=== PATIENT | male | born 1940 | race Two or more races ===

== ENCOUNTER 2019-09-25 02:37 | Inpatient (IN) | payer MEDICARE ==
[~2019-09-25] VITALS: Ht 182.9 cm; Wt 72.3 kg
[2019-09-25] VITALS (43 sets, daily range): BP systolic 70–185; BP diastolic 44–124
--- NOTE | 2019-09-25 02:45 | NUR ---
ED Nurse Note: pt JADE NEDA RA 28 from [facility] for SOB and dyspnea for unk amount of time. EMS report that they arrived on scene to pt being on a NRB mask satting at around 86%, SNF staff state they left the pt room for a "short amount of time" and when they returned, pt was in respiratory distress. EMS placed pt on C-pap machine, bringing his saturation up to 90%. pt presents AOxO, unarousable to name, mildly arousable to pain, pulling at cords and tubing. he has a g-tube secured via abdominal binder. pt sounds congested, EMS report SNF staff attempted to suction but were not able to suction anything. pt has skin tear to L forearm, redness diffusely over bilat arms, redness to rectum, skin is warm to touch.
--- NOTE | 2019-09-25 02:50 | NUR ---
ED Nurse Note: wong cath placed per ERMD orders, draining viscous brown fluid then red fluid filling up entire wong bag volume in approximately 20 minutes. specimen was obtained, remaining urine in wong bag was emptied. RN's established 2 IV sites- one 20 g on R forearm and one 20 g on L forearm, both are intact and patent, flushing well. all bloodwork obtained and sent to lab
--- NOTE | 2019-09-25 02:51 | Emergency Room Report ---
History of Present Illness General Chief Complaint: Dyspnea/Respdistress Source: Family Member, Medical Record, EMS Present Illness HPI This is a 79-year-old male custodial patient who presents with chief complaint of respiratory distress. Onset tonight. Oxygenation was in the 88% on room air. Computational Linguist put him on CPAP and sent him here. According to them, custodial noted that this occurred tonight. He has cough and congestion. Appear to be choking. He was admitted to an outside hospital a month ago for pneumonia and up with a feeding tube. Patient has a history of sepsis, pneumonia, depression. He is a full code. History is limited in this patient because of his medical condition. History is through custodial note, EMS and his . Allergies: Coded Allergies: No Known Allergies (Unverified , 09/25/19) COVID-19 Screening Contact w/high risk pt: Yes Experienced COVID-19 symptoms?: Yes COVID-19 Testing performed STRAIGHT TOOTH GEAR GENERATOR OPERATOR: No Patient History Past Medical History: see triage record, old chart reviewed Past Surgical History: other Pertinent Family History: none Social History: Denies: smoking Immunizations: other Reviewed Nursing Documentation: PMH: Agreed; PSxH: Agreed Review of Systems Respiratory: Reports: cough, shortness of breath All Other Systems: limited - Secondary to condition Physical Exam Vital Signs Date Time Temp Pulse Resp B/P (MAP) Pulse Ox O2 Delivery O2 Flow Rate FiO2 09/25/19 02:38 98.8 90 28 145/88 (107) 85 Non-Rebreather Vitals with hypoxia Sp02 EP Interpretation: reviewed, abnormal General Appearance: severe distress, Chronically Ill, Stupor Head: normocephalic, atraumatic Eyes: bilateral eye PERRL, bilateral eye EOMI ENT: hearing grossly normal, dry mucus membranes Neck: full range of motion, supple, no meningismus Respiratory: chest non-tender, respiratory distress, decreased breath sounds, accessory muscle use, rales, rhonchi Cardiovascular #1: regular rate, rhythm, no murmur Gastrointestinal: normal bowel sounds, non tender, no mass, no organomegaly, no bruit, non-distended Musculoskeletal: other - 1+ pitting edema Neurologic: other - Grimace to painful stimuli Psychiatric: other Skin: other Lymphatic: no adenopathy Procedures Critical Care Time Critical Care Time Critical care is mandated in this patient who presented with sepsis and acute renal failure with hyperkalemia. Patient require my urgent intervention to attenuate the risks of metabolic collapse which may lead to cardiovascular collapse and . Critical care time is 75 minutes excluding any reportable procedure. Critical care time included evaluation, multiple reevaluation, looking at old charts, interpreting laboratory and diagnostic data, discussing case with patient and family and consultants, and charting. Central Line Central Line : Consent: Emergent Central Line Lumen: double Maximal Sterile Barrier Tech: yes cap, yes mask, yes sterile gown, yes sterile gloves, yes large sterile sheet, yes hand hygiene, yes chlorhexidine prep Central Line Postion: femoral (R) Anesthesia: Lidocaine cc's of anesthesia: 10 Complications: none Central Line Post Position: sutured Attempts: One Patient Tolerated: Well Complications: None Progress Because of his hyperkalemia, I place a Makur double-lumen dialysis catheter in the right femoral vein. This was done under sterile condition using Seldinger technique. There is good blood flow return. Patient tolerated surgery without any problem. No complication. Medical Decision Making Diagnostic Impression: Primary Impression: Sepsis Qualified Codes: A41.9 - Sepsis, unspecified organism; R65.20 - Severe sepsis without septic shock; N17.9 - Acute kidney failure, unspecified Additional Impressions: HCAP (healthcare-associated pneumonia) UTI (urinary tract infection) Qualified Codes: N30.00 - Acute cystitis without hematuria Respiratory failure with hypoxia Qualified Codes: J96.01 - Acute respiratory failure with hypoxia ARF (acute renal failure) Qualified Codes: N17.9 - Acute kidney failure, unspecified Acute hyperkalemia Hyponatremia ACS (acute coronary syndrome) Acute metabolic encephalopathy ER Course This patient presents with hypoxia and respiratory distress. He has multi lobar infiltrates on the chest x-ray. COVID is negative. Also with sepsis from UTI. Wide spectrum antibiotics given. He is severely dehydrated with acute renal failure and hyperkalemia. Hyperkalemia treated with medication. If not improved, he may need emergent dialysis. Indeterminate troponin level is probably secondary to troponin leak from sepsis and acute renal failure. I discussed case with Dr. Segura for admission and Dr. Rachel for nephrology consult for dialysis. I discussed the case with his Ruma Padilla. Home phone number is . Her cell phone number is [phone]. She confirmed that he is a full code. Lab Results Impression Labs showed acute renal failure with hyperkalemia EKG Diagnostic Results Rate: normal Rhythm: NSR, other ST Segments: other - wide complex qrs Rhythm Strip Diag. Results EP Interpretation: yes Rate: 97 Rhythm: NSR, no PVC's, no ectopy Chest X-Ray Diagnostic Results Chest X-Ray Diagnostic Results : Chest X-Ray Ordered: Yes # of Views/Limited/Complete: 1 View Indication: Shortness of Breath EP Interpretation: Yes Interpretation: no effusion, no pneumothorax, other - Multi lobar interstitial infiltrates Impression: Other - interstitial infiltrates Electronically Signed by: Leonardo Almeida MD Last Vital Signs Date Time Temp Pulse Resp B/P (MAP) Pulse Ox O2 Delivery O2 Flow Rate FiO2 09/25/19 02:38 98.8 90 28 145/88 (107) 85 Non-Rebreather Status: improved Disposition: ADMITTED INPATIENT Condition: Critical Leonardo Almeida MD Sep 25, 2019 02:51
--- NOTE | 2019-09-25 02:59 | NUR ---
ED Nurse Note: Xray at bedside
[2019-09-25] MEDS ORDERED: ACETAMINOPHEN325 M1 GT ×2 (03:00→03:01)
[2019-09-25] MEDS ORDERED: CHOLECAL DF 951 EACH GT (03:00)
[2019-09-25] MEDS ORDERED: SINEMET 25-1001 EAC1 GT (03:01)
[2019-09-25] MEDS ORDERED: ALBUTEROL2.5 MG/3 M INH (03:01)
[2019-09-25] MEDS ORDERED: FAMOTIDINE20 MG GT (03:03)
[2019-09-25] MEDS ORDERED: DOCUSATE SODIU100 MG GT (03:03)
[2019-09-25 03:04] LABS: APPEARANCE,URINE CLOUDY; BILIRUBIN, URINE NEGATIVE (NEGATIVE); GLUCOSE, URINE (UA) NEGATIVE (NEGATIVE); KETONES,URINE NEGATIVE (NEGATIVE); LEUKOCYTE ESTERASE ,URINE 3+ (NEGATIVE); NITRITE,URINE NEGATIVE (NEGATIVE); PH,URINE 7 (4.5-8.0); PROTEIN,URINE 3+ (NEGATIVE); UROBILINOGEN,URINE NORMAL MG/DL (0.0-1.0)
[2019-09-25] MEDS ORDERED: LACTULOSE20 GM/301 GT (03:04)
[2019-09-25 03:05] LABS: HEMATOCRIT 38.3 % (42.0-52.0); HEMOGLOBIN 12.4 G/DL (14.2-18.0); MEAN CORPUSCULAR VOLUME 89 FL (80-99); PLATELET COUNT 342 K/UL (150-450); RED CELL DISTRIBUTION WIDTH 12.2 % (11.6-14.8); WHITE BLOOD COUNT 14.6 K/UL (4.8-10.8)
[2019-09-25] MEDS ORDERED: MULTIPLE VITAM1 EAC6 GT (03:06)
[2019-09-25] MEDS ORDERED: MELATONIN3 MG ORAL (03:06)
[2019-09-25] MEDS ORDERED: MAGNESIUM CITR296 M1 GT (03:06)
[2019-09-25] MEDS ORDERED: LEVOTHYROXINE100 MC1 GT (03:07)
[2019-09-25] MEDS ORDERED: SENNA8.6 M2 GT (03:09)
[2019-09-25] MEDS ORDERED: REMERON15 MG GT ×2 (03:09→03:11)
[2019-09-25] MEDS ORDERED: PRO-STAT LIQUID30 ML GT (03:11)
[2019-09-25] MEDS ORDERED: ZINC OXIDE56.7 GM TOPIC (03:13)
[2019-09-25] MEDS ORDERED: TRAZODONE HCL50 MG GT (03:14)
[2019-09-25] MEDS ORDERED: SIMVASTATIN40 MG GT (03:15)
[2019-09-25 03:16] LABS: COLOR,URINE BROWN
[2019-09-25] MEDS ORDERED: Cefepime HCl 1 GM in D5W 55 ML IVPB ONE (03:30)
--- NOTE | 2019-09-25 03:33 | Diagnostic Imaging Report ---
EXAM: XR Chest, 1 View CLINICAL HISTORY: SOB TECHNIQUE: Frontal view of the chest. COMPARISON: No relevant prior studies available. FINDINGS: Lungs: There are scattered interstitial and airspace opacities in both lungs, left more than right, concerning for underlying multifocal infectious process. No evidence of pulmonary edema. Pleural space: Unremarkable. No pneumothorax. Heart: Unremarkable. No cardiomegaly. Mediastinum: Unremarkable. No mediastinal widening or shift. Bones/joints: Unremarkable. IMPRESSION: Scattered interstitial and airspace opacities in both lungs suggestive of multifocal infectious process. Alternatively this may be due to residual postinflammatory changes from prior infection. Please correlate for any infectious symptoms and with patient's Covid 19 status. Consider further evaluation with CT chest, or short-term follow-up chest radiograph.
--- NOTE | 2019-09-25 03:36 | NUR ---
ED Nurse Note: pt appears to be increasingly agressive and more awake now. he is able to answer what his name is, attempts to pull bi-pap machine facemask off many times. RN tried to calm pt down and use talk therapy/ orientation to calm pt down, this is only temporarily effective as he continues to be restless and attempts to remove facemask. BASSEM notified
[2019-09-25 03:40] LABS: ALANINE AMINOTRANSFERASE 10 U/L (12-78); ALBUMIN 2.6 G/DL (3.4-5.0); ALBUMIN/GLOBULIN RATIO 0.5 (1.0-2.7); ALKALINE PHOSPHATASE 70 U/L (46-116); ANION GAP 10 mmol/L (5-15); ASPARTATE AMINO TRANSFERASE 32 U/L (15-37); BILIRUBIN,TOTAL 0.4 MG/DL (0.2-1.0); BLOOD UREA NITROGEN 182 mg/dL (7-18); CALCIUM 10.2 MG/DL (8.5-10.1); CARBON DIOXIDE 22 MMOL/L (21-32); CHLORIDE 95 MMOL/L (98-107); CKMB 4.2 NG/ML (0.0-3.6); CREATINE KINASE 67 U/L (26-308); CREATININE 11.7 MG/DL (0.55-1.30); SODIUM 127 MMOL/L (136-145)
[2019-09-25 03:51] LABS: POTASSIUM 8.8 MMOL/L (3.5-5.1)
[2019-09-25] MEDS ORDERED: Calcium Gluconate 1gm/10ml vial IVP ONE (04:15)
[2019-09-25] MEDS ORDERED: Albuterol ud Inhalation HHN ONE (04:15)
[2019-09-25] MEDS ORDERED: Insulin Human Regular 100units/ml 3ml IV ONE (04:15)
[2019-09-25] MEDS ORDERED: Sodium Bicarbonate 50ml Carp IV ONE (04:15)
[2019-09-25] MEDS ORDERED: Sodium Bicarbonate 50ml Carp ONE (04:17)
[2019-09-25 04:25] LABS: ANION GAP 10 mmol/L (5-15); BLOOD UREA NITROGEN 180 mg/dL (7-18); CALCIUM 9.6 MG/DL (8.5-10.1); CARBON DIOXIDE 21 MMOL/L (21-32); CHLORIDE 98 MMOL/L (98-107); SODIUM 128 MMOL/L (136-145)
[2019-09-25] MEDS ORDERED: Lidocaine 1% Plain 30 ml INJ ONE (04:29)
--- NOTE | 2019-09-25 04:35 | NUR ---
ED Nurse Note: BASSEM notified of pt's potassium of 8.5, repeat BMP sent to verify hyperkalemia. Dr. Almeida at pt bedside to place R femoral central line. RT at pt bedside administering breathing treatment, primary RN at pt bedside pushing meds as ordered. pt remains tachy on the monitor jumping between 100-150's and 160's, pt is restless, has tremors, h/o Parkinson's. vitals are otherwise at baseline for pt. will continue to monitor pt and redraw blood at 0600 as ordered by BASSEM
--- NOTE | 2019-09-25 04:43 | NUR ---
Patients :Ruma [phone] [phone]
--- NOTE | 2019-09-25 04:49 | Emergency Room Report ---
Sepsis Event Note Evaluation Current Stage of Sepsis: Sepsis Possible Source: Pulmonary, Genitourinary Focused Exam Allergies: Coded Allergies: No Known Allergies (Unverified , 09/25/19) Date Exam Occurred: Sep 25, 2019 Time Exam Occurred: 04:49 Laboratory Studies Laboratory Tests Test 09/25/19 02:45 09/25/19 03:50 09/25/19 04:04 White Blood Count 14.6 K/UL (4.8-10.8) H Red Blood Count 4.30 M/UL (4.70-6.10) L Hemoglobin 12.4 G/DL (14.2-18.0) L Hematocrit 38.3 % (42.0-52.0) L Mean Corpuscular Volume 89 FL (80-99) Mean Corpuscular Hemoglobin 28.8 PG (27.0-31.0) Mean Corpuscular Hemoglobin Concent 32.3 G/DL (32.0-36.0) Red Cell Distribution Width 12.2 % (11.6-14.8) Platelet Count 342 K/UL (150-450) Mean Platelet Volume 7.7 FL (6.5-10.1) Neutrophils (%) (Auto) % (45.0-75.0) Lymphocytes (%) (Auto) % (20.0-45.0) Monocytes (%) (Auto) % (1.0-10.0) Eosinophils (%) (Auto) % (0.0-3.0) Basophils (%) (Auto) % (0.0-2.0) Prothrombin Time 11.2 SEC (9.30-11.50) Prothromb Time International Ratio 1.0 (0.9-1.1) Activated Partial Thromboplast Time 27 SEC (23-33) Urine Color Brown Urine Appearance Cloudy Urine pH 7 (4.5-8.0) Urine Specific Amasa 1.010 (1.005-1.035) Urine Protein 3+ (NEGATIVE) H Urine Glucose (UA) Negative (NEGATIVE) Urine Ketones Negative (NEGATIVE) Urine Blood 5+ (NEGATIVE) H Urine Nitrite Negative (NEGATIVE) Urine Bilirubin Negative (NEGATIVE) Urine Urobilinogen Normal MG/DL (0.0-1.0) Urine Leukocyte Esterase 3+ (NEGATIVE) H Urine RBC Tntc /HPF (0 - 0) H Urine WBC Tntc /HPF (0 - 0) H Urine Squamous Epithelial Cells None /LPF (NONE/OCC) Urine Bacteria Moderate /HPF (NONE) H Sodium Level 127 MMOL/L (136-145) L 128 MMOL/L (136-145) L Potassium Level 8.8 MMOL/L (3.5-5.1) *H 9.0 MMOL/L (3.5-5.1) *H Chloride Level 95 MMOL/L (98-107) L 98 MMOL/L (98-107) Carbon Dioxide Level 22 MMOL/L (21-32) 21 MMOL/L (21-32) Anion Gap 10 mmol/L (5-15) 10 mmol/L (5-15) Blood Urea Nitrogen 182 mg/dL (7-18) H 180 mg/dL (7-18) H Creatinine 11.7 MG/DL (0.55-1.30) H 11.0 MG/DL (0.55-1.30) H Estimat Glomerular Filtration Rate 4.2 mL/min (>60) 4.6 mL/min (>60) Glucose Level 202 MG/DL (74-106) H 184 MG/DL (74-106) H Lactic Acid Level 2.20 mmol/L (0.4-2.0) H 2.00 mmol/L (0.66-2.22) Calcium Level 10.2 MG/DL (8.5-10.1) H 9.6 MG/DL (8.5-10.1) Total Bilirubin 0.4 MG/DL (0.2-1.0) Aspartate Amino Transf (AST/SGOT) 32 U/L (15-37) Alanine Aminotransferase (ALT/SGPT) 10 U/L (12-78) L Alkaline Phosphatase 70 U/L (46-116) Total Creatine Kinase 67 U/L (26-308) Creatine Kinase MB 4.2 NG/ML (0.0-3.6) H Creatine Kinase MB Relative Index 6.2 Troponin I 0.156 ng/mL (0.000-0.056) Pro-B-Type Natriuretic Peptide 2461 pg/mL (0-125) H Total Protein 8.2 G/DL (6.4-8.2) Albumin 2.6 G/DL (3.4-5.0) L Globulin 5.6 g/dL Albumin/Globulin Ratio 0.5 (1.0-2.7) L Vital Signs Last 24 Hour Vital Signs Date Time Temp Pulse Resp B/P (MAP) Pulse Ox O2 Delivery O2 Flow Rate FiO2 09/25/19 04:43 120 24 100 Bi-Pap 100 09/25/19 03:11 99 26 Bi-pap 15.0 100 09/25/19 03:00 97.7 99 26 137/80 97 Bi-pap 15.0 09/25/19 02:48 164 26 94 100 09/25/19 02:38 98.8 90 28 145/88 (107) 85 Non-Rebreather Respiratory Exam: Rhonchi Cardiovascular Exam: RRR, Tachycardia Capillary Refill: Less Than 2 Seconds Peripheral Pulse: Strong Pulse Location: Radial Skin Exam: Normal Turgor Leonardo Almeida MD Sep 25, 2019 04:49
--- NOTE | 2019-09-25 05:24 | NUR ---
NURSE NOTES: Telephone report received from Carmella CAMPBELL at this time. She will send Labs and then bring patient up.
--- NOTE | 2019-09-25 05:24 | NUR ---
ED Nurse Note: report given to SHANNAN Bellamy
--- NOTE | 2019-09-25 05:49 | NUR ---
NURSE NOTES: Report given to Ronna CAMPBELL at this time.
[2019-09-25 06:06] LABS: ANION GAP 8 mmol/L (5-15); BLOOD UREA NITROGEN 166 mg/dL (7-18); CALCIUM 9.1 MG/DL (8.5-10.1); CARBON DIOXIDE 23 MMOL/L (21-32); CHLORIDE 104 MMOL/L (98-107); CREATININE 9.4 MG/DL (0.55-1.30); SODIUM 135 MMOL/L (136-145)
[2019-09-25 06:11] LABS: POTASSIUM 7.2 MMOL/L (3.5-5.1)
--- NOTE | 2019-09-25 06:15 | NUR ---
NURSE NOTES: admit pt from resp distress on b-pap 29/06 80%
--- NOTE | 2019-09-25 06:27 | NUR ---
NURSE NOTES: Spoke with Jensen at [facility] about flu and PNA vaccine. Per Nurse Patients refused.
--- NOTE | 2019-09-25 06:55 | NUR ---
NURSE NOTES: MD Rachel called at this time to follow up on dialysis.; he is unable to place order from home but he will be here in an hour. please follow up and make sure that [facility] has been paged.
--- NOTE | 2019-09-25 06:58 | NUR ---
NURSE NOTES: Spoke with BJ from [facility] at this time. attempted to call [facility] dialysis nurse but her phone is off at this time. [facility] dialysis aware that Order is stat.
--- NOTE | 2019-09-25 07:00 | NUR ---
NURSE NOTES: dr lujan was called for admit order did not call back
--- NOTE | 2019-09-25 07:14 | NUR ---
NURSE NOTES: Ki Called back at this time. She will be here shortly.
--- NOTE | 2019-09-25 07:40 | NUR ---
NURSE NOTES: LATE ENTRY: RECEIVED REPORT FROM LOWELL Ann PT IN BED. OPENS EYES . AWAKE TO NAME, FATIGUED. PUPILS 3MM, SLUGGISH. VSS ON MONITOR. PT ON BIPAP 5, 80% FI02. SECRETIONS THICK. SUCTION VIA NASOPHARYNGEAL ROUTE. NPO, GT CLAMPED. NO BM. ABDOMEN SOFT, TENDER. ARECHIGA NOTED, SECURED. PATENT DRAINING BELOW BLADDER. HEMATURIA. BLADDER NON DISTENDED. SKIN -SEE ASSESSMENT, LT FA SKIN TEAR, NOTED. BILATERAL RADIAL PULSES WEAK AND PEDAL PULSES STRONG. CAP REFILL <3SEC. IV ACCESS LFA 22G AND RT HAND 20G OCCLUDED. WILL PLACE NEW IV. AFEBRILE. PT MOVES UPPER AND LOWER EXTREMITIES EQUALLY.MILD JERKY MOVEMENT OF BODY AND LEGS NOTED. SOFT WRIST RESTRAINTS NOTED. CIRCULATION CHECK. CALL LIGHT IN REACH, BED LOCKED AND IN LOW POSITION. BED ALARM ON. WILL CONTINUE TO MONITOR PT.
--- NOTE | 2019-09-25 07:42 | NUR ---
NURSE NOTES: LATE ENTRY: CALLED [facility] FOR CONSENT FOR H.D. CONSENT OBTAINED.
--- NOTE | 2019-09-25 07:51 | NUR ---
HAND-OFF: Report given to .abdoul spann using sbar
--- NOTE | 2019-09-25 07:59 | NUR ---
NURSE NOTES: LATE ENTRY: CALLED MD GONZALEZ REGARDING ADMISSION ORDER AND SEDATION FOR AGITATION, PROTONIX AND ABG RESULTS. AWAITING CALL BACK.
--- NOTE | 2019-09-25 08:00 | NUR ---
NURSE NOTES: LATE ENTRY: R.T REMOVED PT OFF BIPAP, PLACED ON VENTURI MASK 14L, 55%. PT VERY AGITATED AND COMBATIVE. DIFFICULT TO COMFORT. PT STATES NOT IN PAIN. WILL ASK MD FOR SEDATION. RESTRAINTS SECURED.
--- NOTE | 2019-09-25 08:11 | NUR ---
NURSE NOTES: CALLED BACK OK FOR ATIVAN 1MG IV Q6HR. WILL BE IN TO SEE PT.
--- NOTE | 2019-09-25 08:35 | NUR ---
RD ASSESSMENT & RECOMMENDATIONS SEE CARE ACTIVITY FOR COMPLETE ASSESSMENT DAILY ESTIMATED NEEDS: Needs based on Pulmonary, renal 68.18kg 25-30 kcals/kg 7902-1850 total kcals 1.25-2 w/ HD g protein/kg 85-136 g total protein Fluid per MD NUTRITION DIAGNOSIS: 1. Swallowing difficulty r/t dysphagia as evidenced by pt is GT dep. 2. Altered nutrition related lab values r/t clinical status, sepsis, dehydration, renal failure as evidenced by elev K(9.0->7.2*), elev BUN(166), elev Creat (9.4). CURRENT DIET: NPO ENTERAL NUTRITION RECOMMENDATIONS: NEPRO @40ml/hr x24 hrs to provide 960ml, 1728 kcal, 78g pro, 698ml free H2O - As medically able, start NEPRO @20ml/hr for 6 hrs. Advance as tolerated 10ml/hr q4-6 hrs to goal. - When tolerating TF at goal add Prosource 1 pack daily (11g pro) to better meet est pro needs. - Flush per MD, HOB Over 30 degrees. ----- ADDITIONAL RECOMMENDATIONS: 1) F/up w/ H&P 2) TF recs as above when stable for feeds 3) Rec WC eval-> w/ active TF order, add DEENA in 4oz H2O BID 4) NISS prn for glycemic control 5) Monitor resp status and ability to feed-> now on Bipap. 6) GREEN CHAINER eval when appropriate for oral diet/ oral grat
[2019-09-25 09:01] LABS: ALANINE AMINOTRANSFERASE 12 U/L (12-78); ALKALINE PHOSPHATASE 50 U/L (46-116); ASPARTATE AMINO TRANSFERASE 37 U/L (15-37); BILIRUBIN,DIRECT 0.1 MG/DL (0.0-0.3); BILIRUBIN,TOTAL 0.3 MG/DL (0.2-1.0); GAMMA GLUTAMYL TRANSPEPTIDASE 29 U/L (5-85); PHOSPHORUS 4.8 MG/DL (2.5-4.9)
[2019-09-25] MEDS ORDERED: LORazepam Inj 2mg/ml 1ml IV PRN (09:30)
--- NOTE | 2019-09-25 09:30 | NUR ---
NURSE NOTES:WOUND CARE NOTES:Pt presented on admission with MASD Perianal, R and L clefts of buttocks extending to scrotum and groin areas . Skin is erythematous with scattered satellite lesions. Both heels are boggy with non-blanchable erythema. Hammer toe L 2nd metatarsal. Dry callus with surrounding erythema noted to dorsal L 2nd metatarsal . NO exudate or changes in skin temp at site noted. Tx.Plan:Apply Triad Paste to Groin, scrotum and buttocks with each Incontinence care. Cover Sacrum and Bilat trochanter with Optifoam drsgs. Change every 3 days and prn. Apply Cavilon Skin Barrier to both heels and Malleoli. Cover each site with Optifoam drsgs. Change every 7 Days and PRN. Apply Betadine to L 2nd metatarsal every 3 days and prn. Reposition at least every 2hours or as tolerated. Place pillow between knees. Off-load heels with pillow. APM/ARNOLD Mattress overlay.
--- NOTE | 2019-09-25 10:20 | NUR ---
NURSE NOTES: LATE ENTRY: H.D R.N HERE TO START H.D. PT IN NO ACUTE DISTRESS. WILL CONTINUE TO MONITOR.
--- NOTE | 2019-09-25 10:25 | Consultation ---
Consult Note Consult Note I am asked to evaluate the patient at the request of Dr. Dugan for management of renal failure and hyperkalemia Patient seen in room 80 at the ICU Examined, discussed with charge nurse Chief Complaint: Dyspnea/Respdistress This is a 79-year-old male senior care patient who presents with chief complaint of respiratory distress. Onset tonight. Oxygenation was in the 88% on room air. Magnetic Prospecting Supervisor put him on CPAP and sent him here. According to them, senior care noted that this occurred tonight. He has cough and congestion. Appear to be choking. He was admitted to an outside hospital a month ago for pneumonia and up with a feeding tube. Patient has a history of sepsis, pneumonia, depression. He is a full code. History is limited in this patient because of his medical condition. History is through senior care note, EMS and his . Allergies: No Known Allergies (Unverified , 09/25/19) COVID-19 Screening Contact w/high risk pt: Yes Experienced COVID-19 symptoms?: Yes COVID-19 Testing performed NET PROGRAMMER: No Vital Signs in ER : Date Time Temp Pulse Resp B/P (MAP) Pulse Ox O2 Delivery O2 Flow Rate FiO2 09/25/19 02:38 98.8 90 28 145/88 (107) 85 Non-Rebreather Vitals with hypoxia PHYSICAL EXAMINATION: VITAL SIGNS: Show a blood pressure of 100/69, pulse is 86, respirations 18, and temperature 98.1. HEAD AND NECK: Showed no JVD. LUNGS: Decreased breath sounds. CARDIOVASCULAR: Shows regular S1 and S2 with no gallop or rub. ABDOMEN: Soft, status post G-tube. EXTREMITIES: No pitting edema. Laboratory Tests Test 09/25/19 02:45 09/25/19 03:50 09/25/19 04:04 White Blood Count 14.6 K/UL (4.8-10.8) H Red Blood Count 4.30 M/UL (4.70-6.10) L Hemoglobin 12.4 G/DL (14.2-18.0) L Hematocrit 38.3 % (42.0-52.0) L Mean Corpuscular Volume 89 FL (80-99) Mean Corpuscular Hemoglobin 28.8 PG (27.0-31.0) Mean Corpuscular Hemoglobin Concent 32.3 G/DL (32.0-36.0) Red Cell Distribution Width 12.2 % (11.6-14.8) Platelet Count 342 K/UL (150-450) Mean Platelet Volume 7.7 FL (6.5-10.1) Neutrophils (%) (Auto) % (45.0-75.0) Lymphocytes (%) (Auto) % (20.0-45.0) Monocytes (%) (Auto) % (1.0-10.0) Eosinophils (%) (Auto) % (0.0-3.0) Basophils (%) (Auto) % (0.0-2.0) Prothrombin Time 11.2 SEC (9.30-11.50) Prothromb Time International Ratio 1.0 (0.9-1.1) Activated Partial Thromboplast Time 27 SEC (23-33) Urine Color Brown Urine Appearance Cloudy Urine pH 7 (4.5-8.0) Urine Specific [place]ushing 1.010 (1.005-1.035) Urine Protein 3+ (NEGATIVE) H Urine Glucose (UA) Negative (NEGATIVE) Urine Ketones Negative (NEGATIVE) Urine Blood 5+ (NEGATIVE) H Urine Nitrite Negative (NEGATIVE) Urine Bilirubin Negative (NEGATIVE) Urine Urobilinogen Normal MG/DL (0.0-1.0) Urine Leukocyte Esterase 3+ (NEGATIVE) H Urine RBC Tntc /HPF (0 - 0) H Urine WBC Tntc /HPF (0 - 0) H Urine Squamous Epithelial Cells None /LPF (NONE/OCC) Urine Bacteria Moderate /HPF (NONE) H Sodium Level 127 MMOL/L (136-145) L 128 MMOL/L (136-145) L Potassium Level 8.8 MMOL/L (3.5-5.1) *H 9.0 MMOL/L (3.5-5.1) *H Chloride Level 95 MMOL/L (98-107) L 98 MMOL/L (98-107) Carbon Dioxide Level 22 MMOL/L (21-32) 21 MMOL/L (21-32) Anion Gap 10 mmol/L (5-15) 10 mmol/L (5-15) Blood Urea Nitrogen 182 mg/dL (7-18) H 180 mg/dL (7-18) H Creatinine 11.7 MG/DL (0.55-1.30) H 11.0 MG/DL (0.55-1.30) H Estimat Glomerular Filtration Rate 4.2 mL/min (>60) 4.6 mL/min (>60) Glucose Level 202 MG/DL (74-106) H 184 MG/DL (74-106) H Lactic Acid Level 2.20 mmol/L (0.4-2.0) H 2.00 mmol/L (0.66-2.22) Calcium Level 10.2 MG/DL (8.5-10.1) H 9.6 MG/DL (8.5-10.1) Total Bilirubin 0.4 MG/DL (0.2-1.0) Aspartate Amino Transf (AST/SGOT) 32 U/L (15-37) Alanine Aminotransferase (ALT/SGPT) 10 U/L (12-78) L Alkaline Phosphatase 70 U/L (46-116) Total Creatine Kinase 67 U/L (26-308) Creatine Kinase MB 4.2 NG/ML (0.0-3.6) H Creatine Kinase MB Relative Index 6.2 Troponin I 0.156 ng/mL (0.000-0.056) Pro-B-Type Natriuretic Peptide 2461 pg/mL (0-125) H Total Protein 8.2 G/DL (6.4-8.2) Albumin 2.6 G/DL (3.4-5.0) L Globulin 5.6 g/dL Albumin/Globulin Ratio 0.5 (1.0-2.7) L Patient is full code COndition Critical . Assessment/Plan Renal failure, acute, possible underlying chronic kidney disease Acute HyperKalemia 8.8 Sepsis, pneumonia, UTI Acute respiratory failure with hypoxia Hyponatremia ACS Acute metabolic encephalopathy Has G-tube Hypothyroidism Parkinson's Plan: Urgent dialysis to correct hyperkalemia and part of uremic symptoms Kidney ultrasound 2D echo The blood pressure and blood sugar in check Per orders I spent an additional 36 minutes on review of medical records including prior hospital records,consult notes, progress notes, procedures ,imaging labs, hemodynamics, and other clinical documentation. Over 35 min Ezekiel Rachel MD Sep 25, 2019 10:25
[2019-09-25] MEDS: Pantoprazole Inj IV SCH ×2 (11:00→21:03)
[2019-09-25] MEDS ORDERED: Heparin1,000 units/500ml Premix(Conc:2 units/ml) IV PRN (11:00)
[2019-09-25] MEDS ORDERED: Lidocaine 1% Plain 30 ml INJ PRN (11:00)
--- NOTE | 2019-09-25 12:50 | NUR ---
NURSE NOTES: LATE ENTRY: H.D COMPLETE. 500ML REMOVED. PT BP TRENDING DOWN, WILL CONTINUE TO MONITOR PT.
[2019-09-25] MEDS: Docusate 100mg/10ml Liq GT SCH ×2 (13:00→17:25)
[2019-09-25] MEDS ORDERED: Docusate 100mg cap ORAL SCH (13:00)
--- NOTE | 2019-09-25 13:50 | NUR ---
NURSE NOTES: LATE ENTRY: TECH HERE TO DO RENAL U.S. PT IN NO ACUTE DISTRESS.
[2019-09-25] MEDS ORDERED: Cefepime HCl 2 GM in D5W 110 ML IV SCH (14:00)
--- NOTE | 2019-09-25 14:27 | NUR ---
Social Work This SW followed up with patient who is currently in the ICU. Patients spouse, Ruma Padilla is the primary decision maker for patient. This SW contacted Ruma at [phone] (Cell), who explains to also contact her at her home number: [phone]. Spouse states they had done an Advanced Directive, while requesting full code, full treatment. Spouse explains patient was living at [facility] retirement; patient recently was admitted to this facility and cannot return home (due to requires more care than spouse can handle). Spouse expressing no other needs or concerns at this time (has been in contact with nursing, as needed).
--- NOTE | 2019-09-25 14:30 | NUR ---
NURSE NOTES: LATE ENTRY: RENAL U.S COMPLETE. PT IN NO ACUTE DISTRESS. PT REPOSITIONED. RESTRAINTS CHECKED AND SECURED.
--- NOTE | 2019-09-25 14:40 | NUR ---
NURSE NOTES: LATE ENTRY: TECH HERE TO DO 2D ECHO. PT IN NO ACUTE DISTRESS.
--- NOTE | 2019-09-25 14:50 | NUR ---
CASE MANAGEMENT:INITIAL REVIEW 79 YR OLD MALE BIBA FORM [facility] CC;DYSPNEA. RESPIRATORY DISTRESS. SI;SEPSIS. PNEUMONIA. UTI. 98.8 164 28 145/88 85% 15L NRB WBC 14.6 H/H 12.4/38.3 NA 127 K+ 8.8 BUN 182 CR 11.7 NH 202 LAC ACID 2.2 CA 10.2 CK-2 4.2 TROP 0.156 BNP 2461 ALB 2.6 ABG pCO2 29.1 pO2 194.9 HCO3 16.9 BASE EXCESS -7 COVID-19 PCR RAPID ~ NEGATIVE CXR ~ Scattered interstitial and airspace opacities in both lungs suggestive of multifocal infectious process. Alternatively this may be due to residual postinflammatory changes from prior infection. Please correlate for any infectious symptoms and with patient's Covid 19 status. Consider further evaluation with CT chest, or short-term follow-up chest radiograph. IS;CEFEPIME IV LEVAQUIN IV NAHCO3 IV IVF NS BOLUS ALBUTEROL HHN D50W ONCE INSULIN HUMAN ONCE CA GLUCONATE IV ADMITTED TO ICU 09/25/19 @ 1032 ICU STATUS DCP;FROM [facility]
--- NOTE | 2019-09-25 15:02 | NUR ---
NURSE NOTES: CALLED MD FUNES, CLEARED TO RECEIVE PICC.
--- NOTE | 2019-09-25 15:11 | NUR ---
INSURANCE ALL AVAILABLE CLINICALS AND REVIEWS HAVE BEEN FAXED TO [facility] P: [phone] F: [phone] REF# [id number] Addendum: 09/25/19 at 1523 by ABEL DOBSON CM INSURANCE HCP/[employer] REF# [id number] PH: [phone] [employer] 1 FX: [phone]
--- NOTE | 2019-09-25 15:30 | History and Physical Report ---
DATE OF ADMISSION: 09/25/2019 HISTORY OF PRESENT ILLNESS: This is a 79-year-old residential resident who was transferred to the facility with concern about infection. Patient had respiratory distress. He was hypoxic. Patient was placed on a CPAP machine and transferred to [facility]. He appeared to be coughing, choking, and congested. It is noted that he was admitted to outside hospital about a month ago and had a gastrostomy tube placed. Patient is a Full Code. However, at this point, he is unable to provide any further history. I have reviewed his medical records and I note that the patient has a history of mild depression, dementia, history of Parkinson disease, previous IA, gastrostomy tube placement, hypothyroidism, hyperlipidemia, hypertension, previous pneumonia, GERD, history of GI bleed. MEDICATIONS: Include Isosource 65 mL per hour, Tylenol, Abilify, Colace, Synthroid, Lexapro, Namenda, simvastatin, and vitamin D3. In the past, he has completed Zosyn and vancomycin for pneumonia. SOCIAL HISTORY: He has a . He is currently residential resident after being admitted to the hospital recently. There is no history of current or previous tobacco usage. REVIEW OF SYSTEMS: Not obtainable. PHYSICAL EXAMINATION: GENERAL: Reveals an elderly male. HEENT: Unremarkable. CHEST: Clear breath sounds bilaterally. ABDOMEN: Soft. There is no appreciable edema. There is a gastrostomy tube in place. Patient is agitated and required Ativan. VITAL SIGNS: Blood pressure is 140/80, heart rate is 90, respirations are 20, he is afebrile. Currently, he is on a Ventimask. Overnight, he was on BiPAP. LABORATORY DATA: Lab testing shows white count 14,000, hemoglobin of 12, platelet count is 342,000. Potassium was 9 initially, now 7.2. He is currently on dialysis. Creatinine is 9.4. ABG showed pH 7.38, pCO2 29, pO2 194. Coags are normal. Urinalysis shows too numerous wbc's. X-ray chest was obtained, which shows bilateral pneumonia. IMPRESSION: 1. Healthcare-associated pneumonia. 2. Acute renal failure. 3. History of previous SBO. 4. CAD. 5. Parkinson's. 6. Dementia. DISCUSSION: Admit to the hospital. There is a note that patient should not have a Montalvo in place. We will have bladder scan. We will follow as intensive care nurse. Urgent hemodialysis. May need pressors. Broad-spectrum antibiotics. Follow carefully. Isaac Dugan M.D. DR: UZAIR JOB#: [id number] CC:
--- NOTE | 2019-09-25 16:16 | NUR ---
NURSE NOTES: LATE ENTRY: PT IN BED. OPENS EYES . AWAKE TO NAME, FATIGUED. PUPILS 3MM, SLUGGISH. VSS ON MONITOR. PT ON VENTURI MASK 10L45% FI02. SECRETIONS THICK. SUCTION VIA NASOPHARYNGEAL ROUTE. GT RUNNING NEPRO 20ML/HR. GOAL 50ML/HR.. NO BM. ABDOMEN SOFT, TENDER. ARECHIGA NOTED, SECURED. PATENT DRAINING BELOW BLADDER. HEMATURIA. BLADDER NON DISTENDED. PICC LINE, TRACY. BILATERAL RADIAL PULSES WEAK AND PEDAL PULSES STRONG. SOFT WRIST RESTRAINTS NOTED. CIRCULATION CHECK. BED LOCKED AND IN LOW POSITION. BED ALARM ON. WILL CONTINUE TO MONITOR PT.
[2019-09-25] MEDS ORDERED: Norepinephrine 4mg/NS Premix 250 ML IV PRN (16:37)
--- NOTE | 2019-09-25 16:56 | NUR ---
RADIOLOGY NOTE: LEFT UPPER EXTREMITY PICC LINE PLACEMENT AT [address] GREGORIO JENKINS. FA
--- NOTE | 2019-09-25 17:07 | Brief Operative Note ---
Immediate Post Operative Note Operative Note Pre-op Diagnosis: needs terminal press operator IV access Procedure: PICC Post-op Diagnosis: same as pre-op Surgeon: Rosalino CARBAJAL Anesthesia: local Specimen: none Complications: none Fluids: none Estimated Blood Loss: none Implant(s) used?: No José Luis Carbajal MD Sep 25, 2019 17:07
--- NOTE | 2019-09-25 17:13 | Diagnostic Imaging Report ---
Indications: Needs long-term IV access Technique: Procedure performed at bedside. Procedural timeout performed. Ultrasound confirms patent compressible left basilic vein. Total sterile technique, including sterile probe cover and sterile gel, sterile gloves, hand hygiene, hat, mask,, sterile gown, large sterile drape, and preparation with 2% chlorhexidine utilized. Local anesthesia with 1% lidocaine. Under real-time ultrasound guidance, puncture basilic vein using 21-gauge needle, passage 0.018 guidewire, exchange for 4 Maori peel-away sheath. 4 Maori Bard dual-lumen power PICC cut to 40 cm. It was inserted through the peel-away sheath. Peel-away sheath and guidewire removed. Catheter fixed to the skin. Both catheter ports aspirated and flushed. Patient tolerated procedure well, without immediate complication. Followup chest x-ray obtained, documents catheter tip position at the high right atrium Impression: Successful bedside placement of left arm PICC under sonographic guidance, as described above.
[2019-09-25] MEDS ORDERED: MULTIVITAMINS1 EAC8 GT (17:59)
[2019-09-25] MEDS ORDERED: VITAMIN D325 MCG GT (17:59)
[2019-09-25] MEDS ORDERED: LEVOTHYROXINE75 MCG GT (17:59)
[2019-09-25] MEDS ORDERED: CARBIDOPA-LEVO1 EA14 GT (17:59)
[2019-09-25] MEDS: LORazepam Inj 2mg/ml 1ml IV PRN (18:26)
--- NOTE | 2019-09-25 18:31 | NUR ---
NURSE NOTES: LATE ENTRY: PT KICKING LEGS, PULLING AT RESTRAINTS. SHAKING WHOLE BODY. PT VERY AGITATED. BP STABLE ATIVAN 0.25MG IVP GIVEN PER MD ORDER.
--- NOTE | 2019-09-25 19:30 | NUR ---
HAND-OFF: Report given to LOWELL Ann ENDORSED F/U HEP SUBCUT
--- NOTE | 2019-09-25 19:42 | NUR ---
NURSE NOTES: received report from abdoul rn pt awake and alert but confuse and restless on stone soft wrest nan complaints reposition and suction
[2019-09-25] MEDS: Dyna-Hex 2% Top Sol 2oz TOPIC SCH (20:28)
[2019-09-25] MEDS: Heparin 5000 units/ml inj SUBQ SCH (21:04)
--- NOTE | 2019-09-25 22:00 | NUR ---
NURSE NOTES: reposition and suction asleep hr sr
[2019-09-26] VITALS (24 sets, daily range): BP systolic 107–163; BP diastolic 47–87
--- NOTE | 2019-09-26 | NUR ---
NURSE NOTES: condition un change
[2019-09-26] MEDS: Cefepime 1gm/D5W 55ml IVPB SCH ×2 (03:21)
--- NOTE | 2019-09-26 04:00 | NUR ---
NURSE NOTES: complete bed bath oral care and back care reposition and suctio
[2019-09-26 05:21] LABS: ALANINE AMINOTRANSFERASE 34 U/L (12-78); ALBUMIN 2.1 G/DL (3.4-5.0); ALBUMIN/GLOBULIN RATIO 0.5 (1.0-2.7); ALKALINE PHOSPHATASE 50 U/L (46-116); ANION GAP 9 mmol/L (5-15); ASPARTATE AMINO TRANSFERASE 33 U/L (15-37); BILIRUBIN,TOTAL 0.3 MG/DL (0.2-1.0); BLOOD UREA NITROGEN 59 mg/dL (7-18); CALCIUM 8.8 MG/DL (8.5-10.1); CARBON DIOXIDE 27 MMOL/L (21-32); CHLORIDE 109 MMOL/L (98-107); CHOLESTEROL 81 MG/DL (< 200); CREATININE 2.5 MG/DL (0.55-1.30); GAMMA GLUTAMYL TRANSPEPTIDASE 15 U/L (5-85); HDL CHOLESTEROL 24 MG/DL (40-60); LACTATE DEHYDROGENASE 253 U/L (81-234); PHOSPHORUS 4.4 MG/DL (2.5-4.9); POTASSIUM 3.7 MMOL/L (3.5-5.1); SODIUM 145 MMOL/L (136-145); TRIGLYCERIDES 65 MG/DL (30-150)
--- NOTE | 2019-09-26 07:39 | NUR ---
HAND-OFF: Report given to ileana spann using sbar.
--- NOTE | 2019-09-26 08:00 | NUR ---
NURSE NOTES: Received change of shift report from Ronna CAMPBELL. Pt is awake, confused, restless, impulsive, on Venturi Mask at 15L of oxygen FIO2 55%, remains at 100% O2Sat with no respiratory distress; slightly diminished lung sounds. NSR on cardiac catheterization technologist, with bounding peripheral pulses. Temp 98.9F axillary. GT with abdominal binder and feeding Nepro 1.8 currently infusing at 40ml/hour with zero residual. Abdomen is round, soft, nontender to touch with hypoactive bowel sounds. Montalvo catheter is present, draining clear/yellow urine. Left UA double lumen PICC noted, TKO, patent/intact. Left Femoral Justyn cath present for dialysis, dressing dry/intact. Pt also has left wrist #22G peripheral IV access, saline locked, patent/intact. Noted skin alterations including perianal redness. Pt is on pressure release mattress. HOB at semi-lainez's, bed locked, in lowest position, three side rails up. Will continue with plan of care.
[2019-09-26] MEDS: Levodopa/Carbidopa 25/250 tab GT SCH ×3 (08:46→21:15)
[2019-09-26] MEDS: Docusate 100mg/10ml Liq GT SCH ×3 (08:46→18:51)
[2019-09-26] MEDS: Pantoprazole Inj IV SCH ×2 (08:46→20:25)
[2019-09-26] MEDS: Heparin 5000 units/ml inj SUBQ SCH ×2 (08:47→20:27)
[2019-09-26] MEDS: LORazepam Inj 2mg/ml 1ml IV PRN (08:53)
--- NOTE | 2019-09-26 08:53 | NUR ---
NURSE NOTES: AM meds were administered. Ativan was also administered per PRN order for anxiety, pt is noted to be restless, kicking with legs, and pulling gown off his body, while maintained on bilateral soft wrist restraints. Pt was repositioned for comfort. VS remain stable.
--- NOTE | 2019-09-26 08:58 | Nephrology Progress Note ---
Assessment/Plan Problem List: (1) ARF (acute renal failure) (2) Acute hyperkalemia (3) Respiratory failure with hypoxia (4) HCAP (healthcare-associated pneumonia) (5) Acute metabolic encephalopathy (6) Parkinsons disease (7) Elevated troponin I level Assessment Renal failure, acute, possible underlying chronic kidney disease Sepsis, pneumonia, UTI Acute respiratory failure with hypoxia Hyponatremia ACS Acute metabolic encephalopathy Has G-tube Hypothyroidism Parkinson's Plan Aspirin, Lopressor, Nitropaste, started Patient was dialyzed yesterday today hyperkalemia is resolved 2D echocardiogram results noted. No number for ejection fraction is documented. Kidney ultrasound results pending. Discussed with SHANNAN Faulkner. Continue to monitor renal parameters and dialysis as needed. Per orders Subjective ROS Limited/Unobtainable: No Constitutional: Reports: malaise Objective Objective Last 24 Hour Vital Signs Date Time Temp Pulse Resp B/P (MAP) Pulse Ox O2 Delivery O2 Flow Rate FiO2 09/26/19 07:24 102 100 09/26/19 06:00 101 20 111/69 (83) 100 09/26/19 05:00 100 21 121/77 (92) 100 09/26/19 04:40 98 100 09/26/19 04:00 Venturi Mask 14.0 Venturi Mask 14.0 09/26/19 04:00 99 09/26/19 04:00 14.0 55 09/26/19 04:00 98.1 99 19 107/56 (73) 99 09/26/19 03:00 109 22 157/87 (110) 100 09/26/19 02:53 106 99 09/26/19 02:00 99 17 124/74 (91) 92 09/26/19 01:00 96 18 163/77 (105) 100 09/26/19 00:55 93 100 09/26/19 00:00 Venturi Mask 14.0 Venturi Mask 14.0 09/26/19 00:00 98.4 93 16 112/48 (69) 99 09/26/19 00:00 91 09/25/19 23:00 91 17 124/56 (78) 99 09/25/19 22:47 92 100 09/25/19 22:00 96 21 128/51 (76) 99 09/25/19 21:00 98.8 92 20 119/46 (70) 99 09/25/19 20:36 90 99 09/25/19 20:00 14.0 55 09/25/19 20:00 94 21 104/52 (69) 99 09/25/19 20:00 Venturi Mask 14.0 Venturi Mask 14.0 09/25/19 20:00 104 09/25/19 19:19 91 98 09/25/19 19:00 91 19 86/44 (58) 98 09/25/19 18:00 100 22 100/44 (62) 99 09/25/19 17:30 99 22 112/46 (68) 93 09/25/19 17:00 95 29 91/45 (60) 100 09/25/19 16:11 105 09/25/19 16:00 Venturi Mask 14.0 Venturi Mask 14.0 09/25/19 16:00 98.8 104 22 128/59 (82) 99 09/25/19 15:30 104 24 111/45 (67) 98 09/25/19 15:00 99 23 101/60 (74) 100 09/25/19 14:30 100 26 100/55 (70) 100 09/25/19 14:00 94 22 113/51 (71) 100 09/25/19 13:30 105 31 126/54 (78) 95 09/25/19 13:00 104 26 98/47 (64) 96 09/25/19 12:30 96 30 77/52 (60) 09/25/19 12:00 102 09/25/19 12:00 98.0 101 31 131/88 (102) 100 09/25/19 12:00 Venturi Mask 14.0 Venturi Mask 14.0 09/25/19 10:51 26 91/72 (78) 100 09/25/19 10:48 25 185/124 (144) 100 09/25/19 10:35 25 89/63 (72) 100 09/25/19 10:23 23 74/51 (59) 100 09/25/19 10:15 21 70/44 (53) 100 09/25/19 10:06 25 124/53 (76) 100 09/25/19 10:00 23 79/45 (56) 100 09/25/19 09:55 28 102/59 (73) 100 09/25/19 09:45 25 89/59 (69) 100 09/25/19 09:30 25 152/87 (108) 97 09/25/19 09:15 24 119/75 (90) 99 09/25/19 09:00 28 124/66 (85) 99 Intake and Output 09/25/19 09/26/19 19:00 07:00 Intake Total 55 ml 580 ml Output Total 1250 ml 1730 ml Balance -1195 ml -1150 ml Free Water 150 ml IV Total 110 ml Tube Feeding 55 ml 320 ml Output Urine Total 750 ml 1730 ml Hemodialysis UF 500 ml Current Medications Medications (Trade) Dose Ordered Sig/Mick Route PRN Reason Start Time Stop Time Status Last Admin Dose Admin Carbidopa/Levodopa (Sinemet 25/250) 1 tab Q8HR GT 09/26/19 09:00 10/26/19 08:59 09/26/19 08:46 Cefepime HCl 1 gm/ Dextrose 55 ml @ 110 mls/hr Q24H IVPB 09/26/19 03:00 10/03/19 02:59 09/26/19 03:21 Chlorhexidine Gluconate (Park-Hex 2%) 1 applic DAILY@2000 TOPIC 09/25/19 20:00 12/24/19 19:59 09/25/19 20:28 Dextrose (Dextrose 50%) 25 ml Q30M PRN IV Hypoglycemia 09/25/19 10:30 12/24/19 10:29 Dextrose (Dextrose 50%) 50 ml Q30M PRN IV Hypoglycemia 09/25/19 10:30 12/24/19 10:29 Docusate Sodium (Colace) 100 mg TID GT 09/25/19 13:00 10/25/19 12:59 09/26/19 08:46 Heparin Sodium (Porcine) (Heparin 5000 units/ml) 5,000 units EVERY 12 HOURS SUBQ 09/25/19 21:00 11/09/19 20:59 09/26/19 08:47 Heparin Sodium/ Sodium Chloride (Heparin 1000 units/500ml Premix) 1,000 unit ONCE PRN IV PICC LINE 09/25/19 11:00 09/26/19 23:59 Lidocaine HCl (Xylocaine 1% 30ml) 30 ml ONCE PRN INJ PICC LINE 09/25/19 11:00 09/26/19 23:59 Lorazepam (Ativan 2mg/ml 1ml) 0.5 mg Q4H PRN IV For Anxiety 09/25/19 10:30 10/02/19 10:29 09/26/19 08:53 Norepinephrine Bitartrate 250 ml @ 0 mls/hr Q24H PRN IV For hypotension 09/25/19 16:37 12/24/19 16:36 Pantoprazole (Protonix) 40 mg Q12HR IV 09/25/19 11:00 10/26/19 08:59 09/26/19 08:46 Laboratory Tests 09/26/19 04:00: Sodium Level 145#, Potassium Level 3.7, Chloride Level 109H, Carbon Dioxide Level 27, Anion Gap 9, Blood Urea Nitrogen 59#H, Creatinine 2.5#H, Estimat Glomerular Filtration Rate 25.2, Glucose Level 106, Hemoglobin A1c 5.6, Lactic Acid Level 0.60, Uric Acid 5.9, Calcium Level 8.8, Phosphorus Level 4.4, Magnesium Level 1.9, Total Bilirubin 0.3, Gamma Glutamyl Transpeptidase 15, Aspartate Amino Transf (AST/SGOT) 33, Alanine Aminotransferase (ALT/SGPT) 34, Alkaline Phosphatase 50, Lactate Dehydrogenase 253H, Troponin I 0.146H, C- Reactive Protein, Quantitative 28.1H, Pro-B-Type Natriuretic Peptide 1097H, Total Protein 6.7, Albumin 2.1L, Globulin 4.6, Albumin/Globulin Ratio 0.5L, Triglycerides Level 65, Cholesterol Level 81, LDL Cholesterol 42, HDL Cholesterol 24L, Cholesterol/HDL Ratio 3.4, Thyroid Stimulating Hormone (TSH) 4.347H Height (Feet): 6 Height (Inches): 6.00 Weight (Pounds): 176 General Appearance: no apparent distress EENT: other - On Venturi mask Cardiovascular: tachycardia Respiratory/Chest: decreased breath sounds Abdomen: distended Ezekiel Rachel MD Sep 26, 2019 08:58
[2019-09-26] MEDS ORDERED: Pantoprazole Inj IV SCH (09:00)
--- NOTE | 2019-09-26 10:00 | NUR ---
NURSE NOTES: Pt is responding well to Ativan with minimal restlessness, and now drowsy, falling asleep. However pt is still impulsive, needing bilateral soft wrist restraints. VS remain stable. O2Sat is at 100% while FIO2 is titrated down to 40% while on Venturi mask at 8L of oxygen.
--- NOTE | 2019-09-26 10:15 | Diagnostic Imaging Report ---
Indication: Acute renal failure, abnormal renal function tests Technique: Grayscale and duplex images of the kidneys, retroperitoneum, and bladder were obtained. Comparison: none Findings: Right kidney measures 12.4 cm in length. Left kidney measures 11.3 cm in length. Both kidneys demonstrate normal echogenicity. No hydronephrosis. There are bilateral small renal cysts. Normal inferior vena cava. Bladder is normal, calculated volume 37 mL. Impression: Negative for hydronephrosis Incidental finding small bilateral renal cysts.
--- NOTE | 2019-09-26 10:35 | Pulmonology Progress Note ---
Subjective ROS Limited/Unobtainable: No Interval Events: S/p HD yesterday; K normalized Constitutional: Reports: no symptoms HEENT: Repors: no symptoms Respiratory: Reports: no symptoms Cardiovascular: Reports: no symptoms Gastrointestinal/Abdominal: Reports: no symptoms Allergies: Coded Allergies: No Known Allergies (Unverified , 09/25/19) Objective Last 24 Hour Vital Signs Date Time Temp Pulse Resp B/P (MAP) Pulse Ox O2 Delivery O2 Flow Rate FiO2 09/26/19 09:24 103 100 09/26/19 07:24 102 100 09/26/19 06:00 101 20 111/69 (83) 100 09/26/19 05:00 100 21 121/77 (92) 100 09/26/19 04:40 98 100 09/26/19 04:00 Venturi Mask 14.0 Venturi Mask 14.0 09/26/19 04:00 99 09/26/19 04:00 14.0 55 09/26/19 04:00 98.1 99 19 107/56 (73) 99 09/26/19 03:00 109 22 157/87 (110) 100 09/26/19 02:53 106 99 09/26/19 02:00 99 17 124/74 (91) 92 09/26/19 01:00 96 18 163/77 (105) 100 09/26/19 00:55 93 100 09/26/19 00:00 Venturi Mask 14.0 Venturi Mask 14.0 09/26/19 00:00 98.4 93 16 112/48 (69) 99 09/26/19 00:00 91 09/25/19 23:00 91 17 124/56 (78) 99 09/25/19 22:47 92 100 09/25/19 22:00 96 21 128/51 (76) 99 09/25/19 21:00 98.8 92 20 119/46 (70) 99 09/25/19 20:36 90 99 09/25/19 20:00 14.0 55 09/25/19 20:00 94 21 104/52 (69) 99 09/25/19 20:00 Venturi Mask 14.0 Venturi Mask 14.0 09/25/19 20:00 104 09/25/19 19:19 91 98 09/25/19 19:00 91 19 86/44 (58) 98 09/25/19 18:00 100 22 100/44 (62) 99 09/25/19 17:30 99 22 112/46 (68) 93 09/25/19 17:00 95 29 91/45 (60) 100 09/25/19 16:11 105 09/25/19 16:00 Venturi Mask 14.0 Venturi Mask 14.0 09/25/19 16:00 98.8 104 22 128/59 (82) 99 09/25/19 15:30 104 24 111/45 (67) 98 09/25/19 15:00 99 23 101/60 (74) 100 09/25/19 14:30 100 26 100/55 (70) 100 09/25/19 14:00 94 22 113/51 (71) 100 09/25/19 13:30 105 31 126/54 (78) 95 09/25/19 13:00 104 26 98/47 (64) 96 09/25/19 12:30 96 30 77/52 (60) 09/25/19 12:00 102 09/25/19 12:00 98.0 101 31 131/88 (102) 100 09/25/19 12:00 Venturi Mask 14.0 Venturi Mask 14.0 09/25/19 10:51 26 91/72 (78) 100 09/25/19 10:48 25 185/124 (144) 100 09/25/19 10:35 25 89/63 (72) 100 Intake and Output 09/25/19 09/26/19 19:00 07:00 Intake Total 55 ml 580 ml Output Total 1250 ml 1730 ml Balance -1195 ml -1150 ml Free Water 150 ml IV Total 110 ml Tube Feeding 55 ml 320 ml Output Urine Total 750 ml 1730 ml Hemodialysis UF 500 ml General Appearance: no acute distress HEENT: normocephalic Respiratory: chest wall non-tender, lungs clear Cardiovascular: normal peripheral pulses, normal rate Abdomen: normal bowel sounds Microbiology Date/Time Source Procedure Growth Status 09/25/19 02:55 Blood Blood Culture - Preliminary NO GROWTH AFTER 24 HOURS Resulted 09/25/19 02:45 Blood Blood Culture - Preliminary NO GROWTH AFTER 24 HOURS Resulted 09/25/19 02:45 Nasopharynx SARS-CoV-2 RdRp Gene Assay - Final Complete 09/25/19 18:30 Indwelling Cath Urine Culture - Preliminary NO GROWTH Resulted 09/25/19 02:45 Urine,Clean Catch Urine Culture - Preliminary NO GROWTH Resulted 09/25/19 05:50 Rectum Received Laboratory Tests 09/26/19 04:00: Sodium Level 145#, Potassium Level 3.7, Chloride Level 109H, Carbon Dioxide Level 27, Anion Gap 9, Blood Urea Nitrogen 59#H, Creatinine 2.5#H, Estimat Glomerular Filtration Rate 25.2, Glucose Level 106, Hemoglobin A1c 5.6, Lactic Acid Level 0.60, Uric Acid 5.9, Calcium Level 8.8, Phosphorus Level 4.4, Magnesium Level 1.9, Total Bilirubin 0.3, Gamma Glutamyl Transpeptidase 15, Aspartate Amino Transf (AST/SGOT) 33, Alanine Aminotransferase (ALT/SGPT) 34, Alkaline Phosphatase 50, Lactate Dehydrogenase 253H, Troponin I 0.146H, C- Reactive Protein, Quantitative 28.1H, Pro-B-Type Natriuretic Peptide 1097H, Total Protein 6.7, Albumin 2.1L, Globulin 4.6, Albumin/Globulin Ratio 0.5L, Triglycerides Level 65, Cholesterol Level 81, LDL Cholesterol 42, HDL Cholesterol 24L, Cholesterol/HDL Ratio 3.4, Thyroid Stimulating Hormone (TSH) 4.347H Current Medications Medications (Trade) Dose Ordered Sig/Mick Route PRN Reason Start Time Stop Time Status Last Admin Dose Admin Aspirin (ASA) 162 mg DAILY GT 09/26/19 09:00 11/10/19 08:59 Carbidopa/Levodopa (Sinemet 25/250) 1 tab Q8HR GT 09/26/19 09:00 10/26/19 08:59 09/26/19 08:46 Cefepime HCl 1 gm/ Dextrose 55 ml @ 110 mls/hr Q24H IVPB 09/26/19 03:00 10/03/19 02:59 09/26/19 03:21 Chlorhexidine Gluconate (Park-Hex 2%) 1 applic DAILY@1999 TOPIC 09/25/19 20:00 12/24/19 19:59 09/25/19 20:28 Dextrose (Dextrose 50%) 25 ml Q30M PRN IV Hypoglycemia 09/25/19 10:30 12/24/19 10:29 Dextrose (Dextrose 50%) 50 ml Q30M PRN IV Hypoglycemia 09/25/19 10:30 12/24/19 10:29 Docusate Sodium (Colace) 100 mg TID GT 09/25/19 13:00 10/25/19 12:59 09/26/19 08:46 Heparin Sodium (Porcine) (Heparin 5000 units/ml) 5,000 units EVERY 12 HOURS SUBQ 09/25/19 21:00 11/09/19 20:59 09/26/19 08:47 Heparin Sodium/ Sodium Chloride (Heparin 1000 units/500ml Premix) 1,000 unit ONCE PRN IV PICC LINE 09/25/19 11:00 09/26/19 23:59 Lidocaine HCl (Xylocaine 1% 30ml) 30 ml ONCE PRN INJ PICC LINE 09/25/19 11:00 09/26/19 23:59 Lorazepam (Ativan 2mg/ml 1ml) 0.5 mg Q4H PRN IV For Anxiety 09/25/19 10:30 10/02/19 10:29 09/26/19 08:53 Metoprolol Tartrate (Lopressor) 12.5 mg Q12HR GT 09/26/19 09:07 12/25/19 09:06 Nitroglycerin (Ntg) 1 patch Q24H TDERMAL 09/26/19 09:30 10/26/19 09:29 Norepinephrine Bitartrate 250 ml @ 0 mls/hr Q24H PRN IV For hypotension 09/25/19 16:37 12/24/19 16:36 Pantoprazole (Protonix) 40 mg Q12HR IV 09/25/19 11:00 10/26/19 08:59 09/26/19 08:46 Assessment/Plan Assessment/Plan IMPRESSION: 1. Healthcare-associated pneumonia. 2. Acute renal failure. 3. History of previous SBO. 4. CAD. 5. Parkinson's. 6. Dementia. 7. Hyperkalemia, corrected 8. Shock; pressors prn DISCUSSION: Underwent urgent hemodialysis. Pressorsd as needed Broad-spectrum antibiotics. I will follow carefully. Discussed with Ren Uriostegui Omar Syed MD Sep 26, 2019 10:35
[2019-09-26] MEDS: Aspirin Baby 81mg GT SCH (11:01)
[2019-09-26] MEDS: Nitroglycerin Patch 0.4mg TDERMAL SCH (11:02)
[2019-09-26] MEDS: Metoprolol Tartrate 12.5mg TAB GT SCH ×2 (11:02→20:25)
--- NOTE | 2019-09-26 12:00 | NUR ---
NURSE NOTES: FIO2 is titrated down to 35% while pt is maintained on Venturi mask at 6L of oxygen. VS remain stable. Pt is afebrile. Pt was repositioned for comfort. Pt's contacted nurse's station for update.
--- NOTE | 2019-09-26 14:00 | Consultation ---
DATE OF CONSULTATION: 09/26/2019 INFECTIOUS DISEASE CONSULTATION CONSULTING PHYSICIAN: Paramjit Silva MD. REFERRING PHYSICIAN: Isaac Dugan MD. REASON FOR CONSULTATION: Urinary tract infection. HISTORY OF PRESENTING ILLNESS: This is a 79-year-old gentleman with history of depression, dementia, Parkinson disease, hypothyroidism, hypertension, and GERD, who came in with respiratory distress. He was transferred to [facility]. There is a COVID-19 test negative x1, and he has had urinary tract infection. An Infectious Disease consultation has been obtained for antibiotics. PAST MEDICAL HISTORY: 1. History of depression. 2. Dementia. 3. Parkinson's disease. 4. Myocardial infarction. 5. G-tube placement. 6. Hypothyroidism. 7. Hyperlipidemia. 8. Hypertension. 9. Pneumonia. 10. GERD. 11. GI bleeding. SOCIAL HISTORY: No history of smoking, alcohol, or drug use. FAMILY HISTORY: Unknown. REVIEW OF SYSTEMS: Unable to obtain currently. MEDICATIONS: As an inpatient, he is on nitroglycerin, metoprolol, Sinemet, aspirin cefepime, subcutaneous heparin, chlorhexidine gluconate, norepinephrine, docusate, Protonix, lidocaine, lorazepam. ALLERGIES: No known drug allergies. PHYSICAL EXAMINATION: VITAL SIGNS: Temperature 98.9, T-max of 98.9, pulse 95, respiratory rate 14, and blood pressure 111/69. O2 saturation 100%. Examination deferred due to COVID-19 LABORATORY AND DIAGNOSTIC DATA: White count 14.6, hemoglobin 12.4, hematocrit 38.3, MCV 89, platelet count 342,000. Sodium 145, potassium 3.7, chloride 109 bicarb 27, BUN 59, creatinine 2.5. Glucose 106. Calcium of 8.8. Total bilirubin 0.3, AST 33, ALT 34, alkaline phosphatase 50. LDH 253. Troponin 0.146. C-reactive protein 28. Beta-natriuretic peptide 1097. Total protein 6.7, albumin 2.1. Cholesterol of 81. UA showing too numerous to count white cells. Urine cultures are negative. Blood cultures are negative. COVID-19 rapid test is negative. Renal ultrasound showing negative for hydronephrosis. Small bilateral renal cysts noted. Chest x-ray is showing scattered interstitial and airspace opacities in both lungs suggestive of multi-focal infectious process. ASSESSMENT: This is a 79-year-old gentleman with history of Parkinson disease, dementia, hypothyroidism, who comes in with cough. There is a concern for, 1. Aspiration pneumonia. 2. His COVID-19 rapid test was negative x1. 3. Parkinson's disease. 4. Myocardial infarction. 5. Dementia. PLAN: 1. Continue cefepime. 2. We will order sputum for Gram stain and culture. 3. We will repeat COVID-19 testing. 4. We will follow up cultures and adjust antibiotics accordingly. I would like to thank Dr. Dugan for this consultation. Paramjit Silva M.D. DR: YESENIA JOB#: [id number] CC:
--- NOTE | 2019-09-26 14:00 | NUR ---
NURSE NOTES: fish and wildlife technician is at bedside for renal ultrasound as ordered. Pt as seen by Dr. Silva. Order was noted/received for sputum culture and to repeat COVID swab. VS remain stable.
--- NOTE | 2019-09-26 16:00 | NUR ---
NURSE NOTES: Sputum culture and COVID rapid swab was done per Dr. Silva's order and specimens were sent to the lab. Pt remains with stable VS. Pt is now on 3L of oxygen via nasal cannula at 100% O2Sat. Pt was repositioned for comfort.
--- NOTE | 2019-09-26 17:39 | NUR ---
CASE MANAGEMENT: REVIEW IS: PNA . ACUTE RENAL FAILURE . SHOCK T 98.8 HR 115 RR 18 BP 115/53 SAT 100% VENTURI MASK FLOW RATE 14.0 BUN 59 CR 2.5 TROP 0.146 REPEAT COVID-19 IS: CEFEPIME IV Q24HR HEPARIN SUBQ Q12HR PROTONIX IV Q12HR ALBUMIN HUMAN IV X1 ICU STATUS DCP: PATIENT IS FROM
--- NOTE | 2019-09-26 17:57 | NUR ---
INSURANCE CLINICAL/REVIEW FAXED TO [facility] PH: [phone] [facility] FX: [phone] REF# [id number]
--- NOTE | 2019-09-26 18:00 | NUR ---
NURSE NOTES: Pt was cleaned and repositioned. VS remain stable while pt is maintained on nasal cannula at 3L of oxygen. Pt remains on bilateral soft wrist restraint, since pt is observed being restless and impulsive, continuously attempting to pull IV tubing and gown off his body. Skin and vascular integrity at restrain site remains within normal limits.
--- NOTE | 2019-09-26 19:10 | NUR ---
NURSE NOTES: pt report received from BEATRIZ APPLE RN, pt remains stable. pt is confused tram clark, however no acute neuro abnormalities noted. pt is on hall monitor showing NSR, no acute cardiac abnormalities noted. pt is on 3 L NC sating at 98% O2, no acute resp distress noted. pt bed is low, locked, armed, call light within easy reach, bed rails up times 3. will follow plan plan of care. Addendum: 09/26/19 at 2105 by FLORENCE DOMINGUEZ RN NURSE NOTES: pt report received from SHANNAN NARVAEZ, pt remains stable. pt is confused tram clark, however no acute neuro abnormalities noted. pt is on hall monitor showing NSR, no acute cardiac abnormalities noted. pt is on 3 L NC sating at 98% O2, no acute resp distress noted. pt bed is low, locked, armed, call light within easy reach, bed rails up times 3. will follow plan plan of care.
--- NOTE | 2019-09-26 19:30 | NUR ---
HAND-OFF: Report given to Hal CAMPBELL. Endorsed plan of care. VS remain stable.
[2019-09-26] MEDS: Dyna-Hex 2% Top Sol 2oz TOPIC SCH (20:24)
[2019-09-26] MEDS ORDERED: TRAZODONE HCL100 MG ORAL (20:49)
--- NOTE | 2019-09-26 22:00 | NUR ---
NURSE NOTES: Pt turned and repositioned. IV lines and tubings assessed. feeding tube assessed.
[2019-09-27] VITALS (25 sets, daily range): BP systolic 104–173; BP diastolic 44–142
[2019-09-27] MEDS: Cefepime 1gm/D5W 55ml IVPB SCH ×2 (02:31)
[2019-09-27 04:35] LABS: BASOPHILS % (AUTO) 0.2 % (0.0-2.0); EOSINOPHILS % (AUTO) 1.2 % (0.0-3.0); HEMATOCRIT 27.8 % (42.0-52.0); HEMOGLOBIN 8.9 G/DL (14.2-18.0); MEAN CORPUSCULAR VOLUME 91 FL (80-99); MONOCYTES % (AUTO) 6.2 % (1.0-10.0); NEUTROPHILS % (AUTO) 84.4 % (45.0-75.0); PLATELET COUNT 207 K/UL (150-450); RED BLOOD COUNT 3.06 M/UL (4.70-6.10); RED CELL DISTRIBUTION WIDTH 12.8 % (11.6-14.8); WHITE BLOOD COUNT 10.1 K/UL (4.8-10.8)
[2019-09-27 05:04] LABS: ALANINE AMINOTRANSFERASE 37 U/L (12-78); ALBUMIN 2.2 G/DL (3.4-5.0); ALBUMIN/GLOBULIN RATIO 0.5 (1.0-2.7); ALKALINE PHOSPHATASE < 10 U/L (46-116); ANION GAP 7 mmol/L (5-15); ASPARTATE AMINO TRANSFERASE 34 U/L (15-37); BILIRUBIN,TOTAL 0.3 MG/DL (0.2-1.0); BLOOD UREA NITROGEN 34 mg/dL (7-18); CALCIUM 8.3 MG/DL (8.5-10.1); CARBON DIOXIDE 27 MMOL/L (21-32); CHLORIDE 114 MMOL/L (98-107); CREATININE 1.4 MG/DL (0.55-1.30); PHOSPHORUS 2.3 MG/DL (2.5-4.9); POTASSIUM 3.3 MMOL/L (3.5-5.1); SODIUM 148 MMOL/L (136-145)
[2019-09-27] MEDS: Levodopa/Carbidopa 25/250 tab GT SCH ×3 (05:05→21:54)
--- NOTE | 2019-09-27 07:15 | NUR ---
NURSE NOTES:RECEIVED REPORT FROM KEVIN RN . RECEIVED PT WITH HOB ELEVATED 45 DEGREE CONFUSED UNABLE TO FALLOWS SIMPLE COMMANDS. PT USING O2 @ 2L/MINTS VIA N/C ,O2 SAT 96%.PT REPOSITIONED IN BED TO PROVIDE COMFORT AND TO PREVENT SKIN DIGNA DOWN. PT WITH GTF IN PLACE AND PATENT RECEIVING NEPRO 1.8 @ 50CC/HRS ,NO RESIDUAL NOTED AT THIS TIME. F/C DRAINING WELL DARK ABDIRAHMAN URINE COLOR. ARMIDA CATH ON LT FEMORAL AREA WITH DRY DSG INTACT. PICC-LINE ON LT UA WITH DOBBLE LUMEN PATENT AND INTACT.PT WITH LOW MAGNESIUM 1.[address] REEDER IS AWARE AND ORDER TO GIVE MAGNESSIUM 4 GRAMS AND K-PHOSPHATE 20MMLS IVPB.PT ON BILAT SOFT WRIST RESTRAINTS IN PLACE TO PREVENT PT FROM PULLING MEDICAL DEVICES AND TO PREVENT FALLS AND INJURIES. RELEASED BILAT SOFT WRIST RESTRAINTS TO PROVIDE PROM TO ALL EXTREMITIES THEM REAPPLIED THE SOFT RESTRAINTS PER M.D ORDERS. FULL BODY ASSESSMENT DONE. PT REMAINS FREE OF INJURIES AT THIS TIME. WILL CONT TO MONITOR.
--- NOTE | 2019-09-27 07:20 | NUR ---
NURSE HAND-OFF REPORT: Latest Vital Signs: Temperature 97.5 , Pulse 96 , B/P 145 /74 , Respiratory Rate 20 , O2 SAT 97 , Nasal Cannula, O2 Flow Rate 2.0 . Vital Sign Comment: [STABLE] EKG Rhythm: Sinus Rhythm Rhythm change?: N MD Notified?: - MD Response: Latest Shane Fall Score: 75 Fall Risk: High Risk Safety Measures: Call light Within Reach, Bed Alarm Zone 2, Side Rails Side Rails x3, Bed position Low and Locked. Fall Precautions: Y Yellow Socks Y Door Sign Y Report given to [DIONY RN].
[2019-09-27] MEDS ORDERED: Potassium Phosphate 20 MM in NS 275 ML IV ONE (08:00)
--- NOTE | 2019-09-27 08:57 | Nephrology Progress Note ---
Assessment/Plan Problem List: (1) ARF (acute renal failure) (2) Acute hyperkalemia (3) Respiratory failure with hypoxia (4) HCAP (healthcare-associated pneumonia) (5) Acute metabolic encephalopathy (6) Parkinsons disease (7) Elevated troponin I level (8) Anemia Assessment Renal failure, acute, possible underlying chronic kidney disease Sepsis, pneumonia, UTI Acute respiratory failure with hypoxia Hyponatremia ACS Acute metabolic encephalopathy Has G-tube Hypothyroidism Parkinson's Plan September 26: Hemoglobin lower. Renal parameters stable. Potassium phosphate IV given. Anemia work-up initiated. Continue per consultants. No further need for dialysis at this time. Kidney ultrasound reviewed. Acute renal failure and hyperkalemia is now resolved. Previously: Aspirin, Lopressor, Nitropaste, started Patient was dialyzed yesterday today hyperkalemia is resolved 2D echocardiogram results noted. No number for ejection fraction is documented. Kidney ultrasound results pending. Discussed with SHANNAN Faulkner. Continue to monitor renal parameters and dialysis as needed. Per orders Subjective ROS Limited/Unobtainable: Yes Objective Objective Last 24 Hour Vital Signs Date Time Temp Pulse Resp B/P (MAP) Pulse Ox O2 Delivery O2 Flow Rate FiO2 09/27/19 07:08 97 Nasal Cannula 2.0 28 09/27/19 07:00 96 20 145/74 (97) 98 09/27/19 06:11 3.0 09/27/19 06:00 87 20 127/97 (107) 99 09/27/19 05:01 86 97 09/27/19 05:00 89 18 171/79 (109) 99 09/27/19 04:00 3.0 09/27/19 04:00 97.5 86 21 128/73 (91) 99 09/27/19 04:00 91 09/27/19 04:00 Nasal Cannula 3.0 Nasal Cannula 3.0 09/27/19 03:12 89 99 09/27/19 03:00 86 20 133/60 (84) 98 09/27/19 02:00 84 20 150/59 (89) 100 09/27/19 01:00 95 20 133/59 (83) 99 09/27/19 00:51 97 99 09/27/19 00:00 97.9 96 22 123/83 (96) 99 09/27/19 00:00 Nasal Cannula 3.0 Nasal Cannula 3.0 09/27/19 00:00 3.0 09/27/19 00:00 89 09/26/19 23:00 85 19 109/58 (75) 99 09/26/19 22:53 89 96 09/26/19 22:00 85 19 129/60 (83) 98 09/26/19 21:00 82 17 117/61 (79) 98 09/26/19 21:00 82 98 09/26/19 20:25 90 116/58 09/26/19 20:00 Nasal Cannula 3.0 Nasal Cannula 3.0 09/26/19 20:00 98.3 92 19 116/58 (77) 97 09/26/19 20:00 3.0 09/26/19 20:00 90 09/26/19 19:00 86 17 131/58 (82) 89 09/26/19 18:52 94 97 09/26/19 18:00 98 19 137/58 (84) 97 09/26/19 17:02 86 100 09/26/19 17:00 89 18 123/56 (78) 100 09/26/19 16:00 Venturi Mask 14.0 Venturi Mask 14.0 09/26/19 16:00 92 09/26/19 16:00 98.9 94 19 118/55 (76) 95 09/26/19 15:11 115 100 09/26/19 15:00 94 19 122/57 (78) 100 09/26/19 14:03 94 14 134/47 (76) 100 09/26/19 13:20 76 100 09/26/19 13:00 89 14 128/64 (85) 98 09/26/19 12:00 98.8 91 18 115/53 (73) 100 09/26/19 12:00 Venturi Mask 14.0 Venturi Mask 14.0 09/26/19 12:00 97 09/26/19 11:07 95 100 09/26/19 11:02 103 111/69 09/26/19 11:02 111/69 09/26/19 11:00 89 14 151/52 (85) 99 09/26/19 10:00 96 20 116/57 (76) 100 09/26/19 09:24 103 100 09/26/19 09:00 98 17 140/65 (90) 99 Intake and Output 09/26/19 09/27/19 19:00 07:00 Intake Total 700 ml 655 ml Output Total 1210 ml 1060 ml Balance -510 ml -405 ml Free Water 120 ml IV Total 100 ml 55 ml Tube Feeding 480 ml 600 ml Output Urine Total 1210 ml 1060 ml Laboratory Tests 09/27/19 04:00: White Blood Count 10.1, Red Blood Count 3.06L, Hemoglobin 8.9L, Hematocrit 27.8L , Mean Corpuscular Volume 91, Mean Corpuscular Hemoglobin 29.0, Mean Corpuscular Hemoglobin Concent 31.9L, Red Cell Distribution Width 12.8, Platelet Count 207, Mean Platelet Volume 6.8, Neutrophils (%) (Auto) 84.4H, Lymphocytes (%) (Auto) 8.0L, Monocytes (%) (Auto) 6.2, Eosinophils (%) (Auto) 1.2, Basophils (%) (Auto) 0.2, Sodium Level 148H, Potassium Level 3.3L, Chloride Level 114H, Carbon Dioxide Level 27, Anion Gap 7, Blood Urea Nitrogen 34H, Creatinine 1.4H, Estimat Glomerular Filtration Rate 49.1, Glucose Level 158H, Uric Acid 4.0, Calcium Level 8.3L, Phosphorus Level 2.3L, Magnesium Level 1.6L, Total Bilirubin 0.3, Aspartate Amino Transf (AST/SGOT) 34, Alanine Aminotransferase (ALT/SGPT) 37, Alkaline Phosphatase < 10L, Troponin I 0.097H, C -Reactive Protein, Quantitative 28.6H, Pro-B-Type Natriuretic Peptide 1483H, Total Protein 6.8, Albumin 2.2L, Globulin 4.6, Albumin/Globulin Ratio 0.5L Height (Feet): 6 Height (Inches): 6.00 Weight (Pounds): 176 General Appearance: no apparent distress, other - Has tremors Cardiovascular: tachycardia Respiratory/Chest: decreased breath sounds Abdomen: soft Ezekiel Rachel MD Sep 27, 2019 08:57
[2019-09-27] MEDS: Pantoprazole Inj IV SCH ×2 (09:43→20:26)
[2019-09-27] MEDS: Metoprolol Tartrate 12.5mg TAB GT SCH ×2 (09:44→20:26)
[2019-09-27] MEDS: Nitroglycerin Patch 0.4mg TDERMAL SCH (09:44)
[2019-09-27] MEDS: Docusate 100mg/10ml Liq GT SCH ×3 (09:44→17:47)
[2019-09-27] MEDS: Heparin 5000 units/ml inj SUBQ SCH ×2 (09:46→20:26)
[2019-09-27] MEDS: Aspirin Baby 81mg GT SCH (09:49)
--- NOTE | 2019-09-27 10:00 | NUR ---
NURSE NOTES: PT REMAINS FREE OF INJURIES AT THIS TIME. WILL CONT TO MONITOR.
[2019-09-27] MEDS ORDERED: NS 275ml ONE ×2 (10:20→13:59)
--- NOTE | 2019-09-27 10:28 | Pulmonology Progress Note ---
Subjective ROS Limited/Unobtainable: Yes Interval Events: K normalized Constitutional: Reports: no symptoms HEENT: Repors: no symptoms Respiratory: Reports: no symptoms Cardiovascular: Reports: no symptoms Gastrointestinal/Abdominal: Reports: no symptoms Allergies: Coded Allergies: No Known Allergies (Unverified , 09/25/19) Objective Last 24 Hour Vital Signs Date Time Temp Pulse Resp B/P (MAP) Pulse Ox O2 Delivery O2 Flow Rate FiO2 09/27/19 09:44 96 145/74 09/27/19 09:44 145/74 09/27/19 07:08 97 Nasal Cannula 2.0 28 09/27/19 07:00 96 20 145/74 (97) 98 09/27/19 06:11 3.0 09/27/19 06:00 87 20 127/97 (107) 99 09/27/19 05:01 86 97 09/27/19 05:00 89 18 171/79 (109) 99 09/27/19 04:00 3.0 09/27/19 04:00 97.5 86 21 128/73 (91) 99 09/27/19 04:00 91 09/27/19 04:00 Nasal Cannula 3.0 Nasal Cannula 3.0 09/27/19 03:12 89 99 09/27/19 03:00 86 20 133/60 (84) 98 09/27/19 02:00 84 20 150/59 (89) 100 09/27/19 01:00 95 20 133/59 (83) 99 09/27/19 00:51 97 99 09/27/19 00:00 97.9 96 22 123/83 (96) 99 09/27/19 00:00 Nasal Cannula 3.0 Nasal Cannula 3.0 09/27/19 00:00 3.0 09/27/19 00:00 89 09/26/19 23:00 85 19 109/58 (75) 99 09/26/19 22:53 89 96 09/26/19 22:00 85 19 129/60 (83) 98 09/26/19 21:00 82 17 117/61 (79) 98 09/26/19 21:00 82 98 09/26/19 20:25 90 116/58 09/26/19 20:00 Nasal Cannula 3.0 Nasal Cannula 3.0 09/26/19 20:00 98.3 92 19 116/58 (77) 97 09/26/19 20:00 3.0 09/26/19 20:00 90 09/26/19 19:00 86 17 131/58 (82) 89 09/26/19 18:52 94 97 09/26/19 18:00 98 19 137/58 (84) 97 09/26/19 17:02 86 100 09/26/19 17:00 89 18 123/56 (78) 100 09/26/19 16:00 Venturi Mask 14.0 Venturi Mask 14.0 09/26/19 16:00 92 09/26/19 16:00 98.9 94 19 118/55 (76) 95 09/26/19 15:11 115 100 09/26/19 15:00 94 19 122/57 (78) 100 09/26/19 14:03 94 14 134/47 (76) 100 09/26/19 13:20 76 100 09/26/19 13:00 89 14 128/64 (85) 98 09/26/19 12:00 98.8 91 18 115/53 (73) 100 09/26/19 12:00 Venturi Mask 14.0 Venturi Mask 14.0 09/26/19 12:00 97 09/26/19 11:07 95 100 09/26/19 11:02 103 111/69 09/26/19 11:02 111/69 09/26/19 11:00 89 14 151/52 (85) 99 Intake and Output 09/26/19 09/27/19 19:00 07:00 Intake Total 700 ml 655 ml Output Total 1210 ml 1060 ml Balance -510 ml -405 ml Free Water 120 ml IV Total 100 ml 55 ml Tube Feeding 480 ml 600 ml Output Urine Total 1210 ml 1060 ml General Appearance: no acute distress HEENT: normocephalic Respiratory: chest wall non-tender, lungs clear Cardiovascular: normal peripheral pulses, normal rate Abdomen: normal bowel sounds Microbiology Date/Time Source Procedure Growth Status 09/25/19 02:55 Blood Blood Culture - Preliminary NO GROWTH AFTER 48 HOURS Resulted 09/25/19 02:45 Blood Blood Culture - Preliminary NO GROWTH AFTER 48 HOURS Resulted 09/26/19 15:45 Nasopharynx SARS-CoV-2 RdRp Gene Assay - Final Complete 09/26/19 15:45 Sputum Gram Stain Pending Resulted 09/26/19 15:45 Sputum Sputum Culture - Preliminary NORMAL UPPER RESPIRATORY KHOA AT 24 ... Resulted 09/25/19 05:50 Nasal Nares MRSA Culture - Final NO METHICILLIN RESISTANT STAPH AUREUS... Complete 09/25/19 02:45 Nasopharynx SARS-CoV-2 RdRp Gene Assay - Final Complete 09/25/19 18:30 Indwelling Cath Urine Culture - Preliminary NO GROWTH AFTER 24 HOURS Resulted 09/25/19 02:45 Urine,Clean Catch Urine Culture - Preliminary NO GROWTH AFTER 24 HOURS Resulted 09/25/19 05:50 Rectum - Final NO CARBAPENEM-RESISTANT ENTEROBACTERI... Complete 09/25/19 05:50 Rectum VRE Culture - Final Enterococcus Faecium - Vre Complete Laboratory Tests 09/27/19 04:00: White Blood Count 10.1, Red Blood Count 3.06L, Hemoglobin 8.9L, Hematocrit 27.8L , Mean Corpuscular Volume 91, Mean Corpuscular Hemoglobin 29.0, Mean Corpuscular Hemoglobin Concent 31.9L, Red Cell Distribution Width 12.8, Platelet Count 207, Mean Platelet Volume 6.8, Neutrophils (%) (Auto) 84.4H, Lymphocytes (%) (Auto) 8.0L, Monocytes (%) (Auto) 6.2, Eosinophils (%) (Auto) 1.2, Basophils (%) (Auto) 0.2, Sodium Level 148H, Potassium Level 3.3L, Chloride Level 114H, Carbon Dioxide Level 27, Anion Gap 7, Blood Urea Nitrogen 34H, Creatinine 1.4H, Estimat Glomerular Filtration Rate 49.1, Glucose Level 158H, Uric Acid 4.0, Calcium Level 8.3L, Phosphorus Level 2.3L, Magnesium Level 1.6L, Total Bilirubin 0.3, Aspartate Amino Transf (AST/SGOT) 34, Alanine Aminotransferase (ALT/SGPT) 37, Alkaline Phosphatase < 10L, Troponin I 0.097H, C -Reactive Protein, Quantitative 28.6H, Pro-B-Type Natriuretic Peptide 1483H, Total Protein 6.8, Albumin 2.2L, Globulin 4.6, Albumin/Globulin Ratio 0.5L Current Medications Medications (Trade) Dose Ordered Sig/Mick Route PRN Reason Start Time Stop Time Status Last Admin Dose Admin Aspirin (ASA) 162 mg DAILY GT 09/26/19 09:00 11/10/19 08:59 09/27/19 09:49 Carbidopa/Levodopa (Sinemet 25/250) 1 tab Q8HR GT 09/26/19 09:00 10/26/19 08:59 09/27/19 05:05 Cefepime HCl 1 gm/ Dextrose 55 ml @ 110 mls/hr Q24H IVPB 09/26/19 03:00 10/03/19 02:59 09/27/19 02:31 Chlorhexidine Gluconate (Park-Hex 2%) 1 applic DAILY@2000 TOPIC 09/25/19 20:00 12/24/19 19:59 09/26/19 20:24 Dextrose (Dextrose 50%) 25 ml Q30M PRN IV Hypoglycemia 09/25/19 10:30 12/24/19 10:29 Dextrose (Dextrose 50%) 50 ml Q30M PRN IV Hypoglycemia 09/25/19 10:30 12/24/19 10:29 Docusate Sodium (Colace) 100 mg TID GT 09/25/19 13:00 10/25/19 12:59 09/27/19 09:44 Heparin Sodium (Porcine) (Heparin 5000 units/ml) 5,000 units EVERY 12 HOURS SUBQ 09/25/19 21:00 11/09/19 20:59 09/27/19 09:46 Lorazepam (Ativan 2mg/ml 1ml) 0.5 mg Q4H PRN IV For Anxiety 09/25/19 10:30 10/02/19 10:29 09/26/19 08:53 Magnesium Sulfate 100 ml @ 100 mls/hr Q1H IVPB 09/27/19 07:00 09/27/19 10:59 09/27/19 09:42 Metoprolol Tartrate (Lopressor) 12.5 mg Q12HR GT 09/26/19 09:07 12/25/19 09:06 09/27/19 09:44 Nitroglycerin (Ntg) 1 patch Q24H TDERMAL 09/26/19 09:30 10/26/19 09:29 09/27/19 09:44 Norepinephrine Bitartrate 250 ml @ 0 mls/hr Q24H PRN IV For hypotension 09/25/19 16:37 11/8/20 16:36 Pantoprazole (Protonix) 40 mg Q12HR IV 09/25/19 11:00 10/26/19 08:59 09/27/19 09:43 Potassium Phosphate 20 mm/ Sodium Chloride 281.6667 ml @ 46.944 m... ONCE ONCE IV 09/27/19 08:00 09/27/19 13:59 09/27/19 09:43 Assessment/Plan Assessment/Plan IMPRESSION: 1. Healthcare-associated pneumonia. 2. Acute renal failure. 3. History of previous SBO. 4. CAD. 5. Parkinson's. 6. Dementia. 7. Hyperkalemia, corrected 8. Shock; pressors prn DISCUSSION: Underwent urgent hemodialysis. Pressors as needed Broad-spectrum antibiotics. I will follow carefully. Discussed with Ren Uriostegui Omar Syed MD Sep 27, 2019 10:28
--- NOTE | 2019-09-27 11:34 | Infectious Diseases Prog Note ---
Assessment/Plan Assessment/Plan antibiotics : cefepime A 1. pneumonia COVID 19 test negative x 2 2. hypertension 3. Parkinsons disease 4. dementia P 1. continue cefepime 4 more days 2. will follow up cultures Subjective ROS Limited/Unobtainable: Yes Allergies: Coded Allergies: No Known Allergies (Unverified , 09/25/19) Objective Last 24 Hour Vital Signs Date Time Temp Pulse Resp B/P (MAP) Pulse Ox O2 Delivery O2 Flow Rate FiO2 09/27/19 09:44 96 145/74 09/27/19 09:44 145/74 09/27/19 07:08 97 Nasal Cannula 2.0 28 09/27/19 07:00 96 20 145/74 (97) 98 09/27/19 06:11 3.0 09/27/19 06:00 87 20 127/97 (107) 99 09/27/19 05:01 86 97 09/27/19 05:00 89 18 171/79 (109) 99 09/27/19 04:00 3.0 09/27/19 04:00 97.5 86 21 128/73 (91) 99 09/27/19 04:00 91 09/27/19 04:00 Nasal Cannula 3.0 Nasal Cannula 3.0 09/27/19 03:12 89 99 09/27/19 03:00 86 20 133/60 (84) 98 09/27/19 02:00 84 20 150/59 (89) 100 09/27/19 01:00 95 20 133/59 (83) 99 09/27/19 00:51 97 99 09/27/19 00:00 97.9 96 22 123/83 (96) 99 09/27/19 00:00 Nasal Cannula 3.0 Nasal Cannula 3.0 09/27/19 00:00 3.0 09/27/19 00:00 89 09/26/19 23:00 85 19 109/58 (75) 99 09/26/19 22:53 89 96 09/26/19 22:00 85 19 129/60 (83) 98 09/26/19 21:00 82 17 117/61 (79) 98 09/26/19 21:00 82 98 09/26/19 20:25 90 116/58 09/26/19 20:00 Nasal Cannula 3.0 Nasal Cannula 3.0 09/26/19 20:00 98.3 92 19 116/58 (77) 97 09/26/19 20:00 3.0 09/26/19 20:00 90 09/26/19 19:00 86 17 131/58 (82) 89 09/26/19 18:52 94 97 09/26/19 18:00 98 19 137/58 (84) 97 09/26/19 17:02 86 100 09/26/19 17:00 89 18 123/56 (78) 100 09/26/19 16:00 Venturi Mask 14.0 Venturi Mask 14.0 09/26/19 16:00 92 09/26/19 16:00 98.9 94 19 118/55 (76) 95 09/26/19 15:11 115 100 09/26/19 15:00 94 19 122/57 (78) 100 09/26/19 14:03 94 14 134/47 (76) 100 09/26/19 13:20 76 100 09/26/19 13:00 89 14 128/64 (85) 98 09/26/19 12:00 98.8 91 18 115/53 (73) 100 09/26/19 12:00 Venturi Mask 14.0 Venturi Mask 14.0 09/26/19 12:00 97 Height (Feet): 6 Height (Inches): 6.00 Weight (Pounds): 176 Respiratory/Chest: lungs clear Cardiovascular: normal rate, regular rhythm, no gallop/murmur Abdomen: soft, non tender, other - GT Extremities: no edema, other - left arm PICC Microbiology Date/Time Source Procedure Growth Status 09/25/19 02:55 Blood Blood Culture - Preliminary NO GROWTH AFTER 48 HOURS Resulted 09/25/19 02:45 Blood Blood Culture - Preliminary NO GROWTH AFTER 48 HOURS Resulted 09/26/19 15:45 Nasopharynx SARS-CoV-2 RdRp Gene Assay - Final Complete 09/26/19 15:45 Sputum Gram Stain Pending Resulted 09/26/19 15:45 Sputum Sputum Culture - Preliminary NORMAL UPPER RESPIRATORY KHOA AT 24 ... Resulted 09/25/19 05:50 Nasal Nares MRSA Culture - Final NO METHICILLIN RESISTANT STAPH AUREUS... Complete 09/25/19 02:45 Nasopharynx SARS-CoV-2 RdRp Gene Assay - Final Complete 09/25/19 18:30 Indwelling Cath Urine Culture - Preliminary NO GROWTH AFTER 24 HOURS Resulted 09/25/19 02:45 Urine,Clean Catch Urine Culture - Preliminary NO GROWTH AFTER 24 HOURS Resulted 09/25/19 05:50 Rectum - Final NO CARBAPENEM-RESISTANT ENTEROBACTERI... Complete 09/25/19 05:50 Rectum VRE Culture - Final Enterococcus Faecium - Vre Complete Laboratory Tests Test 09/27/19 04:00 White Blood Count 10.1 K/UL (4.8-10.8) Red Blood Count 3.06 M/UL (4.70-6.10) L Hemoglobin 8.9 G/DL (14.2-18.0) L Hematocrit 27.8 % (42.0-52.0) L Mean Corpuscular Volume 91 FL (80-99) Mean Corpuscular Hemoglobin 29.0 PG (27.0-31.0) Mean Corpuscular Hemoglobin Concent 31.9 G/DL (32.0-36.0) L Red Cell Distribution Width 12.8 % (11.6-14.8) Platelet Count 207 K/UL (150-450) Mean Platelet Volume 6.8 FL (6.5-10.1) Neutrophils (%) (Auto) 84.4 % (45.0-75.0) H Lymphocytes (%) (Auto) 8.0 % (20.0-45.0) L Monocytes (%) (Auto) 6.2 % (1.0-10.0) Eosinophils (%) (Auto) 1.2 % (0.0-3.0) Basophils (%) (Auto) 0.2 % (0.0-2.0) Sodium Level 148 MMOL/L (136-145) H Potassium Level 3.3 MMOL/L (3.5-5.1) L Chloride Level 114 MMOL/L (98-107) H Carbon Dioxide Level 27 MMOL/L (21-32) Anion Gap 7 mmol/L (5-15) Blood Urea Nitrogen 34 mg/dL (7-18) H Creatinine 1.4 MG/DL (0.55-1.30) H Estimat Glomerular Filtration Rate 49.1 mL/min (>60) Glucose Level 158 MG/DL (74-106) H Uric Acid 4.0 MG/DL (2.6-7.2) Calcium Level 8.3 MG/DL (8.5-10.1) L Phosphorus Level 2.3 MG/DL (2.5-4.9) L Magnesium Level 1.6 MG/DL (1.8-2.4) L Total Bilirubin 0.3 MG/DL (0.2-1.0) Aspartate Amino Transf (AST/SGOT) 34 U/L (15-37) Alanine Aminotransferase (ALT/SGPT) 37 U/L (12-78) Alkaline Phosphatase < 10 U/L (46-116) L Troponin I 0.097 ng/mL (0.000-0.056) C-Reactive Protein, Quantitative 28.6 mg/dL (0.00-0.90) H Pro-B-Type Natriuretic Peptide 1483 pg/mL (0-125) H Total Protein 6.8 G/DL (6.4-8.2) Albumin 2.2 G/DL (3.4-5.0) L Globulin 4.6 g/dL Albumin/Globulin Ratio 0.5 (1.0-2.7) L Current Medications Medications (Trade) Dose Ordered Sig/Mick Route PRN Reason Start Time Stop Time Status Last Admin Dose Admin Aspirin (ASA) 162 mg DAILY GT 09/26/19 09:00 11/10/19 08:59 09/27/19 09:49 Carbidopa/Levodopa (Sinemet 25/250) 1 tab Q8HR GT 09/26/19 09:00 10/26/19 08:59 09/27/19 05:05 Cefepime HCl 1 gm/ Dextrose 55 ml @ 110 mls/hr Q24H IVPB 09/26/19 03:00 10/03/19 02:59 09/27/19 02:31 Chlorhexidine Gluconate (Park-Hex 2%) 1 applic DAILY@2000 TOPIC 09/25/19 20:00 12/24/19 19:59 09/26/19 20:24 Dextrose (Dextrose 50%) 25 ml Q30M PRN IV Hypoglycemia 09/25/19 10:30 12/24/19 10:29 Dextrose (Dextrose 50%) 50 ml Q30M PRN IV Hypoglycemia 09/25/19 10:30 12/24/19 10:29 Docusate Sodium (Colace) 100 mg TID GT 09/25/19 13:00 10/25/19 12:59 09/27/19 09:44 Heparin Sodium (Porcine) (Heparin 5000 units/ml) 5,000 units EVERY 12 HOURS SUBQ 09/25/19 21:00 11/09/19 20:59 09/27/19 09:46 Lorazepam (Ativan 2mg/ml 1ml) 0.5 mg Q4H PRN IV For Anxiety 09/25/19 10:30 10/02/19 10:29 09/26/19 08:53 Metoprolol Tartrate (Lopressor) 12.5 mg Q12HR GT 09/26/19 09:07 12/25/19 09:06 09/27/19 09:44 Nitroglycerin (Ntg) 1 patch Q24H TDERMAL 09/26/19 09:30 10/26/19 09:29 09/27/19 09:44 Norepinephrine Bitartrate 250 ml @ 0 mls/hr Q24H PRN IV For hypotension 09/25/19 16:37 12/24/19 16:36 Pantoprazole (Protonix) 40 mg Q12HR IV 09/25/19 11:00 10/26/19 08:59 09/27/19 09:43 Potassium Phosphate 20 mm/ Sodium Chloride 281.6667 ml @ 46.944 m... ONCE ONCE IV 09/27/19 08:00 09/27/19 13:59 09/27/19 09:43 Paramjit Silva MD Sep 27, 2019 11:34
--- NOTE | 2019-09-27 12:20 | NUR ---
PRESS PULLER NOTE:INSURANCE CALL MADE TO [facility] [phone] [facility] #1. S/W TESSY GHOTRA. PER TESSY, PATIENT IS NOT CAPITATED TO ANY HOSPITAL AND NO NEED TO TRANSFER AT THIS TIME. CARE TO BE CONTINUED HERE AT [facility]. REQUESTS FOR DAILY CLINICALS TO BE FAXED TO [phone].
[2019-09-27] MEDS: LORazepam Inj 2mg/ml 1ml IV PRN ×2 (12:22→21:54)
--- NOTE | 2019-09-27 12:30 | NUR ---
NURSE NOTES: PT VERY AGITATED ,MEDICATED WITH ATIVAN 0.5MG IVP PER M.D ORDERS FOR SEVERE AGITATION. PT REMAINS FREE OF INJURIES AT THIS TIME. WILL CONT TO MONITOR.
[2019-09-27] MEDS ORDERED: Sterile Water Irrig 1000ml IRRIG ONE (13:59)
[2019-09-27] MEDS ORDERED: Tubing IV Secondary IV ONE (13:59)
--- NOTE | 2019-09-27 14:00 | NUR ---
NURSE NOTES: PT RESTING COMFORTABLY ,NO S/S OF AGITATION . WILL CONT TO MONITOR.
--- NOTE | 2019-09-27 14:28 | NUR ---
CASE MANAGEMENT:REVIEW SI;PNEUMONIA. ARF. RESPIRATORY FAILURE. ACUTE METABOLIC ENCEPHALOPATHY. 99.8 105 27 165/63 92% 3L NC H/H 8.9/27.8 NA 148 K+ 3.3 BUN 34 CR 1.4 MAG 1.6 TROP 0.097 CRP 28.6 BNP 1483 IS;K-PHOS/NS IV ONCE MAG SULFATE IV ONCE LOPRESSOR GT Q12 ASA GT QD CEFEPIME IV Q24 HEPARIN SUBQ Q12 LEVOPHED IV Q24 PROTONIX IV Q12 ICU STATUS DCP;FROM [facility]
--- NOTE | 2019-09-27 14:40 | NUR ---
INSURANCE CLINICAL/REVIEW FAXED TO [facility] PH: [phone] [facility] FX: [phone] REF# [id number]
[2019-09-27 17:21] LABS: FERRITIN 622 NG/ML (8-388)
[2019-09-27 17:30] LABS: % IRON SATURATION 13 % (15-50); IRON 16 ug/dL (50-175); TOTAL IRON BINDING CAPACITY 125 ug/dL (250-450)
--- NOTE | 2019-09-27 19:20 | NUR ---
NURSE NOTES: Received patient and report from SHANNAN Carrasco. Patient is observed resting in bed and remains confused. Able to arouse patient by calling name and shaking, however, pt speech noted to be garbled and pt noted to be repeating words. No facial drooping noted, strength remains equal bilaterally. No pain noted upon assessment. Pt is on 3L NC and noted to have an O2 saturation of 91% at this time. Bilateral lower lobe breath sounds noted to be diminished upon auscultation. Pt noted to be SR on tele monitor with a HR of 89 and no s/sx of acute distress noted. L FA 22g, R Hand 22g and L Wrist 22g IV catheters noted to be occluded and leaking, therefore subsequently removed. L upper arm PICC line noted which remains asymptomatic, intact and patent. Central line dressing remains clean, dry and intact. R femoral Justyn catheter noted which remains intact, central line dressing changed per policy due to tearing and soiling. Bowel sounds noted in all four quadrants, abdomen remains soft and flat. Abdominal binder remains in place. GT noted which remains intact and patent, no residual noted. Diagnostics reviewed at bedside. Skin alterations noted. Pt repositioned for comfort and safety. Bilateral soft wrist restraints in place for pt safety. CMS remains intact. Bilateral upper extremities elevated and ROM exercises provided per pt tolerance. Assessed pt for restraint criteria, pt noted to be impulsive, confused and unable to follow commands. Pt attempts to pull at medical devices without restraints. Fall, Aspiration and Skin precautions observed. Pt remains resting in bed; Bed remains in the lowest position with the safety wheels engaged, call light within reach, side rails up x3 and bed alarm activated. Will continue plan of care. Will continue to monitor.
--- NOTE | 2019-09-27 19:25 | NUR ---
HAND-OFF: Report given to .SUKH CAMPBELL.
[2019-09-27] MEDS: Dyna-Hex 2% Top Sol 2oz TOPIC SCH (20:02)
--- NOTE | 2019-09-27 21:00 | NUR ---
NURSE NOTES: Pt provided with a CHG bed bath, oral care and linen change. Pt suctioned for excess secretions. Pt tolerated care well. Bedside assessment performed, assessed pt for pain with a FLACC score of 0 noted. Pt remains confused and attempting to pull at medical devices despite use of restraints and patient education provided. Pt repositioned for comfort and safety. VS obtained and noted to be stable. O2 saturation remains between 90-94% on 3L NC but SOB with exertion noted. Fall, Aspiration and Skin precautions observed. Pt remains resting in bed; Bed remains in the lowest position with the safety wheels engaged, call light within reach, side rails up x3 and bed alarm activated. Will continue plan of care. Will continue to monitor.
--- NOTE | 2019-09-27 23:00 | NUR ---
NURSE NOTES: Bedside assessment performed. Pt noted to be sleeping at this time. Assessed pt for pain with a FLACC score of 0 noted. Pt assisted with repositioning for comfort and safety. VS obtained and noted to be stable at this time. PRN Ativan previously provided for agitation and restlessness as ordered. VS obtain prior to and after administration and remain stable. No adverse effects noted. Pt assessed for clinical indication for use of restraints. Pt noted to be calmer and no longer pulling at medical devices. Restraints removed and CMS remains intact. Will continue to assess pt for criteria in order to ensure pt safety. Fall, Aspiration and Skin precautions observed. Pt remains resting in bed; Bed remains in the lowest position with the safety wheels engaged, call light within reach, side rails up x3 and bed alarm activated. Will continue plan of care. Will continue to monitor.
[2019-09-28] VITALS (17 sets, daily range): BP systolic 105–154; BP diastolic 54–117
--- NOTE | 2019-09-28 01:00 | NUR ---
NURSE NOTES: Bedside assessment performed. Pt noted to be sleeping at this time. Assessed pt for pain with a FLACC score of 0 noted. Pt assisted with repositioning for comfort and safety. VS obtained and noted to be stable at this time. Pt noted to be attempting to remove medical devices, education provided. Alternative measures being employed in an attempt to divert pt attention. Pt remains clean and dry. Fall, Aspiration and Skin precautions observed. Pt remains resting in bed; Bed remains in the lowest position with the safety wheels engaged, call light within reach, side rails up x3 and bed alarm activated. Will continue plan of care. Will continue to monitor.
--- NOTE | 2019-09-28 02:02 | NUR ---
NURSE NOTES: Pt noted to be attempting to remove medical devices, education provided. Alternative measures noted to be noneffective in diverting pts attention. Pt attempting to pull PICC line, Justyn catheter and Montalvo catheter. Bilateral soft wrist restraint order implemented. CMS remains intact, skin remains intact and no edema present. ROM exercises provided per pt tolerance and bilateral upper/lower extremities elevated. Will continue to monitor pt for restraint criteria and obtain order to d/c restraints as indicated. Pt remains clean and dry. Fall, Aspiration and Skin precautions observed. Pt remains resting in bed; Bed remains in the lowest position with the safety wheels engaged, call light within reach, side rails up x3 and bed alarm activated. Will continue plan of care. Will continue to monitor.
[2019-09-28] MEDS: Cefepime 1gm/D5W 55ml IVPB SCH ×2 (02:04)
--- NOTE | 2019-09-28 03:00 | NUR ---
NURSE NOTES: Bedside assessment performed. Pt assessed for pain in which he currently denies. Pt assisted with repositioning for comfort and safety. VS obtained and noted to be stable at this time. Morning lab draw performed without incident and samples sent to laboratory for analysis. Cardizem continues to infuse at 10mg/hr, no changes at this time. No adverse effects noted from medication administration. Minimal cough noted and pt wishes to continue sleeping. Fall, Aspiration and Skin precautions observed. Pt remains resting in bed; Bed remains in the lowest position with the safety wheels engaged, call light within reach, side rails up x3 and bed alarm activated. Will continue plan of care. Will continue to monitor. Addendum: 09/28/19 at 0315 by CHANNING REYES RN Cardizem not infusing; entered in error
[2019-09-28] MEDS: LORazepam Inj 2mg/ml 1ml IV PRN ×2 (04:49→21:22)
--- NOTE | 2019-09-28 05:00 | NUR ---
NURSE NOTES: Bedside assessment performed. Pt noted to be confused. Assessed pt for pain with a FLACC score of 0 noted. Pt assisted with repositioning for comfort and safety. VS obtained and noted to be stable at this time. Pt continues to attempt to remove medical devices, education provided. Bilateral soft wrist restraints remain intact. CMS remains intact. PRN Ativan administered as ordered. VS obtained before and after administration and remains WNL. No adverse effects noted at this time. Pt remains clean and dry. Fall, Aspiration and Skin precautions observed. Pt remains resting in bed; Bed remains in the lowest position with the safety wheels engaged, call light within reach, side rails up x3 and bed alarm activated. Will continue plan of care. Will continue to monitor.
[2019-09-28 05:31] LABS: HEMATOCRIT 29.1 % (42.0-52.0); HEMOGLOBIN 9.4 G/DL (14.2-18.0); MEAN CORPUSCULAR VOLUME 91 FL (80-99); PLATELET COUNT 233 K/UL (150-450); RED BLOOD COUNT 3.19 M/UL (4.70-6.10); RED CELL DISTRIBUTION WIDTH 13.6 % (11.6-14.8); WHITE BLOOD COUNT 12.4 K/UL (4.8-10.8)
[2019-09-28] MEDS: Levodopa/Carbidopa 25/250 tab GT SCH ×3 (05:36→21:32)
[2019-09-28 05:52] LABS: ALANINE AMINOTRANSFERASE 17 U/L (12-78); ALBUMIN 2.3 G/DL (3.4-5.0); ALBUMIN/GLOBULIN RATIO 0.5 (1.0-2.7); ALKALINE PHOSPHATASE 56 U/L (46-116); ANION GAP 11 mmol/L (5-15); ASPARTATE AMINO TRANSFERASE 28 U/L (15-37); BILIRUBIN,TOTAL 0.3 MG/DL (0.2-1.0); BLOOD UREA NITROGEN 32 mg/dL (7-18); CALCIUM 8.8 MG/DL (8.5-10.1); CARBON DIOXIDE 26 MMOL/L (21-32); CHLORIDE 113 MMOL/L (98-107); CREATININE 1.2 MG/DL (0.55-1.30); PHOSPHORUS 2.5 MG/DL (2.5-4.9); POTASSIUM 3.4 MMOL/L (3.5-5.1); SODIUM 150 MMOL/L (136-145)
--- NOTE | 2019-09-28 06:39 | NUR ---
RD ASSESSMENT & RECOMMENDATIONS SEE CARE ACTIVITY FOR COMPLETE ASSESSMENT DAILY ESTIMATED NEEDS: Needs based on Pulmonary, wound 68.18kg 25-30 kcals/kg 9758-4337 total kcals 1.25-1.5 g protein/kg 83-102 g total protein 20-25 mL/kg 6297-7125 total fluid mLs NUTRITION DIAGNOSIS: 1. Swallowing difficulty r/t dysphagia as evidenced by pt is GT dep. 2. Altered nutrition related lab values r/t clinical status, sepsis, dehydration, renal failure as evidenced by elev K(9.0->7.2*-> 3.4 now low), elev BUN(166-> 32 trend down), elev Creat (9.4 -> wnl). CURRENT TF:Nepro @ 50ml/hr x 24 hrs ENTERAL NUTRITION RECOMMENDATIONS: Glucerna 1.5 @ 50ml/hr x 24 hrs to provide 1200ml, 1800kcal, 99g prot, 911ml free water - Rec TF change to Glucerna 1.5 -> Nepro no longer necessary w/ improved renal fxn (K now low, creat wnl) - Initiate Glucerna 1.5 @ 30ml/hr x6hrs, advance 10ml q 4-6 hrs as tolerated to goal - Flush per MD, HOB Over 30 degrees. ADDITIONAL RECOMMENDATIONS: 1) Rec WC eval-> add DEENA in 4oz H2O BID via GT -> Add Vit C 250mg QD 2) Monitor renal fxn and lytes: Creat now wnl, K low 3) Monitor BGs, need for NISS 4) Monitor resp status and ability to feed-> now off Bipap, on NC 5) [employer]GER eval when appropriate for oral diet/ oral grat - on oral diet OFFICE SPEC
--- NOTE | 2019-09-28 07:12 | NUR ---
NURSE HAND-OFF REPORT: Latest Vital Signs: Temperature 98.9 , Pulse 97 , B/P 140 /66 , Respiratory Rate 23 , O2 SAT 93 , Nasal Cannula, O2 Flow Rate 3.0 . Vital Sign Comment: - EKG Rhythm: Sinus Rhythm Rhythm change?: N MD Notified?: - MD Response: N/A Latest Shane Fall Score: 75 Fall Risk: High Risk Safety Measures: Call light Within Reach, Bed Alarm Zone 2, Side Rails Side Rails x3, Bed position Low and Locked. Fall Precautions: Yellow Socks Door Sign Report given to SHANNAN Trinh. Endorsed plan of care and pending response regarding abnormal labs
[2019-09-28] MEDS: Heparin 5000 units/ml inj SUBQ SCH ×2 (08:23→21:32)
[2019-09-28] MEDS: Pantoprazole Inj IV SCH ×2 (08:23→21:23)
[2019-09-28] MEDS: Docusate 100mg/10ml Liq GT SCH ×3 (08:23→17:09)
[2019-09-28] MEDS: Aspirin Baby 81mg GT SCH (08:23)
[2019-09-28] MEDS: Metoprolol Tartrate 12.5mg TAB GT SCH ×2 (08:24→21:33)
[2019-09-28] MEDS: Nitroglycerin Patch 0.4mg TDERMAL SCH (08:25)
[2019-09-28] MEDS ORDERED: Tubing IV Secondary IV ONE (09:26)
[2019-09-28] MEDS ORDERED: NS 275ml ONE (09:26)
--- NOTE | 2019-09-28 09:33 | Infectious Diseases Prog Note ---
Assessment/Plan Assessment/Plan A 1. pneumonia COVID 19 test negative x 2 2. hypertension 3. Parkinson disease 4. Dementia 5. Acute renal failure 6. 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 continue cefepime 3 more days 2. will follow up cultures Subjective ROS Limited/Unobtainable: Yes Constitutional: Denies: fever Neurologic: Reports: confusion, other - on restraint Allergies: Coded Allergies: No Known Allergies (Unverified , 09/25/19) Objective Last 24 Hour Vital Signs Date Time Temp Pulse Resp B/P (MAP) Pulse Ox O2 Delivery O2 Flow Rate FiO2 09/28/19 09:00 79 21 105/63 (77) 95 09/28/19 08:30 100 26 143/69 (93) 94 09/28/19 08:25 126/79 09/28/19 08:24 98 126/79 09/28/19 08:00 99.8 102 27 141/75 (97) 91 09/28/19 07:30 100 28 145/78 (100) 95 09/28/19 07:00 98 27 119/72 (88) 94 09/28/19 06:00 97 23 140/66 (90) 93 09/28/19 05:00 96 30 140/63 (88) 94 09/28/19 04:00 Nasal Cannula 3.0 Nasal Cannula 3.0 Nasal Cannula 3.0 09/28/19 04:00 98.9 100 20 149/94 (112) 93 09/28/19 03:07 102 09/28/19 03:00 91 22 114/54 (74) 91 09/28/19 02:00 99 26 154/80 (104) 94 09/28/19 01:00 91 23 118/64 (82) 92 09/28/19 00:00 Nasal Cannula 3.0 Nasal Cannula 3.0 Nasal Cannula 3.0 09/28/19 00:00 98.8 91 26 146/117 (127) 94 09/27/19 23:17 89 09/27/19 23:00 89 20 145/78 (100) 95 09/27/19 22:00 90 22 121/56 (77) 92 09/27/19 21:00 83 21 120/74 (89) 94 09/27/19 20:26 91 119/87 09/27/19 20:21 82 17 119/55 (76) 94 09/27/19 20:00 96 Nasal Cannula 2.0 28 09/27/19 20:00 Nasal Cannula 3.0 Nasal Cannula 3.0 Nasal Cannula 3.0 09/27/19 20:00 98.6 83 23 104/80 (88) 94 09/27/19 19:39 76 09/27/19 19:00 80 21 106/53 (70) 91 09/27/19 18:00 79 19 143/68 (93) 93 09/27/19 17:00 80 21 120/54 (76) 94 09/27/19 16:00 82 09/27/19 16:00 Nasal Cannula 3.0 Nasal Cannula 3.0 09/27/19 16:00 98.6 85 23 126/82 (97) 95 09/27/19 15:00 86 24 161/142 (148) 93 09/27/19 14:00 81 21 110/81 (91) 93 09/27/19 13:00 81 25 120/44 (69) 92 09/27/19 12:00 99.8 93 24 134/49 (77) 96 09/27/19 12:00 Nasal Cannula 3.0 Nasal Cannula 3.0 09/27/19 12:00 95 09/27/19 11:00 86 25 165/63 (97) 99 09/27/19 10:00 85 25 137/96 (110) 97 09/27/19 09:44 96 145/74 09/27/19 09:44 145/74 Height (Feet): 6 Height (Inches): 6.00 Weight (Pounds): 175 HEENT: mucous membranes moist Respiratory/Chest: lungs clear Cardiovascular: tachycardia, other - Left arm PICC line, R femoral HD ascess Abdomen: soft, non tender, other - GT feeding Extremities: no edema Neurologic/Psychiatric: disoriented Microbiology Date/Time Source Procedure Growth Status 09/26/19 15:45 Nasopharynx SARS-CoV-2 RdRp Gene Assay - Final Complete 09/26/19 15:45 Sputum Gram Stain - Final Complete 09/26/19 15:45 Sputum Sputum Culture - Final NORMAL UPPER RESPIRATORY KHOA PRESENT Complete 09/25/19 18:30 Indwelling Cath Urine Culture - Final NO GROWTH AFTER 48 HOURS Complete Laboratory Tests Test 09/27/19 16:00 09/28/19 03:30 Iron Level 16 ug/dL (50-175) L Total Iron Binding Capacity 125 ug/dL (250-450) L Percent Iron Saturation 13 % (15-50) L Unsaturated Iron Binding 109 ug/dL (112-346) L Ferritin 622 NG/ML (8-388) H Vitamin B12 Level 1219 PG/ML (193-986) H Folate 18.6 NG/ML (8.6-58.9) White Blood Count 12.4 K/UL (4.8-10.8) H Red Blood Count 3.19 M/UL (4.70-6.10) L Hemoglobin 9.4 G/DL (14.2-18.0) L Hematocrit 29.1 % (42.0-52.0) L Mean Corpuscular Volume 91 FL (80-99) Mean Corpuscular Hemoglobin 29.3 PG (27.0-31.0) Mean Corpuscular Hemoglobin Concent 32.1 G/DL (32.0-36.0) Red Cell Distribution Width 13.6 % (11.6-14.8) Platelet Count 233 K/UL (150-450) Mean Platelet Volume 7.4 FL (6.5-10.1) Neutrophils (%) (Auto) % (45.0-75.0) Lymphocytes (%) (Auto) % (20.0-45.0) Monocytes (%) (Auto) % (1.0-10.0) Eosinophils (%) (Auto) % (0.0-3.0) Basophils (%) (Auto) % (0.0-2.0) Sodium Level 150 MMOL/L (136-145) H Potassium Level 3.4 MMOL/L (3.5-5.1) L Chloride Level 113 MMOL/L (98-107) H Carbon Dioxide Level 26 MMOL/L (21-32) Anion Gap 11 mmol/L (5-15) Blood Urea Nitrogen 32 mg/dL (7-18) H Creatinine 1.2 MG/DL (0.55-1.30) Estimat Glomerular Filtration Rate 58.7 mL/min (>60) Glucose Level 135 MG/DL (74-106) H Calcium Level 8.8 MG/DL (8.5-10.1) Phosphorus Level 2.5 MG/DL (2.5-4.9) Magnesium Level 2.0 MG/DL (1.8-2.4) Total Bilirubin 0.3 MG/DL (0.2-1.0) Aspartate Amino Transf (AST/SGOT) 28 U/L (15-37) Alanine Aminotransferase (ALT/SGPT) 17 U/L (12-78) Alkaline Phosphatase 56 U/L (46-116) Troponin I 0.135 ng/mL (0.000-0.056) C-Reactive Protein, Quantitative 29.4 mg/dL (0.00-0.90) H Pro-B-Type Natriuretic Peptide 2881 pg/mL (0-125) H Total Protein 7.4 G/DL (6.4-8.2) Albumin 2.3 G/DL (3.4-5.0) L Globulin 5.1 g/dL Albumin/Globulin Ratio 0.5 (1.0-2.7) L Current Medications Medications (Trade) Dose Ordered Sig/Mick Route PRN Reason Start Time Stop Time Status Last Admin Dose Admin Aspirin (ASA) 162 mg DAILY GT 09/26/19 09:00 11/10/19 08:59 09/28/19 08:23 Carbidopa/Levodopa (Sinemet 25/250) 1 tab Q8HR GT 09/26/19 09:00 10/26/19 08:59 09/28/19 05:36 Cefepime HCl 1 gm/ Dextrose 55 ml @ 110 mls/hr Q24H IVPB 09/26/19 03:00 10/03/19 02:59 09/28/19 02:04 Chlorhexidine Gluconate (Park-Hex 2%) 1 applic DAILY@2000 TOPIC 09/25/19 20:00 12/24/19 19:59 09/27/19 20:02 Dextrose (Dextrose 50%) 25 ml Q30M PRN IV Hypoglycemia 09/25/19 10:30 12/24/19 10:29 Dextrose (Dextrose 50%) 50 ml Q30M PRN IV Hypoglycemia 09/25/19 10:30 12/24/19 10:29 Docusate Sodium (Colace) 100 mg TID GT 09/25/19 13:00 10/25/19 12:59 09/28/19 08:23 Heparin Sodium (Porcine) (Heparin 5000 units/ml) 5,000 units EVERY 12 HOURS SUBQ 09/25/19 21:00 11/09/19 20:59 09/28/19 08:23 Lorazepam (Ativan 2mg/ml 1ml) 0.5 mg Q4H PRN IV For Anxiety 09/25/19 10:30 10/02/19 10:29 09/28/19 04:49 Metoprolol Tartrate (Lopressor) 12.5 mg Q12HR GT 09/26/19 09:07 12/25/19 09:06 09/28/19 08:24 Nitroglycerin (Ntg) 1 patch Q24H TDERMAL 09/26/19 09:30 10/26/19 09:29 09/28/19 08:25 Norepinephrine Bitartrate 250 ml @ 0 mls/hr Q24H PRN IV For hypotension 09/25/19 16:37 12/24/19 16:36 Pantoprazole (Protonix) 40 mg Q12HR IV 09/25/19 11:00 10/26/19 08:59 09/28/19 08:23 Potassium Chloride 100 ml @ 50 mls/hr ONCE IVPB 09/28/19 08:00 09/28/19 09:59 09/28/19 08:24 Charan Yan MD Sep 28, 2019 09:33
--- NOTE | 2019-09-28 10:05 | NUR ---
NURSE HAND-OFF REPORT: Important Events on Shift: Patient Status: obtunded Diet: Nepro at 50ml/hr Pending Orders: none Pending Results/Labs: none Pending MD notification: none Latest Vital Signs: Temperature 99.8 , Pulse 101 , B/P 105 /63 , Respiratory Rate 21 , O2 SAT 95 , Nasal Cannula, O2 Flow Rate 3.0 . Vital Sign Comment: patient is calm and stable EKG Rhythm: Sinus Rhythm Rhythm change?: N MD Notified?: - MD Response: Latest Shane Fall Score: 75 Fall Risk: High Risk Safety Measures: Call light Within Reach, Bed Alarm Zone 2, Side Rails Side Rails x3, Bed position Low and Locked. Fall Precautions: Yellow Socks Door Sign Report given to SHANNAN Kurtz. Patient is confused and has speech that is garbled and repeats words, he is on restraints for attempting to pull and tugs on Justyn catheter and G-tube. Currently has potassium chloride 20mEq running through left upper arms PICC line.
--- NOTE | 2019-09-28 10:10 | NUR ---
NURSE NOTES: Received patient from SHANNAN Trinh. Patient aaox1, drowsy, vss, temp 100.8 degrees F, conveyor monitor, and no acute distress. Patient is uncooperative an pulling on medical devices, but clean and well groomed. Patient is on restraints with no swelling or bruising at this time and pulses are present. Patient is on 2L nasal canula, ng tube with feeding of Nepro running at 50mL/hr. Montalvo catheter draining to gravity. Dialysis access on right femoral, PICC on left upper arm both patent with no signs of infection. Sacral with blanchable redness, bilateral heels with blanchable redness, left toe with healed injury and medial plantar non-blanchable redness. Bed at its lowest position, call light in reach and x3 bed rails are up. Will continue to monitor.
--- NOTE | 2019-09-28 10:42 | NUR ---
NURSE NOTES: Dr. Dugan stated to leave the abdominal binger on until discharge for now and ordered acetaminophen 650 Q6, PRN for fever.
--- NOTE | 2019-09-28 10:49 | NUR ---
CASE MANAGEMENT:REVIEW 09/28/19 SI: PNA. ACUTE RENAL FAILURE 99.8 102 27 141/75 95% ON 3L/NC WBC+12.4 NA+150 BUN+32 TROPONIN(+) 0.135 IS: IV CEFEPIME Q24 NTG 1 PATCH Q24 ASA GT QD HEPARIN SQ Q12 LOPRESSOR GT Q12 IV PROTONIX Q12 : ICU STATUS DCP: FROM [facility]
--- NOTE | 2019-09-28 10:59 | NUR ---
INSURANCE CLINICAL/REVIEW FAXED TO [facility] PH: [phone] [facility] FX: [phone] REF# [id number]
--- NOTE | 2019-09-28 13:30 | Nephrology Progress Note ---
Assessment/Plan Problem List: (1) ARF (acute renal failure) (2) Acute hyperkalemia (3) Respiratory failure with hypoxia (4) HCAP (healthcare-associated pneumonia) (5) Acute metabolic encephalopathy (6) Parkinsons disease (7) Elevated troponin I level (8) Anemia Assessment Renal failure, acute, possible underlying chronic kidney disease Sepsis, pneumonia, UTI Acute respiratory failure with hypoxia Hyponatremia ACS Acute metabolic encephalopathy Has G-tube Hypothyroidism Parkinson's Plan September 27: Lab reviewed. Hemoglobin stable. Renal parameters stable. Electrolyte supplement ordered. No further dialysis needed. Continue per consultants. September 26: Hemoglobin lower. Renal parameters stable. Potassium phosphate IV given. Anemia work-up initiated. Continue per consultants. No further need for dialysis at this time. Kidney ultrasound reviewed. Acute renal failure and hyperkalemia is now resolved. Previously: Aspirin, Lopressor, Nitropaste, started Patient was dialyzed yesterday today hyperkalemia is resolved 2D echocardiogram results noted. No number for ejection fraction is documented. Kidney ultrasound results pending. Discussed with SHANNAN Faulkner. Continue to monitor renal parameters and dialysis as needed. Per orders Subjective ROS Limited/Unobtainable: No Constitutional: Reports: malaise, weakness Objective Objective Last 24 Hour Vital Signs Date Time Temp Pulse Resp B/P (MAP) Pulse Ox O2 Delivery O2 Flow Rate FiO2 09/28/19 11:00 100.8 92 23 130/75 (93) 97 09/28/19 10:24 101 09/28/19 09:30 83 25 130/83 (99) 95 09/28/19 09:00 79 21 105/63 (77) 95 09/28/19 08:30 100 26 143/69 (93) 94 09/28/19 08:25 126/79 09/28/19 08:24 98 126/79 09/28/19 08:00 99.8 102 27 141/75 (97) 91 09/28/19 08:00 Nasal Cannula 3.0 Nasal Cannula 3.0 09/28/19 07:30 100 28 145/78 (100) 95 09/28/19 07:00 98 27 119/72 (88) 94 09/28/19 06:00 97 23 140/66 (90) 93 09/28/19 05:00 96 30 140/63 (88) 94 09/28/19 04:00 Nasal Cannula 3.0 Nasal Cannula 3.0 Nasal Cannula 3.0 09/28/19 04:00 98.9 100 20 149/94 (112) 93 09/28/19 03:07 102 09/28/19 03:00 91 22 114/54 (74) 91 09/28/19 02:00 99 26 154/80 (104) 94 09/28/19 01:00 91 23 118/64 (82) 92 09/28/19 00:00 Nasal Cannula 3.0 Nasal Cannula 3.0 Nasal Cannula 3.0 09/28/19 00:00 98.8 91 26 146/117 (127) 94 09/27/19 23:17 89 09/27/19 23:00 89 20 145/78 (100) 95 09/27/19 22:00 90 22 121/56 (77) 92 09/27/19 21:00 83 21 120/74 (89) 94 09/27/19 20:26 91 119/87 09/27/19 20:21 82 17 119/55 (76) 94 09/27/19 20:00 96 Nasal Cannula 2.0 28 09/27/19 20:00 Nasal Cannula 3.0 Nasal Cannula 3.0 Nasal Cannula 3.0 09/27/19 20:00 98.6 83 23 104/80 (88) 94 09/27/19 19:39 76 09/27/19 19:00 80 21 106/53 (70) 91 09/27/19 18:00 79 19 143/68 (93) 93 09/27/19 17:00 80 21 120/54 (76) 94 09/27/19 16:00 82 09/27/19 16:00 Nasal Cannula 3.0 Nasal Cannula 3.0 09/27/19 16:00 98.6 85 23 126/82 (97) 95 09/27/19 15:00 86 24 161/142 (148) 93 09/27/19 14:00 81 21 110/81 (91) 93 Intake and Output 09/27/19 09/28/19 19:00 07:00 Intake Total 1581.664 ml 745 ml Output Total 1020 ml 1210 ml Balance 561.664 ml -465 ml Free Water 300 ml 90 ml IV Total 681.664 ml 55 ml Tube Feeding 600 ml 600 ml Output Urine Total 1020 ml 1210 ml Current Medications Medications (Trade) Dose Ordered Sig/Mick Route PRN Reason Start Time Stop Time Status Last Admin Dose Admin Acetaminophen (Tylenol) 650 mg Q6H PRN ORAL Temp >100.5 09/28/19 12:15 10/28/19 12:14 Aspirin (ASA) 162 mg DAILY GT 09/29/19 09:00 11/10/19 08:59 Carbidopa/Levodopa (Sinemet 25/250) 1 tab Q8HR GT 09/28/19 14:00 10/26/19 08:59 Cefepime HCl 1 gm/ Dextrose 55 ml @ 110 mls/hr Q24H IVPB 09/29/19 03:00 10/03/19 02:59 Chlorhexidine Gluconate (Park-Hex 2%) 1 applic DAILY@2000 TOPIC 09/28/19 20:00 12/24/19 19:59 Dextrose (Dextrose 50%) 25 ml Q30M PRN IV Hypoglycemia 09/28/19 10:30 12/24/19 10:29 Dextrose (Dextrose 50%) 50 ml Q30M PRN IV Hypoglycemia 09/28/19 10:30 12/24/19 10:29 Docusate Sodium (Colace) 100 mg TID GT 09/28/19 13:00 10/25/19 12:59 Heparin Sodium (Porcine) (Heparin 5000 units/ml) 5,000 units EVERY 12 HOURS SUBQ 09/28/19 21:00 11/09/19 20:59 Lorazepam (Ativan 2mg/ml 1ml) 0.5 mg Q4H PRN IV For Anxiety 09/28/19 10:45 10/05/19 10:44 Metoprolol Tartrate (Lopressor) 12.5 mg Q12HR GT 09/28/19 21:00 12/25/19 09:06 Nitroglycerin (Ntg) 1 patch Q24H TDERMAL 09/29/19 09:30 10/26/19 09:29 Pantoprazole (Protonix) 40 mg Q12HR IV 09/28/19 21:00 10/26/19 08:59 Laboratory Tests 09/27/19 16:00: Iron Level 16L, Total Iron Binding Capacity 125L, Percent Iron Saturation 13L, Unsaturated Iron Binding 109L, Ferritin 622H, Vitamin B12 Level 1219H, Folate 18.6 09/28/19 03:30: White Blood Count 12.4H, Red Blood Count 3.19L, Hemoglobin 9.4L, Hematocrit 29.1L, Mean Corpuscular Volume 91, Mean Corpuscular Hemoglobin 29.3, Mean Corpuscular Hemoglobin Concent 32.1, Red Cell Distribution Width 13.6, Platelet Count 233, Mean Platelet Volume 7.4, Neutrophils (%) (Auto) , Lymphocytes (%) ( Auto) , Monocytes (%) (Auto) , Eosinophils (%) (Auto) , Basophils (%) (Auto) , Sodium Level 150H, Potassium Level 3.4L, Chloride Level 113H, Carbon Dioxide Level 26, Anion Gap 11, Blood Urea Nitrogen 32H, Creatinine 1.2, Estimat Glomerular Filtration Rate 58.7, Glucose Level 135H, Calcium Level 8.8, Phosphorus Level 2.5, Magnesium Level 2.0, Total Bilirubin 0.3, Aspartate Amino Transf (AST/SGOT) 28, Alanine Aminotransferase (ALT/SGPT) 17, Alkaline Phosphatase 56, Troponin I 0.135H, C-Reactive Protein, Quantitative 29.4H, Pro-B -Type Natriuretic Peptide 2881H, Total Protein 7.4, Albumin 2.3L, Globulin 5.1, Albumin/Globulin Ratio 0.5L Height (Feet): 6 Height (Inches): 6.00 Weight (Pounds): 175 General Appearance: no apparent distress Cardiovascular: tachycardia Respiratory/Chest: decreased breath sounds Abdomen: distended Objective No change Ezekiel Rachel MD Sep 28, 2019 13:30
--- NOTE | 2019-09-28 14:57 | NUR ---
NURSE NOTES: Patient is awake and responds to name, but no audible words spoken at thia time.
[2019-09-28] MEDS ORDERED: Norepinephrine 4mg/NS Premix 250 ML IV PRN (16:45)
--- NOTE | 2019-09-28 17:27 | Pulmonology Progress Note ---
Subjective ROS Limited/Unobtainable: No Interval Events: K normalized; no longer needs HD Constitutional: Denies: fever HEENT: Repors: no symptoms Respiratory: Reports: no symptoms Cardiovascular: Reports: no symptoms Gastrointestinal/Abdominal: Reports: no symptoms Allergies: Coded Allergies: No Known Allergies (Unverified , 09/25/19) Objective Last 24 Hour Vital Signs Date Time Temp Pulse Resp B/P (MAP) Pulse Ox O2 Delivery O2 Flow Rate FiO2 09/28/19 16:00 99.9 83 20 116/81 (93) 95 09/28/19 16:00 Nasal Cannula 2.0 Nasal Cannula 2.0 09/28/19 15:42 81 09/28/19 14:23 99.2 09/28/19 12:00 100.0 88 22 142/95 (111) 95 09/28/19 12:00 101 09/28/19 12:00 Nasal Cannula 2.0 Nasal Cannula 2.0 09/28/19 11:00 100.8 92 23 130/75 (93) 97 09/28/19 10:24 101 09/28/19 09:30 83 25 130/83 (99) 95 09/28/19 09:00 79 21 105/63 (77) 95 09/28/19 08:30 100 26 143/69 (93) 94 09/28/19 08:25 126/79 09/28/19 08:24 98 126/79 09/28/19 08:00 99.8 102 27 141/75 (97) 91 09/28/19 08:00 Nasal Cannula 3.0 Nasal Cannula 3.0 09/28/19 08:00 97 Nasal Cannula 2.0 28 09/28/19 07:30 100 28 145/78 (100) 95 09/28/19 07:00 98 27 119/72 (88) 94 09/28/19 06:00 97 23 140/66 (90) 93 09/28/19 05:00 96 30 140/63 (88) 94 09/28/19 04:00 Nasal Cannula 3.0 Nasal Cannula 3.0 Nasal Cannula 3.0 09/28/19 04:00 98.9 100 20 149/94 (112) 93 09/28/19 03:07 102 09/28/19 03:00 91 22 114/54 (74) 91 09/28/19 02:00 99 26 154/80 (104) 94 09/28/19 01:00 91 23 118/64 (82) 92 09/28/19 00:00 Nasal Cannula 3.0 Nasal Cannula 3.0 Nasal Cannula 3.0 09/28/19 00:00 98.8 91 26 146/117 (127) 94 09/27/19 23:17 89 09/27/19 23:00 89 20 145/78 (100) 95 09/27/19 22:00 90 22 121/56 (77) 92 09/27/19 21:00 83 21 120/74 (89) 94 09/27/19 20:26 91 119/87 09/27/19 20:21 82 17 119/55 (76) 94 09/27/19 20:00 96 Nasal Cannula 2.0 28 09/27/19 20:00 Nasal Cannula 3.0 Nasal Cannula 3.0 Nasal Cannula 3.0 09/27/19 20:00 98.6 83 23 104/80 (88) 94 09/27/19 19:39 76 09/27/19 19:00 80 21 106/53 (70) 91 09/27/19 18:00 79 19 143/68 (93) 93 Intake and Output 09/27/19 09/28/19 19:00 07:00 Intake Total 1581.664 ml 745 ml Output Total 1020 ml 1210 ml Balance 561.664 ml -465 ml Free Water 300 ml 90 ml IV Total 681.664 ml 55 ml Tube Feeding 600 ml 600 ml Output Urine Total 1020 ml 1210 ml General Appearance: no acute distress HEENT: normocephalic Respiratory: chest wall non-tender, lungs clear Cardiovascular: normal peripheral pulses, normal rate Abdomen: normal bowel sounds Microbiology Date/Time Source Procedure Growth Status 09/26/19 15:45 Nasopharynx SARS-CoV-2 RdRp Gene Assay - Final Complete 09/26/19 15:45 Sputum Gram Stain - Final Complete 09/26/19 15:45 Sputum Sputum Culture - Final NORMAL UPPER RESPIRATORY KHOA PRESENT Complete 09/25/19 18:30 Indwelling Cath Urine Culture - Final NO GROWTH AFTER 48 HOURS Complete Laboratory Tests 09/28/19 03:30: White Blood Count 12.4H, Red Blood Count 3.19L, Hemoglobin 9.4L, Hematocrit 29.1L, Mean Corpuscular Volume 91, Mean Corpuscular Hemoglobin 29.3, Mean Corpuscular Hemoglobin Concent 32.1, Red Cell Distribution Width 13.6, Platelet Count 233, Mean Platelet Volume 7.4, Neutrophils (%) (Auto) , Lymphocytes (%) ( Auto) , Monocytes (%) (Auto) , Eosinophils (%) (Auto) , Basophils (%) (Auto) , Sodium Level 150H, Potassium Level 3.4L, Chloride Level 113H, Carbon Dioxide Level 26, Anion Gap 11, Blood Urea Nitrogen 32H, Creatinine 1.2, Estimat Glomerular Filtration Rate 58.7, Glucose Level 135H, Calcium Level 8.8, Phosphorus Level 2.5, Magnesium Level 2.0, Total Bilirubin 0.3, Aspartate Amino Transf (AST/SGOT) 28, Alanine Aminotransferase (ALT/SGPT) 17, Alkaline Phosphatase 56, Troponin I 0.135H, C-Reactive Protein, Quantitative 29.4H, Pro-B -Type Natriuretic Peptide 2881H, Total Protein 7.4, Albumin 2.3L, Globulin 5.1, Albumin/Globulin Ratio 0.5L Current Medications Medications (Trade) Dose Ordered Sig/Mick Route PRN Reason Start Time Stop Time Status Last Admin Dose Admin Acetaminophen (Tylenol) 650 mg Q6H PRN ORAL Temp >100.5 09/28/19 12:15 10/28/19 12:14 09/28/19 13:53 Aspirin (ASA) 162 mg DAILY GT 09/29/19 09:00 11/10/19 08:59 Carbidopa/Levodopa (Sinemet 25/250) 1 tab Q8HR GT 09/28/19 14:00 10/26/19 08:59 09/28/19 14:47 Cefepime HCl 1 gm/ Dextrose 55 ml @ 110 mls/hr Q24H IVPB 09/29/19 03:00 10/03/19 02:59 Chlorhexidine Gluconate (Park-Hex 2%) 1 applic DAILY@2000 TOPIC 09/28/19 20:00 12/24/19 19:59 Dextrose (Dextrose 50%) 25 ml Q30M PRN IV Hypoglycemia 09/28/19 10:30 12/24/19 10:29 Dextrose (Dextrose 50%) 50 ml Q30M PRN IV Hypoglycemia 09/28/19 10:30 12/24/19 10:29 Docusate Sodium (Colace) 100 mg TID GT 09/28/19 13:00 10/25/19 12:59 09/28/19 17:09 Heparin Sodium (Porcine) (Heparin 5000 units/ml) 5,000 units EVERY 12 HOURS SUBQ 09/28/19 21:00 11/09/19 20:59 Lorazepam (Ativan 2mg/ml 1ml) 0.5 mg Q4H PRN IV For Anxiety 09/28/19 10:45 10/05/19 10:44 Metoprolol Tartrate (Lopressor) 12.5 mg Q12HR GT 09/28/19 21:00 12/25/19 09:06 Nitroglycerin (Ntg) 1 patch Q24H TDERMAL 09/29/19 09:30 10/26/19 09:29 Pantoprazole (Protonix) 40 mg Q12HR IV 09/28/19 21:00 10/26/19 08:59 Assessment/Plan Assessment/Plan IMPRESSION: 1. Healthcare-associated pneumonia. 2. Acute renal failure. Resolved 3. History of previous SBO. 4. CAD. 5. Parkinson's. 6. Dementia. 7. Hyperkalemia, corrected 8. Shock; pressors dc DISCUSSION: Underwent urgent hemodialysis. No longer needed Pressors no longer required Broad-spectrum antibiotics. I will follow carefully. Discussed with Will leave wong in place DC HD catheter DC planning to SNF Isaac Dugan M.D. Isaac Dugan MD Sep 28, 2019 17:27
--- NOTE | 2019-09-28 19:28 | NUR ---
NURSE HAND-OFF REPORT: Important Events on Shift:New order to DC dialysis cath, Pt on restraints, Patient Status: Full code Diet: Nepro Pending Orders: N/A Pending Results/Labs:N/A Pending MD notification:N/A Latest Vital Signs: Temperature 99.9 , Pulse 83 , B/P 116 /81 , Respiratory Rate 20 , O2 SAT 95 , Nasal Cannula, O2 Flow Rate 2.0 . Vital Sign Comment: stable EKG Rhythm: Sinus Rhythm Rhythm change?: N MD Notified?: - MD Response: Latest Shane Fall Score: 75 Fall Risk: High Risk Safety Measures: Call light Within Reach, Bed Alarm Zone 1, Side Rails Side Rails x3, Bed position Low and Locked. Fall Precautions: Yellow Socks Door Sign Report given to Priya Albarado RN.
--- NOTE | 2019-09-28 21:00 | NUR ---
NURSE NOTES: Pt admitted to SDU per Kailee. All pt belonging accounted for, pt refused to reliquish Primetene Mist MDI to pharmacy. BP 141/75, P 130, R 20, SpO2 95% on 3L [facility] aware of all above and gave no new orders. Bed in lowest position, bed alarm armed, call light within reach. Pt complains of penis pain 09/24, will give tylenol. Will start plan of care and close monitoring. Addendum: 09/29/19 at 0549 by Estela Barnes RN NURSE NOTES: Charting for wrong pt. Please disregard.
[2019-09-28] MEDS: Dyna-Hex 2% Top Sol 2oz TOPIC SCH (21:22)
[2019-09-29] VITALS: BP 144/76
--- NOTE | 2019-09-29 03:00 | NUR ---
NURSE NOTES: Pt c/o 11/24 penile pain. Pain glans appears red and swollen. Informed Tierazi of above and gave orders for Dilaudid. Orders read back, entered into MAR, and carried out. Will continue to monitor closely. Addendum: 09/29/19 at 0549 by Estela Barnes RN NURSE NOTES: Charting for wrong pt. Please disregard.
[2019-09-29] MEDS: LORazepam Inj 2mg/ml 1ml IV PRN ×2 (03:19→20:47)
[2019-09-29] MEDS: Cefepime HCl 1 GM in D5W 55 ML IVPB SCH (03:19)
[2019-09-29 04:00] VITALS: BP 123/67
--- NOTE | 2019-09-29 05:30 | NUR ---
NURSE NOTES: Informed Tierazi that pt is in aFib, Awaiting call back. Pt is asymptomatic. Will monitor closely. Addendum: 09/29/19 at 0550 by Estela Barnes RN NURSE NOTES: Charting for wrong pt, please disregard.
[2019-09-29] MEDS: Levodopa/Carbidopa 25/250 tab GT SCH ×3 (05:59→20:46)
--- NOTE | 2019-09-29 07:33 | NUR ---
NURSE HAND-OFF REPORT: Important Events on Shift: Sudden onset of desat in 80s, RT deep suctioned pt, 200ml of thick whitish brown secretions placed on non-rebreather mask @ 15 LPM. Sat now 98@. GT feeding stopped. Patient Status: Stable Diet: NPO, GT held (Nephro @ 50ml/h) Pending Orders: none Pending Results/Labs: none Pending MD notification: none Latest Vital Signs: Temperature 98.9 , Pulse 97 , B/P 123 /67 , Respiratory Rate 26 , O2 SAT 94 , Nasal Cannula, O2 Flow Rate 3.0 . Vital Sign Comment: EKG Rhythm: Sinus Rhythm Rhythm change?: N MD Notified?: - MD Response: Latest Shane Fall Score: 50 Fall Risk: High Risk Safety Measures: Call light Within Reach, Bed Alarm Zone 1, Side Rails Side Rails x3, Bed position Low and Locked. Fall Precautions: Yellow Socks Yes Yellow Gown YEs Door Sign YES Patient Fall Education YES Report given to Opal Hernandez RN
[2019-09-29 08:00] VITALS: BP 104/64
--- NOTE | 2019-09-29 08:00 | NUR ---
NURSE NOTES: Nurse report given by SHANNAN Palmer. Patient's in stable condition, AAO x 0, nonverbal, response to shaking and pain. IV is on TRACY PICC, running TKO, no s/s of tenderness or infiltration, blood return present. GT present, not running at this time, no residual noted, resume feeding Nepro at 10cc/hr, hypoactive, abdomen binder presents. Right femoral laly catheter presents, dressing dry and intact. Skin assessment noted: Left heel stage 1, Left malleolus skin tear, bilateral ears stage 2, more noticeable on the Left side. Wound care per order. Bilateral heels elevated. On nonrebreather mask at 15L. Will continue to monitor.
[2019-09-29] MEDS: Docusate 100mg/10ml Liq GT SCH ×3 (08:14→17:54)
[2019-09-29] MEDS: Aspirin Baby 81mg GT SCH (08:15)
[2019-09-29] MEDS: Pantoprazole Inj IV SCH ×2 (08:15→20:46)
[2019-09-29] MEDS: Metoprolol Tartrate 12.5mg TAB GT SCH ×2 (08:15→20:47)
[2019-09-29] MEDS: Heparin 5000 units/ml inj SUBQ SCH ×2 (08:17→20:49)
[2019-09-29] MEDS: Nitroglycerin Patch 0.4mg TDERMAL SCH (08:48)
--- NOTE | 2019-09-29 09:16 | NUR ---
NURSE NOTES: dr tyson made aware of the discontinuation of R femoral cath /Hd access. will follow up.
[2019-09-29] MEDS ORDERED: NS 275ml ONE ×2 (09:46→09:59)
[2019-09-29] MEDS ORDERED: Tubing IV Secondary IV ONE (09:59)
--- NOTE | 2019-09-29 10:16 | Pulmonology Progress Note ---
Subjective ROS Limited/Unobtainable: No Interval Events: Hypoxic today Constitutional: Denies: fever HEENT: Repors: no symptoms Respiratory: Reports: no symptoms Cardiovascular: Reports: no symptoms Gastrointestinal/Abdominal: Reports: no symptoms Allergies: Coded Allergies: No Known Allergies (Unverified , 09/25/19) Objective Last 24 Hour Vital Signs Date Time Temp Pulse Resp B/P (MAP) Pulse Ox O2 Delivery O2 Flow Rate FiO2 09/29/19 08:48 109/65 09/29/19 08:15 90 104/64 09/29/19 08:00 99.3 96 22 104/64 (77) 97 09/29/19 08:00 Non-Rebreather 15.0 Non-Rebreather 15.0 09/29/19 08:00 90 09/29/19 04:00 Nasal Cannula 3.0 Nasal Cannula 3.0 09/29/19 04:00 98.9 97 26 123/67 (85) 94 09/29/19 04:00 104 09/29/19 00:01 Nasal Cannula 3.0 Nasal Cannula 3.0 09/29/19 00:00 90 09/29/19 00:00 98.1 89 24 144/76 (98) 94 09/28/19 21:33 83 109/63 09/28/19 20:00 96 Nasal Cannula 2.0 28 09/28/19 20:00 Nasal Cannula 3.0 Nasal Cannula 3.0 09/28/19 20:00 98.2 80 25 109/73 (85) 95 09/28/19 19:39 77 09/28/19 16:00 99.9 83 20 116/81 (93) 95 09/28/19 16:00 Nasal Cannula 2.0 Nasal Cannula 2.0 09/28/19 15:42 81 09/28/19 14:23 99.2 09/28/19 12:00 100.0 88 22 142/95 (111) 95 09/28/19 12:00 101 09/28/19 12:00 Nasal Cannula 2.0 Nasal Cannula 2.0 09/28/19 11:00 100.8 92 23 130/75 (93) 97 09/28/19 10:24 101 Intake and Output 09/28/19 09/29/19 19:00 07:00 Intake Total 590 ml Output Total 1140 ml Balance -550 ml Tube Feeding 550 ml Other 40 ml Output Urine Total 1140 ml General Appearance: no acute distress HEENT: normocephalic Respiratory: chest wall non-tender, lungs clear Cardiovascular: normal peripheral pulses, normal rate Abdomen: normal bowel sounds Microbiology Date/Time Source Procedure Growth Status 09/26/19 15:45 Nasopharynx SARS-CoV-2 RdRp Gene Assay - Final Complete 09/26/19 15:45 Sputum Gram Stain - Final Complete 09/26/19 15:45 Sputum Sputum Culture - Final NORMAL UPPER RESPIRATORY KHOA PRESENT Complete Current Medications Medications (Trade) Dose Ordered Sig/Mick Route PRN Reason Start Time Stop Time Status Last Admin Dose Admin Acetaminophen (Tylenol) 650 mg Q6H PRN ORAL Temp >100.5 09/28/19 12:15 10/28/19 12:14 09/28/19 13:53 Aspirin (ASA) 162 mg DAILY GT 09/29/19 09:00 11/10/19 08:59 09/29/19 08:15 Carbidopa/Levodopa (Sinemet 25/250) 1 tab Q8HR GT 09/28/19 14:00 10/26/19 08:59 09/29/19 05:59 Cefepime HCl 1 gm/ Dextrose 55 ml @ 110 mls/hr Q24H IVPB 09/29/19 03:00 10/03/19 02:59 09/29/19 03:19 Chlorhexidine Gluconate (Park-Hex 2%) 1 applic DAILY@2000 TOPIC 09/28/19 20:00 12/24/19 19:59 09/28/19 21:22 Dextrose (Dextrose 50%) 25 ml Q30M PRN IV Hypoglycemia 09/28/19 10:30 12/24/19 10:29 Dextrose (Dextrose 50%) 50 ml Q30M PRN IV Hypoglycemia 09/28/19 10:30 12/24/19 10:29 Docusate Sodium (Colace) 100 mg TID GT 09/28/19 13:00 10/25/19 12:59 09/29/19 08:14 Heparin Sodium (Porcine) (Heparin 5000 units/ml) 5,000 units EVERY 12 HOURS SUBQ 09/28/19 21:00 11/09/19 20:59 09/29/19 08:17 Lorazepam (Ativan 2mg/ml 1ml) 0.5 mg Q4H PRN IV For Anxiety 09/28/19 10:45 10/05/19 10:44 09/29/19 03:19 Metoprolol Tartrate (Lopressor) 12.5 mg Q12HR GT 09/28/19 21:00 12/25/19 09:06 09/28/19 21:33 Nitroglycerin (Ntg) 1 patch Q24H TDERMAL 09/29/19 09:30 10/26/19 09:29 09/29/19 08:48 Pantoprazole (Protonix) 40 mg Q12HR IV 09/28/19 21:00 10/26/19 08:59 09/29/19 08:15 Assessment/Plan Assessment/Plan IMPRESSION: 1. Healthcare-associated pneumonia. 2. Acute renal failure. Resolved 3. History of previous SBO. 4. CAD. 5. Parkinson's. 6. Dementia. 7. Hyperkalemia, corrected 8. Shock; pressors dc DISCUSSION: Underwent urgent hemodialysis. No longer needed Pressors no longer required Broad-spectrum antibiotics. I will follow carefully. Discussed with Has worsening hypoxia Will check CXR Check labs Will leave wong in place DC HD catheter Isaac Dugan M.D. Isaac Dugan MD Sep 29, 2019 10:16
--- NOTE | 2019-09-29 10:28 | Nephrology Progress Note ---
Assessment/Plan Problem List: (1) ARF (acute renal failure) (2) Acute hyperkalemia (3) Respiratory failure with hypoxia (4) HCAP (healthcare-associated pneumonia) (5) Acute metabolic encephalopathy (6) Parkinsons disease (7) Elevated troponin I level (8) Anemia Assessment Renal failure, acute, possible underlying chronic kidney disease Sepsis, pneumonia, UTI Acute respiratory failure with hypoxia Hyponatremia ACS Acute metabolic encephalopathy Has G-tube Hypothyroidism Parkinson's Plan September 28: Patient appears stable. No further dialysis needed so the femoral catheter can be discontinued. Will check labs tomorrow if still in the house. September 27: Lab reviewed. Hemoglobin stable. Renal parameters stable. Electrolyte supplement ordered. No further dialysis needed. Continue per consultants. September 26: Hemoglobin lower. Renal parameters stable. Potassium phosphate IV given. Anemia work-up initiated. Continue per consultants. No further need for dialysis at this time. Kidney ultrasound reviewed. Acute renal failure and hyperkalemia is now resolved. Previously: Aspirin, Lopressor, Nitropaste, started Patient was dialyzed yesterday today hyperkalemia is resolved 2D echocardiogram results noted. No number for ejection fraction is documented. Kidney ultrasound results pending. Discussed with SHANNAN Faulkner. Continue to monitor renal parameters and dialysis as needed. Per orders Subjective ROS Limited/Unobtainable: Yes Objective Objective Last 24 Hour Vital Signs Date Time Temp Pulse Resp B/P (MAP) Pulse Ox O2 Delivery O2 Flow Rate FiO2 09/29/19 08:48 109/65 09/29/19 08:15 90 104/64 09/29/19 08:00 99.3 96 22 104/64 (77) 97 09/29/19 08:00 Non-Rebreather 15.0 Non-Rebreather 15.0 09/29/19 08:00 90 09/29/19 04:00 Nasal Cannula 3.0 Nasal Cannula 3.0 09/29/19 04:00 98.9 97 26 123/67 (85) 94 09/29/19 04:00 104 09/29/19 00:01 Nasal Cannula 3.0 Nasal Cannula 3.0 09/29/19 00:00 90 09/29/19 00:00 98.1 89 24 144/76 (98) 94 09/28/19 21:33 83 109/63 09/28/19 20:00 96 Nasal Cannula 2.0 28 09/28/19 20:00 Nasal Cannula 3.0 Nasal Cannula 3.0 09/28/19 20:00 98.2 80 25 109/73 (85) 95 09/28/19 19:39 77 09/28/19 16:00 99.9 83 20 116/81 (93) 95 09/28/19 16:00 Nasal Cannula 2.0 Nasal Cannula 2.0 09/28/19 15:42 81 09/28/19 14:23 99.2 09/28/19 12:00 100.0 88 22 142/95 (111) 95 09/28/19 12:00 101 09/28/19 12:00 Nasal Cannula 2.0 Nasal Cannula 2.0 09/28/19 11:00 100.8 92 23 130/75 (93) 97 Intake and Output 09/28/19 09/29/19 19:00 07:00 Intake Total 590 ml Output Total 1140 ml Balance -550 ml Tube Feeding 550 ml Other 40 ml Output Urine Total 1140 ml No blood work drawn today Height (Feet): 6 Height (Inches): 6.00 Weight (Pounds): 175 General Appearance: no apparent distress Cardiovascular: tachycardia Respiratory/Chest: decreased breath sounds Abdomen: distended Objective No change Ezekiel Rachel MD Sep 29, 2019 10:28
--- NOTE | 2019-09-29 10:31 | Infectious Diseases Prog Note ---
Assessment/Plan Assessment/Plan antibiotics : cefepime A 1. pneumonia COVID 19 test negative x 2 2. hypertension 3. Parkinsons disease 4. dementia P 1. continue cefepime 2 more days 2. will follow up cultures Subjective ROS Limited/Unobtainable: Yes Allergies: Coded Allergies: No Known Allergies (Unverified , 09/25/19) Objective Last 24 Hour Vital Signs Date Time Temp Pulse Resp B/P (MAP) Pulse Ox O2 Delivery O2 Flow Rate FiO2 09/29/19 08:48 109/65 09/29/19 08:15 90 104/64 09/29/19 08:00 99.3 96 22 104/64 (77) 97 09/29/19 08:00 Non-Rebreather 15.0 Non-Rebreather 15.0 09/29/19 08:00 90 09/29/19 04:00 Nasal Cannula 3.0 Nasal Cannula 3.0 09/29/19 04:00 98.9 97 26 123/67 (85) 94 09/29/19 04:00 104 09/29/19 00:01 Nasal Cannula 3.0 Nasal Cannula 3.0 09/29/19 00:00 90 09/29/19 00:00 98.1 89 24 144/76 (98) 94 09/28/19 21:33 83 109/63 09/28/19 20:00 96 Nasal Cannula 2.0 28 09/28/19 20:00 Nasal Cannula 3.0 Nasal Cannula 3.0 09/28/19 20:00 98.2 80 25 109/73 (85) 95 09/28/19 19:39 77 09/28/19 16:00 99.9 83 20 116/81 (93) 95 09/28/19 16:00 Nasal Cannula 2.0 Nasal Cannula 2.0 09/28/19 15:42 81 09/28/19 14:23 99.2 09/28/19 12:00 100.0 88 22 142/95 (111) 95 09/28/19 12:00 101 09/28/19 12:00 Nasal Cannula 2.0 Nasal Cannula 2.0 09/28/19 11:00 100.8 92 23 130/75 (93) 97 Height (Feet): 6 Height (Inches): 6.00 Weight (Pounds): 175 Respiratory/Chest: lungs clear Cardiovascular: normal rate, regular rhythm, no gallop/murmur Abdomen: soft, non tender, other - GT Extremities: no edema, other - right groin catheter, left arm PICC Microbiology Date/Time Source Procedure Growth Status 09/26/19 15:45 Nasopharynx SARS-CoV-2 RdRp Gene Assay - Final Complete 09/26/19 15:45 Sputum Gram Stain - Final Complete 09/26/19 15:45 Sputum Sputum Culture - Final NORMAL UPPER RESPIRATORY KHOA PRESENT Complete Current Medications Medications (Trade) Dose Ordered Sig/Mick Route PRN Reason Start Time Stop Time Status Last Admin Dose Admin Acetaminophen (Tylenol) 650 mg Q6H PRN ORAL Temp >100.5 09/28/19 12:15 10/28/19 12:14 09/28/19 13:53 Aspirin (ASA) 162 mg DAILY GT 09/29/19 09:00 11/10/19 08:59 09/29/19 08:15 Carbidopa/Levodopa (Sinemet 25/250) 1 tab Q8HR GT 09/28/19 14:00 10/26/19 08:59 09/29/19 05:59 Cefepime HCl 1 gm/ Dextrose 55 ml @ 110 mls/hr Q24H IVPB 09/29/19 03:00 10/03/19 02:59 09/29/19 03:19 Chlorhexidine Gluconate (Park-Hex 2%) 1 applic DAILY@2000 TOPIC 09/28/19 20:00 12/24/19 19:59 09/28/19 21:22 Dextrose (Dextrose 50%) 25 ml Q30M PRN IV Hypoglycemia 09/28/19 10:30 12/24/19 10:29 Dextrose (Dextrose 50%) 50 ml Q30M PRN IV Hypoglycemia 09/28/19 10:30 12/24/19 10:29 Docusate Sodium (Colace) 100 mg TID GT 09/28/19 13:00 10/25/19 12:59 09/29/19 08:14 Heparin Sodium (Porcine) (Heparin 5000 units/ml) 5,000 units EVERY 12 HOURS SUBQ 09/28/19 21:00 11/09/19 20:59 09/29/19 08:17 Lactulose (Cephulac) 30 gm BID ORAL 09/29/19 18:00 10/29/19 17:59 Lorazepam (Ativan 2mg/ml 1ml) 0.5 mg Q4H PRN IV For Anxiety 09/28/19 10:45 10/05/19 10:44 09/29/19 03:19 Metoprolol Tartrate (Lopressor) 12.5 mg Q12HR GT 09/28/19 21:00 12/25/19 09:06 09/28/19 21:33 Nitroglycerin (Ntg) 1 patch Q24H TDERMAL 09/29/19 09:30 10/26/19 09:29 09/29/19 08:48 Pantoprazole (Protonix) 40 mg Q12HR IV 09/28/19 21:00 10/26/19 08:59 09/29/19 08:15 Paramjit Silva MD Sep 29, 2019 10:31
--- NOTE | 2019-09-29 11:58 | NUR ---
CASE MANAGEMENT:REVIEW 09/29/19 SI: PNA. ACUTE RENAL FAILURE T 98.9 HR 104 RR 26 B/P 123/67 SATS 94% ON 3L/NC >>> 15L/NRB LABS: NONE TODAY IS: IV CEFEPIME Q24H NTG 1 PATCH Q24H ASA GT QD HEPARIN SQ Q12H LOPRESSOR GT Q12H IV PROTONIX Q12H : SDU STATUS DCP: FROM [facility] PLAN OF CARE: leave wong in place DC HD catheter WORSENING HYPOXIA >> 15L/NRB
[2019-09-29 12:00] VITALS: BP_SYST 101; BP_SYST 96; BP_DIAS 63; BP_DIAS 69
--- NOTE | 2019-09-29 12:01 | NUR ---
INSURANCE PROGRESS NOTES AND REVIEW FAXED TO [facility] PH: [phone] [facility] FX: [phone]
[2019-09-29 12:13] LABS: HEMATOCRIT 29.5 % (42.0-52.0); HEMOGLOBIN 9.3 G/DL (14.2-18.0); MEAN CORPUSCULAR VOLUME 91 FL (80-99); PLATELET COUNT 273 K/UL (150-450); RED BLOOD COUNT 3.23 M/UL (4.70-6.10); RED CELL DISTRIBUTION WIDTH 12.9 % (11.6-14.8); WHITE BLOOD COUNT 19.1 K/UL (4.8-10.8)
[2019-09-29 12:24] LABS: ANION GAP 6 mmol/L (5-15); BLOOD UREA NITROGEN 34 mg/dL (7-18); CALCIUM 8.3 MG/DL (8.5-10.1); CARBON DIOXIDE 29 MMOL/L (21-32); CHLORIDE 118 MMOL/L (98-107); POTASSIUM 3.5 MMOL/L (3.5-5.1); SODIUM 153 MMOL/L (136-145)
[2019-09-29 12:29] LABS: ALANINE AMINOTRANSFERASE 17 U/L (12-78); ALBUMIN 2.1 G/DL (3.4-5.0); ALBUMIN/GLOBULIN RATIO 0.5 (1.0-2.7); ALKALINE PHOSPHATASE 43 U/L (46-116); ASPARTATE AMINO TRANSFERASE 23 U/L (15-37); BILIRUBIN,TOTAL 0.6 MG/DL (0.2-1.0)
--- NOTE | 2019-09-29 12:52 | NUR ---
DISCHARGE PLANNING: NOTE PER TESSY AT HCP PT WILL REQUIRE A CO PAY AT SNF SINCE HE IS IN THE 20-40 DAY PERIOD OF BENEFITS AIDEN GUZMAN TO CONTACT REGARDING CO PAYMENT PRIOR TO ACCEPTANCE AT SNF
--- NOTE | 2019-09-29 13:29 | NUR ---
NURSE NOTES: Left message via phone and made MD lujan aware for WBC 19.1, Na153 and Troponin 0.165 from 0.135. Awaiting for call back. Will continue to monitor.
--- NOTE | 2019-09-29 13:31 | NUR ---
NURSE NOTES: Called and made MD Silva aware that patitoña's WBC is 19.1 from 12.4. aware, no new orders at this time.
--- NOTE | 2019-09-29 14:00 | NUR ---
NURSE NOTES: Dr. Bacon at bedside to removed ARMIDA Catheter on Right femoral. No bleeding noted. Will continue to monitor.
--- NOTE | 2019-09-29 14:29 | NUR ---
NURSE NOTES: Dr. Bacno discontinued non -tunneled dialysis catheter right groin,dressing applied no more bleeding noted,continue to monitor,primary nurse Kay notified
--- NOTE | 2019-09-29 14:34 | Operative Note - PDOC ---
Operative Note Operative Note Date of Operation/Procedure: Sep 29, 2019 Pre-op Diagnosis: renal insufficiency requiring HD Procedure: removal of right femoral temp HD catheter Post-op Diagnosis: same as pre-op Surgeon: princess bacon md Anesthesia: other Specimen: none Complications: none Fluids: none Estimated Blood Loss: none Implant(s) used?: No Indications for Procedure 77M renal insufficiency recent HD no longer planned for HD. catheter ready for removal Description of Procedure Patient was made comfortable the bedside in supine position. Prior dressings removed from the right femoral region. The sutures were cut and the line was removed. Pressure was held approximately 20 minutes until hemostasis was obtained. Once hemostasis noted dressings were applied. No active bleeding no hematoma no hemorrhage identified upon removal and hemostasis. Care instructions endorsed to nursing staff. Will follow with recommendations. Thank you for let me participate in patient's care Princess Bacon Sep 29, 2019 14:34
--- NOTE | 2019-09-29 14:47 | Diagnostic Imaging Report ---
Indication: Shortness of breath Technique: One view of the chest Comparison: Post PICC radiograph dated 09/25/2019 Findings: Bilateral perihilar infiltrates are essentially unchanged. Left arm PICC remains in stable satisfactory position. The pleural spaces are clear. The heart size is normal Impression: Unchanged, over 4 days, findings as above.
--- NOTE | 2019-09-29 15:45 | NUR ---
NURSE NOTES: left a message to dr pollack cover today for Dr Dugan, regarding Na of 153 and trop of 0.165. awaiting callback and new order.
--- NOTE | 2019-09-29 15:50 | NUR ---
NURSE NOTES: dr miguel called back and acknowledged trop level of 0.165 and Na of 153.Per Dr Miguel he will ask Dr Brewster to see patient.
[2019-09-29 15:52] VITALS: BP 121/74
[2019-09-29] MEDS ORDERED: Lactulose 20gm/30ml UDC ORAL SCH (18:00)
[2019-09-29] MEDS ORDERED: Lactulose 20gm/30ml UDC GT PRN (19:30)
--- NOTE | 2019-09-29 19:30 | NUR ---
NURSE NOTES: Received report from Magali Burt RN. Pt in bed, awake, non-verbal. FLACC score 0. No signs or symptoms of distress noted at this time. VS WNL. Bed in lowest position, bed alarm armed, side rails up x 3, call light within reach. Will continue plan of care and close monitoring.
--- NOTE | 2019-09-29 19:32 | NUR ---
NURSE HAND-OFF REPORT: Important Events on Shift: D/c restraints, Lactulose ordered, still no BM Patient Status: FUll Diet: GT Nepro @ 50cc. Pending Orders: n;a Pending Results/Labs:[] Pending MD notification:[] Latest Vital Signs: Temperature 97.7 , Pulse 79 , B/P 121 /74 , Respiratory Rate 20 , O2 SAT 99 , Non-Rebreather, O2 Flow Rate 15.0 . Vital Sign Comment: [] EKG Rhythm: Sinus Rhythm Rhythm change?: N MD Notified?: - MD Response: Latest Shane Fall Score: 60 Fall Risk: High Risk Safety Measures: Call light Within Reach, Bed Alarm Zone 1, Side Rails Side Rails x3, Bed position Low and Locked. Fall Precautions: Yellow Socks Yellow Gown Door Sign Patient Fall Education Report given to [].
--- NOTE | 2019-09-29 19:33 | NUR ---
NURSE HAND-OFF REPORT: Important Events on Shift: D/c restraints, Lactulose administered, no BM still Patient Status: FULL code Diet: GT Nepro @50cc Pending Orders: n/a Pending Results/Labs:n/a Pending MD notification: Notified Dio regarding trending up troponin, awaiting for response. No new order from Ricardo MADDOX for WBC 19.3. Latest Vital Signs: Temperature 97.7 , Pulse 79 , B/P 121 /74 , Respiratory Rate 20 , O2 SAT 99 , Non-Rebreather, O2 Flow Rate 15.0 . Vital Sign Comment: EKG Rhythm: Sinus Rhythm Rhythm change?: N MD Notified?: - MD Response: Latest Shane Fall Score: 60 Fall Risk: High Risk Safety Measures: Call light Within Reach, Bed Alarm Zone 1, Side Rails Side Rails x3, Bed position Low and Locked. Fall Precautions: Yellow Socks Yellow Gown Door Sign Patient Fall Education Report given to SHANNAN LYONS
[2019-09-29 20:00] VITALS: BP 155/91
[2019-09-29] MEDS: Dyna-Hex 2% Top Sol 2oz TOPIC SCH ×2 (20:00→20:46)
[2019-09-30] VITALS: BP 146/91
[2019-09-30] MEDS: Cefepime HCl 1 GM in D5W 55 ML IVPB SCH (03:20)
[2019-09-30 04:00] VITALS: BP 114/65
[2019-09-30 04:34] LABS: HEMATOCRIT 30.3 % (42.0-52.0); HEMOGLOBIN 9.7 G/DL (14.2-18.0); MEAN CORPUSCULAR VOLUME 92 FL (80-99); PLATELET COUNT 273 K/UL (150-450); RED BLOOD COUNT 3.31 M/UL (4.70-6.10); RED CELL DISTRIBUTION WIDTH 12.8 % (11.6-14.8); WHITE BLOOD COUNT 17.2 K/UL (4.8-10.8)
[2019-09-30 04:46] LABS: ALANINE AMINOTRANSFERASE 11 U/L (12-78); ALBUMIN/GLOBULIN RATIO 0.4 (1.0-2.7); ALKALINE PHOSPHATASE 53 U/L (46-116); ANION GAP 11 mmol/L (5-15); ASPARTATE AMINO TRANSFERASE 21 U/L (15-37); BILIRUBIN,TOTAL 0.3 MG/DL (0.2-1.0); BLOOD UREA NITROGEN 33 mg/dL (7-18); CALCIUM 8.9 MG/DL (8.5-10.1); CARBON DIOXIDE 27 MMOL/L (21-32); CHLORIDE 116 MMOL/L (98-107); CREATININE 1.1 MG/DL (0.55-1.30); PHOSPHORUS 3.2 MG/DL (2.5-4.9); POTASSIUM 3.3 MMOL/L (3.5-5.1); SODIUM 153 MMOL/L (136-145)
[2019-09-30] MEDS: Levodopa/Carbidopa 25/250 tab GT SCH ×3 (06:00→22:07)
--- NOTE | 2019-09-30 07:14 | NUR ---
NURSE NOTES: NURSE HAND-OFF REPORT: Important Events on Shift: None Patient Status: Stable Diet: NGT nephro @ 50ml/H Pending Orders: None Pending Results/Labs:CMP, BNP, CRP, CBC, MAG, PHOS, TROP Pending MD notification: None Latest Vital Signs: Temperature 97.9 , Pulse 78 , B/P 114 /65 , Respiratory Rate 20 , O2 SAT 100 , Non-Rebreather, O2 Flow Rate 15.0 . Vital Sign Comment: EKG Rhythm: Sinus Rhythm Rhythm change?: N MD Notified?: - MD Response: Latest Shane Fall Score: 75 Fall Risk: High Risk Safety Measures: Call light Within Reach, Bed Alarm Zone 1, Side Rails Side Rails x3, Bed position Low and Locked. Fall Precautions: Yellow Socks yes Yellow Gown yes Door Sign yes Patient Fall Education Yes Report given to Ana Napoles RN.
--- NOTE | 2019-09-30 07:15 | NUR ---
NURSE NOTES: Report received from Estela Andre RN.Pt in bed restless ,anxious non responsive to verbal command,very confused,no resp distress noted,on 100 % NRB Mask 15 L,SR on the monitor,Montalvo cath draining yellow urine,GTF Nepro at 50 ml/hr,no residual noted,skin warm and dry with IV to TRACY PICC line ,intact,SR up x2 HOB elevated,bed lock in lowest position,will continue with plans of care.
[2019-09-30 08:00] VITALS: BP 128/69
[2019-09-30] MEDS: Docusate 100mg/10ml Liq GT SCH ×3 (08:31→18:12)
[2019-09-30] MEDS: Aspirin Baby 81mg GT SCH (08:31)
[2019-09-30] MEDS: Pantoprazole Inj IV SCH ×2 (08:32→20:42)
[2019-09-30] MEDS: Metoprolol Tartrate 12.5mg TAB GT SCH ×2 (08:33→20:41)
[2019-09-30] MEDS: Heparin 5000 units/ml inj SUBQ SCH ×2 (08:35→20:43)
[2019-09-30] MEDS: Nitroglycerin Patch 0.4mg TDERMAL SCH (09:07)
[2019-09-30] MEDS: LORazepam Inj 2mg/ml 1ml IV PRN (09:07)
--- NOTE | 2019-09-30 09:10 | NUR ---
NURSE NOTES: Pt very confused,taking out O2 pulling out GTF,Ativan 0.5 mg IV given,will continue to monitor pt.
--- NOTE | 2019-09-30 11:00 | NUR ---
NURSE NOTES: Pt continue to be anxious,pulling out lines,bilat wrist restraints applied. for safety.
--- NOTE | 2019-09-30 11:08 | Infectious Diseases Prog Note ---
Assessment/Plan Assessment/Plan antibiotics : cefepime A 1. pneumonia COVID 19 test negative x 2 2. hypertension 3. Parkinsons disease 4. dementia 5. leucocytosis improving P 1. continue cefepime 1 more day 2. will follow up cultures Subjective ROS Limited/Unobtainable: Yes Allergies: Coded Allergies: No Known Allergies (Unverified , 09/25/19) Objective Last 24 Hour Vital Signs Date Time Temp Pulse Resp B/P (MAP) Pulse Ox O2 Delivery O2 Flow Rate FiO2 09/30/19 09:07 128/69 09/30/19 08:33 93 128/69 09/30/19 08:00 97.9 93 21 128/69 (88) 100 09/30/19 04:00 74 09/30/19 04:00 97.9 78 20 114/65 (81) 100 09/30/19 04:00 Non-Rebreather 15.0 09/30/19 00:00 Non-Rebreather 15.0 09/30/19 00:00 76 09/30/19 00:00 98.2 72 18 146/91 (109) 97 09/29/19 20:47 87 121/70 09/29/19 20:00 84 09/29/19 20:00 Non-Rebreather 15.0 09/29/19 20:00 98.8 83 20 155/91 (112) 98 09/29/19 19:01 98 Non-Rebreather 15.0 100 09/29/19 15:58 Non-Rebreather 15.0 Non-Rebreather 15.0 09/29/19 15:52 97.7 79 20 121/74 (90) 99 09/29/19 15:51 78 09/29/19 12:28 Non-Rebreather 15.0 Non-Rebreather 15.0 09/29/19 12:00 72 09/29/19 12:00 97.2 79 23 101/69 (80) 100 Height (Feet): 6 Height (Inches): 6.00 Weight (Pounds): 175 Respiratory/Chest: lungs clear Cardiovascular: normal rate, regular rhythm, no gallop/murmur Abdomen: soft, non tender, other - GT Extremities: no edema, other - left arm PICC Laboratory Tests Test 09/29/19 11:45 09/30/19 02:45 White Blood Count 19.1 K/UL (4.8-10.8) #H 17.2 K/UL (4.8-10.8) H Red Blood Count 3.23 M/UL (4.70-6.10) L 3.31 M/UL (4.70-6.10) L Hemoglobin 9.3 G/DL (14.2-18.0) L 9.7 G/DL (14.2-18.0) L Hematocrit 29.5 % (42.0-52.0) L 30.3 % (42.0-52.0) L Mean Corpuscular Volume 91 FL (80-99) 92 FL (80-99) Mean Corpuscular Hemoglobin 28.9 PG (27.0-31.0) 29.3 PG (27.0-31.0) Mean Corpuscular Hemoglobin Concent 31.7 G/DL (32.0-36.0) L 32.0 G/DL (32.0-36.0) Red Cell Distribution Width 12.9 % (11.6-14.8) 12.8 % (11.6-14.8) Platelet Count 273 K/UL (150-450) 273 K/UL (150-450) Mean Platelet Volume 6.9 FL (6.5-10.1) 7.2 FL (6.5-10.1) Neutrophils (%) (Auto) % (45.0-75.0) % (45.0-75.0) Lymphocytes (%) (Auto) % (20.0-45.0) % (20.0-45.0) Monocytes (%) (Auto) % (1.0-10.0) % (1.0-10.0) Eosinophils (%) (Auto) % (0.0-3.0) % (0.0-3.0) Basophils (%) (Auto) % (0.0-2.0) % (0.0-2.0) Differential Total Cells Counted 100 100 Neutrophils % (Manual) 88 % (45-75) H 81 % (45-75) H Lymphocytes % (Manual) 7 % (20-45) L 14 % (20-45) L Monocytes % (Manual) 5 % (1-10) 3 % (1-10) Eosinophils % (Manual) 0 % (0-3) 1 % (0-3) Basophils % (Manual) 0 % (0-2) 0 % (0-2) Band Neutrophils 0 % (0-8) 1 % (0-8) Platelet Estimate Adequate Adequate Platelet Morphology Normal Normal Hypochromasia 2+ 2+ Anisocytosis 1+ 1+ Sodium Level 153 MMOL/L (136-145) H 153 MMOL/L (136-145) H Potassium Level 3.5 MMOL/L (3.5-5.1) 3.3 MMOL/L (3.5-5.1) L Chloride Level 118 MMOL/L (98-107) H 116 MMOL/L (98-107) H Carbon Dioxide Level 29 MMOL/L (21-32) 27 MMOL/L (21-32) Anion Gap 6 mmol/L (5-15) 11 mmol/L (5-15) Blood Urea Nitrogen 34 mg/dL (7-18) H 33 mg/dL (7-18) H Creatinine 1.0 MG/DL (0.55-1.30) 1.1 MG/DL (0.55-1.30) Estimat Glomerular Filtration Rate > 60 mL/min (>60) > 60 mL/min (>60) Glucose Level 140 MG/DL (74-106) H 135 MG/DL (74-106) H Calcium Level 8.3 MG/DL (8.5-10.1) L 8.9 MG/DL (8.5-10.1) Total Bilirubin 0.6 MG/DL (0.2-1.0) 0.3 MG/DL (0.2-1.0) Aspartate Amino Transf (AST/SGOT) 23 U/L (15-37) 21 U/L (15-37) Alanine Aminotransferase (ALT/SGPT) 17 U/L (12-78) 11 U/L (12-78) L Alkaline Phosphatase 43 U/L (46-116) L 53 U/L (46-116) Troponin I 0.165 ng/mL (0.000-0.056) Total Protein 6.4 G/DL (6.4-8.2) 7.3 G/DL (6.4-8.2) Albumin 2.1 G/DL (3.4-5.0) L 2.0 G/DL (3.4-5.0) L Globulin 4.3 g/dL 5.3 g/dL Albumin/Globulin Ratio 0.5 (1.0-2.7) L 0.4 (1.0-2.7) L Phosphorus Level 3.2 MG/DL (2.5-4.9) Magnesium Level 2.0 MG/DL (1.8-2.4) C-Reactive Protein, Quantitative 15.7 mg/dL (0.00-0.90) H Pro-B-Type Natriuretic Peptide 939 pg/mL (0-125) H Current Medications Medications (Trade) Dose Ordered Sig/Mick Route PRN Reason Start Time Stop Time Status Last Admin Dose Admin Acetaminophen (Tylenol) 650 mg Q6H PRN ORAL Temp >100.5 09/28/19 12:15 10/28/19 12:14 09/28/19 13:53 Aspirin (ASA) 162 mg DAILY GT 09/29/19 09:00 11/10/19 08:59 09/30/19 08:31 Carbidopa/Levodopa (Sinemet 25/250) 1 tab Q8HR GT 09/28/19 14:00 10/26/19 08:59 09/30/19 06:00 Cefepime HCl 1 gm/ Dextrose 55 ml @ 110 mls/hr Q24H IVPB 09/29/19 03:00 10/03/19 02:59 09/30/19 03:20 Chlorhexidine Gluconate (Park-Hex 2%) 1 applic DAILY@2000 TOPIC 09/28/19 20:00 12/24/19 19:59 09/29/19 20:46 Dextrose (Dextrose 50%) 25 ml Q30M PRN IV Hypoglycemia 09/28/19 10:30 12/24/19 10:29 Dextrose (Dextrose 50%) 50 ml Q30M PRN IV Hypoglycemia 09/28/19 10:30 12/24/19 10:29 Docusate Sodium (Colace) 100 mg TID GT 09/28/19 13:00 10/25/19 12:59 09/30/19 08:31 Heparin Sodium (Porcine) (Heparin 5000 units/ml) 5,000 units EVERY 12 HOURS SUBQ 09/28/19 21:00 11/09/19 20:59 09/30/19 08:35 Lactulose (Cephulac) 30 gm BIDPRN PRN GT Constipation 09/29/19 19:30 10/29/19 19:29 09/30/19 07:27 Lorazepam (Ativan 2mg/ml 1ml) 0.5 mg Q4H PRN IV For Anxiety 09/28/19 10:45 10/05/19 10:44 09/30/19 09:07 Metoprolol Tartrate (Lopressor) 12.5 mg Q12HR GT 09/28/19 21:00 12/25/19 09:06 09/30/19 08:33 Nitroglycerin (Ntg) 1 patch Q24H TDERMAL 09/29/19 09:30 10/26/19 09:29 09/30/19 09:07 Pantoprazole (Protonix) 40 mg Q12HR IV 09/28/19 21:00 10/26/19 08:59 09/30/19 08:32 Paramjit Silva MD Sep 30, 2019 11:08
--- NOTE | 2019-09-30 11:32 | Nephrology Progress Note ---
Assessment/Plan Problem List: (1) ARF (acute renal failure) (2) Acute hyperkalemia (3) Respiratory failure with hypoxia (4) HCAP (healthcare-associated pneumonia) (5) Acute metabolic encephalopathy (6) Parkinsons disease (7) Elevated troponin I level (8) Anemia Assessment Renal failure, acute, possible underlying chronic kidney disease Sepsis, pneumonia, UTI Acute respiratory failure with hypoxia Hyponatremia ACS Acute metabolic encephalopathy Has G-tube Hypothyroidism Parkinson's Plan September 29: COVERAGE FOR DR. GONZALEZ , status quo, labs reviewed. White blood cells lowering. Medications reviewed. Stable. Continue per consultants. No more antibiotics at this time. Will recheck urine analysis and culture September 28: Patient appears stable. No further dialysis needed so the femoral catheter can be discontinued. Will check labs tomorrow if still in the house. September 27: Lab reviewed. Hemoglobin stable. Renal parameters stable. Electrolyte supplement ordered. No further dialysis needed. Continue per consultants. September 26: Hemoglobin lower. Renal parameters stable. Potassium phosphate IV given. Anemia work-up initiated. Continue per consultants. No further need for dialysis at this time. Kidney ultrasound reviewed. Acute renal failure and hyperkalemia is now resolved. Previously: Aspirin, Lopressor, Nitropaste, started Patient was dialyzed yesterday today hyperkalemia is resolved 2D echocardiogram results noted. No number for ejection fraction is documented. Kidney ultrasound results pending. Discussed with SHANNAN Faulkner. Continue to monitor renal parameters and dialysis as needed. Per orders Subjective ROS Limited/Unobtainable: No Constitutional: Reports: malaise Objective Objective Last 24 Hour Vital Signs Date Time Temp Pulse Resp B/P (MAP) Pulse Ox O2 Delivery O2 Flow Rate FiO2 09/30/19 09:07 128/69 09/30/19 08:33 93 128/69 09/30/19 08:00 99 09/30/19 08:00 Non-Rebreather 15.0 09/30/19 08:00 97.9 93 21 128/69 (88) 100 09/30/19 04:00 74 09/30/19 04:00 97.9 78 20 114/65 (81) 100 09/30/19 04:00 Non-Rebreather 15.0 09/30/19 00:00 Non-Rebreather 15.0 09/30/19 00:00 76 09/30/19 00:00 98.2 72 18 146/91 (109) 97 09/29/19 20:47 87 121/70 09/29/19 20:00 84 09/29/19 20:00 Non-Rebreather 15.0 09/29/19 20:00 98.8 83 20 155/91 (112) 98 09/29/19 19:01 98 Non-Rebreather 15.0 100 09/29/19 15:58 Non-Rebreather 15.0 Non-Rebreather 15.0 09/29/19 15:52 97.7 79 20 121/74 (90) 99 09/29/19 15:51 78 09/29/19 12:28 Non-Rebreather 15.0 Non-Rebreather 15.0 09/29/19 12:00 72 09/29/19 12:00 97.2 79 23 101/69 (80) 100 Intake and Output 09/29/19 09/30/19 19:00 07:00 Intake Total 430 ml 50 ml Output Total 850 ml Balance -420 ml 50 ml Free Water 100 ml Tube Feeding 330 ml 50 ml Output Urine Total 850 ml Current Medications Medications (Trade) Dose Ordered Sig/Mick Route PRN Reason Start Time Stop Time Status Last Admin Dose Admin Acetaminophen (Tylenol) 650 mg Q6H PRN ORAL Temp >100.5 09/28/19 12:15 10/28/19 12:14 09/28/19 13:53 Aspirin (ASA) 162 mg DAILY GT 09/29/19 09:00 11/10/19 08:59 09/30/19 08:31 Carbidopa/Levodopa (Sinemet 25/250) 1 tab Q8HR GT 09/28/19 14:00 10/26/19 08:59 09/30/19 06:00 Chlorhexidine Gluconate (Park-Hex 2%) 1 applic DAILY@1999 TOPIC 09/28/19 20:00 12/24/19 19:59 09/29/19 20:46 Dextrose (Dextrose 50%) 25 ml Q30M PRN IV Hypoglycemia 09/28/19 10:30 12/24/19 10:29 Dextrose (Dextrose 50%) 50 ml Q30M PRN IV Hypoglycemia 09/28/19 10:30 12/24/19 10:29 Docusate Sodium (Colace) 100 mg TID GT 09/28/19 13:00 10/25/19 12:59 09/30/19 08:31 Heparin Sodium (Porcine) (Heparin 5000 units/ml) 5,000 units EVERY 12 HOURS SUBQ 09/28/19 21:00 11/09/19 20:59 09/30/19 08:35 Lactulose (Cephulac) 30 gm BIDPRN PRN GT Constipation 09/29/19 19:30 10/29/19 19:29 09/30/19 07:27 Lorazepam (Ativan 2mg/ml 1ml) 0.5 mg Q4H PRN IV For Anxiety 09/28/19 10:45 10/05/19 10:44 09/30/19 09:07 Metoprolol Tartrate (Lopressor) 12.5 mg Q12HR GT 09/28/19 21:00 12/25/19 09:06 09/30/19 08:33 Nitroglycerin (Ntg) 1 patch Q24H TDERMAL 09/29/19 09:30 10/26/19 09:29 09/30/19 09:07 Pantoprazole (Protonix) 40 mg Q12HR IV 09/28/19 21:00 10/26/19 08:59 09/30/19 08:32 Laboratory Tests 09/29/19 11:45: White Blood Count 19.1#H, Red Blood Count 3.23L, Hemoglobin 9.3L, Hematocrit 29.5L, Mean Corpuscular Volume 91, Mean Corpuscular Hemoglobin 28.9, Mean Corpuscular Hemoglobin Concent 31.7L, Red Cell Distribution Width 12.9, Platelet Count 273, Mean Platelet Volume 6.9, Neutrophils (%) (Auto) , Lymphocytes (%) (Auto) , Monocytes (%) (Auto) , Eosinophils (%) (Auto) , Basophils (%) (Auto) , Differential Total Cells Counted 100, Neutrophils % ( Manual) 88H, Lymphocytes % (Manual) 7L, Monocytes % (Manual) 5, Eosinophils % ( Manual) 0, Basophils % (Manual) 0, Band Neutrophils 0, Platelet Estimate Adequate, Platelet Morphology Normal, Hypochromasia 2+, Anisocytosis 1+, Sodium Level 153H, Potassium Level 3.5, Chloride Level 118H, Carbon Dioxide Level 29, Anion Gap 6, Blood Urea Nitrogen 34H, Creatinine 1.0, Estimat Glomerular Filtration Rate > 60, Glucose Level 140H, Calcium Level 8.3L, Total Bilirubin 0.6, Aspartate Amino Transf (AST/SGOT) 23, Alanine Aminotransferase (ALT/SGPT) 17, Alkaline Phosphatase 43L, Troponin I 0.165H, Total Protein 6.4, Albumin 2.1L , Globulin 4.3, Albumin/Globulin Ratio 0.5L 09/30/19 02:45: White Blood Count 17.2H, Red Blood Count 3.31L, Hemoglobin 9.7L, Hematocrit 30.3L, Mean Corpuscular Volume 92, Mean Corpuscular Hemoglobin 29.3, Mean Corpuscular Hemoglobin Concent 32.0, Red Cell Distribution Width 12.8, Platelet Count 273, Mean Platelet Volume 7.2, Neutrophils (%) (Auto) , Lymphocytes (%) ( Auto) , Monocytes (%) (Auto) , Eosinophils (%) (Auto) , Basophils (%) (Auto) , Differential Total Cells Counted 100, Neutrophils % (Manual) 81H, Lymphocytes % (Manual) 14L, Monocytes % (Manual) 3, Eosinophils % (Manual) 1, Basophils % ( Manual) 0, Band Neutrophils 1, Platelet Estimate Adequate, Platelet Morphology Normal, Hypochromasia 2+, Anisocytosis 1+, Sodium Level 153H, Potassium Level 3.3L, Chloride Level 116H, Carbon Dioxide Level 27, Anion Gap 11, Blood Urea Nitrogen 33H, Creatinine 1.1, Estimat Glomerular Filtration Rate > 60, Glucose Level 135H, Calcium Level 8.9, Total Bilirubin 0.3, Aspartate Amino Transf (AST/ SGOT) 21, Alanine Aminotransferase (ALT/SGPT) 11L, Alkaline Phosphatase 53, Total Protein 7.3, Albumin 2.0L, Globulin 5.3, Albumin/Globulin Ratio 0.4L, Phosphorus Level 3.2, Magnesium Level 2.0, C-Reactive Protein, Quantitative 15.7H, Pro-B-Type Natriuretic Peptide 939H Height (Feet): 6 Height (Inches): 6.00 Weight (Pounds): 175 General Appearance: no apparent distress, lethargic Cardiovascular: tachycardia Respiratory/Chest: decreased breath sounds - Rate mid 90s Abdomen: distended Objective No change Ezekiel Rachel MD Sep 30, 2019 11:32
[2019-09-30 12:00] VITALS: BP 111/69
[2019-09-30] MEDS ORDERED: Tubing IV Secondary IV ONE (12:38)
--- NOTE | 2019-09-30 12:53 | NUR ---
NURSE NOTES: Large BM noted to large amount of formed brown stools,kept dry and clean. turned and repositioned.
[2019-09-30] MEDS: Cefepime 2gm/D5W 110ml IV SCH ×4 (14:54→20:01)
--- NOTE | 2019-09-30 15:08 | NUR ---
CASE MANAGEMENT:REVIEW SI; PNA. ACUTE RENAL FAILURE. 98.2 93 20 146/91 97% 15L NRB FIO2 100% WBC 17.2 H/H 9.7/30.3 NA 153 K+ 3.3 CL 116 BUN 33 CRP 15.7 BNP 939 ALB 2.0 IS; CEFEPIME IV Q8 KCL IV ONCE IVF BOLUS D5 LACTULOSE GT BID PRN NTG TDERMAL Q24 ASA GT QD HEPARIN SUBQ Q12 LOPRESSOR GT Q12 SINEMET GT Q8 TISHA STATUS DCP;FROM [facility] PLAN; LEAVE ARECHIGA IN PLACE WORSENING HYPOXIA~CONTINUE NRBM
--- NOTE | 2019-09-30 15:15 | NUR ---
INSURANCE PROGRESS NOTES AND REVIEW FAXED TO [facility] PH: [phone] [facility] FX: [phone]
[2019-09-30 16:00] VITALS: BP 101/65
--- NOTE | 2019-09-30 16:44 | Cardiac Electrophysiology PN ---
Subjective Subjective [id number] Objective Last 24 Hour Vital Signs Date Time Temp Pulse Resp B/P (MAP) Pulse Ox O2 Delivery O2 Flow Rate FiO2 09/30/19 16:00 Non-Rebreather 15.0 09/30/19 16:00 84 09/30/19 12:00 98.1 72 20 111/69 (83) 98 09/30/19 12:00 86 09/30/19 12:00 Non-Rebreather 15.0 09/30/19 09:07 128/69 09/30/19 08:33 93 128/69 09/30/19 08:00 99 09/30/19 08:00 Non-Rebreather 15.0 09/30/19 08:00 97.9 93 21 128/69 (88) 100 09/30/19 04:00 74 09/30/19 04:00 97.9 78 20 114/65 (81) 100 09/30/19 04:00 Non-Rebreather 15.0 09/30/19 00:00 Non-Rebreather 15.0 09/30/19 00:00 76 09/30/19 00:00 98.2 72 18 146/91 (109) 97 09/29/19 20:47 87 121/70 09/29/19 20:00 84 09/29/19 20:00 Non-Rebreather 15.0 09/29/19 20:00 98.8 83 20 155/91 (112) 98 09/29/19 19:01 98 Non-Rebreather 15.0 100 Intake and Output 09/29/19 09/30/19 19:00 07:00 Intake Total 430 ml 200 ml Output Total 850 ml Balance -420 ml 200 ml Free Water 100 ml 100 ml Tube Feeding 330 ml 100 ml Output Urine Total 850 ml Laboratory Tests Test 09/30/19 02:45 White Blood Count 17.2 K/UL (4.8-10.8) H Red Blood Count 3.31 M/UL (4.70-6.10) L Hemoglobin 9.7 G/DL (14.2-18.0) L Hematocrit 30.3 % (42.0-52.0) L Mean Corpuscular Volume 92 FL (80-99) Mean Corpuscular Hemoglobin 29.3 PG (27.0-31.0) Mean Corpuscular Hemoglobin Concent 32.0 G/DL (32.0-36.0) Red Cell Distribution Width 12.8 % (11.6-14.8) Platelet Count 273 K/UL (150-450) Mean Platelet Volume 7.2 FL (6.5-10.1) Neutrophils (%) (Auto) % (45.0-75.0) Lymphocytes (%) (Auto) % (20.0-45.0) Monocytes (%) (Auto) % (1.0-10.0) Eosinophils (%) (Auto) % (0.0-3.0) Basophils (%) (Auto) % (0.0-2.0) Differential Total Cells Counted 100 Neutrophils % (Manual) 81 % (45-75) H Lymphocytes % (Manual) 14 % (20-45) L Monocytes % (Manual) 3 % (1-10) Eosinophils % (Manual) 1 % (0-3) Basophils % (Manual) 0 % (0-2) Band Neutrophils 1 % (0-8) Platelet Estimate Adequate Platelet Morphology Normal Hypochromasia 2+ Anisocytosis 1+ Sodium Level 153 MMOL/L (136-145) H Potassium Level 3.3 MMOL/L (3.5-5.1) L Chloride Level 116 MMOL/L (98-107) H Carbon Dioxide Level 27 MMOL/L (21-32) Anion Gap 11 mmol/L (5-15) Blood Urea Nitrogen 33 mg/dL (7-18) H Creatinine 1.1 MG/DL (0.55-1.30) Estimat Glomerular Filtration Rate > 60 mL/min (>60) Glucose Level 135 MG/DL (74-106) H Calcium Level 8.9 MG/DL (8.5-10.1) Phosphorus Level 3.2 MG/DL (2.5-4.9) Magnesium Level 2.0 MG/DL (1.8-2.4) Total Bilirubin 0.3 MG/DL (0.2-1.0) Aspartate Amino Transf (AST/SGOT) 21 U/L (15-37) Alanine Aminotransferase (ALT/SGPT) 11 U/L (12-78) L Alkaline Phosphatase 53 U/L (46-116) C-Reactive Protein, Quantitative 15.7 mg/dL (0.00-0.90) H Pro-B-Type Natriuretic Peptide 939 pg/mL (0-125) H Total Protein 7.3 G/DL (6.4-8.2) Albumin 2.0 G/DL (3.4-5.0) L Globulin 5.3 g/dL Albumin/Globulin Ratio 0.4 (1.0-2.7) L Gómez Brewster MD Sep 30, 2019 16:44
--- NOTE | 2019-09-30 19:15 | Consultation ---
DATE OF CONSULTATION: 09/30/2019 CONSULTING PHYSICIAN: Gómez Brewster MD. REASON FOR CONSULTATION: Elevated troponin. HISTORY OF PRESENT ILLNESS: The patient is a 79-year-old gentleman with history of hypertension and Parkinson's dementia, who was admitted for pneumonia. The patient also has respiratory failure was noted to have elevated troponin. Cardiac consultation was requested for further evaluation and management. REVIEW OF SYSTEMS: Cannot be obtained as the patient is confused, nonverbal, and lives in restraint. PAST MEDICAL HISTORY: As mentioned above. FAMILY HISTORY: Noncontributory. SOCIAL HISTORY: pen[place]iary resident. PAST SURGICAL HISTORY: Includes G tube placement and hemodialysis catheter placement, which subsequently was removed. PHYSICAL EXAMINATION: VITAL SIGNS: Show a blood pressure of 100/69, pulse is 86, respirations 18, and temperature 98.1. HEAD AND NECK: Showed no JVD. LUNGS: Decreased breath sounds. CARDIOVASCULAR: Shows regular S1 and S2 with no gallop or rub. ABDOMEN: Soft, status post G-tube. EXTREMITIES: No pitting edema. LABORATORY DATA: Labs show sodium 153, potassium 3.3, BUN of 32, creatinine 1.1, and glucose of 135. Troponin is 0.135, 0.165, 0.0097, 0.221 and 0.146. ASSESSMENT AND PLAN: 1. Troponin elevation. The patient is the setting of renal failure. The patient currently nonverbal and has electrolyte abnormality. 2. Hyponatremia, earlier admission. The patient has severe hyperkalemia and potassium was 9. His echocardiogram showed normal left ventricular systolic function, treated him medically with aspirin and metoprolol 12.5 mg b.i.d. 3. Severe EKG abnormality due to hyperkalemia, potassium of 9, that resolved after dialysis. 4. Acute renal failure. The patient received hemodialysis and improved. The dialysis catheter was removed. 5. Hypertension, on metoprolol. 6. Respiratory failure with hypoxemia. 7. Pneumonia. 8. Parkinson disease. 9. Anemia. 10. Dysphagia, status post PEG placement. Thank you very much for allowing me to participate in the care of this patient. Please do not hesitate to contact for any questions regarding my evaluation. Gómez Brewster M.D. DR: Nicolle JOB#: [id number] CC:
--- NOTE | 2019-09-30 19:35 | NUR ---
NURSE HAND-OFF REPORT: Important Events on Shift: pt confused, restless,Bilat wrist restraints applied for safety Patient Status: stable Diet: Nepro at 50 ml/hr per GT. Pending Orders: N/A Pending Results/Labs:N/A Pending MD notification:N/A Latest Vital Signs: Temperature 98.2 , Pulse 82 , B/P 101 /65 , Respiratory Rate 21 , O2 SAT 98 , Non-Rebreather, O2 Flow Rate 15.0 . Vital Sign Comment: stable EKG Rhythm: Sinus Rhythm Rhythm change?: N MD Notified?: - MD Response: Latest Shane Fall Score: 75 Fall Risk: High Risk Safety Measures: Call light Within Reach, Bed Alarm Zone 1, Side Rails Side Rails x3, Bed position Low and Locked. Fall Precautions: Yellow Socks Yellow Gown Door Sign Patient Fall Education Report given to Tonja Buck RN
--- NOTE | 2019-09-30 19:36 | NUR ---
NURSE NOTES: Report received from SHANNAN Perez. Upon assessment pt. is A/O x 1 with eyes closed. Mumbling and unable to make needs known. Bilateral restraints noted for attempting to remove medical devices. Pt observed squirmish and restless in bed despite all needs met. Responsive to tactile stimuli. EKG shows SR. Pt. on N/R at 15L 100% FiO2 saturating at 98%. No cardiac or respiratory distress noted. Vitals WNL. Pt observed with G-tube running Nepro at 50 cc with zero residuals. Right upper arm PICC patent and intact. Montalvo draining well to gravity. Alterations in skin noted. Made aware of D/C of right HD transjugular cath. Bed in lowest and locked position. Bed alarm on and call light within reach. Will continue monitor.
[2019-09-30 20:00] VITALS: BP 133/94
--- NOTE | 2019-09-30 21:00 | NUR ---
NURSE NOTES: U/A collected and sent to lab.
[2019-09-30 23:37] LABS: APPEARANCE,URINE CLOUDY; COLOR,URINE YELLOW; PROTEIN,URINE 2+ (NEGATIVE)
[2019-09-30 23:38] LABS: BILIRUBIN, URINE NEGATIVE (NEGATIVE); GLUCOSE, URINE (UA) NEGATIVE (NEGATIVE); KETONES,URINE NEGATIVE (NEGATIVE); NITRITE,URINE NEGATIVE (NEGATIVE)
[2019-09-30 23:39] LABS: LEUKOCYTE ESTERASE ,URINE 3+ (NEGATIVE); UROBILINOGEN,URINE NORMAL MG/DL (0.0-1.0)
[2019-10-01] VITALS: BP 108/64
[2019-10-01] MEDS: Cefepime 2gm/D5W 110ml IV SCH ×6 (03:32→19:57)
[2019-10-01 04:00] VITALS: BP 131/64
[2019-10-01] MEDS: Levodopa/Carbidopa 25/250 tab GT SCH ×3 (05:17→22:06)
[2019-10-01 06:18] LABS: HEMATOCRIT 30.8 % (42.0-52.0); HEMOGLOBIN 9.5 G/DL (14.2-18.0); MEAN CORPUSCULAR VOLUME 92 FL (80-99); PLATELET COUNT 310 K/UL (150-450); RED BLOOD COUNT 3.34 M/UL (4.70-6.10); RED CELL DISTRIBUTION WIDTH 12.9 % (11.6-14.8); WHITE BLOOD COUNT 14.4 K/UL (4.8-10.8)
[2019-10-01 06:49] LABS: ALANINE AMINOTRANSFERASE 10 U/L (12-78); ALBUMIN 2.1 G/DL (3.4-5.0); ALBUMIN/GLOBULIN RATIO 0.4 (1.0-2.7); ALKALINE PHOSPHATASE 50 U/L (46-116); ANION GAP 10 mmol/L (5-15); ASPARTATE AMINO TRANSFERASE 20 U/L (15-37); BILIRUBIN,TOTAL 0.4 MG/DL (0.2-1.0); BLOOD UREA NITROGEN 34 mg/dL (7-18); CALCIUM 8.8 MG/DL (8.5-10.1); CARBON DIOXIDE 27 MMOL/L (21-32); CHLORIDE 115 MMOL/L (98-107); CREATININE 1.2 MG/DL (0.55-1.30); PHOSPHORUS 4.9 MG/DL (2.5-4.9); POTASSIUM 3.3 MMOL/L (3.5-5.1); SODIUM 152 MMOL/L (136-145)
--- NOTE | 2019-10-01 07:35 | NUR ---
NURSE HAND-OFF REPORT: Important Events on Shift: new restraints Patient Status: disoriented, confused Diet: Nepro @ 50 Pending Orders: N Pending Results/Labs: Y Pending MD notification: N Latest Vital Signs: Temperature 98.8 , Pulse 94 , B/P 131 /64 , Respiratory Rate 20 , O2 SAT 95 , Non-Rebreather, O2 Flow Rate 15.0 . Vital Sign Comment: EKG Rhythm: Sinus Rhythm Rhythm change?: N MD Notified?: - MD Response: Latest Shane Fall Score: 75 Fall Risk: High Risk Safety Measures: Call light Within Reach, Bed Alarm Zone 1, Side Rails Side Rails x3, Bed position Low and Locked. Fall Precautions: Yellow Socks Yellow Gown Door Sign Patient Fall Education Report given to SHANNAN Romo.
--- NOTE | 2019-10-01 07:40 | NUR ---
NURSE NOTES: Received report from SHANNAN Perkins. The patient is resting on the bed but drowsy and lethargic. The patient is moving extremities only with painful stimuli. The patient's communication made with facial expression and body movement. SR with HR of 90s on the speech and language assistant. The patient is on 15L non-breather mask and oxygen saturation is 98%. The patient has GT that is intact and patent with no residual running Nephro @ 50mL/hr. The patient has [place] that is intact and patent and draining by gravity. The patient has TRACY double lumen PICC line kept in TKO. New peripheral IV inserted on R FA 20G that is intact and patent. Skin issue noted and dressing intact. Bilateral soft wrist restraints on per order and skin and circulation is intact. The patient's bed in the lowest position, call light in reach, and fall and aspiration precaution reinforced. IV site intact and patent. Will follow up the order and lab. Will closely monitor the patient. Will continue plan of care.
--- NOTE | 2019-10-01 07:45 | NUR ---
NURSE NOTES: Notified Dr. Pendleton, who is covering physician for Dr. Dugan, regarding altered mental status and labored breathing on 15L non-rebreather. Dr. Pendleton ordered stat ABG and CXR. Will carry out the order as soon as possible. Will continue plan of care.
[2019-10-01 08:00] VITALS: BP 121/78
--- NOTE | 2019-10-01 08:45 | NUR ---
NURSE NOTES: Dr. Pendleton at the bedside assessed the patient. Notified abnormal ABG. Dr. Pendleton ordered the patient is to be weaned off from non-rebreahter to Venturi mask 55% FiO2 and give Sodium Bicarb once. Will carry out the order as soon as possible. Will continue plan of care.
[2019-10-01] MEDS ORDERED: Sodium Bicarbonate 50ml Carp IV SCH (09:00)
--- NOTE | 2019-10-01 09:22 | Diagnostic Imaging Report ---
EXAM: XR Chest, 1 View CLINICAL HISTORY: ALOC TECHNIQUE: Frontal view of the chest. COMPARISON: 09/29/19 FINDINGS: Lungs: There is been slight improvement in bilateral lower lobe pneumonia. No new infiltrate is identified. Pleural space: Unremarkable. No pneumothorax. Heart: Unremarkable. No cardiomegaly. Mediastinum: Unremarkable. Bones/joints: Unremarkable. Tubes, lines and devices: There is left-sided PICC line good position. IMPRESSION: There is been slight improvement in bilateral lower lobe pneumonia. No new infiltrate is identified.
[2019-10-01] MEDS: Metoprolol Tartrate 12.5mg TAB GT SCH ×2 (09:41→20:00)
[2019-10-01] MEDS: Docusate 100mg/10ml Liq GT SCH ×3 (09:41→17:28)
[2019-10-01] MEDS: Pantoprazole Inj IV SCH ×2 (09:41→19:58)
[2019-10-01] MEDS: Aspirin Baby 81mg GT SCH (09:41)
[2019-10-01] MEDS: Heparin 5000 units/ml inj SUBQ SCH ×2 (09:48→20:02)
[2019-10-01] MEDS: Nitroglycerin Patch 0.4mg TDERMAL SCH (09:49)
--- NOTE | 2019-10-01 10:00 | NUR ---
NURSE NOTES: Morning medications administered per order. The patient tolerated well. The patient is being more awake than in the morning. The patient is tolerating Venturi mask FiO2 55% well. Will closely monitor the patient. Will continue plan of care.
--- NOTE | 2019-10-01 10:30 | NUR ---
NURSE NOTES: Dr. Rachel at the bedside assessed the patient. was notified abnormal lab. Dr. Rachel ordered electrolyte replacement for correction. Will administer as ordered. Will continue plan of care.
--- NOTE | 2019-10-01 10:35 | Pulmonology Progress Note ---
Subjective ROS Limited/Unobtainable: Yes Interval Events: Hypoxic today Constitutional: Denies: fever HEENT: Repors: no symptoms Respiratory: Reports: no symptoms Cardiovascular: Reports: no symptoms Gastrointestinal/Abdominal: Reports: no symptoms Allergies: Coded Allergies: No Known Allergies (Unverified , 09/25/19) Subjective called to see for worsening hypoxemia poor LOC care noted d/w RN Objective Last 24 Hour Vital Signs Date Time Temp Pulse Resp B/P (MAP) Pulse Ox O2 Delivery O2 Flow Rate FiO2 10/01/19 09:49 134/75 10/01/19 09:41 87 134/75 10/01/19 08:21 86 10/01/19 04:00 98.8 94 20 131/64 (86) 95 10/01/19 04:00 Non-Rebreather 15.0 10/01/19 03:39 89 10/01/19 00:00 Non-Rebreather 15.0 10/01/19 00:00 97.7 87 20 108/64 (79) 99 09/30/19 23:37 85 09/30/19 20:41 96 133/94 09/30/19 20:00 98.2 94 21 133/94 (107) 99 09/30/19 20:00 Non-Rebreather 15.0 09/30/19 19:23 90 09/30/19 16:00 Non-Rebreather 15.0 09/30/19 16:00 84 09/30/19 16:00 98.2 82 21 101/65 (77) 98 09/30/19 12:00 98.1 72 20 111/69 (83) 98 09/30/19 12:00 86 09/30/19 12:00 Non-Rebreather 15.0 Intake and Output 09/30/19 10/01/19 19:00 07:00 Intake Total 1140 ml 880 ml Output Total 476 ml 0 ml Balance 664 ml 880 ml Free Water 240 ml 60 ml IV Total 220 ml Tube Feeding 600 ml 600 ml Other 300 ml Output Urine Total 475 ml Stool Total 1 ml 0 ml # Bowel Movements 1 General Appearance: cachetic HEENT: normocephalic Respiratory: chest wall non-tender, rhonchi - bilaterally Cardiovascular: normal peripheral pulses, normal rate, regular rhythm Abdomen: normal bowel sounds Extremities: other Laboratory Tests 09/30/19 21:00: Urine Color Yellow, Urine Appearance Cloudy, Urine pH 5.0, Urine Specific [place] 1.015, Urine Protein 2+H, Urine Glucose (UA) Negative, Urine Ketones Negative, Urine Blood 5+H, Urine Nitrite Negative, Urine Bilirubin Negative, Urine Urobilinogen Normal, Urine Leukocyte Esterase 3+H, Urine RBC TntcH, Urine WBC TntcH, Urine Squamous Epithelial Cells None, Urine Bacteria ManyH, Urine Hyaline Casts 0-2H 10/01/19 05:42: White Blood Count 14.4H, Red Blood Count 3.34L, Hemoglobin 9.5L, Hematocrit 30.8L, Mean Corpuscular Volume 92, Mean Corpuscular Hemoglobin 28.5, Mean Corpuscular Hemoglobin Concent 30.9L, Red Cell Distribution Width 12.9, Platelet Count 310, Mean Platelet Volume 6.8, Neutrophils (%) (Auto) , Lymphocytes (%) (Auto) , Monocytes (%) (Auto) , Eosinophils (%) (Auto) , Basophils (%) (Auto) , Differential Total Cells Counted 100, Neutrophils % ( Manual) 84H, Lymphocytes % (Manual) 14L, Monocytes % (Manual) 2, Eosinophils % ( Manual) 0, Basophils % (Manual) 0, Band Neutrophils 0, Platelet Estimate Adequate, Platelet Morphology Normal, Hypochromasia 2+, Anisocytosis 1+, Sodium Level 152H, Potassium Level 3.3L, Chloride Level 115H, Carbon Dioxide Level 27, Anion Gap 10, Blood Urea Nitrogen 34H, Creatinine 1.2, Estimat Glomerular Filtration Rate 58.7, Glucose Level 129H, Calcium Level 8.8, Phosphorus Level 4.9, Magnesium Level 1.8, Total Bilirubin 0.4, Aspartate Amino Transf (AST/SGOT ) 20, Alanine Aminotransferase (ALT/SGPT) 10L, Alkaline Phosphatase 50, C- Reactive Protein, Quantitative 15.7H, Pro-B-Type Natriuretic Peptide 1159H, Total Protein 7.5, Albumin 2.1L, Globulin 5.4, Albumin/Globulin Ratio 0.4L 10/01/19 07:34: POC Whole Blood Glucose [Pending] 10/01/19 08:14: Arterial Blood pH 7.455H, Arterial Blood Partial Pressure CO2 29.4L, Arterial Blood Partial Pressure O2 129.5H, Arterial Blood HCO3 20.2L, Arterial Blood Oxygen Saturation 98.2, Arterial Blood Base Excess -2.9L, Simon Test Positive Current Medications Medications (Trade) Dose Ordered Sig/Mick Route PRN Reason Start Time Stop Time Status Last Admin Dose Admin Acetaminophen (Tylenol) 650 mg Q6H PRN ORAL Temp >100.5 09/28/19 12:15 10/28/19 12:14 10/01/19 05:18 Aspirin (ASA) 162 mg DAILY GT 09/29/19 09:00 11/10/19 08:59 10/01/19 09:41 Carbidopa/Levodopa (Sinemet 25/250) 1 tab Q8HR GT 09/28/19 14:00 10/26/19 08:59 10/01/19 05:17 Cefepime HCl 2 gm/ Dextrose 110 ml @ 220 mls/hr Q8H IV 09/30/19 12:00 10/07/19 11:59 10/01/19 03:32 Chlorhexidine Gluconate (Park-Hex 2%) 1 applic DAILY@2000 TOPIC 09/28/19 20:00 12/24/19 19:59 09/29/19 20:46 Dextrose (Dextrose 50%) 25 ml Q30M PRN IV Hypoglycemia 09/28/19 10:30 12/24/19 10:29 Dextrose (Dextrose 50%) 50 ml Q30M PRN IV Hypoglycemia 09/28/19 10:30 12/24/19 10:29 Docusate Sodium (Colace) 100 mg TID GT 09/28/19 13:00 10/25/19 12:59 10/01/19 09:41 Heparin Sodium (Porcine) (Heparin 5000 units/ml) 5,000 units EVERY 12 HOURS SUBQ 09/28/19 21:00 11/09/19 20:59 10/01/19 09:48 Lactulose (Cephulac) 30 gm BIDPRN PRN GT Constipation 09/29/19 19:30 10/29/19 19:29 09/30/19 07:27 Lorazepam (Ativan 2mg/ml 1ml) 0.5 mg Q4H PRN IV For Anxiety 09/28/19 10:45 10/05/19 10:44 09/30/19 09:07 Metoprolol Tartrate (Lopressor) 12.5 mg Q12HR GT 09/28/19 21:00 12/25/19 09:06 10/01/19 09:41 Nitroglycerin (Ntg) 1 patch Q24H TDERMAL 09/29/19 09:30 10/26/19 09:29 10/01/19 09:49 Pantoprazole (Protonix) 40 mg Q12HR IV 09/28/19 21:00 10/26/19 08:59 10/01/19 09:41 Assessment/Plan Assessment/Plan IMPRESSION: 1. Healthcare-associated pneumonia. 2. Acute renal failure. 3. History of previous SBO. 4. CAD. 5. Parkinson's. 6. Dementia. 7. Hyperkalemia, corrected 8. Shock; per history 9. Acute respiratory failure PLAN care noted bicarb titrate oxygen iv antibiotics elevate head feeds as needed in TISHA close follow up impression, plan, and exam edited and reviewed in detail care discussed with Amaury Davila MD Oct 01, 2019 10:35
--- NOTE | 2019-10-01 11:08 | Consultation ---
History of Present Illness General Date patient seen: Oct 01, 2019 Chief Complaint: Dyspnea/Respdistress Present Illness HPI 79M currently hospitalized with respiratory insufficiency. recent HD line removal. edema mild, malnutrition, leukocytosis, abnormal labs. called to eval and assist with care. Allergies: Coded Allergies: No Known Allergies (Unverified , 09/25/19) Medication History Scheduled Amino Acids/Protein Hydrolys (Pro-Stat Liquid), 30 ML GT TWICE A DAY, (Reported) Carbidopa/Levodopa (Carbidopa-Levo 25-250 Mg Odt), 1 EACH GT THREE TIMES A DAY, (Reported) Docusate Sodium* (Docusate Sodium*), 100 MG GT TWICE A DAY, (Reported) Famotidine* (Pepcid 20mg tablet*), 20 MG GT DAILY, (Reported) Levothyroxine Sodium* (Levothyroxine Sodium*), 25 MCG GT DAILY, (Reported) Mirtazapine* (Remeron*), 15 MG GT BEDTIME, (Reported) Multivitamin With Minerals (Multivitamins With Minerals*), 1 TAB GT DAILY, ( Reported) Sennosides (Senna), 17.2 MG GT BEDTIME, (Reported) Simvastatin (Zocor), 40 MG GT BEDTIME, (Reported) Scheduled PRN Acetaminophen* (Acetaminophen 325MG Tablet*), 650 MG GT Q6H PRN for For Pain, ( Reported) Acetaminophen* (Acetaminophen 325MG Tablet*), 650 MG GT Q6H PRN for TEMP > 100.4 , (Reported) Albuterol Sulfate* (Albuterol Sulfate Hhn*), 3 ML INH Q4H PRN for Shortness of Breath, (Reported) Lactulose (Lactulose*), 30 ML GT EVERY 6 HOURS PRN for Constipation, (Reported) Magnesium Citrate (Magnesium Citrate), 296 ML GT for Constipation, (Reported) Melatonin (Melatonin), 3 MG ORAL BEDTIME PRN for Insomnia, (Reported) Trazodone Hcl* (Desyrel*), 12.5 MG ORAL BEDTIME PRN for insomnia, (Reported) Miscellaneous Medications Cholecalciferol (Vitamin D3) (Vitamin D3), 25 MCG GT, (Reported) Zinc Oxide (Zinc Oxide), 1 APPLIC TOPIC, (Reported) Discontinued Medications Levothyroxine Sodium* (Levothyroxine Sodium*), 25 MCG GT DAILY, (Reported) Discontinued Reason: Prescription changed Mirtazapine* (Remeron*), 15 MG GT BEDTIME, (Reported) Discontinued Reason: Therapy completed Multivitamin (Multiple Vitamins), 1 EACH GT DAILY, (Reported) Discontinued Reason: Prescription changed Trazodone Hcl* (Desyrel*), 12.5 MG GT BEDTIME PRN for INSOMNIA, (Reported) Discontinued Reason: Prescription changed Vitamin D3/Folic Acid (Cholecal Df 95 Mcg-1 mg Tablet), 1 EACH GT DAILY, ( Reported) Discontinued Reason: Prescription changed Patient History Limited by: medical condition History Provided By: Medical Record, PMD Healthcare decision maker Resuscitation status Advanced Directive on File Past Medical/Surgical History Past Medical/Surgical History: (1) Acute hyperkalemia (2) UTI (urinary tract infection) (3) ACS (acute coronary syndrome) (4) Acute metabolic encephalopathy (5) Sepsis (6) Hyponatremia (7) ARF (acute renal failure) (8) Respiratory failure with hypoxia (9) HCAP (healthcare-associated pneumonia) (10) Parkinsons disease (11) Elevated troponin I level (12) Anemia Review of Systems All Other Systems: negative except mentioned in HPI Physical Exam General Appearance: no apparent distress, alert Lines, tubes and drains: peripheral HEENT: mucous membranes moist Neck: normal alignment, supple Respiratory/Chest: no respiratory distress, no accessory muscle use, decreased breath sounds Cardiovascular/Chest: normal rate, regular rhythm Abdomen: soft, no organomegaly, no mass Genitourinary/Rectal: normal rectal exam Extremities: normal inspection, normal capillary refill Neurologic: alert, responsive Last 24 Hour Vital Signs Date Time Temp Pulse Resp B/P (MAP) Pulse Ox O2 Delivery O2 Flow Rate FiO2 10/01/19 09:49 134/75 10/01/19 09:41 87 134/75 10/01/19 08:21 86 10/01/19 04:00 98.8 94 20 131/64 (86) 95 10/01/19 04:00 Non-Rebreather 15.0 10/01/19 03:39 89 10/01/19 00:00 Non-Rebreather 15.0 10/01/19 00:00 97.7 87 20 108/64 (79) 99 09/30/19 23:37 85 09/30/19 20:41 96 133/94 09/30/19 20:00 98.2 94 21 133/94 (107) 99 09/30/19 20:00 Non-Rebreather 15.0 09/30/19 19:23 90 09/30/19 16:00 Non-Rebreather 15.0 09/30/19 16:00 84 09/30/19 16:00 98.2 82 21 101/65 (77) 98 09/30/19 12:00 98.1 72 20 111/69 (83) 98 09/30/19 12:00 86 09/30/19 12:00 Non-Rebreather 15.0 Intake and Output 09/30/19 10/01/19 19:00 07:00 Intake Total 1140 ml 880 ml Output Total 476 ml 0 ml Balance 664 ml 880 ml Free Water 240 ml 60 ml IV Total 220 ml Tube Feeding 600 ml 600 ml Other 300 ml Output Urine Total 475 ml Stool Total 1 ml 0 ml # Bowel Movements 1 Laboratory Tests Test 09/30/19 21:00 10/01/19 05:42 10/01/19 07:34 10/01/19 08:14 Urine Color Yellow Urine Appearance Cloudy Urine pH 5.0 (4.5-8.0) Urine Specific [place] 1.015 (1.005-1.035) Urine Protein 2+ (NEGATIVE) H Urine Glucose (UA) Negative (NEGATIVE) Urine Ketones Negative (NEGATIVE) Urine Blood 5+ (NEGATIVE) H Urine Nitrite Negative (NEGATIVE) Urine Bilirubin Negative (NEGATIVE) Urine Urobilinogen Normal MG/DL (0.0-1.0) Urine Leukocyte Esterase 3+ (NEGATIVE) H Urine RBC Tntc /HPF (0 - 0) H Urine WBC Tntc /HPF (0 - 0) H Urine Squamous Epithelial Cells None /LPF (NONE/OCC) Urine Bacteria Many /HPF (NONE) H Urine Hyaline Casts 0-2 /LPF (NONE) H White Blood Count 14.4 K/UL (4.8-10.8) H Red Blood Count 3.34 M/UL (4.70-6.10) L Hemoglobin 9.5 G/DL (14.2-18.0) L Hematocrit 30.8 % (42.0-52.0) L Mean Corpuscular Volume 92 FL (80-99) Mean Corpuscular Hemoglobin 28.5 PG (27.0-31.0) Mean Corpuscular Hemoglobin Concent 30.9 G/DL (32.0-36.0) L Red Cell Distribution Width 12.9 % (11.6-14.8) Platelet Count 310 K/UL (150-450) Mean Platelet Volume 6.8 FL (6.5-10.1) Neutrophils (%) (Auto) % (45.0-75.0) Lymphocytes (%) (Auto) % (20.0-45.0) Monocytes (%) (Auto) % (1.0-10.0) Eosinophils (%) (Auto) % (0.0-3.0) Basophils (%) (Auto) % (0.0-2.0) Differential Total Cells Counted 100 Neutrophils % (Manual) 84 % (45-75) H Lymphocytes % (Manual) 14 % (20-45) L Monocytes % (Manual) 2 % (1-10) Eosinophils % (Manual) 0 % (0-3) Basophils % (Manual) 0 % (0-2) Band Neutrophils 0 % (0-8) Platelet Estimate Adequate Platelet Morphology Normal Hypochromasia 2+ Anisocytosis 1+ Sodium Level 152 MMOL/L (136-145) H Potassium Level 3.3 MMOL/L (3.5-5.1) L Chloride Level 115 MMOL/L (98-107) H Carbon Dioxide Level 27 MMOL/L (21-32) Anion Gap 10 mmol/L (5-15) Blood Urea Nitrogen 34 mg/dL (7-18) H Creatinine 1.2 MG/DL (0.55-1.30) Estimat Glomerular Filtration Rate 58.7 mL/min (>60) Glucose Level 129 MG/DL (74-106) H Calcium Level 8.8 MG/DL (8.5-10.1) Phosphorus Level 4.9 MG/DL (2.5-4.9) Magnesium Level 1.8 MG/DL (1.8-2.4) Total Bilirubin 0.4 MG/DL (0.2-1.0) Aspartate Amino Transf (AST/SGOT) 20 U/L (15-37) Alanine Aminotransferase (ALT/SGPT) 10 U/L (12-78) L Alkaline Phosphatase 50 U/L (46-116) C-Reactive Protein, Quantitative 15.7 mg/dL (0.00-0.90) H Pro-B-Type Natriuretic Peptide 1159 pg/mL (0-125) H Total Protein 7.5 G/DL (6.4-8.2) Albumin 2.1 G/DL (3.4-5.0) L Globulin 5.4 g/dL Albumin/Globulin Ratio 0.4 (1.0-2.7) L POC Whole Blood Glucose Pending Arterial Blood pH 7.455 (7.350-7.450) Arterial Blood Partial Pressure CO2 29.4 mmHg (35.0-45.0) L Arterial Blood Partial Pressure O2 129.5 mmHg (75.0-100.0) H Arterial Blood HCO3 20.2 mmol/L (22.0-26.0) L Arterial Blood Oxygen Saturation 98.2 % (95-100) Arterial Blood Base Excess -2.9 (-2-2) L Simon Test Positive Height (Feet): 6 Height (Inches): 6.00 Weight (Pounds): 141 Medications Current Medications Medications (Trade) Dose Ordered Sig/Mick Route PRN Reason Start Time Stop Time Status Last Admin Dose Admin Acetaminophen (Tylenol) 650 mg Q6H PRN ORAL Temp >100.5 09/28/19 12:15 10/28/19 12:14 10/01/19 05:18 Aspirin (ASA) 162 mg DAILY GT 09/29/19 09:00 11/10/19 08:59 10/01/19 09:41 Carbidopa/Levodopa (Sinemet 25/250) 1 tab Q8HR GT 09/28/19 14:00 10/26/19 08:59 10/01/19 05:17 Cefepime HCl 2 gm/ Dextrose 110 ml @ 220 mls/hr Q8H IV 09/30/19 12:00 10/07/19 11:59 10/01/19 03:32 Chlorhexidine Gluconate (Park-Hex 2%) 1 applic DAILY@2000 TOPIC 09/28/19 20:00 12/24/19 19:59 09/29/19 20:46 Dextrose 500 ml @ 500 mls/hr ONCE IV 10/01/19 11:00 10/01/19 12:00 Dextrose (Dextrose 50%) 25 ml Q30M PRN IV Hypoglycemia 09/28/19 10:30 12/24/19 10:29 Dextrose (Dextrose 50%) 50 ml Q30M PRN IV Hypoglycemia 09/28/19 10:30 12/24/19 10:29 Docusate Sodium (Colace) 100 mg TID GT 09/28/19 13:00 10/25/19 12:59 10/01/19 09:41 Heparin Sodium (Porcine) (Heparin 5000 units/ml) 5,000 units EVERY 12 HOURS SUBQ 09/28/19 21:00 11/09/19 20:59 10/01/19 09:48 Lactulose (Cephulac) 30 gm BIDPRN PRN GT Constipation 09/29/19 19:30 10/29/19 19:29 09/30/19 07:27 Lorazepam (Ativan 2mg/ml 1ml) 0.5 mg Q4H PRN IV For Anxiety 09/28/19 10:45 10/05/19 10:44 09/30/19 09:07 Metoprolol Tartrate (Lopressor) 12.5 mg Q12HR GT 09/28/19 21:00 12/25/19 09:06 10/01/19 09:41 Nitroglycerin (Ntg) 1 patch Q24H TDERMAL 09/29/19 09:30 10/26/19 09:29 10/01/19 09:49 Pantoprazole (Protonix) 40 mg Q12HR IV 09/28/19 21:00 10/26/19 08:59 10/01/19 09:41 Potassium Chloride 100 ml @ 100 mls/hr Q1HR IVPB 10/01/19 11:00 10/01/19 14:59 Assessment/Plan Problem List: (1) Acute hyperkalemia ICD Codes: E87.5 - Hyperkalemia SNOMED: 4639329, 409620670 (2) UTI (urinary tract infection) ICD Codes: N39.0 - Urinary tract infection, site not specified SNOMED: 41955726, 542598742 Qualifiers: Qualified Codes: N30.00 - Acute cystitis without hematuria (3) ACS (acute coronary syndrome) ICD Codes: I24.9 - Acute ischemic heart disease, unspecified SNOMED: 492461962, 650370878 (4) Acute metabolic encephalopathy ICD Codes: G93.41 - Metabolic encephalopathy SNOMED: 00630764, 042776740 (5) ARF (acute renal failure) ICD Codes: N17.9 - Acute kidney failure, unspecified SNOMED: 48793089, 659297153 Qualifiers: Qualified Codes: N17.9 - Acute kidney failure, unspecified (6) Respiratory failure with hypoxia ICD Codes: J96.91 - Respiratory failure, unspecified with hypoxia SNOMED: 13975326627125555 Qualifiers: Qualified Codes: J96.01 - Acute respiratory failure with hypoxia (7) HCAP (healthcare-associated pneumonia) ICD Codes: J18.9 - Pneumonia, unspecified organism SNOMED: 527351035, 506874667 (8) Parkinsons disease ICD Codes: G20 - Parkinson's disease SNOMED: 05860864 (9) Elevated troponin I level ICD Codes: R79.89 - Other specified abnormal findings of blood chemistry SNOMED: 899349414 (10) Anemia ICD Codes: D64.9 - Anemia, unspecified SNOMED: 432603278 (11) Hyponatremia ICD Codes: E87.1 - Hypo-osmolality and hyponatremia SNOMED: 97278269, 503529503 (12) Sepsis Assessment & Plan: leukocytosis renal insufficiency improved malnutrition hypo albumin bmi 19 mild edema small hematoma HD site removal Pt presented on admission with MASD Perianal, R and L clefts of buttocks extending to scrotum and groin areas . Skin is erythematous with scattered satellite lesions. Both heels are boggy with non-blanchable erythema. Hammer toe L 2nd metatarsal. Dry callus with surrounding erythema noted to dorsal L 2nd metatarsal . NO exudate or changes in skin temp at site noted. Tx.Plan: Apply Triad Paste to Groin, scrotum and buttocks with each Incontinence care. Cover Sacrum and Bilat trochanter with Optifoam drsgs. Change every 3 days and prn. Apply Cavilon Skin Barrier to both heels and Malleoli. Cover each site with Optifoam drsgs. Change every 7 Days and PRN. Apply Betadine to L 2nd metatarsal every 3 days and prn. Reposition at least every 2hours or as tolerated. Place pillow between knees. Off-load heels with pillow. APM/ARNOLD Mattress overlay. nutritional optimization monitor site. resolving hematoma ICD Codes: A41.9 - Sepsis, unspecified organism SNOMED: 89579111, 021727767 Qualifiers: Qualified Codes: A41.9 - Sepsis, unspecified organism; R65.20 - Severe sepsis without septic shock; N17.9 - Acute kidney failure, unspecified Walter Bacon Oct 01, 2019 11:08
[2019-10-01 12:00] VITALS: BP 133/72
--- NOTE | 2019-10-01 12:00 | NUR ---
NURSE NOTES: The patient is resting on the bed without acute distress or shortness of breath. The patient is more awake and being more agitated. Bilateral soft wrist restraints on for safety. Tolerating Venturi mask and TF well. Will closely monitor the patient. Will continue plan of care.
--- NOTE | 2019-10-01 12:30 | NUR ---
NURSE NOTES: Fever of 100.8F noted. Tylenol administered per PRN order and cooling measure applied. Will closely monitor the patient. Will continue plan of care.
--- NOTE | 2019-10-01 12:36 | Nephrology Progress Note ---
Assessment/Plan Problem List: (1) ARF (acute renal failure) (2) Acute hyperkalemia (3) Respiratory failure with hypoxia (4) HCAP (healthcare-associated pneumonia) (5) Acute metabolic encephalopathy (6) Parkinsons disease (7) Elevated troponin I level (8) Anemia Assessment Renal failure, acute, possible underlying chronic kidney disease Sepsis, pneumonia, UTI Acute respiratory failure with hypoxia Hyponatremia ACS Acute metabolic encephalopathy Has G-tube Hypothyroidism Parkinson's Plan September 30: COVERAGE FOR DR. GONZALEZ ( Int Med), labs reviewed, medications reviewed. Potassium supplement and free water in the form of D5W IV ordered. Continue per current management. September 29: COVERAGE FOR DR. GONZALEZ ( Int Med) , status quo, labs reviewed. White blood cells lowering. Medications reviewed. Stable. Continue per consultants. No more antibiotics at this time. Will recheck urine analysis and culture September 28: Patient appears stable. No further dialysis needed so the femoral catheter can be discontinued. Will check labs tomorrow if still in the house. September 27: Lab reviewed. Hemoglobin stable. Renal parameters stable. Electrolyte supplement ordered. No further dialysis needed. Continue per consultants. September 26: Hemoglobin lower. Renal parameters stable. Potassium phosphate IV given. Anemia work-up initiated. Continue per consultants. No further need for dialysis at this time. Kidney ultrasound reviewed. Acute renal failure and hyperkalemia is now resolved. Previously: Aspirin, Lopressor, Nitropaste, started Patient was dialyzed yesterday today hyperkalemia is resolved 2D echocardiogram results noted. No number for ejection fraction is documented. Kidney ultrasound results pending. Discussed with SHANNAN Faulkner. Continue to monitor renal parameters and dialysis as needed. Per orders Subjective ROS Limited/Unobtainable: No Constitutional: Reports: malaise, weakness Objective Objective Last 24 Hour Vital Signs Date Time Temp Pulse Resp B/P (MAP) Pulse Ox O2 Delivery O2 Flow Rate FiO2 10/01/19 09:49 134/75 10/01/19 09:41 87 134/75 10/01/19 08:21 86 10/01/19 04:00 98.8 94 20 131/64 (86) 95 10/01/19 04:00 Non-Rebreather 15.0 10/01/19 03:39 89 10/01/19 00:00 Non-Rebreather 15.0 10/01/19 00:00 97.7 87 20 108/64 (79) 99 09/30/19 23:37 85 09/30/19 20:41 96 133/94 09/30/19 20:00 98.2 94 21 133/94 (107) 99 09/30/19 20:00 Non-Rebreather 15.0 09/30/19 19:23 90 09/30/19 16:00 Non-Rebreather 15.0 09/30/19 16:00 84 09/30/19 16:00 98.2 82 21 101/65 (77) 98 Intake and Output 09/30/19 10/01/19 19:00 07:00 Intake Total 1140 ml 880 ml Output Total 476 ml 0 ml Balance 664 ml 880 ml Free Water 240 ml 60 ml IV Total 220 ml Tube Feeding 600 ml 600 ml Other 300 ml Output Urine Total 475 ml Stool Total 1 ml 0 ml # Bowel Movements 1 Laboratory Tests 09/30/19 21:00: Urine Color Yellow, Urine Appearance Cloudy, Urine pH 5.0, Urine Specific [place] 1.015, Urine Protein 2+H, Urine Glucose (UA) Negative, Urine Ketones Negative, Urine Blood 5+H, Urine Nitrite Negative, Urine Bilirubin Negative, Urine Urobilinogen Normal, Urine Leukocyte Esterase 3+H, Urine RBC TntcH, Urine WBC TntcH, Urine Squamous Epithelial Cells None, Urine Bacteria ManyH, Urine Hyaline Casts 0-2H 10/01/19 05:42: White Blood Count 14.4H, Red Blood Count 3.34L, Hemoglobin 9.5L, Hematocrit 30.8L, Mean Corpuscular Volume 92, Mean Corpuscular Hemoglobin 28.5, Mean Corpuscular Hemoglobin Concent 30.9L, Red Cell Distribution Width 12.9, Platelet Count 310, Mean Platelet Volume 6.8, Neutrophils (%) (Auto) , Lymphocytes (%) (Auto) , Monocytes (%) (Auto) , Eosinophils (%) (Auto) , Basophils (%) (Auto) , Differential Total Cells Counted 100, Neutrophils % ( Manual) 84H, Lymphocytes % (Manual) 14L, Monocytes % (Manual) 2, Eosinophils % ( Manual) 0, Basophils % (Manual) 0, Band Neutrophils 0, Platelet Estimate Adequate, Platelet Morphology Normal, Hypochromasia 2+, Anisocytosis 1+, Sodium Level 152H, Potassium Level 3.3L, Chloride Level 115H, Carbon Dioxide Level 27, Anion Gap 10, Blood Urea Nitrogen 34H, Creatinine 1.2, Estimat Glomerular Filtration Rate 58.7, Glucose Level 129H, Calcium Level 8.8, Phosphorus Level 4.9, Magnesium Level 1.8, Total Bilirubin 0.4, Aspartate Amino Transf (AST/SGOT ) 20, Alanine Aminotransferase (ALT/SGPT) 10L, Alkaline Phosphatase 50, C- Reactive Protein, Quantitative 15.7H, Pro-B-Type Natriuretic Peptide 1159H, Total Protein 7.5, Albumin 2.1L, Globulin 5.4, Albumin/Globulin Ratio 0.4L 10/01/19 07:34: POC Whole Blood Glucose [Pending] 10/01/19 08:14: Arterial Blood pH 7.455H, Arterial Blood Partial Pressure CO2 29.4L, Arterial Blood Partial Pressure O2 129.5H, Arterial Blood HCO3 20.2L, Arterial Blood Oxygen Saturation 98.2, Arterial Blood Base Excess -2.9L, Simon Test Positive Height (Feet): 6 Height (Inches): 6.00 Weight (Pounds): 141 General Appearance: no apparent distress, lethargic EENT: other - On nonrebreather mask Cardiovascular: tachycardia Respiratory/Chest: decreased breath sounds Abdomen: distended Objective No change Ezekiel Rachel MD Oct 01, 2019 12:36
--- NOTE | 2019-10-01 13:30 | Infectious Diseases Prog Note ---
Assessment/Plan Assessment/Plan A 1. pneumonia COVID 19 test negative x 2 2. hypertension 3. Parkinson disease 4. Dementia 5. Acute renal failure 6. 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 continue cefepime 2. UA & urine culture Subjective ROS Limited/Unobtainable: Yes Constitutional: Reports: fever, other - Dc=590.8 Neurologic: Reports: confusion, other - on restraint Allergies: Coded Allergies: No Known Allergies (Unverified , 09/25/19) Objective Last 24 Hour Vital Signs Date Time Temp Pulse Resp B/P (MAP) Pulse Ox O2 Delivery O2 Flow Rate FiO2 10/01/19 12:51 99.2 10/01/19 09:49 134/75 10/01/19 09:41 87 134/75 10/01/19 08:21 86 10/01/19 04:00 98.8 94 20 131/64 (86) 95 10/01/19 04:00 Non-Rebreather 15.0 10/01/19 03:39 89 10/01/19 00:00 Non-Rebreather 15.0 10/01/19 00:00 97.7 87 20 108/64 (79) 99 09/30/19 23:37 85 09/30/19 20:41 96 133/94 09/30/19 20:00 98.2 94 21 133/94 (107) 99 09/30/19 20:00 Non-Rebreather 15.0 09/30/19 19:23 90 09/30/19 16:00 Non-Rebreather 15.0 09/30/19 16:00 84 09/30/19 16:00 98.2 82 21 101/65 (77) 98 Height (Feet): 6 Height (Inches): 6.00 Weight (Pounds): 141 HEENT: mucous membranes moist Respiratory/Chest: lungs clear, other - oxygen by mask Cardiovascular: normal rate, other - Left arm PICC line Abdomen: soft, non tender, other - GT feeding Genitourinary: other - Montalvo catheter Extremities: no edema Neurologic/Psychiatric: aphasia Laboratory Tests Test 09/30/19 21:00 10/01/19 05:42 10/01/19 07:34 10/01/19 08:14 Urine Color Yellow Urine Appearance Cloudy Urine pH 5.0 (4.5-8.0) Urine Specific [place] 1.015 (1.005-1.035) Urine Protein 2+ (NEGATIVE) H Urine Glucose (UA) Negative (NEGATIVE) Urine Ketones Negative (NEGATIVE) Urine Blood 5+ (NEGATIVE) H Urine Nitrite Negative (NEGATIVE) Urine Bilirubin Negative (NEGATIVE) Urine Urobilinogen Normal MG/DL (0.0-1.0) Urine Leukocyte Esterase 3+ (NEGATIVE) H Urine RBC Tntc /HPF (0 - 0) H Urine WBC Tntc /HPF (0 - 0) H Urine Squamous Epithelial Cells None /LPF (NONE/OCC) Urine Bacteria Many /HPF (NONE) H Urine Hyaline Casts 0-2 /LPF (NONE) H White Blood Count 14.4 K/UL (4.8-10.8) H Red Blood Count 3.34 M/UL (4.70-6.10) L Hemoglobin 9.5 G/DL (14.2-18.0) L Hematocrit 30.8 % (42.0-52.0) L Mean Corpuscular Volume 92 FL (80-99) Mean Corpuscular Hemoglobin 28.5 PG (27.0-31.0) Mean Corpuscular Hemoglobin Concent 30.9 G/DL (32.0-36.0) L Red Cell Distribution Width 12.9 % (11.6-14.8) Platelet Count 310 K/UL (150-450) Mean Platelet Volume 6.8 FL (6.5-10.1) Neutrophils (%) (Auto) % (45.0-75.0) Lymphocytes (%) (Auto) % (20.0-45.0) Monocytes (%) (Auto) % (1.0-10.0) Eosinophils (%) (Auto) % (0.0-3.0) Basophils (%) (Auto) % (0.0-2.0) Differential Total Cells Counted 100 Neutrophils % (Manual) 84 % (45-75) H Lymphocytes % (Manual) 14 % (20-45) L Monocytes % (Manual) 2 % (1-10) Eosinophils % (Manual) 0 % (0-3) Basophils % (Manual) 0 % (0-2) Band Neutrophils 0 % (0-8) Platelet Estimate Adequate Platelet Morphology Normal Hypochromasia 2+ Anisocytosis 1+ Sodium Level 152 MMOL/L (136-145) H Potassium Level 3.3 MMOL/L (3.5-5.1) L Chloride Level 115 MMOL/L (98-107) H Carbon Dioxide Level 27 MMOL/L (21-32) Anion Gap 10 mmol/L (5-15) Blood Urea Nitrogen 34 mg/dL (7-18) H Creatinine 1.2 MG/DL (0.55-1.30) Estimat Glomerular Filtration Rate 58.7 mL/min (>60) Glucose Level 129 MG/DL (74-106) H Calcium Level 8.8 MG/DL (8.5-10.1) Phosphorus Level 4.9 MG/DL (2.5-4.9) Magnesium Level 1.8 MG/DL (1.8-2.4) Total Bilirubin 0.4 MG/DL (0.2-1.0) Aspartate Amino Transf (AST/SGOT) 20 U/L (15-37) Alanine Aminotransferase (ALT/SGPT) 10 U/L (12-78) L Alkaline Phosphatase 50 U/L (46-116) C-Reactive Protein, Quantitative 15.7 mg/dL (0.00-0.90) H Pro-B-Type Natriuretic Peptide 1159 pg/mL (0-125) H Total Protein 7.5 G/DL (6.4-8.2) Albumin 2.1 G/DL (3.4-5.0) L Globulin 5.4 g/dL Albumin/Globulin Ratio 0.4 (1.0-2.7) L POC Whole Blood Glucose Pending Arterial Blood pH 7.455 (7.350-7.450) Arterial Blood Partial Pressure CO2 29.4 mmHg (35.0-45.0) L Arterial Blood Partial Pressure O2 129.5 mmHg (75.0-100.0) H Arterial Blood HCO3 20.2 mmol/L (22.0-26.0) L Arterial Blood Oxygen Saturation 98.2 % (95-100) Arterial Blood Base Excess -2.9 (-2-2) L Simon Test Positive Current Medications Medications (Trade) Dose Ordered Sig/Mick Route PRN Reason Start Time Stop Time Status Last Admin Dose Admin Acetaminophen (Tylenol) 650 mg Q6H PRN ORAL Temp >100.5 09/28/19 12:15 10/28/19 12:14 10/01/19 12:21 Aspirin (ASA) 162 mg DAILY GT 09/29/19 09:00 11/10/19 08:59 10/01/19 09:41 Carbidopa/Levodopa (Sinemet 25/250) 1 tab Q8HR GT 09/28/19 14:00 10/26/19 08:59 10/01/19 05:17 Cefepime HCl 2 gm/ Dextrose 110 ml @ 220 mls/hr Q8H IV 09/30/19 12:00 10/07/19 11:59 10/01/19 12:19 Chlorhexidine Gluconate (Park-Hex 2%) 1 applic DAILY@2000 TOPIC 09/28/19 20:00 12/24/19 19:59 09/29/19 20:46 Dextrose (Dextrose 50%) 25 ml Q30M PRN IV Hypoglycemia 09/28/19 10:30 12/24/19 10:29 Dextrose (Dextrose 50%) 50 ml Q30M PRN IV Hypoglycemia 09/28/19 10:30 12/24/19 10:29 Docusate Sodium (Colace) 100 mg TID GT 09/28/19 13:00 10/25/19 12:59 10/01/19 12:20 Heparin Sodium (Porcine) (Heparin 5000 units/ml) 5,000 units EVERY 12 HOURS SUBQ 09/28/19 21:00 11/09/19 20:59 10/01/19 09:48 Lactulose (Cephulac) 30 gm BIDPRN PRN GT Constipation 09/29/19 19:30 10/29/19 19:29 09/30/19 07:27 Lorazepam (Ativan 2mg/ml 1ml) 0.5 mg Q4H PRN IV For Anxiety 09/28/19 10:45 10/05/19 10:44 09/30/19 09:07 Metoprolol Tartrate (Lopressor) 12.5 mg Q12HR GT 09/28/19 21:00 12/25/19 09:06 10/01/19 09:41 Nitroglycerin (Ntg) 1 patch Q24H TDERMAL 09/29/19 09:30 10/26/19 09:29 10/01/19 09:49 Pantoprazole (Protonix) 40 mg Q12HR IV 09/28/19 21:00 10/26/19 08:59 10/01/19 09:41 Potassium Chloride 100 ml @ 100 mls/hr Q1HR IVPB 10/01/19 11:00 10/01/19 14:59 10/01/19 13:20 Charan Yan MD Oct 01, 2019 13:30
--- NOTE | 2019-10-01 14:00 | NUR ---
NURSE NOTES: The patient is resting comfortably without acute distress or shortness of breath. Fever subsided at this time. Giovany Paredes was notified regarding the patient's change of condition and incident of fever. Will closely monitor the patient. Will continue plan of care.
--- NOTE | 2019-10-01 14:03 | Cardiac Electrophysiology PN ---
Assessment/Plan Assessment/Plan 1. NSTEMI type 2 in the setting of renal failure. The patient currently nonverbal and has electrolyte abnormality. His echocardiogram showed normal left ventricular systolic function On aspirin and metoprolol 12.5 mg b.i.d. 2. Hyponatremia 3. Severe EKG abnormality due to hyperkalemia, potassium of 9, that resolved after dialysis. 4. Acute renal failure. The patient received hemodialysis and improved. The dialysis catheter was removed. 5. Hypertension, on metoprolol. 6. Respiratory failure with hypoxemia. 7. Pneumonia. 8. Parkinson disease. 9. Anemia. 10. Dysphagia, status post PEG placement. Subjective Subjective In restraints on 55% Venturi Mask. Fever 100.8. GT feeding ongoing Objective Last 24 Hour Vital Signs Date Time Temp Pulse Resp B/P (MAP) Pulse Ox O2 Delivery O2 Flow Rate FiO2 10/01/19 12:51 99.2 10/01/19 09:49 134/75 10/01/19 09:41 87 134/75 10/01/19 08:21 86 10/01/19 04:00 98.8 94 20 131/64 (86) 95 10/01/19 04:00 Non-Rebreather 15.0 10/01/19 03:39 89 10/01/19 00:00 Non-Rebreather 15.0 10/01/19 00:00 97.7 87 20 108/64 (79) 99 09/30/19 23:37 85 09/30/19 20:41 96 133/94 09/30/19 20:00 98.2 94 21 133/94 (107) 99 09/30/19 20:00 Non-Rebreather 15.0 09/30/19 19:23 90 09/30/19 16:00 Non-Rebreather 15.0 09/30/19 16:00 84 09/30/19 16:00 98.2 82 21 101/65 (77) 98 Intake and Output 09/30/19 10/01/19 19:00 07:00 Intake Total 1140 ml 880 ml Output Total 476 ml 0 ml Balance 664 ml 880 ml Free Water 240 ml 60 ml IV Total 220 ml Tube Feeding 600 ml 600 ml Other 300 ml Output Urine Total 475 ml Stool Total 1 ml 0 ml # Bowel Movements 1 Laboratory Tests Test 09/30/19 21:00 10/01/19 05:42 10/01/19 07:34 10/01/19 08:14 Urine Color Yellow Urine Appearance Cloudy Urine pH 5.0 (4.5-8.0) Urine Specific [place] 1.015 (1.005-1.035) Urine Protein 2+ (NEGATIVE) H Urine Glucose (UA) Negative (NEGATIVE) Urine Ketones Negative (NEGATIVE) Urine Blood 5+ (NEGATIVE) H Urine Nitrite Negative (NEGATIVE) Urine Bilirubin Negative (NEGATIVE) Urine Urobilinogen Normal MG/DL (0.0-1.0) Urine Leukocyte Esterase 3+ (NEGATIVE) H Urine RBC Tntc /HPF (0 - 0) H Urine WBC Tntc /HPF (0 - 0) H Urine Squamous Epithelial Cells None /LPF (NONE/OCC) Urine Bacteria Many /HPF (NONE) H Urine Hyaline Casts 0-2 /LPF (NONE) H White Blood Count 14.4 K/UL (4.8-10.8) H Red Blood Count 3.34 M/UL (4.70-6.10) L Hemoglobin 9.5 G/DL (14.2-18.0) L Hematocrit 30.8 % (42.0-52.0) L Mean Corpuscular Volume 92 FL (80-99) Mean Corpuscular Hemoglobin 28.5 PG (27.0-31.0) Mean Corpuscular Hemoglobin Concent 30.9 G/DL (32.0-36.0) L Red Cell Distribution Width 12.9 % (11.6-14.8) Platelet Count 310 K/UL (150-450) Mean Platelet Volume 6.8 FL (6.5-10.1) Neutrophils (%) (Auto) % (45.0-75.0) Lymphocytes (%) (Auto) % (20.0-45.0) Monocytes (%) (Auto) % (1.0-10.0) Eosinophils (%) (Auto) % (0.0-3.0) Basophils (%) (Auto) % (0.0-2.0) Differential Total Cells Counted 100 Neutrophils % (Manual) 84 % (45-75) H Lymphocytes % (Manual) 14 % (20-45) L Monocytes % (Manual) 2 % (1-10) Eosinophils % (Manual) 0 % (0-3) Basophils % (Manual) 0 % (0-2) Band Neutrophils 0 % (0-8) Platelet Estimate Adequate Platelet Morphology Normal Hypochromasia 2+ Anisocytosis 1+ Sodium Level 152 MMOL/L (136-145) H Potassium Level 3.3 MMOL/L (3.5-5.1) L Chloride Level 115 MMOL/L (98-107) H Carbon Dioxide Level 27 MMOL/L (21-32) Anion Gap 10 mmol/L (5-15) Blood Urea Nitrogen 34 mg/dL (7-18) H Creatinine 1.2 MG/DL (0.55-1.30) Estimat Glomerular Filtration Rate 58.7 mL/min (>60) Glucose Level 129 MG/DL (74-106) H Calcium Level 8.8 MG/DL (8.5-10.1) Phosphorus Level 4.9 MG/DL (2.5-4.9) Magnesium Level 1.8 MG/DL (1.8-2.4) Total Bilirubin 0.4 MG/DL (0.2-1.0) Aspartate Amino Transf (AST/SGOT) 20 U/L (15-37) Alanine Aminotransferase (ALT/SGPT) 10 U/L (12-78) L Alkaline Phosphatase 50 U/L (46-116) C-Reactive Protein, Quantitative 15.7 mg/dL (0.00-0.90) H Pro-B-Type Natriuretic Peptide 1159 pg/mL (0-125) H Total Protein 7.5 G/DL (6.4-8.2) Albumin 2.1 G/DL (3.4-5.0) L Globulin 5.4 g/dL Albumin/Globulin Ratio 0.4 (1.0-2.7) L POC Whole Blood Glucose Pending Arterial Blood pH 7.455 (7.350-7.450) Arterial Blood Partial Pressure CO2 29.4 mmHg (35.0-45.0) L Arterial Blood Partial Pressure O2 129.5 mmHg (75.0-100.0) H Arterial Blood HCO3 20.2 mmol/L (22.0-26.0) L Arterial Blood Oxygen Saturation 98.2 % (95-100) Arterial Blood Base Excess -2.9 (-2-2) L Simon Test Positive Objective HEAD AND NECK: No JVD. LUNGS: Decreased breath sounds. CARDIOVASCULAR: Shows regular S1 and S2 with no gallop or rub. ABDOMEN: Soft, status post G-tube. EXTREMITIES: No pitting edema. Gómez Brewster MD Oct 01, 2019 14:03
--- NOTE | 2019-10-01 14:07 | NUR ---
CASE MANAGEMENT:REVIEW SI;PNA. ACUTE RENAL FAILURE. 99.2 94 20 134/75 95% 15L NRB WBC 14.4 H/H 9.5/30.8 NA 152 K+ 3.3 BUN 34 BG 129 CRP 15.7 BNP 1159 ALB 2.1 IS; CEFEPIME IV Q8 KCL IV IVF BOLUS D LACTULOSE GT BID PRN NTG TDERMAL Q24 ASA GT QD HEPARIN SUBQ Q12 LOPRESSOR GT Q12 SINEMET GT Q8 PROTONIX IV Q12 TISHA STATUS DCP;FROM [facility]
--- NOTE | 2019-10-01 14:12 | NUR ---
INSURANCE PROGRESS NOTES AND REVIEW FAXED TO [facility] PH: [phone] [facility] FX: [phone]
[2019-10-01 16:00] VITALS: BP 130/59
--- NOTE | 2019-10-01 16:00 | NUR ---
NURSE NOTES: Bed bath given to the patient. Tolerated well. Will closely monitor the patient. Will continue plan of care.
--- NOTE | 2019-10-01 18:00 | NUR ---
NURSE NOTES: Medications administered per order. Tolerating tube feeding and FiO2 55% venturi mask well. Will closely monitor the patient. Will continue plan of care.
--- NOTE | 2019-10-01 19:10 | NUR ---
NURSE HAND-OFF REPORT: Important Events on Shift: Abnormal ABG, Hypernatremia, Hypokalemia, Fever, Weaned to Venturi mask Patient Status: Stable, Full code Diet: GTF Nephro @50mL/hr Pending Orders: N Pending Results/Labs: N Pending MD notification: N Latest Vital Signs: Temperature 98.0 , Pulse 82 , B/P 130 /59 , Respiratory Rate 18 , O2 SAT 99 , Venturi Mask, O2 Flow Rate 15.0 . Vital Sign Comment: Stable EKG Rhythm: Sinus Rhythm Rhythm change?: N MD Notified?: - MD Response: Latest Shane Fall Score: 75 Fall Risk: High Risk Safety Measures: Call light Within Reach, Bed Alarm Zone 2, Side Rails Side Rails x3, Bed position Low and Locked. Fall Precautions: Yellow Socks Yellow Gown Door Sign Patient Fall Education Report given to SHANNAN Perkins. The patient is stable at this time. Endorsed plan of care.
--- NOTE | 2019-10-01 19:11 | NUR ---
NURSE NOTES: Received report from SHANNAN Romo. Upon assessment pt is observed to be alert and responsive. When asked yes or no questions patient can respond and understands short sentences. A/O x [address], time, purpose. Venturi mask noted with settings 55% on 15L saturating at 98%. Pt observed on bilateral soft wrist restraints for attempting to pull medical devices. Explained purpose of restraints and offered distraction. Pt continues to be restless despite all needs met. Pt is Afebrile at 97.8 degrees oral. Pt. running Nepro at 50 with 0 residual noted. ROSMERY PICC patent and intact. Bed in lowest and locked position. Bed alarm on and call light within reach. Will continue monitoring.
[2019-10-01] MEDS: Dyna-Hex 2% Top Sol 2oz TOPIC SCH (19:58)
[2019-10-01 20:00] VITALS: BP 134/73
--- NOTE | 2019-10-01 22:00 | NUR ---
NURSE NOTES: Pt continues to be restless and attempting to swing legs over bed rails. 0 on FLACC. Provided reorientation and distraction.
[2019-10-02] VITALS: BP 115/74
[2019-10-02] MEDS: LORazepam Inj 2mg/ml 1ml IV PRN (02:00)
[2019-10-02 04:00] VITALS: BP 123/78
[2019-10-02] MEDS: Cefepime 2gm/D5W 110ml IV SCH ×6 (04:01→20:00)
[2019-10-02] MEDS: Levodopa/Carbidopa 25/250 tab GT SCH ×3 (05:38→22:16)
--- NOTE | 2019-10-02 07:47 | NUR ---
NURSE HAND-OFF REPORT: Important Events on Shift: no change Patient Status: Pt. Diet: Nepro Pending Orders: Y Pending Results/Labs: N Pending MD notification: N Latest Vital Signs: Temperature 97.9 , Pulse 90 , B/P 123 /78 , Respiratory Rate 20 , O2 SAT 100 , Venturi Mask, O2 Flow Rate 15.0 . Vital Sign Comment: EKG Rhythm: Sinus Rhythm Rhythm change?: N MD Notified?: - MD Response: Latest Shane Fall Score: 75 Fall Risk: High Risk Safety Measures: Call light Within Reach, Bed Alarm Zone 2, Side Rails Side Rails x3, Bed position Low and Locked. Fall Precautions: Yellow Socks Yellow Gown Door Sign Patient Fall Education Report given to SHANNAN Romo.
--- NOTE | 2019-10-02 07:50 | NUR ---
NURSE NOTES: Received report from SHANNAN Perkins. The patient is resting on the bed but being agitated. The patient is able to make needs known via facial expression, body movement, and verbal communication. SR with HR of 80s on the surveillance monitor. The patient is on Venturi mask FiO2 55% and oxygen saturation is 98%. The patient's GT intact and patent and running Nephro @ 50mL/hr. The patient's Montalvo intact and patent and draining by gravity. TRACY double lumen PICC line that is intact and patent and kept in TKO. The patient also has RFA 20G PIV that is intact and patent. Skin issue noted and dressing intact. Bilateral soft wrist restraints on per order and skin and circulation intact. The patient's bed in the lowest position, call light in reach, and fall and aspiration precaution reinforced. Will follow up the lab and order. Will closely monitor the patient. Will continue plan of care.
[2019-10-02 08:00] VITALS: BP 119/70
--- NOTE | 2019-10-02 08:00 | NUR ---
NURSE NOTES: Initial vital signs taken. Initial nursing assessment done. Dr. Rachel ordered lab for follow up. Will closely monitor the patient. Will continue plan of care.
[2019-10-02] MEDS: Aspirin Baby 81mg GT SCH (08:48)
[2019-10-02] MEDS: Pantoprazole Inj IV SCH ×2 (08:49→20:49)
[2019-10-02] MEDS: Metoprolol Tartrate 12.5mg TAB GT SCH ×2 (08:49→20:45)
[2019-10-02] MEDS: Docusate 100mg/10ml Liq GT SCH ×3 (08:49→17:32)
[2019-10-02] MEDS: Heparin 5000 units/ml inj SUBQ SCH ×2 (08:51→20:51)
[2019-10-02] MEDS: Nitroglycerin Patch 0.4mg TDERMAL SCH (08:52)
[2019-10-02 09:18] LABS: BASOPHILS % (AUTO) 0.4 % (0.0-2.0); EOSINOPHILS % (AUTO) 1.9 % (0.0-3.0); HEMATOCRIT 31.7 % (42.0-52.0); HEMOGLOBIN 9.8 G/DL (14.2-18.0); LYMPHOCYTES % (AUTO) 13.1 % (20.0-45.0); MEAN CORPUSCULAR VOLUME 92 FL (80-99); MONOCYTES % (AUTO) 4.3 % (1.0-10.0); NEUTROPHILS % (AUTO) 80.4 % (45.0-75.0); PLATELET COUNT 302 K/UL (150-450); RED BLOOD COUNT 3.46 M/UL (4.70-6.10); RED CELL DISTRIBUTION WIDTH 12.6 % (11.6-14.8)
[2019-10-02 09:43] LABS: ANION GAP 7 mmol/L (5-15); BLOOD UREA NITROGEN 30 mg/dL (7-18); CALCIUM 8.6 MG/DL (8.5-10.1); CARBON DIOXIDE 30 MMOL/L (21-32); CHLORIDE 115 MMOL/L (98-107); CREATININE 0.9 MG/DL (0.55-1.30); POTASSIUM 3.3 MMOL/L (3.5-5.1); SODIUM 152 MMOL/L (136-145)
[2019-10-02 09:47] LABS: ALANINE AMINOTRANSFERASE 22 U/L (12-78); ALBUMIN 1.9 G/DL (3.4-5.0); ALBUMIN/GLOBULIN RATIO 0.3 (1.0-2.7); ALKALINE PHOSPHATASE 43 U/L (46-116); ASPARTATE AMINO TRANSFERASE 26 U/L (15-37); BILIRUBIN,TOTAL 0.3 MG/DL (0.2-1.0); PHOSPHORUS 2.8 MG/DL (2.5-4.9)
--- NOTE | 2019-10-02 09:56 | Nephrology Progress Note ---
Assessment/Plan Problem List: (1) ARF (acute renal failure) (2) Acute hyperkalemia (3) Respiratory failure with hypoxia (4) HCAP (healthcare-associated pneumonia) (5) Acute metabolic encephalopathy (6) Parkinsons disease (7) Elevated troponin I level (8) Anemia Assessment Renal failure, acute, possible underlying chronic kidney disease Sepsis, pneumonia, UTI Acute respiratory failure with hypoxia Hyponatremia ACS Acute metabolic encephalopathy Has G-tube Hypothyroidism Parkinson's Plan October 01: Lab reviewed. Potassium low, sodium slightly elevated. D5W bolus IV , and potassium chloride IV ordered. Continue per consultants. September 30: COVERAGE FOR DR. GONZALEZ ( Int Med), labs reviewed, medications reviewed. Potassium supplement and free water in the form of D5W IV ordered. Continue per current management. September 29: COVERAGE FOR DR. GONZALEZ ( Int Med) , status quo, labs reviewed. White blood cells lowering. Medications reviewed. Stable. Continue per consultants. No more antibiotics at this time. Will recheck urine analysis and culture September 28: Patient appears stable. No further dialysis needed so the femoral catheter can be discontinued. Will check labs tomorrow if still in the house. September 27: Lab reviewed. Hemoglobin stable. Renal parameters stable. Electrolyte supplement ordered. No further dialysis needed. Continue per consultants. September 26: Hemoglobin lower. Renal parameters stable. Potassium phosphate IV given. Anemia work-up initiated. Continue per consultants. No further need for dialysis at this time. Kidney ultrasound reviewed. Acute renal failure and hyperkalemia is now resolved. Previously: Aspirin, Lopressor, Nitropaste, started Patient was dialyzed yesterday today hyperkalemia is resolved 2D echocardiogram results noted. No number for ejection fraction is documented. Kidney ultrasound results pending. Discussed with SHANNAN Faulkner. Continue to monitor renal parameters and dialysis as needed. Per orders Subjective ROS Limited/Unobtainable: Yes Objective Objective Last 24 Hour Vital Signs Date Time Temp Pulse Resp B/P (MAP) Pulse Ox O2 Delivery O2 Flow Rate FiO2 10/02/19 08:52 119/70 10/02/19 08:49 69 119/70 10/02/19 08:00 97.7 62 20 119/70 (86) 100 10/02/19 08:00 55 10/02/19 04:00 Venturi Mask 10/02/19 04:00 97.9 90 20 123/78 (93) 100 10/02/19 04:00 55 10/02/19 03:42 75 10/02/19 00:00 97.9 89 18 115/74 (88) 99 10/02/19 00:00 Venturi Mask 10/01/19 23:33 76 10/01/19 20:00 Venturi Mask 10/01/19 20:00 71 134/73 10/01/19 20:00 97.7 77 20 134/73 (93) 99 10/01/19 20:00 55 10/01/19 19:22 77 10/01/19 16:00 Venturi Mask 10/01/19 16:00 55 10/01/19 16:00 82 10/01/19 16:00 98.0 86 18 130/59 (82) 99 10/01/19 12:51 99.2 10/01/19 12:00 55 10/01/19 12:00 90 10/01/19 12:00 100.8 92 18 133/72 (92) 95 10/01/19 12:00 Venturi Mask Intake and Output 10/01/19 10/02/19 19:00 07:00 Intake Total 780 ml 860 ml Output Total 500 ml Balance 280 ml 860 ml Free Water 180 ml 40 ml IV Total 220 ml Tube Feeding 600 ml 600 ml Output Urine Total 500 ml Laboratory Tests 10/02/19 09:00: White Blood Count 11.0H, Red Blood Count 3.46L, Hemoglobin 9.8L, Hematocrit 31.7L, Mean Corpuscular Volume 92, Mean Corpuscular Hemoglobin 28.5, Mean Corpuscular Hemoglobin Concent 31.1L, Red Cell Distribution Width 12.6, Platelet Count 302, Mean Platelet Volume 7.2, Neutrophils (%) (Auto) 80.4H, Lymphocytes (%) (Auto) 13.1L, Monocytes (%) (Auto) 4.3, Eosinophils (%) (Auto) 1.9, Basophils (%) (Auto) 0.4, Sodium Level 152H, Potassium Level 3.3L, Chloride Level 115H, Carbon Dioxide Level 30, Anion Gap 7, Blood Urea Nitrogen 30H, Creatinine 0.9, Estimat Glomerular Filtration Rate > 60, Glucose Level 128H , Calcium Level 8.6, Phosphorus Level 2.8, Magnesium Level 1.9, Total Bilirubin 0.3, Aspartate Amino Transf (AST/SGOT) 26, Alanine Aminotransferase (ALT/SGPT) 22, Alkaline Phosphatase 43L, Total Protein 7.4, Albumin 1.9L, Globulin 5.5, Albumin/Globulin Ratio 0.3L Height (Feet): 6 Height (Inches): 6.00 Weight (Pounds): 140 General Appearance: no apparent distress EENT: other - On Venturi mask Cardiovascular: normal rate Respiratory/Chest: decreased breath sounds Abdomen: distended Objective No change Ezekiel Rachel MD Oct 02, 2019 09:56
--- NOTE | 2019-10-02 10:00 | NUR ---
NURSE NOTES: Morning medications administered per order. Tolerated well. Will closely monitor the patient. Will continue plan of care.
--- NOTE | 2019-10-02 10:30 | NUR ---
NURSE NOTES: Dr. Rachel ordered electrolyte replacement therapy based on the lab result. Will administer per order. Will closely monitor the patient. Will continue plan of care.
--- NOTE | 2019-10-02 11:21 | Infectious Diseases Prog Note ---
Assessment/Plan Assessment/Plan antibiotics : cefepime A 1. pneumonia COVID 19 test negative x 2 2. hypertension 3. Parkinsons disease 4. dementia 5. leucocytosis improving 6. UTI P 1. continue cefepime 2. will follow up cultures Subjective ROS Limited/Unobtainable: Yes Allergies: Coded Allergies: No Known Allergies (Unverified , 09/25/19) Objective Last 24 Hour Vital Signs Date Time Temp Pulse Resp B/P (MAP) Pulse Ox O2 Delivery O2 Flow Rate FiO2 10/02/19 08:52 119/70 10/02/19 08:49 69 119/70 10/02/19 08:00 Venturi Mask 10/02/19 08:00 78 10/02/19 08:00 97.7 62 20 119/70 (86) 100 10/02/19 08:00 55 10/02/19 04:00 Venturi Mask 10/02/19 04:00 97.9 90 20 123/78 (93) 100 10/02/19 04:00 55 10/02/19 03:42 75 10/02/19 00:00 97.9 89 18 115/74 (88) 99 10/02/19 00:00 Venturi Mask 10/01/19 23:33 76 10/01/19 20:00 Venturi Mask 10/01/19 20:00 71 134/73 10/01/19 20:00 97.7 77 20 134/73 (93) 99 10/01/19 20:00 55 10/01/19 19:22 77 10/01/19 16:00 Venturi Mask 10/01/19 16:00 55 10/01/19 16:00 82 10/01/19 16:00 98.0 86 18 130/59 (82) 99 10/01/19 12:51 99.2 10/01/19 12:00 55 10/01/19 12:00 90 10/01/19 12:00 100.8 92 18 133/72 (92) 95 10/01/19 12:00 Venturi Mask Height (Feet): 6 Height (Inches): 6.00 Weight (Pounds): 140 Respiratory/Chest: lungs clear Cardiovascular: normal rate, regular rhythm, no gallop/murmur Abdomen: soft, non tender Extremities: no edema, other - left arm PICC Microbiology Date/Time Source Procedure Growth Status 8/15/20 21:00 Indwelling Cath Urine Culture - Preliminary Resulted Laboratory Tests Test 10/02/19 09:00 White Blood Count 11.0 K/UL (4.8-10.8) H Red Blood Count 3.46 M/UL (4.70-6.10) L Hemoglobin 9.8 G/DL (14.2-18.0) L Hematocrit 31.7 % (42.0-52.0) L Mean Corpuscular Volume 92 FL (80-99) Mean Corpuscular Hemoglobin 28.5 PG (27.0-31.0) Mean Corpuscular Hemoglobin Concent 31.1 G/DL (32.0-36.0) L Red Cell Distribution Width 12.6 % (11.6-14.8) Platelet Count 302 K/UL (150-450) Mean Platelet Volume 7.2 FL (6.5-10.1) Neutrophils (%) (Auto) 80.4 % (45.0-75.0) H Lymphocytes (%) (Auto) 13.1 % (20.0-45.0) L Monocytes (%) (Auto) 4.3 % (1.0-10.0) Eosinophils (%) (Auto) 1.9 % (0.0-3.0) Basophils (%) (Auto) 0.4 % (0.0-2.0) Sodium Level 152 MMOL/L (136-145) H Potassium Level 3.3 MMOL/L (3.5-5.1) L Chloride Level 115 MMOL/L (98-107) H Carbon Dioxide Level 30 MMOL/L (21-32) Anion Gap 7 mmol/L (5-15) Blood Urea Nitrogen 30 mg/dL (7-18) H Creatinine 0.9 MG/DL (0.55-1.30) Estimat Glomerular Filtration Rate > 60 mL/min (>60) Glucose Level 128 MG/DL (74-106) H Calcium Level 8.6 MG/DL (8.5-10.1) Phosphorus Level 2.8 MG/DL (2.5-4.9) Magnesium Level 1.9 MG/DL (1.8-2.4) Total Bilirubin 0.3 MG/DL (0.2-1.0) Aspartate Amino Transf (AST/SGOT) 26 U/L (15-37) Alanine Aminotransferase (ALT/SGPT) 22 U/L (12-78) Alkaline Phosphatase 43 U/L (46-116) L Total Protein 7.4 G/DL (6.4-8.2) Albumin 1.9 G/DL (3.4-5.0) L Globulin 5.5 g/dL Albumin/Globulin Ratio 0.3 (1.0-2.7) L Current Medications Medications (Trade) Dose Ordered Sig/Mick Route PRN Reason Start Time Stop Time Status Last Admin Dose Admin Acetaminophen (Tylenol) 650 mg Q6H PRN ORAL Temp >100.5 09/28/19 12:15 10/28/19 12:14 10/01/19 12:21 Aspirin (ASA) 162 mg DAILY GT 09/29/19 09:00 11/10/19 08:59 10/02/19 08:48 Carbidopa/Levodopa (Sinemet 25/250) 1 tab Q8HR GT 09/28/19 14:00 10/26/19 08:59 10/02/19 05:38 Cefepime HCl 2 gm/ Dextrose 110 ml @ 220 mls/hr Q8H IV 09/30/19 12:00 10/07/19 11:59 10/02/19 04:01 Chlorhexidine Gluconate (Park-Hex 2%) 1 applic DAILY@2000 TOPIC 09/28/19 20:00 12/24/19 19:59 10/01/19 19:58 Dextrose 500 ml @ 100 mls/hr ONCE IV 10/02/19 10:30 10/02/19 14:31 10/02/19 10:19 Dextrose (Dextrose 50%) 25 ml Q30M PRN IV Hypoglycemia 09/28/19 10:30 12/24/19 10:29 Dextrose (Dextrose 50%) 50 ml Q30M PRN IV Hypoglycemia 09/28/19 10:30 12/24/19 10:29 Docusate Sodium (Colace) 100 mg TID GT 09/28/19 13:00 10/25/19 12:59 10/02/19 08:49 Heparin Sodium (Porcine) (Heparin 5000 units/ml) 5,000 units EVERY 12 HOURS SUBQ 09/28/19 21:00 11/09/19 20:59 10/02/19 08:51 Lactulose (Cephulac) 30 gm BIDPRN PRN GT Constipation 09/29/19 19:30 10/29/19 19:29 09/30/19 07:27 Lorazepam (Ativan 2mg/ml 1ml) 0.5 mg Q4H PRN IV For Anxiety 09/28/19 10:45 10/05/19 10:44 10/02/19 02:00 Metoprolol Tartrate (Lopressor) 12.5 mg Q12HR GT 09/28/19 21:00 12/25/19 09:06 10/02/19 08:49 Nitroglycerin (Ntg) 1 patch Q24H TDERMAL 09/29/19 09:30 10/26/19 09:29 10/02/19 08:52 Pantoprazole (Protonix) 40 mg Q12HR IV 09/28/19 21:00 10/26/19 08:59 10/02/19 08:49 Potassium Chloride 100 ml @ 100 mls/hr Q1H IVPB 10/02/19 10:30 10/02/19 14:29 10/02/19 10:20 Paramjit Silva MD Oct 02, 2019 11:21
[2019-10-02 12:00] VITALS: BP 137/69
--- NOTE | 2019-10-02 12:00 | NUR ---
NURSE NOTES: The patient is resting on the bed but being agitated and tries to pull medical devices. Bilateral soft wrist restraints on per order. Skin and circulation intact. Vital signs stable. No fever noted. Will closely monitor the patient. Will continue plan of care.
--- NOTE | 2019-10-02 12:47 | NUR ---
RD ASSESSMENT & RECOMMENDATIONS SEE CARE ACTIVITY FOR COMPLETE ASSESSMENT DAILY ESTIMATED NEEDS: Needs based on Pulmonary, wound 68.18kg 25-30 kcals/kg 0814-6777 total kcals 1.25-1.5 g protein/kg 83-102 g total protein 20-25 mL/kg 4811-4123 total fluid mLs NUTRITION DIAGNOSIS: 1. Swallowing difficulty r/t dysphagia as evidenced by pt is GT dep. 2. Altered nutrition related lab values r/t clinical status, sepsis, dehydration, renal failure as evidenced by elev K(9.0->7.2*-> 3.4 now low), elev BUN(166-> 30 trend down), elev Creat (9.4 -> wnl). CURRENT TF:Nepro @ 50ml/hr x 24 hrs ENTERAL NUTRITION RECOMMENDATIONS: Glucerna 1.5 @ 50ml/hr x 24 hrs to provide 1200ml, 1800kcal, 99g prot, 911ml free water - Rec TF change to Glucerna 1.5 -> Nepro no longer necessary w/ improved renal fxn (K now low, creat wnl) - Initiate Glucerna 1.5 @ 30ml/hr x6hrs, advance 10ml q 4-6 hrs as tolerated to goal - Flush per MD, HOB Over 30 degrees. ADDITIONAL RECOMMENDATIONS: 1) Rec WC eval-> add DEENA in 4oz H2O BID via GT -> Add Vit C 250mg QD 2) Monitor renal fxn and lytes: Creat now wnl, K low 3) Monitor BGs, need for NISS 4) Monitor resp status and ability to feed-> now off Bipap, on NC 5) COMPUTER APPLICATIONS INSTRUCTOR eval when appropriate for oral diet/ oral grat - on oral diet PROPERTY ACCOUNTANT
--- NOTE | 2019-10-02 14:00 | NUR ---
NURSE NOTES: The patient is resting on the bed but being agitated. Tolerating Venturi mask Fio2 55% well. Will closely monitor the patient. Will continue plan of care.
--- NOTE | 2019-10-02 14:38 | Surgery Progress Note ---
Surgery Progress Note Subjective Procedure Performed removal of right femoral temp HD catheter Symptoms: improved, tolerating diet, passing flatus Objective Last 24 Hour Vital Signs Date Time Temp Pulse Resp B/P (MAP) Pulse Ox O2 Delivery O2 Flow Rate FiO2 10/02/19 12:00 97.9 87 20 137/69 (91) 100 10/02/19 12:00 86 10/02/19 12:00 Venturi Mask 10/02/19 12:00 55 10/02/19 08:52 119/70 10/02/19 08:49 69 119/70 10/02/19 08:00 Venturi Mask 10/02/19 08:00 78 10/02/19 08:00 97.7 62 20 119/70 (86) 100 10/02/19 08:00 55 10/02/19 04:00 Venturi Mask 10/02/19 04:00 97.9 90 20 123/78 (93) 100 10/02/19 04:00 55 10/02/19 03:42 75 10/02/19 00:00 97.9 89 18 115/74 (88) 99 10/02/19 00:00 Venturi Mask 10/01/19 23:33 76 10/01/19 20:00 Venturi Mask 10/01/19 20:00 71 134/73 10/01/19 20:00 97.7 77 20 134/73 (93) 99 10/01/19 20:00 55 10/01/19 19:22 77 10/01/19 16:00 Venturi Mask 10/01/19 16:00 55 10/01/19 16:00 82 10/01/19 16:00 98.0 86 18 130/59 (82) 99 I&O Intake and Output 10/01/19 10/02/19 19:00 07:00 Intake Total 780 ml 860 ml Output Total 500 ml Balance 280 ml 860 ml Free Water 180 ml 40 ml IV Total 220 ml Tube Feeding 600 ml 600 ml Output Urine Total 500 ml Dressing: dry Wound: clean Cardiovascular: RSR Respiratory: clear, decreased breath sounds Abdomen: soft, non-tender, present bowel sounds Extremities: edema, no tenderness, no cyanosis, pulses, other Laboratory Tests Test 10/02/19 09:00 White Blood Count 11.0 K/UL (4.8-10.8) H Red Blood Count 3.46 M/UL (4.70-6.10) L Hemoglobin 9.8 G/DL (14.2-18.0) L Hematocrit 31.7 % (42.0-52.0) L Mean Corpuscular Volume 92 FL (80-99) Mean Corpuscular Hemoglobin 28.5 PG (27.0-31.0) Mean Corpuscular Hemoglobin Concent 31.1 G/DL (32.0-36.0) L Red Cell Distribution Width 12.6 % (11.6-14.8) Platelet Count 302 K/UL (150-450) Mean Platelet Volume 7.2 FL (6.5-10.1) Neutrophils (%) (Auto) 80.4 % (45.0-75.0) H Lymphocytes (%) (Auto) 13.1 % (20.0-45.0) L Monocytes (%) (Auto) 4.3 % (1.0-10.0) Eosinophils (%) (Auto) 1.9 % (0.0-3.0) Basophils (%) (Auto) 0.4 % (0.0-2.0) Sodium Level 152 MMOL/L (136-145) H Potassium Level 3.3 MMOL/L (3.5-5.1) L Chloride Level 115 MMOL/L (98-107) H Carbon Dioxide Level 30 MMOL/L (21-32) Anion Gap 7 mmol/L (5-15) Blood Urea Nitrogen 30 mg/dL (7-18) H Creatinine 0.9 MG/DL (0.55-1.30) Estimat Glomerular Filtration Rate > 60 mL/min (>60) Glucose Level 128 MG/DL (74-106) H Calcium Level 8.6 MG/DL (8.5-10.1) Phosphorus Level 2.8 MG/DL (2.5-4.9) Magnesium Level 1.9 MG/DL (1.8-2.4) Total Bilirubin 0.3 MG/DL (0.2-1.0) Aspartate Amino Transf (AST/SGOT) 26 U/L (15-37) Alanine Aminotransferase (ALT/SGPT) 22 U/L (12-78) Alkaline Phosphatase 43 U/L (46-116) L Total Protein 7.4 G/DL (6.4-8.2) Albumin 1.9 G/DL (3.4-5.0) L Globulin 5.5 g/dL Albumin/Globulin Ratio 0.3 (1.0-2.7) L Plan Problems: (1) Acute hyperkalemia (2) UTI (urinary tract infection) (3) ACS (acute coronary syndrome) (4) Acute metabolic encephalopathy (5) ARF (acute renal failure) (6) Respiratory failure with hypoxia (7) HCAP (healthcare-associated pneumonia) (8) Parkinsons disease (9) Elevated troponin I level (10) Anemia (11) Hyponatremia (12) Sepsis Assessment & Plan: leukocytosis renal insufficiency improved malnutrition hypo albumin bmi 19 mild edema small hematoma HD site removal Pt presented on admission with MASD Perianal, R and L clefts of buttocks extending to scrotum and groin areas . Skin is erythematous with scattered satellite lesions. Both heels are boggy with non-blanchable erythema. Hammer toe L 2nd metatarsal. Dry callus with surrounding erythema noted to dorsal L 2nd metatarsal . NO exudate or changes in skin temp at site noted. Tx.Plan: Apply Triad Paste to Groin, scrotum and buttocks with each Incontinence care. Cover Sacrum and Bilat trochanter with Optifoam drsgs. Change every 3 days and prn. Apply Cavilon Skin Barrier to both heels and Malleoli. Cover each site with Optifoam drsgs. Change every 7 Days and PRN. Apply Betadine to L 2nd metatarsal every 3 days and prn. Reposition at least every 2hours or as tolerated. Place pillow between knees. Off-load heels with pillow. APM/ARNOLD Mattress overlay. nutritional optimization monitor site. resolving hematoma Walter Bacon Oct 02, 2019 14:38
--- NOTE | 2019-10-02 15:23 | Pulmonology Progress Note ---
Subjective ROS Limited/Unobtainable: Yes Interval Events: Agitated; discussed with RN and Constitutional: Reports: fever, other - Qc=420.8 HEENT: Repors: no symptoms Respiratory: Reports: no symptoms Cardiovascular: Reports: no symptoms Gastrointestinal/Abdominal: Reports: no symptoms Allergies: Coded Allergies: No Known Allergies (Unverified , 09/25/19) Objective Last 24 Hour Vital Signs Date Time Temp Pulse Resp B/P (MAP) Pulse Ox O2 Delivery O2 Flow Rate FiO2 10/02/19 12:00 97.9 87 20 137/69 (91) 100 10/02/19 12:00 86 10/02/19 12:00 Venturi Mask 10/02/19 12:00 55 10/02/19 08:52 119/70 10/02/19 08:49 69 119/70 10/02/19 08:00 Venturi Mask 10/02/19 08:00 78 10/02/19 08:00 97.7 62 20 119/70 (86) 100 10/02/19 08:00 55 10/02/19 04:00 Venturi Mask 10/02/19 04:00 97.9 90 20 123/78 (93) 100 10/02/19 04:00 55 10/02/19 03:42 75 10/02/19 00:00 97.9 89 18 115/74 (88) 99 10/02/19 00:00 Venturi Mask 10/01/19 23:33 76 10/01/19 20:00 Venturi Mask 10/01/19 20:00 71 134/73 10/01/19 20:00 97.7 77 20 134/73 (93) 99 10/01/19 20:00 55 10/01/19 19:22 77 10/01/19 16:00 Venturi Mask 10/01/19 16:00 55 10/01/19 16:00 82 10/01/19 16:00 98.0 86 18 130/59 (82) 99 Intake and Output 10/01/19 10/02/19 19:00 07:00 Intake Total 780 ml 860 ml Output Total 500 ml Balance 280 ml 860 ml Free Water 180 ml 40 ml IV Total 220 ml Tube Feeding 600 ml 600 ml Output Urine Total 500 ml General Appearance: cachetic HEENT: normocephalic Respiratory: chest wall non-tender, rhonchi - bilaterally Cardiovascular: normal peripheral pulses, normal rate, regular rhythm Abdomen: normal bowel sounds Extremities: other Microbiology Date/Time Source Procedure Growth Status 09/30/19 21:00 Indwelling Cath Urine Culture - Preliminary Resulted Laboratory Tests 10/02/19 09:00: White Blood Count 11.0H, Red Blood Count 3.46L, Hemoglobin 9.8L, Hematocrit 31.7L, Mean Corpuscular Volume 92, Mean Corpuscular Hemoglobin 28.5, Mean Corpuscular Hemoglobin Concent 31.1L, Red Cell Distribution Width 12.6, Platelet Count 302, Mean Platelet Volume 7.2, Neutrophils (%) (Auto) 80.4H, Lymphocytes (%) (Auto) 13.1L, Monocytes (%) (Auto) 4.3, Eosinophils (%) (Auto) 1.9, Basophils (%) (Auto) 0.4, Sodium Level 152H, Potassium Level 3.3L, Chloride Level 115H, Carbon Dioxide Level 30, Anion Gap 7, Blood Urea Nitrogen 30H, Creatinine 0.9, Estimat Glomerular Filtration Rate > 60, Glucose Level 128H , Calcium Level 8.6, Phosphorus Level 2.8, Magnesium Level 1.9, Total Bilirubin 0.3, Aspartate Amino Transf (AST/SGOT) 26, Alanine Aminotransferase (ALT/SGPT) 22, Alkaline Phosphatase 43L, Total Protein 7.4, Albumin 1.9L, Globulin 5.5, Albumin/Globulin Ratio 0.3L Current Medications Medications (Trade) Dose Ordered Sig/Mick Route PRN Reason Start Time Stop Time Status Last Admin Dose Admin Acetaminophen (Tylenol) 650 mg Q6H PRN ORAL Temp >100.5 09/28/19 12:15 10/28/19 12:14 10/01/19 12:21 Aspirin (ASA) 162 mg DAILY GT 09/29/19 09:00 11/10/19 08:59 10/02/19 08:48 Carbidopa/Levodopa (Sinemet 25/250) 1 tab Q8HR GT 09/28/19 14:00 10/26/19 08:59 10/02/19 13:49 Cefepime HCl 2 gm/ Dextrose 110 ml @ 220 mls/hr Q8H IV 09/30/19 12:00 10/07/19 11:59 10/02/19 12:33 Chlorhexidine Gluconate (Park-Hex 2%) 1 applic DAILY@1999 TOPIC 09/28/19 20:00 12/24/19 19:59 10/01/19 19:58 Dextrose (Dextrose 50%) 25 ml Q30M PRN IV Hypoglycemia 09/28/19 10:30 12/24/19 10:29 Dextrose (Dextrose 50%) 50 ml Q30M PRN IV Hypoglycemia 09/28/19 10:30 12/24/19 10:29 Docusate Sodium (Colace) 100 mg TID GT 09/28/19 13:00 10/25/19 12:59 10/02/19 12:33 Heparin Sodium (Porcine) (Heparin 5000 units/ml) 5,000 units EVERY 12 HOURS SUBQ 09/28/19 21:00 11/09/19 20:59 10/02/19 08:51 Lactulose (Cephulac) 30 gm BIDPRN PRN GT Constipation 09/29/19 19:30 10/29/19 19:29 09/30/19 07:27 Lorazepam (Ativan 2mg/ml 1ml) 0.5 mg Q4H PRN IV For Anxiety 09/28/19 10:45 10/05/19 10:44 10/02/19 02:00 Metoprolol Tartrate (Lopressor) 12.5 mg Q12HR GT 09/28/19 21:00 12/25/19 09:06 10/02/19 08:49 Nitroglycerin (Ntg) 1 patch Q24H TDERMAL 09/29/19 09:30 10/26/19 09:29 10/02/19 08:52 Pantoprazole (Protonix) 40 mg Q12HR IV 09/28/19 21:00 10/26/19 08:59 10/02/19 08:49 Assessment/Plan Assessment/Plan IMPRESSION: 1. Healthcare-associated pneumonia. 2. Acute renal failure. Resolved 3. History of previous SBO. 4. CAD. 5. Parkinson's. 6. Dementia. 7. Hyperkalemia, corrected 8. Shock; pressors dc DISCUSSION: Underwent urgent hemodialysis. No longer needed Pressors no longer required Broad-spectrum antibiotics. I will follow carefully. Discussed with Has worsening hypoxia remains agitated Family leaning towards hospice Will leave wong in place Ren Uriostegui Omar Syed MD Oct 02, 2019 15:23
--- NOTE | 2019-10-02 15:30 | NUR ---
NURSE NOTES: More agitation noted. Dr. Dugan ordered ABG to repeat. Will notify the result to Dr. Dugan. Will closely monitor the patient. Will continue plan of care.
--- NOTE | 2019-10-02 15:35 | NUR ---
NURSE NOTES: Dr. Dugan was notified regarding abnormal ABG result. No new order at this time. Will continue plan of care.
[2019-10-02 16:00] VITALS: BP 110/66
--- NOTE | 2019-10-02 16:00 | NUR ---
NURSE NOTES: Bed bath given to the patient. Tolerated well. Will closely monitor the patient. Will continue plan of care.
--- NOTE | 2019-10-02 16:06 | Cardiac Electrophysiology PN ---
Assessment/Plan Assessment/Plan 1. NSTEMI type 2 in the setting of renal failure. Currently nonverbal and has electrolyte abnormality. His echocardiogram showed normal left ventricular systolic function On aspirin and metoprolol 12.5 mg b.i.d. 2. Hyponatremia 3. Severe EKG abnormality due to hyperkalemia, potassium of 9, that resolved after dialysis. 4. S/P Acute renal failure. S/P hemodialysis and improved. The dialysis catheter was removed. 5. Hypertension, on metoprolol. 6. Respiratory failure with hypoxemia. 7. Pneumonia. 8. Parkinson disease. 9. Anemia. 10. Dysphagia, status post PEG placement. Subjective Subjective In restraints and confused on 55% Venturi Mask. GT feeding ongoing Objective Last 24 Hour Vital Signs Date Time Temp Pulse Resp B/P (MAP) Pulse Ox O2 Delivery O2 Flow Rate FiO2 10/02/19 12:00 97.9 87 20 137/69 (91) 100 10/02/19 12:00 86 10/02/19 12:00 Venturi Mask 10/02/19 12:00 55 10/02/19 08:52 119/70 10/02/19 08:49 69 119/70 10/02/19 08:00 Venturi Mask 10/02/19 08:00 78 10/02/19 08:00 97.7 62 20 119/70 (86) 100 10/02/19 08:00 55 10/02/19 04:00 Venturi Mask 10/02/19 04:00 97.9 90 20 123/78 (93) 100 10/02/19 04:00 55 10/02/19 03:42 75 10/02/19 00:00 97.9 89 18 115/74 (88) 99 10/02/19 00:00 Venturi Mask 10/01/19 23:33 76 10/01/19 20:00 Venturi Mask 10/01/19 20:00 71 134/73 10/01/19 20:00 97.7 77 20 134/73 (93) 99 10/01/19 20:00 55 10/01/19 19:22 77 Intake and Output 10/01/19 10/02/19 19:00 07:00 Intake Total 780 ml 860 ml Output Total 500 ml Balance 280 ml 860 ml Free Water 180 ml 40 ml IV Total 220 ml Tube Feeding 600 ml 600 ml Output Urine Total 500 ml Laboratory Tests Test 10/02/19 09:00 10/02/19 15:34 White Blood Count 11.0 K/UL (4.8-10.8) H Red Blood Count 3.46 M/UL (4.70-6.10) L Hemoglobin 9.8 G/DL (14.2-18.0) L Hematocrit 31.7 % (42.0-52.0) L Mean Corpuscular Volume 92 FL (80-99) Mean Corpuscular Hemoglobin 28.5 PG (27.0-31.0) Mean Corpuscular Hemoglobin Concent 31.1 G/DL (32.0-36.0) L Red Cell Distribution Width 12.6 % (11.6-14.8) Platelet Count 302 K/UL (150-450) Mean Platelet Volume 7.2 FL (6.5-10.1) Neutrophils (%) (Auto) 80.4 % (45.0-75.0) H Lymphocytes (%) (Auto) 13.1 % (20.0-45.0) L Monocytes (%) (Auto) 4.3 % (1.0-10.0) Eosinophils (%) (Auto) 1.9 % (0.0-3.0) Basophils (%) (Auto) 0.4 % (0.0-2.0) Sodium Level 152 MMOL/L (136-145) H Potassium Level 3.3 MMOL/L (3.5-5.1) L Chloride Level 115 MMOL/L (98-107) H Carbon Dioxide Level 30 MMOL/L (21-32) Anion Gap 7 mmol/L (5-15) Blood Urea Nitrogen 30 mg/dL (7-18) H Creatinine 0.9 MG/DL (0.55-1.30) Estimat Glomerular Filtration Rate > 60 mL/min (>60) Glucose Level 128 MG/DL (74-106) H Calcium Level 8.6 MG/DL (8.5-10.1) Phosphorus Level 2.8 MG/DL (2.5-4.9) Magnesium Level 1.9 MG/DL (1.8-2.4) Total Bilirubin 0.3 MG/DL (0.2-1.0) Aspartate Amino Transf (AST/SGOT) 26 U/L (15-37) Alanine Aminotransferase (ALT/SGPT) 22 U/L (12-78) Alkaline Phosphatase 43 U/L (46-116) L Total Protein 7.4 G/DL (6.4-8.2) Albumin 1.9 G/DL (3.4-5.0) L Globulin 5.5 g/dL Albumin/Globulin Ratio 0.3 (1.0-2.7) L Arterial Blood pH 7.484 (7.350-7.450) Arterial Blood Partial Pressure CO2 33.7 mmHg (35.0-45.0) L Arterial Blood Partial Pressure O2 86.9 mmHg (75.0-100.0) Arterial Blood HCO3 24.8 mmol/L (22.0-26.0) Arterial Blood Oxygen Saturation 96.1 % (95-100) Arterial Blood Base Excess 1.6 (-2-2) Simon Test Positive Microbiology Date/Time Source Procedure Growth Status 09/30/19 21:00 Indwelling Cath Urine Culture - Preliminary Resulted Objective HEAD AND NECK: No JVD. LUNGS: Decreased breath sounds. CARDIOVASCULAR: Shows regular S1 and S2 with no gallop or rub. ABDOMEN: Soft, status post G-tube. EXTREMITIES: No pitting edema. Gómez Brewster MD Oct 02, 2019 16:06
--- NOTE | 2019-10-02 18:00 | NUR ---
NURSE NOTES: The patient is resting on the bed without acute distress or shortness of breath. Tolerating venturi mask and TF well. No fever noted. Will closely monitor the patient. Will continue plan of care.
--- NOTE | 2019-10-02 19:15 | NUR ---
NURSE HAND-OFF REPORT: Important Events on Shift: Electrolytes replacement Patient Status: Stable, Full code Diet: GTF Nephro @ 50mL/hr Pending Orders: N Pending Results/Labs: N Pending MD notification: N Latest Vital Signs: Temperature 98.1 , Pulse 85 , B/P 110 /66 , Respiratory Rate 20 , O2 SAT 99 , Venturi Mask, O2 Flow Rate 15.0 . Vital Sign Comment: Stable EKG Rhythm: Sinus Rhythm Rhythm change?: N MD Notified?: - MD Response: Latest Shane Fall Score: 75 Fall Risk: High Risk Safety Measures: Call light Within Reach, Bed Alarm Zone 2, Side Rails Side Rails x3, Bed position Low and Locked. Fall Precautions: Yellow Socks Yellow Gown Door Sign Patient Fall Education Report given to SHANNAN Wan. The patient is stable at this time. Endorsed plan of care.
--- NOTE | 2019-10-02 19:50 | NUR ---
NURSE NOTES: Received pt from SHANNAN Romo. Pt awake, alert, and talkative. Bilateral soft wrist restraints on. Gtube intact and running Nepro at 50. Bed alarm on and in lowest position. Call light within reach. Will continue to monitor.
[2019-10-02 20:00] VITALS: BP 128/73
[2019-10-02] MEDS: Dyna-Hex 2% Top Sol 2oz TOPIC SCH (20:44)
[2019-10-03] VITALS: BP 126/75
[2019-10-03 04:00] VITALS: BP 113/62
[2019-10-03] MEDS: Cefepime 2gm/D5W 110ml IV SCH ×6 (04:11→20:00)
--- NOTE | 2019-10-03 05:06 | NUR ---
NURSE NOTES: Called and spoke with Dr. Dugan regarding pts cough and possible downgrade. No new orders given.
[2019-10-03] MEDS: Levodopa/Carbidopa 25/250 tab GT SCH ×3 (05:11→21:39)
--- NOTE | 2019-10-03 07:35 | NUR ---
NURSE NOTES: pt is awake, on restraints and attempting to get out of bed. Repositioned pt and made him comfortable. pt on venturi mask. pt on classroom monitor no signs of cardiac distress at this time. Bed is lock and in lowest position, call light within reach. Will continue to monitor pt.
--- NOTE | 2019-10-03 07:41 | NUR ---
NURSE HAND-OFF REPORT: Important Events on Shift: patient restless Patient Status: stable Diet: gtfeeding Pending Orders: n Pending Results/Labs:n Pending MD notification:n Latest Vital Signs: Temperature 98.7 , Pulse 66 , B/P 113 /62 , Respiratory Rate 20 , O2 SAT 95 , Venturi Mask, O2 Flow Rate 14.0 . Vital Sign Comment: stable EKG Rhythm: Sinus Rhythm Rhythm change?: N MD Notified?: - MD Response: Latest Shane Fall Score: 75 Fall Risk: High Risk Safety Measures: Call light Within Reach, Bed Alarm Zone 2, Side Rails Side Rails x3, Bed position Low and Locked. Fall Precautions: y Yellow Socks y Yellow Gown y Door Sign y Patient Fall Education y Report given to SHANNAN Cabrera.
[2019-10-03 09:00] VITALS: BP 126/75
[2019-10-03] MEDS: Pantoprazole Inj IV SCH (09:00)
[2019-10-03] MEDS: Heparin 5000 units/ml inj SUBQ SCH ×2 (09:40→21:49)
[2019-10-03] MEDS: Metoprolol Tartrate 12.5mg TAB GT SCH ×2 (09:44→21:40)
[2019-10-03] MEDS: Aspirin Baby 81mg GT SCH (09:45)
[2019-10-03] MEDS: Docusate 100mg/10ml Liq GT SCH ×3 (09:45→18:51)
[2019-10-03] MEDS: Nitroglycerin Patch 0.4mg TDERMAL SCH (09:46)
--- NOTE | 2019-10-03 10:58 | Pulmonology Progress Note ---
Subjective ROS Limited/Unobtainable: Yes Interval Events: Calm today; discussed with RN and Constitutional: Reports: fever, other - Vi=145.8 HEENT: Repors: no symptoms Respiratory: Reports: no symptoms Cardiovascular: Reports: no symptoms Gastrointestinal/Abdominal: Reports: no symptoms Allergies: Coded Allergies: No Known Allergies (Unverified , 09/25/19) Objective Last 24 Hour Vital Signs Date Time Temp Pulse Resp B/P (MAP) Pulse Ox O2 Delivery O2 Flow Rate FiO2 10/03/19 09:46 126/75 10/03/19 09:44 72 126/75 10/03/19 09:00 98.6 72 20 126/75 (92) 96 10/03/19 08:38 55 10/03/19 04:00 Venturi Mask 10/03/19 04:00 55 10/03/19 04:00 98.7 66 20 113/62 (79) 95 10/03/19 04:00 80 10/03/19 00:00 55 10/03/19 00:00 71 10/03/19 00:00 Venturi Mask 10/03/19 00:00 98.0 70 24 126/75 (92) 99 10/02/19 20:45 83 128/73 10/02/19 20:00 Venturi Mask 10/02/19 20:00 77 10/02/19 20:00 97.7 85 24 128/73 (91) 94 10/02/19 20:00 55 10/02/19 19:44 99 Venturi Mask 14.0 55 10/02/19 16:00 98.1 81 20 110/66 (81) 99 10/02/19 16:00 55 10/02/19 16:00 85 10/02/19 16:00 Venturi Mask 10/02/19 12:00 97.9 87 20 137/69 (91) 100 10/02/19 12:00 86 10/02/19 12:00 Venturi Mask 10/02/19 12:00 55 Intake and Output 10/02/19 10/03/19 19:00 07:00 Intake Total 750 ml Output Total 700 ml Balance 50 ml Free Water 200 ml Tube Feeding 550 ml Output Urine Total 700 ml General Appearance: cachetic HEENT: normocephalic Respiratory: chest wall non-tender, rhonchi - bilaterally Cardiovascular: normal peripheral pulses, normal rate, regular rhythm Abdomen: normal bowel sounds Extremities: other Microbiology Date/Time Source Procedure Growth Status 09/30/19 21:00 Indwelling Cath Urine Culture - Preliminary Gram Positive Cocci Resulted Laboratory Tests 10/02/19 15:34: Arterial Blood pH 7.484H, Arterial Blood Partial Pressure CO2 33.7L, Arterial Blood Partial Pressure O2 86.9, Arterial Blood HCO3 24.8, Arterial Blood Oxygen Saturation 96.1, Arterial Blood Base Excess 1.6, Simon Test Positive Current Medications Medications (Trade) Dose Ordered Sig/Mick Route PRN Reason Start Time Stop Time Status Last Admin Dose Admin Acetaminophen (Tylenol) 650 mg Q6H PRN ORAL Temp >100.5 09/28/19 12:15 10/28/19 12:14 10/02/19 22:24 Aspirin (ASA) 162 mg DAILY GT 09/29/19 09:00 11/10/19 08:59 10/03/19 09:45 Carbidopa/Levodopa (Sinemet 25/250) 1 tab Q8HR GT 09/28/19 14:00 10/26/19 08:59 10/03/19 05:11 Cefepime HCl 2 gm/ Dextrose 110 ml @ 220 mls/hr Q8H IV 09/30/19 12:00 10/07/19 11:59 10/03/19 04:11 Chlorhexidine Gluconate (Park-Hex 2%) 1 applic DAILY@2000 TOPIC 09/28/19 20:00 12/24/19 19:59 10/02/19 20:44 Dextrose (Dextrose 50%) 25 ml Q30M PRN IV Hypoglycemia 09/28/19 10:30 12/24/19 10:29 Dextrose (Dextrose 50%) 50 ml Q30M PRN IV Hypoglycemia 09/28/19 10:30 12/24/19 10:29 Docusate Sodium (Colace) 100 mg TID GT 09/28/19 13:00 10/25/19 12:59 10/03/19 09:45 Heparin Sodium (Porcine) (Heparin 5000 units/ml) 5,000 units EVERY 12 HOURS SUBQ 09/28/19 21:00 11/09/19 20:59 10/03/19 09:40 Lactulose (Cephulac) 30 gm BIDPRN PRN GT Constipation 09/29/19 19:30 10/29/19 19:29 09/30/19 07:27 Lorazepam (Ativan 2mg/ml 1ml) 0.5 mg Q4H PRN IV For Anxiety 09/28/19 10:45 10/05/19 10:44 10/02/19 02:00 Metoprolol Tartrate (Lopressor) 12.5 mg Q12HR GT 09/28/19 21:00 12/25/19 09:06 10/03/19 09:44 Nitroglycerin (Ntg) 1 patch Q24H TDERMAL 09/29/19 09:30 10/26/19 09:29 10/03/19 09:46 Pantoprazole (Protonix) 40 mg Q12HR IV 09/28/19 21:00 10/26/19 08:59 10/03/19 09:00 Assessment/Plan Assessment/Plan IMPRESSION: 1. Healthcare-associated pneumonia. 2. Acute renal failure. Resolved 3. History of previous SBO. 4. CAD. 5. Parkinson's. 6. Dementia. 7. Hyperkalemia, corrected 8. Shock; pressors dc DISCUSSION: Underwent urgent hemodialysis. No longer needed Pressors no longer required Broad-spectrum antibiotics. I will follow carefully. Discussed with Has worsening hypoxia remains agitated Family leaning towards hospice Discussed with hospice agency and Will leave wong in place Isaac Dugan M.D. Isaac Dugan MD Oct 03, 2019 10:58
[2019-10-03 12:00] VITALS: BP 119/76
[2019-10-03] MEDS ORDERED: NS 275ml ONE (13:13)
--- NOTE | 2019-10-03 13:18 | Nephrology Progress Note ---
Assessment/Plan Problem List: (1) ARF (acute renal failure) (2) Acute hyperkalemia (3) Respiratory failure with hypoxia (4) HCAP (healthcare-associated pneumonia) (5) Acute metabolic encephalopathy (6) Parkinsons disease (7) Elevated troponin I level (8) Anemia Assessment Renal failure, acute, possible underlying chronic kidney disease Sepsis, pneumonia, UTI Acute respiratory failure with hypoxia Hyponatremia ACS Acute metabolic encephalopathy Has G-tube Hypothyroidism Parkinson's Plan October 02: No can panel drawn today. Remains stable from renal standpoint of view. We will continue to monitor electrolytes. Continue per consultants. Patient remains full code. October 01: Lab reviewed. Potassium low, sodium slightly elevated. D5W bolus IV , and potassium chloride IV ordered. Continue per consultants. September 30: COVERAGE FOR DR. GONZALEZ ( Int Med), labs reviewed, medications reviewed. Potassium supplement and free water in the form of D5W IV ordered. Continue per current management. September 29: COVERAGE FOR DR. GONZALEZ ( Int Med) , status quo, labs reviewed. White blood cells lowering. Medications reviewed. Stable. Continue per consultants. No more antibiotics at this time. Will recheck urine analysis and culture September 28: Patient appears stable. No further dialysis needed so the femoral catheter can be discontinued. Will check labs tomorrow if still in the house. September 27: Lab reviewed. Hemoglobin stable. Renal parameters stable. Electrolyte supplement ordered. No further dialysis needed. Continue per consultants. September 26: Hemoglobin lower. Renal parameters stable. Potassium phosphate IV given. Anemia work-up initiated. Continue per consultants. No further need for dialysis at this time. Kidney ultrasound reviewed. Acute renal failure and hyperkalemia is now resolved. Previously: Aspirin, Lopressor, Nitropaste, started Patient was dialyzed yesterday today hyperkalemia is resolved 2D echocardiogram results noted. No number for ejection fraction is documented. Kidney ultrasound results pending. Discussed with SHANNAN Faulkner. Continue to monitor renal parameters and dialysis as needed. Per orders Subjective ROS Limited/Unobtainable: No Constitutional: Reports: malaise Objective Objective Last 24 Hour Vital Signs Date Time Temp Pulse Resp B/P (MAP) Pulse Ox O2 Delivery O2 Flow Rate FiO2 10/03/19 09:46 126/75 10/03/19 09:44 72 126/75 10/03/19 09:00 98.6 72 20 126/75 (92) 96 10/03/19 09:00 Venturi Mask 10/03/19 08:38 55 10/03/19 08:00 77 10/03/19 04:00 Venturi Mask 10/03/19 04:00 55 10/03/19 04:00 98.7 66 20 113/62 (79) 95 10/03/19 04:00 80 10/03/19 00:00 55 10/03/19 00:00 71 10/03/19 00:00 Venturi Mask 10/03/19 00:00 98.0 70 24 126/75 (92) 99 10/02/19 20:45 83 128/73 10/02/19 20:00 Venturi Mask 10/02/19 20:00 77 10/02/19 20:00 97.7 85 24 128/73 (91) 94 10/02/19 20:00 55 10/02/19 19:44 99 Venturi Mask 14.0 55 10/02/19 16:00 98.1 81 20 110/66 (81) 99 10/02/19 16:00 55 10/02/19 16:00 85 10/02/19 16:00 Venturi Mask Intake and Output 10/02/19 10/03/19 19:00 07:00 Intake Total 750 ml Output Total 700 ml Balance 50 ml Free Water 200 ml Tube Feeding 550 ml Output Urine Total 700 ml Laboratory Tests 10/02/19 15:34: Arterial Blood pH 7.484H, Arterial Blood Partial Pressure CO2 33.7L, Arterial Blood Partial Pressure O2 86.9, Arterial Blood HCO3 24.8, Arterial Blood Oxygen Saturation 96.1, Arterial Blood Base Excess 1.6, Simon Test Positive Height (Feet): 6 Height (Inches): 6.00 Weight (Pounds): 174 General Appearance: no apparent distress, lethargic EENT: other - On Venturi mask Cardiovascular: normal rate Respiratory/Chest: decreased breath sounds Abdomen: distended Objective No change Ezekiel Rachel MD Oct 03, 2019 13:18
[2019-10-03] MEDS ORDERED: Tubing IV Secondary IV ONE (13:25)
[2019-10-03] MEDS ORDERED: Vancomycin 1.5gm/NS Premix IVPB ONE (14:00)
--- NOTE | 2019-10-03 14:45 | Surgery Progress Note ---
Surgery Progress Note Subjective Procedure Performed removal of right femoral temp HD catheter Additional Comments prognosis guarded family leaning towards hospice Objective Last 24 Hour Vital Signs Date Time Temp Pulse Resp B/P (MAP) Pulse Ox O2 Delivery O2 Flow Rate FiO2 10/03/19 12:00 98.4 59 20 119/76 (90) 97 10/03/19 12:00 65 10/03/19 12:00 Venturi Mask 10/03/19 12:00 55 10/03/19 09:46 126/75 10/03/19 09:44 72 126/75 10/03/19 09:00 98.6 72 20 126/75 (92) 96 10/03/19 09:00 Venturi Mask 10/03/19 08:38 55 10/03/19 08:00 77 10/03/19 04:00 Venturi Mask 10/03/19 04:00 55 10/03/19 04:00 98.7 66 20 113/62 (79) 95 10/03/19 04:00 80 10/03/19 00:00 55 10/03/19 00:00 71 10/03/19 00:00 Venturi Mask 10/03/19 00:00 98.0 70 24 126/75 (92) 99 10/02/19 20:45 83 128/73 10/02/19 20:00 Venturi Mask 10/02/19 20:00 77 10/02/19 20:00 97.7 85 24 128/73 (91) 94 10/02/19 20:00 55 10/02/19 19:44 99 Venturi Mask 14.0 55 10/02/19 16:00 98.1 81 20 110/66 (81) 99 10/02/19 16:00 55 10/02/19 16:00 85 10/02/19 16:00 Venturi Mask I&O Intake and Output 10/02/19 10/03/19 19:00 07:00 Intake Total 750 ml Output Total 700 ml Balance 50 ml Free Water 200 ml Tube Feeding 550 ml Output Urine Total 700 ml Dressing: dry Cardiovascular: RSR Respiratory: decreased breath sounds Abdomen: soft, non-tender, present bowel sounds Extremities: no tenderness, no cyanosis Laboratory Tests Test 10/02/19 15:34 Arterial Blood pH 7.484 (7.350-7.450) Arterial Blood Partial Pressure CO2 33.7 mmHg (35.0-45.0) L Arterial Blood Partial Pressure O2 86.9 mmHg (75.0-100.0) Arterial Blood HCO3 24.8 mmol/L (22.0-26.0) Arterial Blood Oxygen Saturation 96.1 % (95-100) Arterial Blood Base Excess 1.6 (-2-2) Simon Test Positive Plan Problems: (1) Acute hyperkalemia (2) UTI (urinary tract infection) (3) ACS (acute coronary syndrome) (4) Acute metabolic encephalopathy (5) ARF (acute renal failure) (6) Respiratory failure with hypoxia (7) HCAP (healthcare-associated pneumonia) (8) Parkinsons disease (9) Elevated troponin I level (10) Anemia (11) Hyponatremia (12) Sepsis Assessment & Plan: leukocytosis renal insufficiency improved malnutrition hypo albumin bmi 19 mild edema small hematoma HD site removal Pt presented on admission with MASD Perianal, R and L clefts of buttocks extending to scrotum and groin areas . Skin is erythematous with scattered satellite lesions. Both heels are boggy with non-blanchable erythema. Hammer toe L 2nd metatarsal. Dry callus with surrounding erythema noted to dorsal L 2nd metatarsal . NO exudate or changes in skin temp at site noted. Tx.Plan: Apply Triad Paste to Groin, scrotum and buttocks with each Incontinence care. Cover Sacrum and Bilat trochanter with Optifoam drsgs. Change every 3 days and prn. Apply Cavilon Skin Barrier to both heels and Malleoli. Cover each site with Optifoam drsgs. Change every 7 Days and PRN. Apply Betadine to L 2nd metatarsal every 3 days and prn. Reposition at least every 2hours or as tolerated. Place pillow between knees. Off-load heels with pillow. APM/ARNOLD Mattress overlay. nutritional optimization monitor site. resolving hematoma Walter Bacon Oct 03, 2019 14:45
--- NOTE | 2019-10-03 15:09 | NUR ---
[employer] NOTES RECEIVED A CALL FROM [facility]. PT ACCEPTED. PT'S IS SEEKING PLACEMENT IN [place]. CLINICALS FAXED TO [facility]. WILL FOLLOW UP. [facility] [phone] Addendum: 10/03/19 at 1627 by SU SAM RN RN Spoke with [place] fax received. clinicals in review for hospice placement. Will follow up. Addendum: 10/03/19 at 1811 by SU SAM RN RN SPOKE WITH [place] FROM [facility], [facility] IS STILL IN REVIEW FOR PLACEMENT.PROVIDED [facility] WITH UNIT NUMBER IF BED BECOMES AVAILABLE.
[2019-10-03 16:00] VITALS: BP 118/73
--- NOTE | 2019-10-03 16:00 | NUR ---
CASE MANAGEMENT: REVIEW IS: PNA . ACUTE RENAL FAILURE . SHOCK T 98.4 HR 65 RR 20 BP 119/76 SAT 97% VENTURI MASK FIO2 55 WBC 11.0 H/H 9.8/31.7 NA 152 K 3.3 CHLORIDE 115 IS: VANCOMYCIN IV Q12HR CEFEPIME IV Q8HR HEPARIN SUBQ Q12HR LOPRESSOR GT Q12HR PROTONIX IV Q12HR STEP DOWN UNIT STATUS DCP: PATIENT IS FROM [facility]
--- NOTE | 2019-10-03 16:03 | NUR ---
INSURANCE PROGRESS NOTES AND REVIEW FAXED TO [facility] PH: [phone] [facility] FX: [phone]
--- NOTE | 2019-10-03 17:41 | Cardiac Electrophysiology PN ---
Assessment/Plan Assessment/Plan 1. NSTEMI type 2 in the setting of renal failure. Nonverbal and has electrolyte abnormality. Echocardiogram showed normal left ventricular systolic function On aspirin and metoprolol 12.5 mg b.i.d. 2. Hyponatremia 3. Severe EKG abnormality due to hyperkalemia, potassium of 9, that resolved after dialysis. 4. S/P Acute renal failure. S/P hemodialysis and improved. The dialysis catheter was removed. 5. Hypertension, on metoprolol. 6. PNA and Respiratory failure with hypoxemia. 7. Parkinson disease. 8. Anemia. 9. Dysphagia, status post PEG placement. WILEY RN Subjective Subjective In restraints and confused on 55% Venturi Mask.In SR. GT feeding ongoing Objective Last 24 Hour Vital Signs Date Time Temp Pulse Resp B/P (MAP) Pulse Ox O2 Delivery O2 Flow Rate FiO2 10/03/19 16:00 Venturi Mask 10/03/19 16:00 65 10/03/19 12:00 98.4 59 20 119/76 (90) 97 10/03/19 12:00 65 10/03/19 12:00 Venturi Mask 10/03/19 12:00 55 10/03/19 09:46 126/75 10/03/19 09:44 72 126/75 10/03/19 09:00 98.6 72 20 126/75 (92) 96 10/03/19 09:00 Venturi Mask 10/03/19 08:38 55 10/03/19 08:00 77 10/03/19 04:00 Venturi Mask 10/03/19 04:00 55 10/03/19 04:00 98.7 66 20 113/62 (79) 95 10/03/19 04:00 80 10/03/19 00:00 55 10/03/19 00:00 71 10/03/19 00:00 Venturi Mask 10/03/19 00:00 98.0 70 24 126/75 (92) 99 10/02/19 20:45 83 128/73 10/02/19 20:00 Venturi Mask 10/02/19 20:00 77 10/02/19 20:00 97.7 85 24 128/73 (91) 94 10/02/19 20:00 55 10/02/19 19:44 99 Venturi Mask 14.0 55 Intake and Output 10/02/19 10/03/19 19:00 07:00 Intake Total 750 ml Output Total 700 ml Balance 50 ml Free Water 200 ml Tube Feeding 550 ml Output Urine Total 700 ml Microbiology Date/Time Source Procedure Growth Status 09/30/19 21:00 Indwelling Cath Urine Culture - Preliminary Gram Positive Cocci Resulted Objective HEAD AND NECK: No JVD. LUNGS: Decreased breath sounds. CARDIOVASCULAR: Shows regular S1 and S2 with no gallop or rub. ABDOMEN: Soft, status post G-tube. EXTREMITIES: No pitting edema. Gómez Brewster MD Oct 03, 2019 17:41
--- NOTE | 2019-10-03 18:12 | NUR ---
NURSE NOTES: transferred pt in stable condition, pt is resting at this time. V/s stable . All pt belongings were taken with pt. IV and double lumen pick line are patent. Gtube patent and running. Pt on venturi mask O2 sat 97. pt has no complains of pain. pt on restraints and likes to have legs dangling off his bed, pt is very restless at times. NO BM today during morning shift last BM 09/29 patient is getting stool softener. Addendum: 10/03/19 at 1840 by Deborah Jiang RN NURSE NOTES: report given to Mustapha/zana. transferred pt in stable condition, pt is resting at this time. V/s stable . All pt belongings were taken with pt. IV and double lumen pick line are patent. Gtube patent and running. Pt on venturi mask O2 sat 97. pt has no complains of pain. pt on restraints and likes to have legs dangling off his bed, pt is very restless at times. NO BM today during morning shift last BM 09/29 patient is getting stool softener.
[2019-10-03] MEDS ORDERED: LORazepam Inj 2mg/ml 1ml IV PRN (18:30)
[2019-10-03] MEDS ORDERED: Lactulose 20gm/30ml UDC GT PRN (18:30)
[2019-10-03] MEDS ORDERED: Acetaminophen 650mg/20.3ml GT PRN (18:30)
--- NOTE | 2019-10-03 18:30 | NUR ---
NURSE NOTES: rRECEIVED PATIENT AND PAPER REPORT FROM [facility]. 2765 MEDICATION ADMINISTERED VIA GT. NOTED PATIENT IS ON BILATERAL RESTRAINT. PATIENT HAS TRACY PICC LINE AND RFA 20G. PATIENT IS IN STABLE CONDITION. WILL CONTINUE TO MONITOR.
--- NOTE | 2019-10-03 19:53 | NUR ---
NURSE HAND-OFF REPORT: Important Events on Shift:N Patient Status: Diet: Pending Orders: Pending Results/Labs: Pending MD notification: Latest Vital Signs: Temperature 97.2 , Pulse 70 , B/P 118 /73 , Respiratory Rate 20 , O2 SAT 99 , Venturi Mask, O2 Flow Rate 14.0 . Vital Sign Comment: EKG Rhythm: Sinus Rhythm Rhythm change?: N MD Notified?: N MD Response: Latest Shane Fall Score: 75 Fall Risk: High Risk Safety Measures: Call light Within Reach, Bed Alarm Zone 2, Side Rails Side Rails x3, Bed position Low and Locked. Fall Precautions: Yellow Socks Yellow Gown Door Sign Patient Fall Education Report given to .
[2019-10-03 20:00] VITALS: BP 116/62
--- NOTE | 2019-10-03 20:00 | NUR ---
NURSE NOTES: Received report from SHANNAN Boone, patient is alert and oriented x1. On Venturi mask at 15 Liters/min. Bilateral soft wrist restraints also intact. Patient attempts to pull of medical equipments. Montalvo catheter [address] Urine is light yellow. radiation monitor intact and functioning. Gtube running at 50ml/HR. HOB elevated for aspiration precautions. Call light and bedside table within reach. Bed at lowest position and locked. Will continue with plan of care. Addendum: 10/03/19 at 2011 by Jessica Hurtado RN Report received from SHANNAN Santana. NOT MARIO.
[2019-10-03] MEDS: Dyna-Hex 2% Top Sol 2oz TOPIC SCH (21:40)
[2019-10-03] MEDS: Cefepime HCl 2 GM in D5W 110 ML IV SCH (21:52)
[2019-10-04] VITALS: BP 117/57
[2019-10-04] MEDS ORDERED: Vancomycin 1gm/D5W 275ml IVPB SCH ×2 (02:00)
[2019-10-04] MEDS ORDERED: Vancomycin 1 GM in D5W 275 ML IVPB SCH (02:00)
[2019-10-04 04:00] VITALS: BP 120/59
[2019-10-04] MEDS: Cefepime HCl 2 GM in D5W 110 ML IV SCH (04:22)
[2019-10-04] MEDS: Levodopa/Carbidopa 25/250 tab GT SCH ×3 (05:58→21:00)
--- NOTE | 2019-10-04 07:15 | NUR ---
NURSE HAND-OFF REPORT: Important Events on Shift: Patient Status: [Stable, Alert and oriented x0 - 1] Diet: [G-tube Nephro 50ml/hr] Pending Orders: [] Pending Results/Labs:[] Pending MD notification:[] Latest Vital Signs: Temperature 97.4 , Pulse 83 , B/P 120 /59 , Respiratory Rate 17 , O2 SAT 98 , Venturi Mask, O2 Flow Rate 14.0 . Vital Sign Comment: [] EKG Rhythm: Sinus Rhythm Rhythm change?: N MD Notified?: - MD Response: Latest Shane Fall Score: 75 Fall Risk: High Risk Safety Measures: Call light Within Reach, Bed Alarm Zone 2, Side Rails Side Rails x3, Bed position Low and Locked. Fall Precautions: Yellow Socks Yellow Gown Door Sign Patient Fall Education Report given to [SHANNAN Anna].
[2019-10-04 07:24] LABS: BASOPHILS % (AUTO) 0.4 % (0.0-2.0); EOSINOPHILS % (AUTO) 2.6 % (0.0-3.0); HEMATOCRIT 28.3 % (42.0-52.0); LYMPHOCYTES % (AUTO) 11.5 % (20.0-45.0); MEAN CORPUSCULAR VOLUME 91 FL (80-99); MONOCYTES % (AUTO) 4.5 % (1.0-10.0); PLATELET COUNT 307 K/UL (150-450); RED BLOOD COUNT 3.11 M/UL (4.70-6.10); RED CELL DISTRIBUTION WIDTH 12.7 % (11.6-14.8)
[2019-10-04 07:25] LABS: ALANINE AMINOTRANSFERASE 30 U/L (12-78); ALBUMIN 1.7 G/DL (3.4-5.0); ALBUMIN/GLOBULIN RATIO 0.3 (1.0-2.7); ALKALINE PHOSPHATASE 44 U/L (46-116); ANION GAP 4 mmol/L (5-15); ASPARTATE AMINO TRANSFERASE 43 U/L (15-37); BILIRUBIN,TOTAL 0.3 MG/DL (0.2-1.0); BLOOD UREA NITROGEN 33 mg/dL (7-18); CALCIUM 8.2 MG/DL (8.5-10.1); CARBON DIOXIDE 30 MMOL/L (21-32); CHLORIDE 112 MMOL/L (98-107); CREATININE 0.9 MG/DL (0.55-1.30); PHOSPHORUS 2.7 MG/DL (2.5-4.9); POTASSIUM 3.2 MMOL/L (3.5-5.1); SODIUM 146 MMOL/L (136-145)
--- NOTE | 2019-10-04 07:56 | NUR ---
NURSE NOTES: Received report from SHANNAN Lopez. Pt is AOx0, incomprehensible, stable, and in bed moving legs constantly. No s/s or complaints of distress at this time. Pt has upper gtube noted running Nepro at 50mL. Montalvo cath draining clear yellow urine. Pt has L upper inner arm double lumen PICC line. Soft restraints bilateral wrist, pulse paltablem Addendum: 10/04/19 at 08 by Shoshana Edwards RN RN continuing note pulse palpable, cap refill <3 seconds, skin intact. Pt bed low and locked, pt reminded to not get up and utilize call light, call light in reach and bed alarm on. Will continue to monitor.
[2019-10-04 08:00] VITALS: BP 124/52
[2019-10-04] MEDS: Docusate 100mg/10ml Liq GT SCH ×3 (09:19→17:55)
[2019-10-04] MEDS: Metoprolol Tartrate 12.5mg TAB GT SCH ×2 (09:19→20:41)
[2019-10-04] MEDS: Aspirin Baby 81mg GT SCH (09:20)
[2019-10-04] MEDS: Nitroglycerin Patch 0.4mg TDERMAL SCH (09:20)
[2019-10-04] MEDS: Heparin 5000 units/ml inj SUBQ SCH ×2 (09:22→20:42)
--- NOTE | 2019-10-04 10:16 | Pulmonology Progress Note ---
Subjective ROS Limited/Unobtainable: No Interval Events: Calm today; discussed with RN and Constitutional: Reports: fever, other - Xd=577.8 HEENT: Repors: no symptoms Respiratory: Reports: no symptoms Cardiovascular: Reports: no symptoms Gastrointestinal/Abdominal: Reports: no symptoms Allergies: Coded Allergies: No Known Allergies (Unverified , 09/25/19) Objective Last 24 Hour Vital Signs Date Time Temp Pulse Resp B/P (MAP) Pulse Ox O2 Delivery O2 Flow Rate FiO2 10/04/19 09:20 134/66 10/04/19 09:19 83 134/66 10/04/19 04:00 55 10/04/19 04:00 Venturi Mask 10/04/19 04:00 97.4 72 17 120/59 (79) 98 10/04/19 04:00 83 10/04/19 00:00 55 10/04/19 00:00 Venturi Mask 10/04/19 00:00 80 10/04/19 00:00 97.7 71 16 117/57 (77) 97 10/03/19 21:40 66 116/68 10/03/19 20:00 87 10/03/19 20:00 55 10/03/19 20:00 98.1 66 24 116/62 (80) 93 10/03/19 20:00 98 Venturi Mask 14.0 55 10/03/19 20:00 Venturi Mask 10/03/19 16:00 55 10/03/19 16:00 Venturi Mask 10/03/19 16:00 65 10/03/19 16:00 97.2 70 20 118/73 (88) 99 10/03/19 12:00 98.4 59 20 119/76 (90) 97 10/03/19 12:00 65 10/03/19 12:00 Venturi Mask 10/03/19 12:00 55 Intake and Output 10/03/19 10/04/19 19:00 07:00 Intake Total 150 ml 450 ml Output Total 1145 ml 800 ml Balance -995 ml -350 ml Free Water 100 ml 400 ml Tube Feeding 50 ml 50 ml Output Urine Total 1145 ml 800 ml General Appearance: cachetic HEENT: normocephalic Respiratory: chest wall non-tender, rhonchi - bilaterally Cardiovascular: normal peripheral pulses, normal rate, regular rhythm Abdomen: normal bowel sounds Extremities: other Laboratory Tests 10/04/19 06:20: White Blood Count 10.0, Red Blood Count 3.11L, Hemoglobin 9.0L, Hematocrit 28.3L , Mean Corpuscular Volume 91, Mean Corpuscular Hemoglobin 28.9, Mean Corpuscular Hemoglobin Concent 31.8L, Red Cell Distribution Width 12.7, Platelet Count 307, Mean Platelet Volume 7.2, Neutrophils (%) (Auto) 81.0H, Lymphocytes (%) (Auto) 11.5L, Monocytes (%) (Auto) 4.5, Eosinophils (%) (Auto) 2.6, Basophils (%) (Auto) 0.4, Sodium Level 146H, Potassium Level 3.2L, Chloride Level 112H, Carbon Dioxide Level 30, Anion Gap 4L, Blood Urea Nitrogen 33H, Creatinine 0.9, Estimat Glomerular Filtration Rate > 60, Glucose Level 130H , Calcium Level 8.2L, Phosphorus Level 2.7, Magnesium Level 2.0, Total Bilirubin 0.3, Aspartate Amino Transf (AST/SGOT) 43H, Alanine Aminotransferase ( ALT/SGPT) 30, Alkaline Phosphatase 44L, Total Protein 6.8, Albumin 1.7L, Globulin 5.1, Albumin/Globulin Ratio 0.3L Current Medications Medications (Trade) Dose Ordered Sig/Mick Route PRN Reason Start Time Stop Time Status Last Admin Dose Admin Acetaminophen (Tylenol) 650 mg Q6H PRN GT Temp >100.5 10/03/19 18:30 11/02/19 18:29 Aspirin (ASA) 162 mg DAILY GT 10/04/19 09:00 11/10/19 08:59 10/04/19 09:20 Carbidopa/Levodopa (Sinemet 25/250) 1 tab Q8HR GT 10/03/19 22:00 10/26/19 08:59 10/04/19 05:58 Cefepime HCl 2 gm/ Dextrose 110 ml @ 220 mls/hr Q8H IV 10/03/19 20:00 10/07/19 11:59 10/04/19 04:22 Chlorhexidine Gluconate (Park-Hex 2%) 1 applic DAILY@2000 TOPIC 10/03/19 20:00 12/24/19 19:59 10/03/19 21:40 Dextrose (Dextrose 50%) 25 ml Q30M PRN IV Hypoglycemia 10/03/19 18:30 12/24/19 10:29 Dextrose (Dextrose 50%) 50 ml Q30M PRN IV Hypoglycemia 10/03/19 18:30 12/24/19 10:29 Docusate Sodium (Colace) 100 mg TID GT 10/03/19 18:30 11/02/19 18:29 10/04/19 09:19 Heparin Sodium (Porcine) (Heparin 5000 units/ml) 5,000 units EVERY 12 HOURS SUBQ 10/03/19 21:00 11/09/19 20:59 10/04/19 09:22 Lactulose (Cephulac) 30 gm BIDPRN PRN GT Constipation 10/03/19 18:30 10/29/19 18:29 Lorazepam (Ativan 2mg/ml 1ml) 0.5 mg Q4H PRN IV For Anxiety 10/03/19 18:30 10/05/19 18:29 Metoprolol Tartrate (Lopressor) 12.5 mg Q12HR GT 10/03/19 21:00 12/25/19 09:06 10/04/19 09:19 Nitroglycerin (Ntg) 1 patch Q24H TDERMAL 10/04/19 09:30 10/26/19 09:29 10/04/19 09:20 Potassium Chloride 100 ml @ 100 mls/hr Q1HR IVPB 10/04/19 10:00 10/04/19 13:59 Vancomycin HCl (Vanco pharmacy to dose) 1 ea DAILY PRN MISC Per rx protocol 10/03/19 18:30 11/02/19 18:29 Vancomycin HCl 1 gm/Dextrose 275 ml @ 183.708 mls/hr Q12H IVPB 10/04/19 02:00 10/09/19 01:59 10/04/19 01:32 Assessment/Plan Assessment/Plan IMPRESSION: 1. Healthcare-associated pneumonia. 2. Acute renal failure. Resolved 3. History of previous SBO. 4. CAD. 5. Parkinson's. 6. Dementia. 7. Hyperkalemia, corrected 8. Shock; pressors dc DISCUSSION: Underwent urgent hemodialysis. No longer needed Pressors no longer required Broad-spectrum antibiotics. I will follow carefully. Discussed with Has worsening hypoxia remains agitated Family leaning towards hospice Discussed with hospice agency and Will leave wong in place Ren Uriostegui Omar Syed MD Oct 04, 2019 10:16
--- NOTE | 2019-10-04 10:32 | Infectious Diseases Prog Note ---
Assessment/Plan Assessment/Plan antibiotics : vancomycin iv, cefepime A 1. pneumonia COVID 19 test negative x 2 2. hypertension 3. Parkinsons disease 4. dementia 5. leucocytosis improving 6. VRE UTI P 1. continue cefepime 2. d/c iv vancomycin 3. start linezolid 4. will follow up cultures Subjective ROS Limited/Unobtainable: Yes Allergies: Coded Allergies: No Known Allergies (Unverified , 09/25/19) Objective Last 24 Hour Vital Signs Date Time Temp Pulse Resp B/P (MAP) Pulse Ox O2 Delivery O2 Flow Rate FiO2 10/04/19 09:20 134/66 10/04/19 09:19 83 134/66 10/04/19 04:00 55 10/04/19 04:00 Venturi Mask 10/04/19 04:00 97.4 72 17 120/59 (79) 98 10/04/19 04:00 83 10/04/19 00:00 55 10/04/19 00:00 Venturi Mask 10/04/19 00:00 80 10/04/19 00:00 97.7 71 16 117/57 (77) 97 10/03/19 21:40 66 116/68 10/03/19 20:00 87 10/03/19 20:00 55 10/03/19 20:00 98.1 66 24 116/62 (80) 93 10/03/19 20:00 98 Venturi Mask 14.0 55 10/03/19 20:00 Venturi Mask 10/03/19 16:00 55 10/03/19 16:00 Venturi Mask 10/03/19 16:00 65 10/03/19 16:00 97.2 70 20 118/73 (88) 99 10/03/19 12:00 98.4 59 20 119/76 (90) 97 10/03/19 12:00 65 10/03/19 12:00 Venturi Mask 10/03/19 12:00 55 Height (Feet): 6 Height (Inches): 6.00 Weight (Pounds): 173 Respiratory/Chest: lungs clear Cardiovascular: normal rate, regular rhythm, no gallop/murmur Abdomen: soft, non tender Extremities: no edema, other - left arm PICC Laboratory Tests Test 10/04/19 06:20 White Blood Count 10.0 K/UL (4.8-10.8) Red Blood Count 3.11 M/UL (4.70-6.10) L Hemoglobin 9.0 G/DL (14.2-18.0) L Hematocrit 28.3 % (42.0-52.0) L Mean Corpuscular Volume 91 FL (80-99) Mean Corpuscular Hemoglobin 28.9 PG (27.0-31.0) Mean Corpuscular Hemoglobin Concent 31.8 G/DL (32.0-36.0) L Red Cell Distribution Width 12.7 % (11.6-14.8) Platelet Count 307 K/UL (150-450) Mean Platelet Volume 7.2 FL (6.5-10.1) Neutrophils (%) (Auto) 81.0 % (45.0-75.0) H Lymphocytes (%) (Auto) 11.5 % (20.0-45.0) L Monocytes (%) (Auto) 4.5 % (1.0-10.0) Eosinophils (%) (Auto) 2.6 % (0.0-3.0) Basophils (%) (Auto) 0.4 % (0.0-2.0) Sodium Level 146 MMOL/L (136-145) H Potassium Level 3.2 MMOL/L (3.5-5.1) L Chloride Level 112 MMOL/L (98-107) H Carbon Dioxide Level 30 MMOL/L (21-32) Anion Gap 4 mmol/L (5-15) L Blood Urea Nitrogen 33 mg/dL (7-18) H Creatinine 0.9 MG/DL (0.55-1.30) Estimat Glomerular Filtration Rate > 60 mL/min (>60) Glucose Level 130 MG/DL (74-106) H Calcium Level 8.2 MG/DL (8.5-10.1) L Phosphorus Level 2.7 MG/DL (2.5-4.9) Magnesium Level 2.0 MG/DL (1.8-2.4) Total Bilirubin 0.3 MG/DL (0.2-1.0) Aspartate Amino Transf (AST/SGOT) 43 U/L (15-37) H Alanine Aminotransferase (ALT/SGPT) 30 U/L (12-78) Alkaline Phosphatase 44 U/L (46-116) L Total Protein 6.8 G/DL (6.4-8.2) Albumin 1.7 G/DL (3.4-5.0) L Globulin 5.1 g/dL Albumin/Globulin Ratio 0.3 (1.0-2.7) L Current Medications Medications (Trade) Dose Ordered Sig/Mick Route PRN Reason Start Time Stop Time Status Last Admin Dose Admin Acetaminophen (Tylenol) 650 mg Q6H PRN GT Temp >100.5 10/03/19 18:30 11/02/19 18:29 Aspirin (ASA) 162 mg DAILY GT 10/04/19 09:00 11/10/19 08:59 10/04/19 09:20 Carbidopa/Levodopa (Sinemet 25/250) 1 tab Q8HR GT 10/03/19 22:00 10/26/19 08:59 10/04/19 05:58 Cefepime HCl 2 gm/ Dextrose 110 ml @ 220 mls/hr Q8H IV 10/03/19 20:00 10/07/19 11:59 10/04/19 04:22 Chlorhexidine Gluconate (Park-Hex 2%) 1 applic DAILY@2000 TOPIC 10/03/19 20:00 12/24/19 19:59 10/03/19 21:40 Dextrose (Dextrose 50%) 25 ml Q30M PRN IV Hypoglycemia 10/03/19 18:30 12/24/19 10:29 Dextrose (Dextrose 50%) 50 ml Q30M PRN IV Hypoglycemia 10/03/19 18:30 12/24/19 10:29 Docusate Sodium (Colace) 100 mg TID GT 10/03/19 18:30 11/02/19 18:29 10/04/19 09:19 Heparin Sodium (Porcine) (Heparin 5000 units/ml) 5,000 units EVERY 12 HOURS SUBQ 10/03/19 21:00 11/09/19 20:59 10/04/19 09:22 Lactulose (Cephulac) 30 gm BIDPRN PRN GT Constipation 10/03/19 18:30 10/29/19 18:29 Lorazepam (Ativan 2mg/ml 1ml) 0.5 mg Q4H PRN IV For Anxiety 10/03/19 18:30 10/05/19 18:29 Metoprolol Tartrate (Lopressor) 12.5 mg Q12HR GT 10/03/19 21:00 12/25/19 09:06 10/04/19 09:19 Nitroglycerin (Ntg) 1 patch Q24H TDERMAL 10/04/19 09:30 10/26/19 09:29 10/04/19 09:20 Potassium Chloride 100 ml @ 100 mls/hr Q1HR IVPB 10/04/19 10:00 10/04/19 13:59 Vancomycin HCl (Vanco pharmacy to dose) 1 ea DAILY PRN MISC Per rx protocol 10/03/19 18:30 11/02/19 18:29 Vancomycin HCl 1 gm/Dextrose 275 ml @ 183.708 mls/hr Q12H IVPB 10/04/19 02:00 10/09/19 01:59 10/04/19 01:32 Paramjit Silva MD Oct 04, 2019 10:32
[2019-10-04 12:00] VITALS: BP 124/52
--- NOTE | 2019-10-04 12:34 | Surgery Progress Note ---
Surgery Progress Note Subjective Procedure Performed removal of right femoral temp HD catheter Additional Comments leukocytosis resolved no n/v/f/c comfortable Objective Last 24 Hour Vital Signs Date Time Temp Pulse Resp B/P (MAP) Pulse Ox O2 Delivery O2 Flow Rate FiO2 10/04/19 12:00 97.9 57 18 124/52 (76) 94 10/04/19 12:00 Venturi Mask 10/04/19 10:30 98 Venturi Mask 14.0 55 10/04/19 09:20 134/66 10/04/19 09:19 83 134/66 10/04/19 08:00 Venturi Mask 10/04/19 08:00 97.9 57 18 124/52 (76) 94 10/04/19 08:00 89 10/04/19 04:00 55 10/04/19 04:00 Venturi Mask 10/04/19 04:00 97.4 72 17 120/59 (79) 98 10/04/19 04:00 83 10/04/19 00:00 55 10/04/19 00:00 Venturi Mask 10/04/19 00:00 80 10/04/19 00:00 97.7 71 16 117/57 (77) 97 10/03/19 21:40 66 116/68 10/03/19 20:00 87 10/03/19 20:00 55 10/03/19 20:00 98.1 66 24 116/62 (80) 93 10/03/19 20:00 98 Venturi Mask 14.0 55 10/03/19 20:00 Venturi Mask 10/03/19 16:00 55 10/03/19 16:00 Venturi Mask 10/03/19 16:00 65 10/03/19 16:00 97.2 70 20 118/73 (88) 99 I&O Intake and Output 10/03/19 10/04/19 19:00 07:00 Intake Total 150 ml 450 ml Output Total 1145 ml 800 ml Balance -995 ml -350 ml Free Water 100 ml 400 ml Tube Feeding 50 ml 50 ml Output Urine Total 1145 ml 800 ml Dressing: other Wound: other Cardiovascular: RSR Respiratory: decreased breath sounds Abdomen: soft, non-tender, present bowel sounds Extremities: edema, no tenderness, no cyanosis Laboratory Tests Test 10/04/19 06:20 White Blood Count 10.0 K/UL (4.8-10.8) Red Blood Count 3.11 M/UL (4.70-6.10) L Hemoglobin 9.0 G/DL (14.2-18.0) L Hematocrit 28.3 % (42.0-52.0) L Mean Corpuscular Volume 91 FL (80-99) Mean Corpuscular Hemoglobin 28.9 PG (27.0-31.0) Mean Corpuscular Hemoglobin Concent 31.8 G/DL (32.0-36.0) L Red Cell Distribution Width 12.7 % (11.6-14.8) Platelet Count 307 K/UL (150-450) Mean Platelet Volume 7.2 FL (6.5-10.1) Neutrophils (%) (Auto) 81.0 % (45.0-75.0) H Lymphocytes (%) (Auto) 11.5 % (20.0-45.0) L Monocytes (%) (Auto) 4.5 % (1.0-10.0) Eosinophils (%) (Auto) 2.6 % (0.0-3.0) Basophils (%) (Auto) 0.4 % (0.0-2.0) Sodium Level 146 MMOL/L (136-145) H Potassium Level 3.2 MMOL/L (3.5-5.1) L Chloride Level 112 MMOL/L (98-107) H Carbon Dioxide Level 30 MMOL/L (21-32) Anion Gap 4 mmol/L (5-15) L Blood Urea Nitrogen 33 mg/dL (7-18) H Creatinine 0.9 MG/DL (0.55-1.30) Estimat Glomerular Filtration Rate > 60 mL/min (>60) Glucose Level 130 MG/DL (74-106) H Calcium Level 8.2 MG/DL (8.5-10.1) L Phosphorus Level 2.7 MG/DL (2.5-4.9) Magnesium Level 2.0 MG/DL (1.8-2.4) Total Bilirubin 0.3 MG/DL (0.2-1.0) Aspartate Amino Transf (AST/SGOT) 43 U/L (15-37) H Alanine Aminotransferase (ALT/SGPT) 30 U/L (12-78) Alkaline Phosphatase 44 U/L (46-116) L Total Protein 6.8 G/DL (6.4-8.2) Albumin 1.7 G/DL (3.4-5.0) L Globulin 5.1 g/dL Albumin/Globulin Ratio 0.3 (1.0-2.7) L Plan Problems: (1) Acute hyperkalemia (2) UTI (urinary tract infection) (3) ACS (acute coronary syndrome) (4) Acute metabolic encephalopathy (5) ARF (acute renal failure) (6) Respiratory failure with hypoxia (7) HCAP (healthcare-associated pneumonia) (8) Parkinsons disease (9) Elevated troponin I level (10) Anemia (11) Hyponatremia (12) Sepsis Assessment & Plan: leukocytosis renal insufficiency improved malnutrition hypo albumin bmi 19 mild edema small hematoma HD site removal Pt presented on admission with MASD Perianal, R and L clefts of buttocks extending to scrotum and groin areas . Skin is erythematous with scattered satellite lesions. Both heels are boggy with non-blanchable erythema. Hammer toe L 2nd metatarsal. Dry callus with surrounding erythema noted to dorsal L 2nd metatarsal . NO exudate or changes in skin temp at site noted. Tx.Plan: Apply Triad Paste to Groin, scrotum and buttocks with each Incontinence care. Cover Sacrum and Bilat trochanter with Optifoam drsgs. Change every 3 days and prn. Apply Cavilon Skin Barrier to both heels and Malleoli. Cover each site with Optifoam drsgs. Change every 7 Days and PRN. Apply Betadine to L 2nd metatarsal every 3 days and prn. Reposition at least every 2hours or as tolerated. Place pillow between knees. Off-load heels with pillow. APM/ARNOLD Mattress overlay. nutritional optimization monitor site. resolving hematoma Walter Bacon Oct 04, 2019 12:34
--- NOTE | 2019-10-04 12:51 | Cardiac Electrophysiology PN ---
Assessment/Plan Assessment/Plan 1. NSTEMI type 2 in the setting of renal failure. Nonverbal and has electrolyte abnormality. Echo showed normal left ventricular systolic function On aspirin and metoprolol 12.5 mg b.i.d. 2. Hyponatremia 3. Severe EKG abnormality due to hyperkalemia, potassium of 9, that resolved after dialysis. 4. S/P Acute renal failure. S/P hemodialysis and now resolved and the dialysis catheter was removed. 5. Hypertension, on metoprolol. 6. PNA and Respiratory failure with hypoxemia. 7. Parkinson disease. 8. Anemia. 9. Dysphagia, status post PEG placement. WILEY RN Subjective Subjective In restraints and confused on 55% Venturi Mask. In SR with PACs. RN at bedside. GT feeding ongoing Objective Last 24 Hour Vital Signs Date Time Temp Pulse Resp B/P (MAP) Pulse Ox O2 Delivery O2 Flow Rate FiO2 10/04/19 12:00 97.9 57 18 124/52 (76) 94 10/04/19 12:00 Venturi Mask 10/04/19 10:30 98 Venturi Mask 14.0 55 10/04/19 09:20 134/66 10/04/19 09:19 83 134/66 10/04/19 08:00 Venturi Mask 10/04/19 08:00 97.9 57 18 124/52 (76) 94 10/04/19 08:00 89 10/04/19 04:00 55 10/04/19 04:00 Venturi Mask 10/04/19 04:00 97.4 72 17 120/59 (79) 98 10/04/19 04:00 83 10/04/19 00:00 55 10/04/19 00:00 Venturi Mask 10/04/19 00:00 80 10/04/19 00:00 97.7 71 16 117/57 (77) 97 10/03/19 21:40 66 116/68 10/03/19 20:00 87 10/03/19 20:00 55 10/03/19 20:00 98.1 66 24 116/62 (80) 93 10/03/19 20:00 98 Venturi Mask 14.0 55 10/03/19 20:00 Venturi Mask 10/03/19 16:00 55 10/03/19 16:00 Venturi Mask 10/03/19 16:00 65 10/03/19 16:00 97.2 70 20 118/73 (88) 99 Intake and Output 10/03/19 10/04/19 19:00 07:00 Intake Total 150 ml 450 ml Output Total 1145 ml 800 ml Balance -995 ml -350 ml Free Water 100 ml 400 ml Tube Feeding 50 ml 50 ml Output Urine Total 1145 ml 800 ml Laboratory Tests Test 10/04/19 06:20 White Blood Count 10.0 K/UL (4.8-10.8) Red Blood Count 3.11 M/UL (4.70-6.10) L Hemoglobin 9.0 G/DL (14.2-18.0) L Hematocrit 28.3 % (42.0-52.0) L Mean Corpuscular Volume 91 FL (80-99) Mean Corpuscular Hemoglobin 28.9 PG (27.0-31.0) Mean Corpuscular Hemoglobin Concent 31.8 G/DL (32.0-36.0) L Red Cell Distribution Width 12.7 % (11.6-14.8) Platelet Count 307 K/UL (150-450) Mean Platelet Volume 7.2 FL (6.5-10.1) Neutrophils (%) (Auto) 81.0 % (45.0-75.0) H Lymphocytes (%) (Auto) 11.5 % (20.0-45.0) L Monocytes (%) (Auto) 4.5 % (1.0-10.0) Eosinophils (%) (Auto) 2.6 % (0.0-3.0) Basophils (%) (Auto) 0.4 % (0.0-2.0) Sodium Level 146 MMOL/L (136-145) H Potassium Level 3.2 MMOL/L (3.5-5.1) L Chloride Level 112 MMOL/L (98-107) H Carbon Dioxide Level 30 MMOL/L (21-32) Anion Gap 4 mmol/L (5-15) L Blood Urea Nitrogen 33 mg/dL (7-18) H Creatinine 0.9 MG/DL (0.55-1.30) Estimat Glomerular Filtration Rate > 60 mL/min (>60) Glucose Level 130 MG/DL (74-106) H Calcium Level 8.2 MG/DL (8.5-10.1) L Phosphorus Level 2.7 MG/DL (2.5-4.9) Magnesium Level 2.0 MG/DL (1.8-2.4) Total Bilirubin 0.3 MG/DL (0.2-1.0) Aspartate Amino Transf (AST/SGOT) 43 U/L (15-37) H Alanine Aminotransferase (ALT/SGPT) 30 U/L (12-78) Alkaline Phosphatase 44 U/L (46-116) L Total Protein 6.8 G/DL (6.4-8.2) Albumin 1.7 G/DL (3.4-5.0) L Globulin 5.1 g/dL Albumin/Globulin Ratio 0.3 (1.0-2.7) L Objective HEAD AND NECK: No JVD. LUNGS: Decreased breath sounds. CARDIOVASCULAR: Regular S1 and S2 with no gallop or rub. ABDOMEN: Soft, status post G-tube. EXTREMITIES: No pitting edema. Gómez Brewster MD Oct 04, 2019 12:51
--- NOTE | 2019-10-04 14:18 | NUR ---
CASE MANAGEMENT: REVIEW IS: PNA . ACUTE RENAL FAILURE . SHOCK T 97.4 HR 57 RR 18 BP 124/52 SAT 94% VENTURI MASK FIO2 55 H/H 9.0/28.3 NA 146 K 3.2 IS: ZYVOX PO Q12HR NITROGLYCERIN PATCH Q24HR HEPARIN SUBQ Q12HR LOPRESSOR GT Q12HR PROTONIX IV Q12HR TELEMETRY UNIT STATUS DCP: PATIENT IS FROM [facility]. ORDER NOTED TO DC WITH [facility].
--- NOTE | 2019-10-04 14:24 | NUR ---
INSURANCE PROGRESS NOTES AND REVIEW FAXED TO [facility] PH: [phone] [facility] FX: [phone]
--- NOTE | 2019-10-04 14:39 | Nephrology Progress Note ---
Assessment/Plan Problem List: (1) ARF (acute renal failure) (2) Acute hyperkalemia (3) Respiratory failure with hypoxia (4) HCAP (healthcare-associated pneumonia) (5) Acute metabolic encephalopathy (6) Parkinsons disease (7) Elevated troponin I level (8) Anemia Assessment Renal failure, acute, possible underlying chronic kidney disease Sepsis, pneumonia, UTI Acute respiratory failure with hypoxia Hyponatremia ACS Acute metabolic encephalopathy Has G-tube Hypothyroidism Parkinson's Plan October 03: Labs reviewed. Potassium supplement given. Remains stable from renal standpoint of view. October 02: No chem panel drawn today. Remains stable from renal standpoint of view. We will continue to monitor electrolytes. Continue per consultants. Patient remains full code. October 01: Lab reviewed. Potassium low, sodium slightly elevated. D5W bolus IV , and potassium chloride IV ordered. Continue per consultants. September 30: COVERAGE FOR DR. GONZALEZ ( Int Med), labs reviewed, medications reviewed. Potassium supplement and free water in the form of D5W IV ordered. Continue per current management. September 29: COVERAGE FOR DR. GONZALEZ ( Int Med) , status quo, labs reviewed. White blood cells lowering. Medications reviewed. Stable. Continue per consultants. No more antibiotics at this time. Will recheck urine analysis and culture September 28: Patient appears stable. No further dialysis needed so the femoral catheter can be discontinued. Will check labs tomorrow if still in the house. September 27: Lab reviewed. Hemoglobin stable. Renal parameters stable. Electrolyte supplement ordered. No further dialysis needed. Continue per consultants. September 26: Hemoglobin lower. Renal parameters stable. Potassium phosphate IV given. Anemia work-up initiated. Continue per consultants. No further need for dialysis at this time. Kidney ultrasound reviewed. Acute renal failure and hyperkalemia is now resolved. Previously: Aspirin, Lopressor, Nitropaste, started Patient was dialyzed yesterday today hyperkalemia is resolved 2D echocardiogram results noted. No number for ejection fraction is documented. Kidney ultrasound results pending. Discussed with SHANNAN Faulkner. Continue to monitor renal parameters and dialysis as needed. Per orders Subjective ROS Limited/Unobtainable: No Constitutional: Reports: malaise, weakness Objective Objective Last 24 Hour Vital Signs Date Time Temp Pulse Resp B/P (MAP) Pulse Ox O2 Delivery O2 Flow Rate FiO2 10/04/19 12:00 97.9 57 18 124/52 (76) 94 10/04/19 12:00 Venturi Mask 10/04/19 12:00 71 10/04/19 10:30 98 Venturi Mask 14.0 55 10/04/19 09:20 134/66 10/04/19 09:19 83 134/66 10/04/19 08:00 Venturi Mask 10/04/19 08:00 97.9 57 18 124/52 (76) 94 10/04/19 08:00 89 10/04/19 04:00 55 10/04/19 04:00 Venturi Mask 10/04/19 04:00 97.4 72 17 120/59 (79) 98 10/04/19 04:00 83 10/04/19 00:00 55 10/04/19 00:00 Venturi Mask 10/04/19 00:00 80 10/04/19 00:00 97.7 71 16 117/57 (77) 97 10/03/19 21:40 66 116/68 10/03/19 20:00 87 10/03/19 20:00 55 10/03/19 20:00 98.1 66 24 116/62 (80) 93 10/03/19 20:00 98 Venturi Mask 14.0 55 10/03/19 20:00 Venturi Mask 10/03/19 16:00 55 10/03/19 16:00 Venturi Mask 10/03/19 16:00 65 10/03/19 16:00 97.2 70 20 118/73 (88) 99 Intake and Output 10/03/19 10/04/19 19:00 07:00 Intake Total 150 ml 450 ml Output Total 1145 ml 800 ml Balance -995 ml -350 ml Free Water 100 ml 400 ml Tube Feeding 50 ml 50 ml Output Urine Total 1145 ml 800 ml Laboratory Tests 10/04/19 06:20: White Blood Count 10.0, Red Blood Count 3.11L, Hemoglobin 9.0L, Hematocrit 28.3L , Mean Corpuscular Volume 91, Mean Corpuscular Hemoglobin 28.9, Mean Corpuscular Hemoglobin Concent 31.8L, Red Cell Distribution Width 12.7, Platelet Count 307, Mean Platelet Volume 7.2, Neutrophils (%) (Auto) 81.0H, Lymphocytes (%) (Auto) 11.5L, Monocytes (%) (Auto) 4.5, Eosinophils (%) (Auto) 2.6, Basophils (%) (Auto) 0.4, Sodium Level 146H, Potassium Level 3.2L, Chloride Level 112H, Carbon Dioxide Level 30, Anion Gap 4L, Blood Urea Nitrogen 33H, Creatinine 0.9, Estimat Glomerular Filtration Rate > 60, Glucose Level 130H , Calcium Level 8.2L, Phosphorus Level 2.7, Magnesium Level 2.0, Total Bilirubin 0.3, Aspartate Amino Transf (AST/SGOT) 43H, Alanine Aminotransferase ( ALT/SGPT) 30, Alkaline Phosphatase 44L, Total Protein 6.8, Albumin 1.7L, Globulin 5.1, Albumin/Globulin Ratio 0.3L Height (Feet): 6 Height (Inches): 6.00 Weight (Pounds): 173 General Appearance: no apparent distress EENT: other Cardiovascular: bradycardia Respiratory/Chest: decreased breath sounds Abdomen: distended Objective No change Ezekiel Rachel MD Oct 04, 2019 14:39
--- NOTE | 2019-10-04 15:50 | NUR ---
NURSE NOTES: Pt lung sounds wheezing, increased RR, and SpO2 93%. Md made aware. No new orders at this time.
[2019-10-04 16:00] VITALS: BP 125/69
--- NOTE | 2019-10-04 19:30 | NUR ---
NURSE NOTES: bilateral wrist restraints removed- pulses palpable and skin intact- bilateral restraints reapplied. Will continue to monitor pt.
--- NOTE | 2019-10-04 19:35 | NUR ---
NURSE HAND-OFF REPORT: Important Events on Shift: Pt agitated, Ativan given// SR w/PAC notified, no new order Patient Status: fc, stable Diet: nepro 50cc continuous Pending Orders: d/c to snf/hospice. f/u w/ dorita pillowcase cutter Pending Results/Labs:n/a Pending MD notification: n/a Latest Vital Signs: Temperature 97.6 , Pulse 75 , B/P 125 /69 , Respiratory Rate 18 , O2 SAT 98 , Venturi Mask, O2 Flow Rate 14.0 . Vital Sign Comment: EKG Rhythm: Sinus Rhythm Rhythm change?: Shyanne MADDOX Notified?: Shyanne rose MD Response: No New Orders Received Latest Shane Fall Score: 75 Fall Risk: High Risk Safety Measures: Call light Within Reach, Bed Alarm Zone 2, Side Rails Side Rails x3, Bed position Low and Locked. Fall Precautions: Yellow Socks Yellow Gown Door Sign Patient Fall Education Report given to Emily
--- NOTE | 2019-10-04 19:36 | NUR ---
NURSE NOTES: Received report from Shoshana RN, pt. in bed awake, no signs or symptoms of acute cardiac or respiratory distress noted, bed alarm on, side rails up x's 3 and safety brakes engaged, call light within easy reach, pt. appears to open eyes to name, pt. appears to be sating well on Venturi mask 15L fio2 @55%- no distress noted, pt. has G tube running Nephro at 50cc/hr- no residual noted, pt. appears calm, HOB elevated, TRACY PICC intact and patent- TKO, safety measures continued, will continue with plan of care.
[2019-10-04 20:00] VITALS: BP 122/69
[2019-10-04] MEDS: Dyna-Hex 2% Top Sol 2oz TOPIC SCH (20:41)
--- NOTE | 2019-10-04 23:37 | NUR ---
NURSE NOTES: full bed bath given linens changed- oral care provided, HOB elevated- pt. remains stable- will continue to monitor pt. and with plan of care.
[2019-10-05] VITALS: BP 108/63
--- NOTE | 2019-10-05 | NUR ---
NURSE NOTES: pt. continuing to sat well on venturi mask settings 15L fio2 at 55%- no distress noted- sating 96%- will continue to monitor pt.
--- NOTE | 2019-10-05 03:35 | NUR ---
NURSE HAND-OFF REPORT: Important Events on Shift:none Patient Status: stable Diet: Nepro 50cc/hr Pending Orders: Pending Results/Labs: Pending MD notification: Latest Vital Signs: Temperature 97.1 , Pulse 67 , B/P 108 /63 , Respiratory Rate 17 , O2 SAT 96 , Venturi Mask, O2 Flow Rate 15.0 . Vital Sign Comment: EKG Rhythm: Sinus Rhythm Rhythm change?: N MD Notified?: MD Response: Latest Shane Fall Score: 75 Fall Risk: High Risk Safety Measures: Call light Within Reach, Bed Alarm Zone 2, Side Rails Side Rails x3, Bed position Low and Locked. Fall Precautions: Yellow Socks Yellow Gown Door Sign Patient Fall Education Report given to SHANNAN Brown
--- NOTE | 2019-10-05 03:40 | NUR ---
NURSE NOTES: Received report from SHANNAN Campbell. Patient is awake, restless, non-compliant, alert and oriented x 0. Patient has PICC line on left upper arm. Patient has G-tube, on nephro 1.8, running 50 cc/hour. Patient has soft wrist bilateral restraints on, assessment done and recorded. Will continue plan of care.
[2019-10-05 04:00] VITALS: BP 110/63
[2019-10-05] MEDS: Levodopa/Carbidopa 25/250 tab GT SCH ×3 (05:44→21:17)
--- NOTE | 2019-10-05 07:38 | NUR ---
NURSE HAND-OFF REPORT: Important Events on Shift: Patient always tries to get out of bed, especially his lower extremities. Patient Status: Patient is confused, non compliant but awake, alert and oriented x 0. Diet:Nephro 1.8 @ 50 cc/hour Pending Orders: none Pending Results/Labs: none Pending MD notification: Latest Vital Signs: Temperature 97.2 , Pulse 66 , B/P 110 /63 , Respiratory Rate 18 , O2 SAT 99 , Venturi Mask, O2 Flow Rate 15.0 . Vital Sign Comment: EKG Rhythm: Sinus Rhythm Rhythm change?: N Notified?: Shyanne rose MD Response: No New Orders Received Latest Shane Fall Score: 75 Fall Risk: High Risk Safety Measures: Call light Within Reach, Bed Alarm Zone 2, Side Rails Side Rails x3, Bed position Low and Locked. Fall Precautions: Yellow Socks Yellow Gown Door Sign Patient Fall Education Report given to SHANNAN Lares.
--- NOTE | 2019-10-05 07:51 | NUR ---
NURSE NOTES: Received report from SHANNAN Welch. Pt awake, A/O x0, confused. No s/sx of acute distress, on venturi mask 15L 55% Fio2. Observed pt trying to put bilateral lower extremities out of bed. Pt on B soft wrist restraints, pulses are present, no swelling noted. Tube feeding is running as ordered. PICC line patent and asymptomatic. Bed on lowest position, call light within reach, will continue plan of care.
[2019-10-05 08:00] VITALS: BP 112/61
--- NOTE | 2019-10-05 08:57 | NUR ---
CASE MANAGEMENT: REVIEW IS: PNA . UTI . ACUTE RESPIRATORY FAILURE w/HYPOXIA T 97.2 HR 67 RR 17 BP 108/63 SAT 96% VENTURI MASK FLOW RATE 15.0 IS: ZYVOX PO Q12HR NITROGLYCERIN PATCH Q24HR HEPARIN SUBQ Q12HR LOPRESSOR GT Q12HR PROTONIX IV Q12HR TELEMETRY UNIT STATUS DCP: PATIENT IS FROM [facility]. ORDER NOTED TO DC WITH [facility].
--- NOTE | 2019-10-05 09:00 | NUR ---
INSURANCE PROGRESS NOTES AND REVIEW FAXED TO [facility]CP/[facility] PH: [phone] [facility] FX: [phone]
[2019-10-05] MEDS: Docusate 100mg/10ml Liq GT SCH ×3 (09:19→17:55)
[2019-10-05] MEDS: Metoprolol Tartrate 12.5mg TAB GT SCH ×2 (09:19→21:09)
[2019-10-05] MEDS: Aspirin Baby 81mg GT SCH (09:19)
[2019-10-05] MEDS: Nitroglycerin Patch 0.4mg TDERMAL SCH (09:21)
[2019-10-05] MEDS: Heparin 5000 units/ml inj SUBQ SCH ×2 (09:21→21:11)
--- NOTE | 2019-10-05 10:20 | Nephrology Progress Note ---
Assessment/Plan Problem List: (1) ARF (acute renal failure) (2) Acute hyperkalemia (3) Respiratory failure with hypoxia (4) HCAP (healthcare-associated pneumonia) (5) Acute metabolic encephalopathy (6) Parkinsons disease (7) Elevated troponin I level (8) Anemia Assessment Renal failure, acute, possible underlying chronic kidney disease Sepsis, pneumonia, UTI Acute respiratory failure with hypoxia Hyponatremia ACS Acute metabolic encephalopathy Has G-tube Hypothyroidism Parkinson's Plan October 04: No labs drawn today. Remains stable from renal standpoint of view. Continue per consultants. October 03: Labs reviewed. Potassium supplement given. Remains stable from renal standpoint of view. October 02: No chem panel drawn today. Remains stable from renal standpoint of view. We will continue to monitor electrolytes. Continue per consultants. Patient remains full code. October 01: Lab reviewed. Potassium low, sodium slightly elevated. D5W bolus IV , and potassium chloride IV ordered. Continue per consultants. September 30: COVERAGE FOR DR. GONZALEZ ( Int Med), labs reviewed, medications reviewed. Potassium supplement and free water in the form of D5W IV ordered. Continue per current management. September 29: COVERAGE FOR DR. GONZALEZ ( Int Med) , status quo, labs reviewed. White blood cells lowering. Medications reviewed. Stable. Continue per consultants. No more antibiotics at this time. Will recheck urine analysis and culture September 28: Patient appears stable. No further dialysis needed so the femoral catheter can be discontinued. Will check labs tomorrow if still in the house. September 27: Lab reviewed. Hemoglobin stable. Renal parameters stable. Electrolyte supplement ordered. No further dialysis needed. Continue per consultants. September 26: Hemoglobin lower. Renal parameters stable. Potassium phosphate IV given. Anemia work-up initiated. Continue per consultants. No further need for dialysis at this time. Kidney ultrasound reviewed. Acute renal failure and hyperkalemia is now resolved. Previously: Aspirin, Lopressor, Nitropaste, started Patient was dialyzed yesterday today hyperkalemia is resolved 2D echocardiogram results noted. No number for ejection fraction is documented. Kidney ultrasound results pending. Discussed with SHANNAN Faulkner. Continue to monitor renal parameters and dialysis as needed. Per orders Subjective ROS Limited/Unobtainable: No Constitutional: Reports: malaise, weakness Objective Objective Last 24 Hour Vital Signs Date Time Temp Pulse Resp B/P (MAP) Pulse Ox O2 Delivery O2 Flow Rate FiO2 10/05/19 09:21 112/61 10/05/19 09:19 74 112/61 10/05/19 08:00 97.9 74 20 112/61 (78) 98 10/05/19 04:00 97.2 66 18 110/63 (79) 99 10/05/19 04:00 67 10/05/19 00:00 97.1 67 17 108/63 (78) 96 10/04/19 23:33 67 10/04/19 21:00 Venturi Mask 15.0 10/04/19 20:41 71 122/69 10/04/19 20:00 96.9 69 18 122/69 (86) 95 10/04/19 19:59 69 10/04/19 19:07 98 Venturi Mask 14.0 55 10/04/19 16:00 97.6 72 18 125/69 (87) 94 10/04/19 16:00 75 10/04/19 12:00 97.9 57 18 124/52 (76) 94 10/04/19 12:00 Venturi Mask 10/04/19 12:00 71 10/04/19 10:30 98 Venturi Mask 14.0 55 Intake and Output 10/04/19 10/05/19 19:00 07:00 Intake Total 50 ml 610 ml Output Total 1280 ml Balance 50 ml -670 ml Free Water 110 ml Tube Feeding 50 ml 500 ml Output Urine Total 1280 ml # Bowel Movements 2 No chemistry panel today Height (Feet): 6 Height (Inches): 6.00 Weight (Pounds): 172 General Appearance: no apparent distress, lethargic EENT: other - On Venturi mask Cardiovascular: normal rate Respiratory/Chest: decreased breath sounds Abdomen: distended Objective No change Ezekiel Rachel MD Oct 05, 2019 10:20
--- NOTE | 2019-10-05 10:21 | NUR ---
RD ASSESSMENT & RECOMMENDATIONS SEE CARE ACTIVITY FOR COMPLETE ASSESSMENT DAILY ESTIMATED NEEDS: Needs based on Pulmonary, wound 68.18kg 25-30 kcals/kg 2658-5485 total kcals 1.25-1.5 g protein/kg 83-102 g total protein 20-25 mL/kg 2572-2725 total fluid mLs NUTRITION DIAGNOSIS: 1. Swallowing difficulty r/t dysphagia as evidenced by pt is GT dep. 2. Altered nutrition related lab values r/t clinical status, sepsis, dehydration, renal failure as evidenced by elev K(9.0->7.2*-> 3.4 now low), elev BUN(166-> 30 trend down), elev Creat (9.4 -> wnl). CURRENT TF:Nepro @ 50ml/hr x 24 hrs ENTERAL NUTRITION RECOMMENDATIONS: Glucerna 1.5 @ 50ml/hr x 24 hrs to provide 1200ml, 1800kcal, 99g prot, 911ml free water - Rec TF change to Glucerna 1.5 -> Nepro no longer necessary w/ improved renal fxn (K now low, creat wnl) - Initiate Glucerna 1.5 @ 30ml/hr x6hrs, advance 10ml q 4-6 hrs as tolerated to goal - Flush per MD, HOB Over 30 degrees. 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
--- NOTE | 2019-10-05 10:32 | Infectious Diseases Prog Note ---
Assessment/Plan Assessment/Plan A 1. pneumonia COVID 19 test negative x 2 2. hypertension 3. Parkinson disease 4. Dementia 5. Acute renal failure 6. Anemia 7. VRE UTI P 1. continue cefepime & Zyvox Subjective ROS Limited/Unobtainable: Yes Constitutional: Reports: other - feels better; Denies: fever Respiratory: Reports: no symptoms Neurologic: Reports: other - on restraint Allergies: Coded Allergies: No Known Allergies (Unverified , 09/25/19) Objective Last 24 Hour Vital Signs Date Time Temp Pulse Resp B/P (MAP) Pulse Ox O2 Delivery O2 Flow Rate FiO2 10/05/19 09:21 112/61 10/05/19 09:19 74 112/61 10/05/19 08:00 97.9 74 20 112/61 (78) 98 10/05/19 04:00 97.2 66 18 110/63 (79) 99 10/05/19 04:00 67 10/05/19 00:00 97.1 67 17 108/63 (78) 96 10/04/19 23:33 67 10/04/19 21:00 Venturi Mask 15.0 10/04/19 20:41 71 122/69 10/04/19 20:00 96.9 69 18 122/69 (86) 95 10/04/19 19:59 69 10/04/19 19:07 98 Venturi Mask 14.0 55 10/04/19 16:00 97.6 72 18 125/69 (87) 94 10/04/19 16:00 75 10/04/19 12:00 97.9 57 18 124/52 (76) 94 10/04/19 12:00 Venturi Mask 10/04/19 12:00 71 10/04/19 10:30 98 Venturi Mask 14.0 55 Height (Feet): 6 Height (Inches): 6.00 Weight (Pounds): 172 General Appearance: no acute distress HEENT: mucous membranes moist Respiratory/Chest: other - coarse sounds, oxygen by mask Cardiovascular: normal rate Abdomen: soft, non tender Genitourinary: other - Montalvo catheter Extremities: no edema Neurologic/Psychiatric: alert, responsive Current Medications Medications (Trade) Dose Ordered Sig/Mick Route PRN Reason Start Time Stop Time Status Last Admin Dose Admin Acetaminophen (Tylenol) 650 mg Q6H PRN GT Temp >100.5 10/03/19 18:30 11/02/19 18:29 Aspirin (ASA) 162 mg DAILY GT 10/04/19 09:00 11/10/19 08:59 10/05/19 09:19 Carbidopa/Levodopa (Sinemet 25/250) 1 tab Q8HR GT 10/03/19 22:00 10/26/19 08:59 10/05/19 05:44 Chlorhexidine Gluconate (Park-Hex 2%) 1 applic DAILY@2000 TOPIC 10/03/19 20:00 12/24/19 19:59 10/04/19 20:41 Dextrose (Dextrose 50%) 25 ml Q30M PRN IV Hypoglycemia 10/03/19 18:30 12/24/19 10:29 Dextrose (Dextrose 50%) 50 ml Q30M PRN IV Hypoglycemia 10/03/19 18:30 12/24/19 10:29 Docusate Sodium (Colace) 100 mg TID GT 10/03/19 18:30 11/02/19 18:29 10/05/19 09:19 Heparin Sodium (Porcine) (Heparin 5000 units/ml) 5,000 units EVERY 12 HOURS SUBQ 10/03/19 21:00 11/09/19 20:59 10/05/19 09:21 Lactulose (Cephulac) 30 gm BIDPRN PRN GT Constipation 10/03/19 18:30 10/29/19 18:29 Linezolid (Zyvox) 600 mg EVERY 12 HOURS ORAL 10/04/19 11:00 10/09/19 10:59 10/05/19 09:19 Lorazepam (Ativan 2mg/ml 1ml) 0.5 mg Q4H PRN IV For Anxiety 10/03/19 18:30 10/05/19 18:29 10/04/19 16:28 Metoprolol Tartrate (Lopressor) 12.5 mg Q12HR GT 10/03/19 21:00 12/25/19 09:06 10/05/19 09:19 Nitroglycerin (Ntg) 1 patch Q24H TDERMAL 10/04/19 09:30 10/26/19 09:29 10/05/19 09:21 Charan Yan MD Oct 05, 2019 10:32
[2019-10-05 12:00] VITALS: BP 116/63
--- NOTE | 2019-10-05 13:08 | Pulmonology Progress Note ---
Subjective ROS Limited/Unobtainable: Yes Interval Events: Calm today; discussed with RN and Constitutional: Reports: other - feels better; Denies: fever HEENT: Repors: no symptoms Respiratory: Reports: no symptoms Cardiovascular: Reports: no symptoms Gastrointestinal/Abdominal: Reports: no symptoms Allergies: Coded Allergies: No Known Allergies (Unverified , 09/25/19) Objective Last 24 Hour Vital Signs Date Time Temp Pulse Resp B/P (MAP) Pulse Ox O2 Delivery O2 Flow Rate FiO2 10/05/19 12:00 98.1 59 22 116/63 (80) 96 10/05/19 09:21 112/61 10/05/19 09:19 74 112/61 10/05/19 09:00 Venturi Mask 15.0 10/05/19 08:00 97.9 74 20 112/61 (78) 98 10/05/19 07:43 77 10/05/19 04:00 97.2 66 18 110/63 (79) 99 10/05/19 04:00 67 10/05/19 00:00 97.1 67 17 108/63 (78) 96 10/04/19 23:33 67 10/04/19 21:00 Venturi Mask 15.0 10/04/19 20:41 71 122/69 10/04/19 20:00 96.9 69 18 122/69 (86) 95 10/04/19 19:59 69 10/04/19 19:07 98 Venturi Mask 14.0 55 10/04/19 16:00 97.6 72 18 125/69 (87) 94 10/04/19 16:00 75 Intake and Output 10/04/19 10/05/19 19:00 07:00 Intake Total 50 ml 610 ml Output Total 1280 ml Balance 50 ml -670 ml Free Water 110 ml Tube Feeding 50 ml 500 ml Output Urine Total 1280 ml # Bowel Movements 2 General Appearance: cachetic HEENT: normocephalic Respiratory: chest wall non-tender, rhonchi - bilaterally Cardiovascular: normal peripheral pulses, normal rate, regular rhythm Abdomen: normal bowel sounds Extremities: other Current Medications Medications (Trade) Dose Ordered Sig/Mick Route PRN Reason Start Time Stop Time Status Last Admin Dose Admin Acetaminophen (Tylenol) 650 mg Q6H PRN GT Temp >100.5 10/03/19 18:30 11/02/19 18:29 Aspirin (ASA) 162 mg DAILY GT 10/04/19 09:00 11/10/19 08:59 10/05/19 09:19 Carbidopa/Levodopa (Sinemet 25/250) 1 tab Q8HR GT 10/03/19 22:00 10/26/19 08:59 10/05/19 05:44 Chlorhexidine Gluconate (Park-Hex 2%) 1 applic DAILY@2000 TOPIC 10/03/19 20:00 12/24/19 19:59 10/04/19 20:41 Dextrose (Dextrose 50%) 25 ml Q30M PRN IV Hypoglycemia 10/03/19 18:30 12/24/19 10:29 Dextrose (Dextrose 50%) 50 ml Q30M PRN IV Hypoglycemia 10/03/19 18:30 12/24/19 10:29 Docusate Sodium (Colace) 100 mg TID GT 10/03/19 18:30 11/02/19 18:29 10/05/19 09:19 Heparin Sodium (Porcine) (Heparin 5000 units/ml) 5,000 units EVERY 12 HOURS SUBQ 10/03/19 21:00 11/09/19 20:59 10/05/19 09:21 Lactulose (Cephulac) 30 gm BIDPRN PRN GT Constipation 10/03/19 18:30 10/29/19 18:29 Linezolid (Zyvox) 600 mg EVERY 12 HOURS ORAL 10/04/19 11:00 10/09/19 10:59 10/05/19 09:19 Lorazepam (Ativan 2mg/ml 1ml) 0.5 mg Q4H PRN IV For Anxiety 10/03/19 18:30 10/05/19 18:29 10/04/19 16:28 Metoprolol Tartrate (Lopressor) 12.5 mg Q12HR GT 10/03/19 21:00 12/25/19 09:06 10/05/19 09:19 Nitroglycerin (Ntg) 1 patch Q24H TDERMAL 10/04/19 09:30 10/26/19 09:29 10/05/19 09:21 Assessment/Plan Assessment/Plan IMPRESSION: 1. Healthcare-associated pneumonia. 2. Acute renal failure. Resolved 3. History of previous SBO. 4. CAD. 5. Parkinson's. 6. Dementia. 7. Hyperkalemia, corrected 8. Shock; pressors dc DISCUSSION: Underwent urgent hemodialysis. No longer needed Pressors no longer required Broad-spectrum antibiotics. I will follow carefully. Discussed with awaiting placement. Discussed with egg caser, automobile body repairer and nurse Will leave wong in place Isaac Dugan M.D. Isaac Dugan MD Oct 05, 2019 13:08
--- NOTE | 2019-10-05 15:49 | Cardiac Electrophysiology PN ---
Assessment/Plan Assessment/Plan 1. NSTEMI type 2 in the setting of renal failure. Nonverbal and has electrolyte abnormality. Echo showed normal left ventricular systolic function On aspirin and metoprolol 12.5 mg b.i.d. 2. Hyponatremia 3. Severe EKG abnormality due to hyperkalemia, potassium of 9, that resolved after dialysis. 4. S/P Acute renal failure. S/P hemodialysis and now resolved and the dialysis catheter was removed. 5. Hypertension, on metoprolol. 6. PNA and Respiratory failure with hypoxemia.On Zivox 600 bid 7. Parkinson disease. 8. Anemia. 9. Dysphagia, status post PEG placement. DW RN Subjective Subjective In restraints and confused on 55% Venturi Mask. In SR with PACs. RN at bedside. On Zivox 600 bid. GT feeding ongoing Objective Last 24 Hour Vital Signs Date Time Temp Pulse Resp B/P (MAP) Pulse Ox O2 Delivery O2 Flow Rate FiO2 10/05/19 12:00 98.1 59 22 116/63 (80) 96 10/05/19 11:39 54 10/05/19 09:21 112/61 10/05/19 09:19 74 112/61 10/05/19 09:00 Venturi Mask 15.0 10/05/19 08:00 97.9 74 20 112/61 (78) 98 10/05/19 07:43 77 10/05/19 04:00 97.2 66 18 110/63 (79) 99 10/05/19 04:00 67 10/05/19 00:00 97.1 67 17 108/63 (78) 96 10/04/19 23:33 67 10/04/19 21:00 Venturi Mask 15.0 10/04/19 20:41 71 122/69 10/04/19 20:00 96.9 69 18 122/69 (86) 95 10/04/19 19:59 69 10/04/19 19:07 98 Venturi Mask 14.0 55 10/04/19 16:00 97.6 72 18 125/69 (87) 94 10/04/19 16:00 75 Intake and Output 10/04/19 10/05/19 19:00 07:00 Intake Total 50 ml 610 ml Output Total 1280 ml Balance 50 ml -670 ml Free Water 110 ml Tube Feeding 50 ml 500 ml Output Urine Total 1280 ml # Bowel Movements 2 Objective HEAD AND NECK: No JVD. LUNGS: Decreased breath sounds. CARDIOVASCULAR: Regular S1 and S2 with no gallop or rub. ABDOMEN: Soft, status post G-tube. EXTREMITIES: No pitting edema. Gómez Brewster MD Oct 05, 2019 15:49
[2019-10-05 16:00] VITALS: BP 110/63
--- NOTE | 2019-10-05 16:10 | Surgery Progress Note ---
Surgery Progress Note Subjective Procedure Performed removal of right femoral temp HD catheter Additional Comments leukocytosis improved labs noted exam stable comfortable no n/v/f/c Objective Last 24 Hour Vital Signs Date Time Temp Pulse Resp B/P (MAP) Pulse Ox O2 Delivery O2 Flow Rate FiO2 10/05/19 12:00 98.1 59 22 116/63 (80) 96 10/05/19 11:39 54 10/05/19 09:21 112/61 10/05/19 09:19 74 112/61 10/05/19 09:00 Venturi Mask 15.0 10/05/19 08:00 97.9 74 20 112/61 (78) 98 10/05/19 07:43 77 10/05/19 04:00 97.2 66 18 110/63 (79) 99 10/05/19 04:00 67 10/05/19 00:00 97.1 67 17 108/63 (78) 96 10/04/19 23:33 67 10/04/19 21:00 Venturi Mask 15.0 10/04/19 20:41 71 122/69 10/04/19 20:00 96.9 69 18 122/69 (86) 95 10/04/19 19:59 69 10/04/19 19:07 98 Venturi Mask 14.0 55 I&O Intake and Output 10/04/19 10/05/19 18:59 06:59 Intake Total 660 ml Output Total 1280 ml Balance -620 ml Free Water 110 ml Tube Feeding 550 ml Output Urine Total 1280 ml # Bowel Movements 2 Dressing: dry Wound: clean Cardiovascular: RSR Respiratory: clear, decreased breath sounds Abdomen: soft, present bowel sounds Extremities: no tenderness, no cyanosis Plan Problems: (1) Acute hyperkalemia (2) UTI (urinary tract infection) (3) ACS (acute coronary syndrome) (4) Acute metabolic encephalopathy (5) ARF (acute renal failure) (6) Respiratory failure with hypoxia (7) HCAP (healthcare-associated pneumonia) (8) Parkinsons disease (9) Elevated troponin I level (10) Anemia (11) Hyponatremia (12) Sepsis Assessment & Plan: leukocytosis renal insufficiency improved malnutrition hypo albumin bmi 19 mild edema small hematoma HD site removal Pt presented on admission with MASD Perianal, R and L clefts of buttocks extending to scrotum and groin areas . Skin is erythematous with scattered satellite lesions. Both heels are boggy with non-blanchable erythema. Hammer toe L 2nd metatarsal. Dry callus with surrounding erythema noted to dorsal L 2nd metatarsal . NO exudate or changes in skin temp at site noted. Tx.Plan: Apply Triad Paste to Groin, scrotum and buttocks with each Incontinence care. Cover Sacrum and Bilat trochanter with Optifoam drsgs. Change every 3 days and prn. Apply Cavilon Skin Barrier to both heels and Malleoli. Cover each site with Optifoam drsgs. Change every 7 Days and PRN. Apply Betadine to L 2nd metatarsal every 3 days and prn. Reposition at least every 2hours or as tolerated. Place pillow between knees. Off-load heels with pillow. APM/ARNOLD Mattress overlay. nutritional optimization monitor site. resolving hematoma Walter Bacon Oct 05, 2019 16:10
--- NOTE | 2019-10-05 19:41 | NUR ---
NURSE HAND-OFF REPORT: Important Events on Shift: Dr Brewster made aware that pt had stephanie episode. Pt tries to put his BLE out of the bed. Patient Status: stable Diet: Nepro 1.8 @50ml/hr Pending Orders: labs tomorrow Pending Results/Labs: Pending MD notification: Latest Vital Signs: Temperature 97.5 , Pulse 77 , B/P 110 /63 , Respiratory Rate 20 , O2 SAT 97 , Venturi Mask, O2 Flow Rate 15.0 . Vital Sign Comment: EKG Rhythm: Sinus Rhythm Rhythm change?: N MD Notified?: MD Response: Latest Shane Fall Score: 75 Fall Risk: High Risk Safety Measures: Call light Within Reach, Bed Alarm Zone 2, Side Rails Side Rails x3, Bed position Low and Locked. Fall Precautions: Yellow Socks Yellow Gown Door Sign Patient Fall Education Report given to SHANNAN Cadet.
--- NOTE | 2019-10-05 19:45 | NUR ---
NURSE NOTES: Pt received from SHANNAN Lares alert and oriented x1 to name only on Venturi Mask 15L 55% fiO2, saturating at 95% with no s/s of resp distress noted. PICC line on L upper arm noted - asymptomatic, patent with blood upon drawback. On bilateral soft wrist restraints due to patient attempting to pull lines and devices. No s/s of erythema, swelling, or pain noted on arms. Peripheral pulses intact and equal bilaterally. Montalvo catheter draining to clear and yellow urine. Foam dressings applied on bilateral heels for protection - clean, dry, and intact.
[2019-10-05 20:00] VITALS: BP 127/70
--- NOTE | 2019-10-05 20:15 | NUR ---
NURSE NOTES: Patient had BM x1, bed bath provided with wound care. Foam dressings on bilateral heels intact and clean for protection. Noted redness on perineal area after BM - bed bath provided with calazime cream applied to perineal area for protection. Blanchable redness noted on sacrum - applied optifoam for protection. Patient has Venturi mask on - redness noted on L ear with partial skin loss noted on R ear - Optifoam applied for protection. WCP of bilateral ears taken and uploaded. Patient turned frequently and as needed for skin protection.
[2019-10-05] MEDS: Dyna-Hex 2% Top Sol 2oz TOPIC SCH (21:10)
[2019-10-06] VITALS: BP 119/65
[2019-10-06 04:00] VITALS: BP 126/66
[2019-10-06 05:26] LABS: BASOPHILS % (AUTO) 0.6 % (0.0-2.0); EOSINOPHILS % (AUTO) 1.2 % (0.0-3.0); HEMATOCRIT 29.7 % (42.0-52.0); HEMOGLOBIN 9.5 G/DL (14.2-18.0); LYMPHOCYTES % (AUTO) 10.8 % (20.0-45.0); MEAN CORPUSCULAR VOLUME 91 FL (80-99); MONOCYTES % (AUTO) 3.6 % (1.0-10.0); NEUTROPHILS % (AUTO) 83.9 % (45.0-75.0); PLATELET COUNT 330 K/UL (150-450); RED BLOOD COUNT 3.28 M/UL (4.70-6.10); RED CELL DISTRIBUTION WIDTH 12.3 % (11.6-14.8); WHITE BLOOD COUNT 11.5 K/UL (4.8-10.8)
[2019-10-06 05:32] LABS: ALANINE AMINOTRANSFERASE 66 U/L (12-78); ALBUMIN/GLOBULIN RATIO 0.4 (1.0-2.7); ALKALINE PHOSPHATASE 57 U/L (46-116); ANION GAP 5 mmol/L (5-15); ASPARTATE AMINO TRANSFERASE 95 U/L (15-37); BILIRUBIN,TOTAL 0.2 MG/DL (0.2-1.0); BLOOD UREA NITROGEN 35 mg/dL (7-18); CALCIUM 8.4 MG/DL (8.5-10.1); CARBON DIOXIDE 31 MMOL/L (21-32); CHLORIDE 111 MMOL/L (98-107); PHOSPHORUS 2.6 MG/DL (2.5-4.9); POTASSIUM 3.3 MMOL/L (3.5-5.1); SODIUM 147 MMOL/L (136-145)
[2019-10-06] MEDS: Levodopa/Carbidopa 25/250 tab GT SCH ×3 (05:43→21:27)
--- NOTE | 2019-10-06 07:22 | NUR ---
NURSE HAND-OFF REPORT: Important Events on Shift: Patient had BM x1, bed bath and wound care prevention care provided. Pt still attempting to pull lines and devices, soft bilateral wrist restraints maintained for patient safety. Patient Status: Stable Diet: Nepro 1.8 through GTube Pending Orders: none Pending Results/Labs:none Pending MD notification:none Latest Vital Signs: Temperature 97.3 , Pulse 66 , B/P 126 /66 , Respiratory Rate 18 , O2 SAT 98 , Venturi Mask, O2 Flow Rate 15.0 . Vital Sign Comment: WNL EKG Rhythm: Sinus Rhythm Rhythm change?: N MD Notified?: N MD Response: No New Orders Received Latest Shane Fall Score: 75 Fall Risk: High Risk Safety Measures: Call light Within Reach, Bed Alarm Zone 2, Side Rails Side Rails x3, Bed position Low and Locked. Fall Precautions: Yes Yellow Socks Yellow Gown Door Sign Patient Fall Education Report given to Kelsey.
--- NOTE | 2019-10-06 07:49 | NUR ---
NURSE NOTES: Received patient in bed awake. Venturi mask on, no SOB or acute distress. Bilateral soft wrist restraints on, no skin issues noted on site, pulses palpable. PICC line intact, no bleeding or signs of infection noted. Gtube intact, feeding ongoing. HOB elevated. Wound dressigns intact. Bed locked in lowest position. Call light within reach. Will continue plan of care.
[2019-10-06 08:00] VITALS: BP 147/74
--- NOTE | 2019-10-06 08:41 | NUR ---
CASE MANAGEMENT:REVIEW 10/06/19 SI: ACUTE RESPIRATORY FAILURE SHOCK. ACUTE RENAL FAILURE 97.3 66 18 126/66 98% ON VENTURI MASK 14L /55% FIO2 WBC+11.5 H/H-9.5/29.7 NA+147 K-3.3 BUN+35 GLUCOSE+129 IS: ZYVOX PO Q12 NTG PATCH Q24 ASA GT QD HEPARIN SQ Q12 LOPRESSOR GT Q12 : TELEMETRY STATUS DCP: FROM [facility] PLAN: [facility] T: [phone] CONTACT: DIANA
--- NOTE | 2019-10-06 08:54 | NUR ---
INSURANCE PROGRESS NOTES AND REVIEW FAXED TO HCP/[facility] PH: [phone] [facility] FX: [phone]
[2019-10-06] MEDS: Docusate 100mg/10ml Liq GT SCH ×3 (09:56→17:29)
[2019-10-06] MEDS: Nitroglycerin Patch 0.4mg TDERMAL SCH (09:56)
[2019-10-06] MEDS: Metoprolol Tartrate 12.5mg TAB GT SCH ×2 (09:57→21:27)
[2019-10-06] MEDS: Aspirin Baby 81mg GT SCH (09:57)
[2019-10-06] MEDS: Heparin 5000 units/ml inj SUBQ SCH ×2 (09:58→21:29)
--- NOTE | 2019-10-06 11:09 | NUR ---
NURSE NOTES: Potassium 3.3, Dr Dugan aware. RN requesting for PRN medication for restlessness, awaiting callback from Dr Dugan. Addendum: 10/06/19 at 1205 by Kelsey Drew RN Called Dr Dugan, left message, awaiting call. Addendum: 10/06/19 at 1209 by Kelsey Drew RN NURSE NOTES: Dr Rachel with orders for potassium 3.3
--- NOTE | 2019-10-06 11:26 | Surgery Progress Note ---
Surgery Progress Note Subjective Procedure Performed removal of right femoral temp HD catheter Additional Comments wbc 11k electrolytes being replaced no n/v/f/c Objective Last 24 Hour Vital Signs Date Time Temp Pulse Resp B/P (MAP) Pulse Ox O2 Delivery O2 Flow Rate FiO2 10/06/19 09:57 80 147/74 10/06/19 09:56 147/74 10/06/19 09:00 Venturi Mask 15.0 10/06/19 08:00 70 10/06/19 08:00 97.7 80 20 147/74 (98) 98 10/06/19 07:38 98 Venturi Mask 14.0 55 10/06/19 04:00 66 10/06/19 04:00 97.3 71 18 126/66 (86) 98 10/06/19 00:00 74 10/06/19 00:00 97.4 68 19 119/65 (83) 97 10/05/19 21:09 81 127/70 10/05/19 21:00 Venturi Mask 15.0 10/05/19 20:05 97 Venturi Mask 14.0 55 10/05/19 20:00 76 10/05/19 20:00 97.2 74 18 127/70 (89) 95 10/05/19 16:00 97.5 77 20 110/63 (79) 97 10/05/19 15:50 73 10/05/19 12:00 98.1 59 22 116/63 (80) 96 10/05/19 11:39 54 I&O Intake and Output 10/05/19 10/06/19 19:00 07:00 Intake Total 50 ml 660 ml Output Total 500 ml 650 ml Balance -450 ml 10 ml Free Water 110 ml Tube Feeding 50 ml 550 ml Output Urine Total 500 ml 650 ml # Bowel Movements 1 2 Dressing: dry Wound: clean Cardiovascular: RSR Respiratory: decreased breath sounds Abdomen: soft, non-tender, present bowel sounds Extremities: no edema, no tenderness, no cyanosis, pulses, other Laboratory Tests Test 10/06/19 04:00 White Blood Count 11.5 K/UL (4.8-10.8) H Red Blood Count 3.28 M/UL (4.70-6.10) L Hemoglobin 9.5 G/DL (14.2-18.0) L Hematocrit 29.7 % (42.0-52.0) L Mean Corpuscular Volume 91 FL (80-99) Mean Corpuscular Hemoglobin 29.0 PG (27.0-31.0) Mean Corpuscular Hemoglobin Concent 32.0 G/DL (32.0-36.0) Red Cell Distribution Width 12.3 % (11.6-14.8) Platelet Count 330 K/UL (150-450) Mean Platelet Volume 6.9 FL (6.5-10.1) Neutrophils (%) (Auto) 83.9 % (45.0-75.0) H Lymphocytes (%) (Auto) 10.8 % (20.0-45.0) L Monocytes (%) (Auto) 3.6 % (1.0-10.0) Eosinophils (%) (Auto) 1.2 % (0.0-3.0) Basophils (%) (Auto) 0.6 % (0.0-2.0) Sodium Level 147 MMOL/L (136-145) H Potassium Level 3.3 MMOL/L (3.5-5.1) L Chloride Level 111 MMOL/L (98-107) H Carbon Dioxide Level 31 MMOL/L (21-32) Anion Gap 5 mmol/L (5-15) Blood Urea Nitrogen 35 mg/dL (7-18) H Creatinine 1.0 MG/DL (0.55-1.30) Estimat Glomerular Filtration Rate > 60 mL/min (>60) Glucose Level 129 MG/DL (74-106) H Calcium Level 8.4 MG/DL (8.5-10.1) L Phosphorus Level 2.6 MG/DL (2.5-4.9) Magnesium Level 2.0 MG/DL (1.8-2.4) Total Bilirubin 0.2 MG/DL (0.2-1.0) Aspartate Amino Transf (AST/SGOT) 95 U/L (15-37) H Alanine Aminotransferase (ALT/SGPT) 66 U/L (12-78) Alkaline Phosphatase 57 U/L (46-116) Total Protein 7.4 G/DL (6.4-8.2) Albumin 2.0 G/DL (3.4-5.0) L Globulin 5.4 g/dL Albumin/Globulin Ratio 0.4 (1.0-2.7) L Plan Problems: (1) Acute hyperkalemia (2) UTI (urinary tract infection) (3) ACS (acute coronary syndrome) (4) Acute metabolic encephalopathy (5) ARF (acute renal failure) (6) Respiratory failure with hypoxia (7) HCAP (healthcare-associated pneumonia) (8) Parkinsons disease (9) Elevated troponin I level (10) Anemia (11) Hyponatremia (12) Sepsis Assessment & Plan: leukocytosis renal insufficiency improved malnutrition hypo albumin bmi 19 mild edema small hematoma HD site removal Pt presented on admission with MASD Perianal, R and L clefts of buttocks extending to scrotum and groin areas . Skin is erythematous with scattered satellite lesions. Both heels are boggy with non-blanchable erythema. Hammer toe L 2nd metatarsal. Dry callus with surrounding erythema noted to dorsal L 2nd metatarsal . NO exudate or changes in skin temp at site noted. Tx.Plan: Apply Triad Paste to Groin, scrotum and buttocks with each Incontinence care. Cover Sacrum and Bilat trochanter with Optifoam drsgs. Change every 3 days and prn. Apply Cavilon Skin Barrier to both heels and Malleoli. Cover each site with Optifoam drsgs. Change every 7 Days and PRN. Apply Betadine to L 2nd metatarsal every 3 days and prn. Reposition at least every 2hours or as tolerated. Place pillow between knees. Off-load heels with pillow. APM/ARNOLD Mattress overlay. nutritional optimization monitor site. resolving hematoma Walter Bacon Oct 06, 2019 11:26
--- NOTE | 2019-10-06 11:29 | Cardiac Electrophysiology PN ---
Assessment/Plan Assessment/Plan 1. NSTEMI type 2 in the setting of renal failure. Nonverbal and has electrolyte abnormality. Echo showed normal EF On aspirin and metoprolol 12.5 mg b.i.d. 2. Hyponatremia 3. Severe EKG abnormality due to hyperkalemia, potassium of 9, that resolved after dialysis. 4. S/P Acute renal failure. S/P hemodialysis and now resolved and the dialysis catheter was removed. 5. Hypertension, on metoprolol. 6. PNA and Respiratory failure with hypoxemia.On Zivox 600 bid 7. Parkinson disease. 8. Anemia. 9. Dysphagia, status post PEG placement. DW RN Subjective Subjective In restraints and confused on 55% Venturi Mask. In SR with PACs. On Zivox 600 bid. GT feeding ongoing Objective Last 24 Hour Vital Signs Date Time Temp Pulse Resp B/P (MAP) Pulse Ox O2 Delivery O2 Flow Rate FiO2 10/06/19 09:57 80 147/74 10/06/19 09:56 147/74 10/06/19 09:00 Venturi Mask 15.0 10/06/19 08:00 70 10/06/19 08:00 97.7 80 20 147/74 (98) 98 10/06/19 07:38 98 Venturi Mask 14.0 55 10/06/19 04:00 66 10/06/19 04:00 97.3 71 18 126/66 (86) 98 10/06/19 00:00 74 10/06/19 00:00 97.4 68 19 119/65 (83) 97 10/05/19 21:09 81 127/70 10/05/19 21:00 Venturi Mask 15.0 10/05/19 20:05 97 Venturi Mask 14.0 55 10/05/19 20:00 76 10/05/19 20:00 97.2 74 18 127/70 (89) 95 10/05/19 16:00 97.5 77 20 110/63 (79) 97 10/05/19 15:50 73 10/05/19 12:00 98.1 59 22 116/63 (80) 96 10/05/19 11:39 54 Intake and Output 10/05/19 10/06/19 19:00 07:00 Intake Total 50 ml 660 ml Output Total 500 ml 650 ml Balance -450 ml 10 ml Free Water 110 ml Tube Feeding 50 ml 550 ml Output Urine Total 500 ml 650 ml # Bowel Movements 1 2 Laboratory Tests Test 10/06/19 04:00 White Blood Count 11.5 K/UL (4.8-10.8) H Red Blood Count 3.28 M/UL (4.70-6.10) L Hemoglobin 9.5 G/DL (14.2-18.0) L Hematocrit 29.7 % (42.0-52.0) L Mean Corpuscular Volume 91 FL (80-99) Mean Corpuscular Hemoglobin 29.0 PG (27.0-31.0) Mean Corpuscular Hemoglobin Concent 32.0 G/DL (32.0-36.0) Red Cell Distribution Width 12.3 % (11.6-14.8) Platelet Count 330 K/UL (150-450) Mean Platelet Volume 6.9 FL (6.5-10.1) Neutrophils (%) (Auto) 83.9 % (45.0-75.0) H Lymphocytes (%) (Auto) 10.8 % (20.0-45.0) L Monocytes (%) (Auto) 3.6 % (1.0-10.0) Eosinophils (%) (Auto) 1.2 % (0.0-3.0) Basophils (%) (Auto) 0.6 % (0.0-2.0) Sodium Level 147 MMOL/L (136-145) H Potassium Level 3.3 MMOL/L (3.5-5.1) L Chloride Level 111 MMOL/L (98-107) H Carbon Dioxide Level 31 MMOL/L (21-32) Anion Gap 5 mmol/L (5-15) Blood Urea Nitrogen 35 mg/dL (7-18) H Creatinine 1.0 MG/DL (0.55-1.30) Estimat Glomerular Filtration Rate > 60 mL/min (>60) Glucose Level 129 MG/DL (74-106) H Calcium Level 8.4 MG/DL (8.5-10.1) L Phosphorus Level 2.6 MG/DL (2.5-4.9) Magnesium Level 2.0 MG/DL (1.8-2.4) Total Bilirubin 0.2 MG/DL (0.2-1.0) Aspartate Amino Transf (AST/SGOT) 95 U/L (15-37) H Alanine Aminotransferase (ALT/SGPT) 66 U/L (12-78) Alkaline Phosphatase 57 U/L (46-116) Total Protein 7.4 G/DL (6.4-8.2) Albumin 2.0 G/DL (3.4-5.0) L Globulin 5.4 g/dL Albumin/Globulin Ratio 0.4 (1.0-2.7) L Objective HEAD AND NECK: No JVD. LUNGS: Decreased breath sounds. CARDIOVASCULAR: Regular S1 and S2 with no gallop or rub. ABDOMEN: Soft, status post G-tube. EXTREMITIES: No pitting edema. Gómez Brewster MD Oct 06, 2019 11:29
--- NOTE | 2019-10-06 11:41 | Pulmonology Progress Note ---
Subjective ROS Limited/Unobtainable: Yes Interval Events: Calm today; discussed with RN and Constitutional: Reports: other - feels better; Denies: fever HEENT: Repors: no symptoms Respiratory: Reports: no symptoms Cardiovascular: Reports: no symptoms Gastrointestinal/Abdominal: Reports: no symptoms Allergies: Coded Allergies: No Known Allergies (Unverified , 09/25/19) Objective Last 24 Hour Vital Signs Date Time Temp Pulse Resp B/P (MAP) Pulse Ox O2 Delivery O2 Flow Rate FiO2 10/06/19 09:57 80 147/74 10/06/19 09:56 147/74 10/06/19 09:00 Venturi Mask 15.0 10/06/19 08:00 70 10/06/19 08:00 97.7 80 20 147/74 (98) 98 10/06/19 07:38 98 Venturi Mask 14.0 55 10/06/19 04:00 66 10/06/19 04:00 97.3 71 18 126/66 (86) 98 10/06/19 00:00 74 10/06/19 00:00 97.4 68 19 119/65 (83) 97 10/05/19 21:09 81 127/70 10/05/19 21:00 Venturi Mask 15.0 10/05/19 20:05 97 Venturi Mask 14.0 55 10/05/19 20:00 76 10/05/19 20:00 97.2 74 18 127/70 (89) 95 10/05/19 16:00 97.5 77 20 110/63 (79) 97 10/05/19 15:50 73 10/05/19 12:00 98.1 59 22 116/63 (80) 96 Intake and Output 10/05/19 10/06/19 19:00 07:00 Intake Total 50 ml 660 ml Output Total 500 ml 650 ml Balance -450 ml 10 ml Free Water 110 ml Tube Feeding 50 ml 550 ml Output Urine Total 500 ml 650 ml # Bowel Movements 1 2 General Appearance: cachetic HEENT: normocephalic Respiratory: chest wall non-tender, rhonchi - bilaterally Cardiovascular: normal peripheral pulses, normal rate, regular rhythm Abdomen: normal bowel sounds Extremities: other Laboratory Tests 10/06/19 04:00: White Blood Count 11.5H, Red Blood Count 3.28L, Hemoglobin 9.5L, Hematocrit 29.7L, Mean Corpuscular Volume 91, Mean Corpuscular Hemoglobin 29.0, Mean Corpuscular Hemoglobin Concent 32.0, Red Cell Distribution Width 12.3, Platelet Count 330, Mean Platelet Volume 6.9, Neutrophils (%) (Auto) 83.9H, Lymphocytes ( %) (Auto) 10.8L, Monocytes (%) (Auto) 3.6, Eosinophils (%) (Auto) 1.2, Basophils (%) (Auto) 0.6, Sodium Level 147H, Potassium Level 3.3L, Chloride Level 111H, Carbon Dioxide Level 31, Anion Gap 5, Blood Urea Nitrogen 35H, Creatinine 1.0, Estimat Glomerular Filtration Rate > 60, Glucose Level 129H, Calcium Level 8.4L, Phosphorus Level 2.6, Magnesium Level 2.0, Total Bilirubin 0.2, Aspartate Amino Transf (AST/SGOT) 95H, Alanine Aminotransferase (ALT/SGPT) 66, Alkaline Phosphatase 57, Total Protein 7.4, Albumin 2.0L, Globulin 5.4, Albumin/Globulin Ratio 0.4L Current Medications Medications (Trade) Dose Ordered Sig/Mick Route PRN Reason Start Time Stop Time Status Last Admin Dose Admin Acetaminophen (Tylenol) 650 mg Q6H PRN GT Temp >100.5 10/03/19 18:30 11/02/19 18:29 Aspirin (ASA) 162 mg DAILY GT 10/04/19 09:00 11/10/19 08:59 10/06/19 09:57 Carbidopa/Levodopa (Sinemet 25/250) 1 tab Q8HR GT 10/03/19 22:00 10/26/19 08:59 10/06/19 05:43 Chlorhexidine Gluconate (Park-Hex 2%) 1 applic DAILY@2000 TOPIC 10/03/19 20:00 12/24/19 19:59 10/05/19 21:10 Dextrose (Dextrose 50%) 25 ml Q30M PRN IV Hypoglycemia 10/03/19 18:30 12/24/19 10:29 Dextrose (Dextrose 50%) 50 ml Q30M PRN IV Hypoglycemia 10/03/19 18:30 12/24/19 10:29 Docusate Sodium (Colace) 100 mg TID GT 10/03/19 18:30 11/02/19 18:29 10/06/19 09:56 Heparin Sodium (Porcine) (Heparin 5000 units/ml) 5,000 units EVERY 12 HOURS SUBQ 10/03/19 21:00 11/09/19 20:59 10/06/19 09:58 Lactulose (Cephulac) 30 gm BIDPRN PRN GT Constipation 10/03/19 18:30 10/29/19 18:29 Linezolid (Zyvox) 600 mg EVERY 12 HOURS ORAL 10/04/19 11:00 10/09/19 10:59 10/06/19 09:56 Metoprolol Tartrate (Lopressor) 12.5 mg Q12HR GT 10/03/19 21:00 12/25/19 09:06 10/06/19 09:57 Nitroglycerin (Ntg) 1 patch Q24H TDERMAL 10/04/19 09:30 10/26/19 09:29 10/06/19 09:56 Assessment/Plan Assessment/Plan IMPRESSION: 1. Healthcare-associated pneumonia. 2. Acute renal failure. Resolved 3. History of previous SBO. 4. CAD. 5. Parkinson's. 6. Dementia. 7. Hyperkalemia, corrected 8. Shock; pressors dc DISCUSSION: Underwent urgent hemodialysis. No longer needed Pressors no longer required Broad-spectrum antibiotics. I will follow carefully. Discussed with awaiting placement. Discussed with cyanide case hardener, hospice administrator and nurse Will leave wong in place Ren Uriostegui Omar Syed MD Oct 06, 2019 11:41
--- NOTE | 2019-10-06 11:59 | NUR ---
DISCHARGE PLANNING LEFT [facility] AT "[facility]" REQUESTING STATUS [facility]CHARGE [facility]: [phone]
[2019-10-06 12:00] VITALS: BP 137/68
--- NOTE | 2019-10-06 12:07 | Nephrology Progress Note ---
Assessment/Plan Problem List: (1) ARF (acute renal failure) (2) Acute hyperkalemia (3) Respiratory failure with hypoxia (4) HCAP (healthcare-associated pneumonia) (5) Acute metabolic encephalopathy (6) Parkinsons disease (7) Elevated troponin I level (8) Anemia Assessment Renal failure, acute, possible underlying chronic kidney disease Sepsis, pneumonia, UTI Acute respiratory failure with hypoxia Hyponatremia ACS Acute metabolic encephalopathy Has G-tube Hypothyroidism Parkinson's Plan October 05: Lab reviewed. Potassium supplement ordered. Stable from renal standpoint of view. Continue per consultants. October 04: No labs drawn today. Remains stable from renal standpoint of view. Continue per consultants. October 03: Labs reviewed. Potassium supplement given. Remains stable from renal standpoint of view. October 02: No chem panel drawn today. Remains stable from renal standpoint of view. We will continue to monitor electrolytes. Continue per consultants. Patient remains full code. October 01: Lab reviewed. Potassium low, sodium slightly elevated. D5W bolus IV , and potassium chloride IV ordered. Continue per consultants. September 30: COVERAGE FOR DR. GONZALEZ ( Int Med), labs reviewed, medications reviewed. Potassium supplement and free water in the form of D5W IV ordered. Continue per current management. September 29: COVERAGE FOR DR. GONZALEZ ( Int Med) , status quo, labs reviewed. White blood cells lowering. Medications reviewed. Stable. Continue per consultants. No more antibiotics at this time. Will recheck urine analysis and culture September 28: Patient appears stable. No further dialysis needed so the femoral catheter can be discontinued. Will check labs tomorrow if still in the house. September 27: Lab reviewed. Hemoglobin stable. Renal parameters stable. Electrolyte supplement ordered. No further dialysis needed. Continue per consultants. September 26: Hemoglobin lower. Renal parameters stable. Potassium phosphate IV given. Anemia work-up initiated. Continue per consultants. No further need for dialysis at this time. Kidney ultrasound reviewed. Acute renal failure and hyperkalemia is now resolved. Previously: Aspirin, Lopressor, Nitropaste, started Patient was dialyzed yesterday today hyperkalemia is resolved 2D echocardiogram results noted. No number for ejection fraction is documented. Kidney ultrasound results pending. Discussed with SHANNAN Faulkner. Continue to monitor renal parameters and dialysis as needed. Per orders Subjective ROS Limited/Unobtainable: No Constitutional: Reports: malaise, weakness Objective Objective Last 24 Hour Vital Signs Date Time Temp Pulse Resp B/P (MAP) Pulse Ox O2 Delivery O2 Flow Rate FiO2 10/06/19 09:57 80 147/74 10/06/19 09:56 147/74 10/06/19 09:00 Venturi Mask 15.0 10/06/19 08:00 70 10/06/19 08:00 97.7 80 20 147/74 (98) 98 10/06/19 07:38 98 Venturi Mask 14.0 55 10/06/19 04:00 66 10/06/19 04:00 97.3 71 18 126/66 (86) 98 10/06/19 00:00 74 10/06/19 00:00 97.4 68 19 119/65 (83) 97 10/05/19 21:09 81 127/70 10/05/19 21:00 Venturi Mask 15.0 10/05/19 20:05 97 Venturi Mask 14.0 55 10/05/19 20:00 76 10/05/19 20:00 97.2 74 18 127/70 (89) 95 10/05/19 16:00 97.5 77 20 110/63 (79) 97 10/05/19 15:50 73 Intake and Output 10/05/19 10/06/19 19:00 07:00 Intake Total 50 ml 660 ml Output Total 500 ml 650 ml Balance -450 ml 10 ml Free Water 110 ml Tube Feeding 50 ml 550 ml Output Urine Total 500 ml 650 ml # Bowel Movements 1 2 Current Medications Medications (Trade) Dose Ordered Sig/Mick Route PRN Reason Start Time Stop Time Status Last Admin Dose Admin Acetaminophen (Tylenol) 650 mg Q6H PRN GT Temp >100.5 10/03/19 18:30 11/02/19 18:29 Aspirin (ASA) 162 mg DAILY GT 10/04/19 09:00 11/10/19 08:59 10/06/19 09:57 Carbidopa/Levodopa (Sinemet 25/250) 1 tab Q8HR GT 10/03/19 22:00 10/26/19 08:59 10/06/19 05:43 Chlorhexidine Gluconate (Park-Hex 2%) 1 applic DAILY@1999 TOPIC 10/03/19 20:00 12/24/19 19:59 10/05/19 21:10 Dextrose (Dextrose 50%) 25 ml Q30M PRN IV Hypoglycemia 10/03/19 18:30 12/24/19 10:29 Dextrose (Dextrose 50%) 50 ml Q30M PRN IV Hypoglycemia 10/03/19 18:30 12/24/19 10:29 Docusate Sodium (Colace) 100 mg TID GT 10/03/19 18:30 11/02/19 18:29 10/06/19 09:56 Heparin Sodium (Porcine) (Heparin 5000 units/ml) 5,000 units EVERY 12 HOURS SUBQ 10/03/19 21:00 11/09/19 20:59 10/06/19 09:58 Lactulose (Cephulac) 30 gm BIDPRN PRN GT Constipation 10/03/19 18:30 10/29/19 18:29 Linezolid (Zyvox) 600 mg EVERY 12 HOURS ORAL 10/04/19 11:00 10/09/19 10:59 10/06/19 09:56 Metoprolol Tartrate (Lopressor) 12.5 mg Q12HR GT 10/03/19 21:00 12/25/19 09:06 10/06/19 09:57 Nitroglycerin (Ntg) 1 patch Q24H TDERMAL 10/04/19 09:30 10/26/19 09:29 10/06/19 09:56 Laboratory Tests 10/06/19 04:00: White Blood Count 11.5H, Red Blood Count 3.28L, Hemoglobin 9.5L, Hematocrit 29.7L, Mean Corpuscular Volume 91, Mean Corpuscular Hemoglobin 29.0, Mean Corpuscular Hemoglobin Concent 32.0, Red Cell Distribution Width 12.3, Platelet Count 330, Mean Platelet Volume 6.9, Neutrophils (%) (Auto) 83.9H, Lymphocytes ( %) (Auto) 10.8L, Monocytes (%) (Auto) 3.6, Eosinophils (%) (Auto) 1.2, Basophils (%) (Auto) 0.6, Sodium Level 147H, Potassium Level 3.3L, Chloride Level 111H, Carbon Dioxide Level 31, Anion Gap 5, Blood Urea Nitrogen 35H, Creatinine 1.0, Estimat Glomerular Filtration Rate > 60, Glucose Level 129H, Calcium Level 8.4L, Phosphorus Level 2.6, Magnesium Level 2.0, Total Bilirubin 0.2, Aspartate Amino Transf (AST/SGOT) 95H, Alanine Aminotransferase (ALT/SGPT) 66, Alkaline Phosphatase 57, Total Protein 7.4, Albumin 2.0L, Globulin 5.4, Albumin/Globulin Ratio 0.4L Height (Feet): 6 Height (Inches): 6.00 Weight (Pounds): 168 General Appearance: no apparent distress, lethargic Cardiovascular: normal rate Respiratory/Chest: decreased breath sounds Abdomen: soft Objective No change Ezekiel Rachel MD Oct 06, 2019 12:07
--- NOTE | 2019-10-06 12:23 | Infectious Diseases Prog Note ---
Assessment/Plan Assessment/Plan A 1. pneumonia treated COVID 19 test negative x 2 2. hypertension 3. Parkinson disease 4. Dementia 5. Acute renal failure 6. Anemia 7. VRE UTI P 1. continue Zyvox 2. Case was D/W pharmacy Subjective ROS Limited/Unobtainable: Yes Constitutional: Denies: fever Neurologic: Reports: confusion, other - on restraint Allergies: Coded Allergies: No Known Allergies (Unverified , 09/25/19) Objective Last 24 Hour Vital Signs Date Time Temp Pulse Resp B/P (MAP) Pulse Ox O2 Delivery O2 Flow Rate FiO2 10/06/19 09:57 80 147/74 10/06/19 09:56 147/74 10/06/19 09:00 Venturi Mask 15.0 10/06/19 08:00 70 10/06/19 08:00 97.7 80 20 147/74 (98) 98 10/06/19 07:38 98 Venturi Mask 14.0 55 10/06/19 04:00 66 10/06/19 04:00 97.3 71 18 126/66 (86) 98 10/06/19 00:00 74 10/06/19 00:00 97.4 68 19 119/65 (83) 97 10/05/19 21:09 81 127/70 10/05/19 21:00 Venturi Mask 15.0 10/05/19 20:05 97 Venturi Mask 14.0 55 10/05/19 20:00 76 10/05/19 20:00 97.2 74 18 127/70 (89) 95 10/05/19 16:00 97.5 77 20 110/63 (79) 97 10/05/19 15:50 73 Height (Feet): 6 Height (Inches): 6.00 Weight (Pounds): 168 HEENT: mucous membranes moist Respiratory/Chest: lungs clear, other - oxygen by mask Cardiovascular: normal rate, other - left arm PICC line Abdomen: soft, non tender Extremities: no edema Neurologic/Psychiatric: unresponsiveness Laboratory Tests Test 10/06/19 04:00 White Blood Count 11.5 K/UL (4.8-10.8) H Red Blood Count 3.28 M/UL (4.70-6.10) L Hemoglobin 9.5 G/DL (14.2-18.0) L Hematocrit 29.7 % (42.0-52.0) L Mean Corpuscular Volume 91 FL (80-99) Mean Corpuscular Hemoglobin 29.0 PG (27.0-31.0) Mean Corpuscular Hemoglobin Concent 32.0 G/DL (32.0-36.0) Red Cell Distribution Width 12.3 % (11.6-14.8) Platelet Count 330 K/UL (150-450) Mean Platelet Volume 6.9 FL (6.5-10.1) Neutrophils (%) (Auto) 83.9 % (45.0-75.0) H Lymphocytes (%) (Auto) 10.8 % (20.0-45.0) L Monocytes (%) (Auto) 3.6 % (1.0-10.0) Eosinophils (%) (Auto) 1.2 % (0.0-3.0) Basophils (%) (Auto) 0.6 % (0.0-2.0) Sodium Level 147 MMOL/L (136-145) H Potassium Level 3.3 MMOL/L (3.5-5.1) L Chloride Level 111 MMOL/L (98-107) H Carbon Dioxide Level 31 MMOL/L (21-32) Anion Gap 5 mmol/L (5-15) Blood Urea Nitrogen 35 mg/dL (7-18) H Creatinine 1.0 MG/DL (0.55-1.30) Estimat Glomerular Filtration Rate > 60 mL/min (>60) Glucose Level 129 MG/DL (74-106) H Calcium Level 8.4 MG/DL (8.5-10.1) L Phosphorus Level 2.6 MG/DL (2.5-4.9) Magnesium Level 2.0 MG/DL (1.8-2.4) Total Bilirubin 0.2 MG/DL (0.2-1.0) Aspartate Amino Transf (AST/SGOT) 95 U/L (15-37) H Alanine Aminotransferase (ALT/SGPT) 66 U/L (12-78) Alkaline Phosphatase 57 U/L (46-116) Total Protein 7.4 G/DL (6.4-8.2) Albumin 2.0 G/DL (3.4-5.0) L Globulin 5.4 g/dL Albumin/Globulin Ratio 0.4 (1.0-2.7) L Current Medications Medications (Trade) Dose Ordered Sig/Mick Route PRN Reason Start Time Stop Time Status Last Admin Dose Admin Acetaminophen (Tylenol) 650 mg Q6H PRN GT Temp >100.5 10/03/19 18:30 11/02/19 18:29 Aspirin (ASA) 162 mg DAILY GT 10/04/19 09:00 11/10/19 08:59 10/06/19 09:57 Carbidopa/Levodopa (Sinemet 25/250) 1 tab Q8HR GT 10/03/19 22:00 10/26/19 08:59 10/06/19 05:43 Chlorhexidine Gluconate (Park-Hex 2%) 1 applic DAILY@1999 TOPIC 10/03/19 20:00 12/24/19 19:59 10/05/19 21:10 Dextrose (Dextrose 50%) 25 ml Q30M PRN IV Hypoglycemia 10/03/19 18:30 12/24/19 10:29 Dextrose (Dextrose 50%) 50 ml Q30M PRN IV Hypoglycemia 10/03/19 18:30 12/24/19 10:29 Docusate Sodium (Colace) 100 mg TID GT 10/03/19 18:30 11/02/19 18:29 10/06/19 12:06 Heparin Sodium (Porcine) (Heparin 5000 units/ml) 5,000 units EVERY 12 HOURS SUBQ 10/03/19 21:00 11/09/19 20:59 10/06/19 09:58 Lactulose (Cephulac) 30 gm BIDPRN PRN GT Constipation 10/03/19 18:30 10/29/19 18:29 Linezolid (Zyvox) 600 mg EVERY 12 HOURS ORAL 10/04/19 11:00 10/09/19 10:59 10/06/19 09:56 Metoprolol Tartrate (Lopressor) 12.5 mg Q12HR GT 10/03/19 21:00 12/25/19 09:06 10/06/19 09:57 Nitroglycerin (Ntg) 1 patch Q24H TDERMAL 10/04/19 09:30 10/26/19 09:29 10/06/19 09:56 Potassium Chloride (K-Dur) 20 meq TWICE A DAY GT 8/21/20 12:15 01/04/20 12:14 10/06/19 12:11 Charan Yan MD Oct 06, 2019 12:23
--- NOTE | 2019-10-06 14:34 | NUR ---
NURSE NOTES: patient very restless and agitated, unable to stay still in bed in bed, turned and repositioned, pt still restless, spoke with Dr Dugan and gave order.
[2019-10-06 16:00] VITALS: BP 128/73
--- NOTE | 2019-10-06 17:47 | NUR ---
NURSE HAND-OFF REPORT: Important Events on Shift: Patient Status: stable, restless Diet: nepro 1.8 x 50cc/hr Pending Orders: Pending Results/Labs: Pending MD notification: Latest Vital Signs: Temperature 97.7 , Pulse 61 , B/P 128 /73 , Respiratory Rate 18 , O2 SAT 94 , Venturi Mask, O2 Flow Rate 15.0 . Vital Sign Comment: EKG Rhythm: Sinus Rhythm Rhythm change?: N MD Notified?: MD Response: Latest Shane Fall Score: 75 Fall Risk: High Risk Safety Measures: Call light Within Reach, Bed Alarm Zone 2, Side Rails Side Rails x3, Bed position Low and Locked. Fall Precautions: Yellow Socks Yellow Gown Door Sign Patient Fall Education Addendum: 10/06/19 at 1935 by Kelsey Drew RN HAND-OFF: Report given to Crista MICHAEL
--- NOTE | 2019-10-06 19:52 | NUR ---
NURSE NOTES: Received report from SHANNAN Cole. Patient is alert and oriented x1. Patient is resting comfortably in bed in semi-fowlers. No distress noted. Patient Venturi Mask at 15 L/min @ 55% FIO2 with an O2 sat of 95%. PICC line on left upper arm. No erythema or bleeding noted. G-tub feeding of Nepro 1.8 running at 55cc/hr as ordered no residual at this time. [place] Catheter draining well to gravity. Patient is on low air loss matrass for wound healing. Call-light with in reach, bed alarm, side rails up x3, brakes initiated. Will continue plan of care. Addendum: 10/07/19 at 0757 by Crista Quijano RN Patient was running 50cc/hr not 55cc/hr. this was a typing mistake.
[2019-10-06 20:00] VITALS: BP 112/68
[2019-10-06] MEDS: Dyna-Hex 2% Top Sol 2oz TOPIC SCH (20:33)
[2019-10-07] VITALS: BP 108/58
[2019-10-07 04:00] VITALS: BP 118/70
[2019-10-07] MEDS: Levodopa/Carbidopa 25/250 tab GT SCH ×3 (06:00→21:01)
--- NOTE | 2019-10-07 07:47 | NUR ---
NURSE NOTES: Received patient in bed awake. Venturi Mask in place at 15LPM, no SOB or acute distress. PICC line intact, no bleeding or signs of infection. Gtube intact, feeding ongoing. Wound dressings intact. HOB elevated. Bed locked in low position. Call light within reach. Will continue plan of care.
--- NOTE | 2019-10-07 07:53 | NUR ---
NURSE HAND-OFF REPORT: Important Events on Shift:N/A Patient Status: N/A Diet: nEPRO 1.8 AT 50CC/ML Pending Orders: N/A Pending Results/Labs:N/A Pending MD notification:N/A Latest Vital Signs: Temperature 98.8 , Pulse 78 , B/P 118 /70 , Respiratory Rate 24 , O2 SAT 94 , Venturi Mask, O2 Flow Rate 15.0 . Vital Sign Comment: [] EKG Rhythm: Sinus Rhythm Rhythm change?: N Notified?: Y -Dr Ney MADDOX Response: Message left await call Latest Shane Fall Score: 75 Fall Risk: High Risk Safety Measures: Call light Within Reach, Bed Alarm Zone 2, Side Rails Side Rails x3, Bed position Low and Locked. Fall Precautions: Yellow Socks Yellow Gown Door Sign Patient Fall Education Report given to JORDAN CAMPBELL.
[2019-10-07 08:00] VITALS: BP 128/72
--- NOTE | 2019-10-07 08:44 | Pulmonology Progress Note ---
Subjective ROS Limited/Unobtainable: Yes Interval Events: Agitated; requiring supplemental O2 Constitutional: Denies: fever HEENT: Repors: no symptoms Respiratory: Reports: no symptoms Cardiovascular: Reports: no symptoms Gastrointestinal/Abdominal: Reports: no symptoms Allergies: Coded Allergies: No Known Allergies (Unverified , 09/25/19) Objective Last 24 Hour Vital Signs Date Time Temp Pulse Resp B/P (MAP) Pulse Ox O2 Delivery O2 Flow Rate FiO2 10/07/19 08:00 97.7 85 20 128/72 (90) 95 10/07/19 04:00 78 10/07/19 04:00 98.8 68 24 118/70 (86) 94 10/07/19 00:00 98.4 63 24 108/58 (75) 95 10/07/19 00:00 65 10/06/19 21:27 63 112/62 10/06/19 21:00 Venturi Mask 15.0 10/06/19 20:26 92 Venturi Mask 14.0 55 10/06/19 20:00 99.5 63 24 112/68 (83) 95 10/06/19 20:00 64 10/06/19 16:00 61 10/06/19 16:00 97.7 68 18 128/73 (91) 94 10/06/19 12:00 97.8 66 19 137/68 (91) 97 10/06/19 12:00 74 10/06/19 09:57 80 147/74 10/06/19 09:56 147/74 10/06/19 09:00 Venturi Mask 15.0 Intake and Output 10/06/19 10/07/19 19:00 07:00 Intake Total 50 ml Output Total 675 ml 800 ml Balance -675 ml -750 ml Tube Feeding 50 ml Output Urine Total 675 ml 800 ml General Appearance: cachetic HEENT: normocephalic Respiratory: chest wall non-tender, rhonchi - bilaterally Cardiovascular: normal peripheral pulses, normal rate, regular rhythm Abdomen: normal bowel sounds Extremities: other Current Medications Medications (Trade) Dose Ordered Sig/Mick Route PRN Reason Start Time Stop Time Status Last Admin Dose Admin Acetaminophen (Tylenol) 650 mg Q6H PRN GT Temp >100.5 10/03/19 18:30 11/02/19 18:29 Aspirin (ASA) 162 mg DAILY GT 10/04/19 09:00 11/10/19 08:59 10/06/19 09:57 Carbidopa/Levodopa (Sinemet 25/250) 1 tab Q8HR GT 10/03/19 22:00 10/26/19 08:59 10/07/19 06:00 Chlorhexidine Gluconate (Park-Hex 2%) 1 applic DAILY@2000 TOPIC 10/03/19 20:00 12/24/19 19:59 10/06/19 20:33 Dextrose (Dextrose 50%) 25 ml Q30M PRN IV Hypoglycemia 10/03/19 18:30 12/24/19 10:29 Dextrose (Dextrose 50%) 50 ml Q30M PRN IV Hypoglycemia 10/03/19 18:30 12/24/19 10:29 Docusate Sodium (Colace) 100 mg TID GT 10/03/19 18:30 11/02/19 18:29 10/06/19 17:29 Heparin Sodium (Porcine) (Heparin 5000 units/ml) 5,000 units EVERY 12 HOURS SUBQ 10/03/19 21:00 11/09/19 20:59 10/06/19 21:29 Lactulose (Cephulac) 30 gm BIDPRN PRN GT Constipation 10/03/19 18:30 10/29/19 18:29 Linezolid (Zyvox) 600 mg EVERY 12 HOURS ORAL 10/04/19 11:00 10/09/19 10:59 10/06/19 21:27 Metoprolol Tartrate (Lopressor) 12.5 mg Q12HR GT 10/03/19 21:00 12/25/19 09:06 10/06/19 21:27 Nitroglycerin (Ntg) 1 patch Q24H TDERMAL 10/04/19 09:30 10/26/19 09:29 10/06/19 09:56 Potassium Chloride (K-Dur) 20 meq TWICE A DAY GT 10/06/19 12:15 01/04/20 12:14 10/06/19 17:29 Quetiapine Fumarate (SEROqueL) 25 mg DAILY ORAL 10/06/19 15:00 11/20/19 14:59 10/06/19 16:00 Assessment/Plan Assessment/Plan IMPRESSION: 1. Healthcare-associated pneumonia. 2. Acute renal failure. Resolved 3. History of previous SBO. 4. CAD. 5. Parkinson's. 6. Dementia. 7. Hyperkalemia, corrected 8. Shock; pressors dc DISCUSSION: Underwent urgent hemodialysis. No longer needed Pressors no longer required Broad-spectrum antibiotics. I will follow carefully. Discussed with Will decrease FiO2 as tolerated check CXR awaiting placement. Discussed with egg caser, circus rider and nurse Will leave wong in place Isaac Dugan M.D. Isaca Dugan MD Oct 07, 2019 08:44
[2019-10-07] MEDS: Aspirin Baby 81mg GT SCH (08:52)
[2019-10-07] MEDS: Nitroglycerin Patch 0.4mg TDERMAL SCH (08:52)
[2019-10-07] MEDS: Metoprolol Tartrate 12.5mg TAB GT SCH ×2 (08:52→20:55)
[2019-10-07] MEDS: Docusate 100mg/10ml Liq GT SCH ×3 (08:53→17:17)
[2019-10-07] MEDS: Heparin 5000 units/ml inj SUBQ SCH ×2 (08:54→21:01)
--- NOTE | 2019-10-07 09:30 | Surgery Progress Note ---
Surgery Progress Note Subjective Procedure Performed removal of right femoral temp HD catheter Symptoms: improved, tolerating diet, passing flatus Objective Last 24 Hour Vital Signs Date Time Temp Pulse Resp B/P (MAP) Pulse Ox O2 Delivery O2 Flow Rate FiO2 10/07/19 08:52 128/72 10/07/19 08:52 85 128/72 10/07/19 08:00 97.7 85 20 128/72 (90) 95 10/07/19 04:00 78 10/07/19 04:00 98.8 68 24 118/70 (86) 94 10/07/19 00:00 98.4 63 24 108/58 (75) 95 10/07/19 00:00 65 10/06/19 21:27 63 112/62 10/06/19 21:00 Venturi Mask 15.0 10/06/19 20:26 92 Venturi Mask 14.0 55 10/06/19 20:00 99.5 63 24 112/68 (83) 95 10/06/19 20:00 64 10/06/19 16:00 61 10/06/19 16:00 97.7 68 18 128/73 (91) 94 10/06/19 12:00 97.8 66 19 137/68 (91) 97 10/06/19 12:00 74 10/06/19 09:57 80 147/74 10/06/19 09:56 147/74 I&O Intake and Output 10/06/19 10/07/19 19:00 07:00 Intake Total 50 ml Output Total 675 ml 800 ml Balance -675 ml -750 ml Tube Feeding 50 ml Output Urine Total 675 ml 800 ml Dressing: saturated Cardiovascular: RSR Respiratory: decreased breath sounds Abdomen: soft, non-tender, present bowel sounds Extremities: no edema, no tenderness, no cyanosis Plan Problems: (1) Acute hyperkalemia (2) UTI (urinary tract infection) (3) ACS (acute coronary syndrome) (4) Acute metabolic encephalopathy (5) ARF (acute renal failure) (6) Respiratory failure with hypoxia (7) HCAP (healthcare-associated pneumonia) (8) Parkinsons disease (9) Elevated troponin I level (10) Anemia (11) Hyponatremia (12) Sepsis Assessment & Plan: leukocytosis renal insufficiency improved malnutrition hypo albumin bmi 19 mild edema small hematoma HD site removal Pt presented on admission with MASD Perianal, R and L clefts of buttocks extending to scrotum and groin areas . Skin is erythematous with scattered satellite lesions. Both heels are boggy with non-blanchable erythema. Hammer toe L 2nd metatarsal. Dry callus with surrounding erythema noted to dorsal L 2nd metatarsal . NO exudate or changes in skin temp at site noted. Tx.Plan: Apply Triad Paste to Groin, scrotum and buttocks with each Incontinence care. Cover Sacrum and Bilat trochanter with Optifoam drsgs. Change every 3 days and prn. Apply Cavilon Skin Barrier to both heels and Malleoli. Cover each site with Optifoam drsgs. Change every 7 Days and PRN. Apply Betadine to L 2nd metatarsal every 3 days and prn. Reposition at least every 2hours or as tolerated. Place pillow between knees. Off-load heels with pillow. APM/ARNOLD Mattress overlay. nutritional optimization monitor site. resolving hematoma Walter Bacon Oct 07, 2019 09:30
--- NOTE | 2019-10-07 10:26 | Diagnostic Imaging Report ---
EXAM: XR Chest, 1 View CLINICAL HISTORY: ABN CHST TECHNIQUE: Frontal view of the chest. COMPARISON: Chest radiograph on 10/01/2019 FINDINGS: Hardware: Stable left-sided PICC line which terminates near the junction of the SVC and right atrium. Lungs/pleura: Stable elevation of the right hemidiaphragm. Similar bibasilar opacities. Slightly increased left midlung opacity. No pleural effusion or pneumothorax. Heart/mediastinum: Normal. No cardiomegaly. Soft tissues: Unremarkable. Bones: No acute fracture. Degenerative changes of the acromioclavicular joints and spine. Upper abdomen: Normal. IMPRESSION: Similar bibasilar opacities and slightly increased left midlung opacity which may represent atelectasis versus pneumonia.
[2019-10-07 12:00] VITALS: BP 100/60
--- NOTE | 2019-10-07 13:00 | NUR ---
NURSE NOTES: O2 changed to NC at 9LPM, saturating 95%.
--- NOTE | 2019-10-07 13:29 | Nephrology Progress Note ---
Assessment/Plan Problem List: (1) ARF (acute renal failure) (2) Acute hyperkalemia (3) Respiratory failure with hypoxia (4) HCAP (healthcare-associated pneumonia) (5) Acute metabolic encephalopathy (6) Parkinsons disease (7) Elevated troponin I level (8) Anemia Assessment Renal failure, acute, possible underlying chronic kidney disease Sepsis, pneumonia, UTI Acute respiratory failure with hypoxia Hyponatremia ACS Acute metabolic encephalopathy Has G-tube Hypothyroidism Parkinson's Plan October 06: No labs drawn today. Remains stable from renal standpoint of view. October 05: Lab reviewed. Potassium supplement ordered. Stable from renal standpoint of view. Continue per consultants. October 04: No labs drawn today. Remains stable from renal standpoint of view. Continue per consultants. October 03: Labs reviewed. Potassium supplement given. Remains stable from renal standpoint of view. October 02: No chem panel drawn today. Remains stable from renal standpoint of view. We will continue to monitor electrolytes. Continue per consultants. Patient remains full code. October 01: Lab reviewed. Potassium low, sodium slightly elevated. D5W bolus IV , and potassium chloride IV ordered. Continue per consultants. September 30: COVERAGE FOR DR. GONZALEZ ( Int Med), labs reviewed, medications reviewed. Potassium supplement and free water in the form of D5W IV ordered. Continue per current management. September 29: COVERAGE FOR DR. GONZALEZ ( Int Med) , status quo, labs reviewed. White blood cells lowering. Medications reviewed. Stable. Continue per consultants. No more antibiotics at this time. Will recheck urine analysis and culture September 28: Patient appears stable. No further dialysis needed so the femoral catheter can be discontinued. Will check labs tomorrow if still in the house. September 27: Lab reviewed. Hemoglobin stable. Renal parameters stable. Electrolyte supplement ordered. No further dialysis needed. Continue per consultants. September 26: Hemoglobin lower. Renal parameters stable. Potassium phosphate IV given. Anemia work-up initiated. Continue per consultants. No further need for dialysis at this time. Kidney ultrasound reviewed. Acute renal failure and hyperkalemia is now resolved. Previously: Aspirin, Lopressor, Nitropaste, started Patient was dialyzed yesterday today hyperkalemia is resolved 2D echocardiogram results noted. No number for ejection fraction is documented. Kidney ultrasound results pending. Discussed with SHANNAN Faulkner. Continue to monitor renal parameters and dialysis as needed. Per orders Subjective ROS Limited/Unobtainable: No Constitutional: Reports: malaise, weakness Objective Objective Last 24 Hour Vital Signs Date Time Temp Pulse Resp B/P (MAP) Pulse Ox O2 Delivery O2 Flow Rate FiO2 10/07/19 12:00 97.9 65 22 100/60 (73) 97 10/07/19 12:00 66 10/07/19 09:00 Venturi Mask 15.0 10/07/19 08:52 128/72 10/07/19 08:52 85 128/72 10/07/19 08:00 82 10/07/19 08:00 97.7 85 20 128/72 (90) 95 10/07/19 04:00 78 10/07/19 04:00 98.8 68 24 118/70 (86) 94 10/07/19 00:00 98.4 63 24 108/58 (75) 95 10/07/19 00:00 65 10/06/19 21:27 63 112/62 10/06/19 21:00 Venturi Mask 15.0 10/06/19 20:26 92 Venturi Mask 14.0 55 10/06/19 20:00 99.5 63 24 112/68 (83) 95 10/06/19 20:00 64 10/06/19 16:00 61 10/06/19 16:00 97.7 68 18 128/73 (91) 94 Intake and Output 10/06/19 10/07/19 19:00 07:00 Intake Total 50 ml Output Total 675 ml 800 ml Balance -675 ml -750 ml Tube Feeding 50 ml Output Urine Total 675 ml 800 ml Current Medications Medications (Trade) Dose Ordered Sig/Mick Route PRN Reason Start Time Stop Time Status Last Admin Dose Admin Acetaminophen (Tylenol) 650 mg Q6H PRN GT Temp >100.5 10/03/19 18:30 11/02/19 18:29 Aspirin (ASA) 162 mg DAILY GT 10/04/19 09:00 11/10/19 08:59 10/07/19 08:52 Carbidopa/Levodopa (Sinemet 25/250) 1 tab Q8HR GT 10/03/19 22:00 10/26/19 08:59 10/07/19 06:00 Chlorhexidine Gluconate (Park-Hex 2%) 1 applic DAILY@1999 TOPIC 10/03/19 20:00 12/24/19 19:59 10/06/19 20:33 Dextrose (Dextrose 50%) 25 ml Q30M PRN IV Hypoglycemia 10/03/19 18:30 12/24/19 10:29 Dextrose (Dextrose 50%) 50 ml Q30M PRN IV Hypoglycemia 10/03/19 18:30 12/24/19 10:29 Docusate Sodium (Colace) 100 mg TID GT 10/03/19 18:30 11/02/19 18:29 10/07/19 08:53 Heparin Sodium (Porcine) (Heparin 5000 units/ml) 5,000 units EVERY 12 HOURS SUBQ 10/03/19 21:00 11/09/19 20:59 10/07/19 08:54 Lactulose (Cephulac) 30 gm BIDPRN PRN GT Constipation 10/03/19 18:30 10/29/19 18:29 Linezolid (Zyvox) 600 mg EVERY 12 HOURS ORAL 10/04/19 11:00 10/09/19 10:59 10/07/19 08:52 Metoprolol Tartrate (Lopressor) 12.5 mg Q12HR GT 10/03/19 21:00 12/25/19 09:06 10/07/19 08:52 Nitroglycerin (Ntg) 1 patch Q24H TDERMAL 10/04/19 09:30 10/26/19 09:29 10/07/19 08:52 Potassium Chloride (K-Dur) 20 meq TWICE A DAY GT 10/06/19 12:15 01/04/20 12:14 10/07/19 08:53 Quetiapine Fumarate (SEROqueL) 25 mg DAILY ORAL 10/06/19 15:00 11/20/19 14:59 10/07/19 08:53 Height (Feet): 6 Height (Inches): 6.00 Weight (Pounds): 170 Cardiovascular: normal rate Respiratory/Chest: decreased breath sounds Abdomen: distended Objective No change Ezekiel Rachel MD Oct 07, 2019 13:29
--- NOTE | 2019-10-07 13:43 | Cardiac Electrophysiology PN ---
Assessment/Plan Assessment/Plan 1. NSTEMI type 2 in the setting of renal failure. Nonverbal and has electrolyte abnormality. Echo normal EF. On aspirin and metoprolol 12.5 mg b.i.d. 2. Hyponatremia 3. Severe EKG abnormality due to hyperkalemia, potassium of 9, that resolved after dialysis. 4. S/P Acute renal failure. S/P hemodialysis and now resolved and the dialysis catheter was removed. 5. Hypertension, on metoprolol. 6. PNA and Respiratory failure with hypoxemia.On Zivox 600 bid 7. Parkinson disease. 8. Anemia. 9. Dysphagia, status post PEG placement. WILEY RN DC tele Subjective Subjective In restraints and confused on Nasal cannula 10 liters as oftoday. In SR with PACs. GT feeding ongoing Objective Last 24 Hour Vital Signs Date Time Temp Pulse Resp B/P (MAP) Pulse Ox O2 Delivery O2 Flow Rate FiO2 10/07/19 12:00 97.9 65 22 100/60 (73) 97 10/07/19 12:00 66 10/07/19 09:00 Venturi Mask 15.0 10/07/19 08:52 128/72 10/07/19 08:52 85 128/72 10/07/19 08:00 82 10/07/19 08:00 97.7 85 20 128/72 (90) 95 10/07/19 04:00 78 10/07/19 04:00 98.8 68 24 118/70 (86) 94 10/07/19 00:00 98.4 63 24 108/58 (75) 95 10/07/19 00:00 65 10/06/19 21:27 63 112/62 10/06/19 21:00 Venturi Mask 15.0 10/06/19 20:26 92 Venturi Mask 14.0 55 10/06/19 20:00 99.5 63 24 112/68 (83) 95 10/06/19 20:00 64 10/06/19 16:00 61 10/06/19 16:00 97.7 68 18 128/73 (91) 94 Intake and Output 10/06/19 10/07/19 19:00 07:00 Intake Total 50 ml Output Total 675 ml 800 ml Balance -675 ml -750 ml Tube Feeding 50 ml Output Urine Total 675 ml 800 ml Objective HEAD AND NECK: No JVD. LUNGS: Decreased breath sounds. CARDIOVASCULAR: Regular S1 and S2 with no gallop or rub. ABDOMEN: Soft, status post G-tube. EXTREMITIES: No pitting edema. Gómez Brewster MD Oct 07, 2019 13:43
--- NOTE | 2019-10-07 15:00 | NUR ---
HAND-OFF: Patient transferred to [id number], report given to Rachel CAMPBELL. On NC at 9LPM, PICC line on TRACY intact, bilateral woft wrist restraints on. Wound dressings intact. FC intact. Gtube intact, feeding ongoing. Report given to .Rachel CAMPBELL.
[2019-10-07] MEDS ORDERED: Acetaminophen 650mg/20.3ml GT PRN (15:30)
[2019-10-07] MEDS ORDERED: Lactulose 20gm/30ml UDC GT PRN (15:30)
--- NOTE | 2019-10-07 15:41 | NUR ---
NURSE NOTES: Report received from Kelsey RN. Patient transferred from Tele 203-1, AxOx1, mumbles, not in distress, O2 at 6lpm via NC, humidifier applied, sats 91-92%; noted with some productive cough; not outward sx of pain. TRACY PICC line patent and intact, Gtube site patent and infusing tube feeding as ordered, no residuals reported. Bilateral wrist restraints noted with good circulation and palpable pulses. Montalvo cath secured and draining well. Noted pressure sore d/t medical physics teacher/oxygen tubing over left and right earlobes, sacral and perianal redness, and DTI over the left big toel, pictures taken and documented. Bed low and locked, siderails up x2, will continue to monitor.
--- NOTE | 2019-10-07 15:45 | NUR ---
CASE MANAGEMENT:REVIEW 10/07/19 SI: ACUTE RESPIRATORY FAILURE SHOCK. ACUTE RENAL FAILURE 97.9 66 22 100/60 92% ON 6L/NC IS: ZYVOX PO Q12 NTG PATCH Q24 ASA GT QD HEPARIN SQ Q12 LOPRESSOR GT Q12 SEROQUEL GT QD : TELEMETRY STATUS...TRANSFER TO MED/SURG DCP: FROM [facility] PLAN: TITRATE O2 TO MAINTAIN SATS ~ GREATER THEN OR EQUAL TO 90% DOWN GRADE TO MED/SURG
--- NOTE | 2019-10-07 15:51 | NUR ---
DISCHARGE PLANNING RECEIVED MESSAGE FROM [facility] STATING THEY ARE UNABLE TO FIND PLACEMENT FOR THIS PATIENT. PATIENT WILL NEED TO RETURN TO [facility] UPON DISCHARGE
[2019-10-07 16:00] VITALS: BP 102/75
--- NOTE | 2019-10-07 19:24 | NUR ---
NURSE HAND-OFF: Important Events on Shift: Pt transferred from [facility]; with D/C orders to SNF but pending placement as per returned case inspector Patient Status: Stable Diet: Nepro 1.8 @ 50ml/hr Pending Orders: N/A Pending Results/Labs:N/A Pending MD notification:N/A Latest Vital Signs: Temperature 97.0 , Pulse 69 , B/P 102 /75 , Respiratory Rate 22 , O2 SAT 95 , Venturi Mask, O2 Flow Rate 4.0 . Vital Sign Comment: Latest Shane Fall Score: 75 Fall Risk: High Risk Safety Measures: Call light Within Reach, Bed Alarm Zone 2, Side Rails Side Rails x3, Bed position Low and Locked. Fall Precautions: Yellow Socks Yellow Gown Door Sign Patient Fall Education Report given to SHANNAN Lewis.
[2019-10-07 20:00] VITALS: BP 119/74
--- NOTE | 2019-10-07 20:00 | NUR ---
NURSE NOTES: Patient received in bed, awake, restless, on bilateral soft wrist restraints. Patient actively dangling his leg over the side rails. When repositioned and released restraints for a moment, patient attempted to pull on the wong catheter and oxygen. Bed locked, HOB elevated, aspiration precaution. Bed alarm on. Siderailsx3 up. Bilateral soft wrist restraints reinforced and will continue close monitoring.
[2019-10-07] MEDS: Dyna-Hex 2% Top Sol 2oz TOPIC SCH (20:54)
[2019-10-08] VITALS: BP 116/69
[2019-10-08 04:00] VITALS: BP 107/62
[2019-10-08] MEDS: Levodopa/Carbidopa 25/250 tab GT SCH ×3 (05:13→21:13)
--- NOTE | 2019-10-08 07:20 | NUR ---
NURSE NOTES: Patient report received from SHANNAN Lewis. Received pt lying in hospital bed with p200 mattress, awake, confused, requires reorientation, restless, on bilateral soft wrist restraints and moving his bilateral lower extremities constantly from side to side of the bed moving chux around. Bilateral soft wrist restraints reinforced and will continue close monitoring. Pt is on O2 via NC at 5 LPM. Titrated to 3LPM and monitored sats at 92-94%. Pt has GT wrapped with abd binder with Nepro 1.8 running at 50 ml/hr. Montalvo catheter in place with yellow urine draining in bag. Bed locked, HOB elevated, Siderails x 3 up. Plan for DC if O2 maintained titrated down for SNF placement. Will continue POC.
--- NOTE | 2019-10-08 07:36 | NUR ---
NURSE HAND-OFF: Important Events on Shift:[kept restraints applied d/t restlessness; attempts to pull wong multiple times and dangles feet off the bed; titrated O2 from 6L to 5L] Patient Status: [stable,sleeping] Diet: [Nepro @50] Pending Orders: [n/a] Pending Results/Labs:[n/a] Pending MD notification:[n/a] Latest Vital Signs: Temperature 96.6 , Pulse 64 , B/P 107 /62 , Respiratory Rate 18 , O2 SAT 95 , Nasal Cannula, O2 Flow Rate 5.0 . Vital Sign Comment: [stable] Latest Shane Fall Score: 75 Fall Risk: High Risk Safety Measures: Call light Within Reach, Bed Alarm Zone 2, Side Rails Side Rails x3, Bed position Low and Locked. Fall Precautions: Yellow Socks Yellow Gown Door Sign Patient Fall Education Report given to [Azam CAMPBELL].
[2019-10-08 08:00] VITALS: BP_SYST 102; BP_SYST 112; BP_SYST 116; BP_DIAS 64; BP_DIAS 67; BP_DIAS 69
[2019-10-08] MEDS: Metoprolol Tartrate 12.5mg TAB GT SCH ×2 (09:00→20:39)
[2019-10-08] MEDS: Docusate 100mg/10ml Liq GT SCH ×3 (09:01→18:26)
[2019-10-08] MEDS: Aspirin Baby 81mg GT SCH (09:01)
[2019-10-08] MEDS: Heparin 5000 units/ml inj SUBQ SCH ×2 (09:02→21:14)
[2019-10-08] MEDS: Nitroglycerin Patch 0.4mg TDERMAL SCH (09:02)
--- NOTE | 2019-10-08 10:00 | Surgery Progress Note ---
Surgery Progress Note Subjective Procedure Performed removal of right femoral temp HD catheter Symptoms: improved, pain absent, tolerating diet, difficulty voiding, passing flatus, BM Objective Last 24 Hour Vital Signs Date Time Temp Pulse Resp B/P (MAP) Pulse Ox O2 Delivery O2 Flow Rate FiO2 10/08/19 09:02 102/67 10/08/19 09:00 66 102/67 10/08/19 08:00 97.2 66 19 112/64 (80) 95 10/08/19 04:00 96.6 64 18 107/62 (77) 95 10/08/19 00:00 97.0 68 18 116/69 (85) 95 10/07/19 21:00 Nasal Cannula 6.0 10/07/19 20:55 78 119/74 10/07/19 20:00 96.6 78 20 119/74 (89) 94 10/07/19 19:12 95 Nasal Cannula 4.0 36 10/07/19 16:00 97.0 69 22 102/75 (84) 92 10/07/19 12:00 97.9 65 22 100/60 (73) 97 10/07/19 12:00 66 I&O Intake and Output 10/07/19 10/08/19 19:00 07:00 Intake Total 250 ml 710 ml Output Total 1500 ml 601 ml Balance -1250 ml 109 ml Free Water 160 ml Tube Feeding 250 ml 550 ml Output Urine Total 1500 ml 600 ml Stool Total 1 ml # Bowel Movements 1 Dressing: dry Wound: dry Cardiovascular: RSR Respiratory: clear, decreased breath sounds Abdomen: soft, non-tender, present bowel sounds Extremities: no edema, no tenderness, no cyanosis Plan Problems: (1) Acute hyperkalemia (2) UTI (urinary tract infection) (3) ACS (acute coronary syndrome) (4) Acute metabolic encephalopathy (5) ARF (acute renal failure) (6) Respiratory failure with hypoxia (7) HCAP (healthcare-associated pneumonia) (8) Parkinsons disease (9) Elevated troponin I level (10) Anemia (11) Hyponatremia (12) Sepsis Assessment & Plan: leukocytosis renal insufficiency improved malnutrition hypo albumin bmi 19 mild edema small hematoma HD site removal Pt presented on admission with MASD Perianal, R and L clefts of buttocks extending to scrotum and groin areas . Skin is erythematous with scattered satellite lesions. Both heels are boggy with non-blanchable erythema. Hammer toe L 2nd metatarsal. Dry callus with surrounding erythema noted to dorsal L 2nd metatarsal . NO exudate or changes in skin temp at site noted. Tx.Plan: Apply Triad Paste to Groin, scrotum and buttocks with each Incontinence care. Cover Sacrum and Bilat trochanter with Optifoam drsgs. Change every 3 days and prn. Apply Cavilon Skin Barrier to both heels and Malleoli. Cover each site with Optifoam drsgs. Change every 7 Days and PRN. Apply Betadine to L 2nd metatarsal every 3 days and prn. Reposition at least every 2hours or as tolerated. Place pillow between knees. Off-load heels with pillow. APM/ARNOLD Mattress overlay. nutritional optimization monitor site. resolving hematoma Walter Bacon Oct 08, 2019 10:00
--- NOTE | 2019-10-08 10:48 | Pulmonology Progress Note ---
Subjective ROS Limited/Unobtainable: No Interval Events: Down to 5L/min O2 Constitutional: Denies: fever HEENT: Repors: no symptoms Respiratory: Reports: no symptoms Cardiovascular: Reports: no symptoms Gastrointestinal/Abdominal: Reports: no symptoms Allergies: Coded Allergies: No Known Allergies (Unverified , 09/25/19) Objective Last 24 Hour Vital Signs Date Time Temp Pulse Resp B/P (MAP) Pulse Ox O2 Delivery O2 Flow Rate FiO2 10/08/19 09:02 102/67 10/08/19 09:00 66 102/67 10/08/19 09:00 Nasal Cannula 6.0 10/08/19 08:00 97.2 66 19 112/64 (80) 95 10/08/19 04:00 96.6 64 18 107/62 (77) 95 10/08/19 00:00 97.0 68 18 116/69 (85) 95 10/07/19 21:00 Nasal Cannula 6.0 10/07/19 20:55 78 119/74 10/07/19 20:00 96.6 78 20 119/74 (89) 94 10/07/19 19:12 95 Nasal Cannula 4.0 36 10/07/19 16:00 97.0 69 22 102/75 (84) 92 10/07/19 12:00 97.9 65 22 100/60 (73) 97 10/07/19 12:00 66 Intake and Output 10/07/19 10/08/19 19:00 07:00 Intake Total 250 ml 710 ml Output Total 1500 ml 601 ml Balance -1250 ml 109 ml Free Water 160 ml Tube Feeding 250 ml 550 ml Output Urine Total 1500 ml 600 ml Stool Total 1 ml # Bowel Movements 1 General Appearance: cachetic HEENT: normocephalic Respiratory: chest wall non-tender, rhonchi - bilaterally Cardiovascular: normal peripheral pulses, normal rate, regular rhythm Abdomen: normal bowel sounds Extremities: other Current Medications Medications (Trade) Dose Ordered Sig/Mick Route PRN Reason Start Time Stop Time Status Last Admin Dose Admin Acetaminophen (Tylenol) 650 mg Q6H PRN GT Temp >100.5 10/07/19 15:30 11/02/19 15:29 Aspirin (ASA) 162 mg DAILY GT 10/08/19 09:00 11/10/19 08:59 10/08/19 09:01 Carbidopa/Levodopa (Sinemet 25/250) 1 tab Q8HR GT 10/07/19 22:00 10/26/19 08:59 10/08/19 05:13 Chlorhexidine Gluconate (Park-Hex 2%) 1 applic DAILY@2000 TOPIC 10/07/19 20:00 12/24/19 19:59 10/07/19 20:54 Dextrose (Dextrose 50%) 25 ml Q30M PRN IV Hypoglycemia 10/07/19 15:30 12/24/19 10:29 Dextrose (Dextrose 50%) 50 ml Q30M PRN IV Hypoglycemia 10/07/19 15:30 12/24/19 10:29 Docusate Sodium (Colace) 100 mg TID GT 10/07/19 18:00 11/02/19 18:29 10/08/19 09:01 Heparin Sodium (Porcine) (Heparin 5000 units/ml) 5,000 units EVERY 12 HOURS SUBQ 10/07/19 21:00 11/09/19 20:59 10/08/19 09:02 Lactulose (Cephulac) 30 gm BIDPRN PRN GT Constipation 10/07/19 15:30 10/29/19 15:29 Linezolid (Zyvox) 600 mg EVERY 12 HOURS ORAL 10/07/19 21:00 10/09/19 10:59 10/08/19 09:01 Metoprolol Tartrate (Lopressor) 12.5 mg Q12HR GT 10/07/19 21:00 12/25/19 09:06 10/07/19 20:55 Nitroglycerin (Ntg) 1 patch Q24H TDERMAL 10/08/19 09:30 10/26/19 09:29 10/08/19 09:02 Potassium Chloride (K-Dur) 20 meq TWICE A DAY GT 10/07/19 18:00 01/04/20 12:14 10/08/19 09:05 Quetiapine Fumarate (SEROqueL) 25 mg DAILY ORAL 10/08/19 09:00 11/20/19 14:59 10/08/19 09:01 Assessment/Plan Assessment/Plan IMPRESSION: 1. Healthcare-associated pneumonia. 2. Acute renal failure. Resolved 3. History of previous SBO. 4. CAD. 5. Parkinson's. 6. Dementia. 7. Hyperkalemia, corrected 8. Shock; pressors dc DISCUSSION: Underwent urgent hemodialysis. No longer needed Pressors no longer required Broad-spectrum antibiotics. I will follow carefully. Discussed with Will decrease FiO2 as tolerated check CXR awaiting placement. Discussed with case supervisor, hospice executive director and nurse Will leave wong in place Isaac Dugan M.D. Isaac Dguan MD Oct 08, 2019 10:48
--- NOTE | 2019-10-08 11:19 | NUR ---
CASE MANAGEMENT:REVIEW 10/08/19 SI: ACUTE RESPIRATORY FAILURE. PNA. ACUTE RENAL FAILURE 97.2 66 19 112/64 95% ON 6L/NC IS: ZYVOX PO Q12 NTG PATCH Q24 ASA GT QD HEPARIN SQ Q12 LOPRESSOR GT Q12 SEROQUEL GT QD K-DUR GT BID : MED/SURG STATUS 4 EAST DCP: FROM [facility] PLAN: TITRATE O2 TO MAINTAIN SATS ~ GREATER THEN OR EQUAL TO 90%
--- NOTE | 2019-10-08 11:24 | NUR ---
INSURANCE REVIEWS AND CLINICALS FOR 10/06 AND 10/07 FAXED TO [facility] T: [phone] [facility] F: [phone]
--- NOTE | 2019-10-08 11:50 | Nephrology Progress Note ---
Assessment/Plan Problem List: (1) ARF (acute renal failure) (2) Acute hyperkalemia (3) Respiratory failure with hypoxia (4) HCAP (healthcare-associated pneumonia) (5) Acute metabolic encephalopathy (6) Parkinsons disease (7) Elevated troponin I level (8) Anemia Assessment Renal failure, acute, possible underlying chronic kidney disease Sepsis, pneumonia, UTI Acute respiratory failure with hypoxia Hyponatremia ACS Acute metabolic encephalopathy Has G-tube Hypothyroidism Parkinson's Plan October 07: No labs drawn today. Will check renal parameters tomorrow. Continue per consultants. October 06: No labs drawn today. Remains stable from renal standpoint of view. October 05: Lab reviewed. Potassium supplement ordered. Stable from renal standpoint of view. Continue per consultants. October 04: No labs drawn today. Remains stable from renal standpoint of view. Continue per consultants. October 03: Labs reviewed. Potassium supplement given. Remains stable from renal standpoint of view. October 02: No chem panel drawn today. Remains stable from renal standpoint of view. We will continue to monitor electrolytes. Continue per consultants. Patient remains full code. October 01: Lab reviewed. Potassium low, sodium slightly elevated. D5W bolus IV , and potassium chloride IV ordered. Continue per consultants. September 30: COVERAGE FOR DR. GONZALEZ ( Int Med), labs reviewed, medications reviewed. Potassium supplement and free water in the form of D5W IV ordered. Continue per current management. September 29: COVERAGE FOR DR. GONZALEZ ( Int Med) , status quo, labs reviewed. White blood cells lowering. Medications reviewed. Stable. Continue per consultants. No more antibiotics at this time. Will recheck urine analysis and culture September 28: Patient appears stable. No further dialysis needed so the femoral catheter can be discontinued. Will check labs tomorrow if still in the house. September 27: Lab reviewed. Hemoglobin stable. Renal parameters stable. Electrolyte supplement ordered. No further dialysis needed. Continue per consultants. September 26: Hemoglobin lower. Renal parameters stable. Potassium phosphate IV given. Anemia work-up initiated. Continue per consultants. No further need for dialysis at this time. Kidney ultrasound reviewed. Acute renal failure and hyperkalemia is now resolved. Previously: Aspirin, Lopressor, Nitropaste, started Patient was dialyzed yesterday today hyperkalemia is resolved 2D echocardiogram results noted. No number for ejection fraction is documented. Kidney ultrasound results pending. Discussed with SHANNAN Faulkner. Continue to monitor renal parameters and dialysis as needed. Per orders Subjective ROS Limited/Unobtainable: Yes Objective Objective Last 24 Hour Vital Signs Date Time Temp Pulse Resp B/P (MAP) Pulse Ox O2 Delivery O2 Flow Rate FiO2 10/08/19 09:02 102/67 10/08/19 09:00 66 102/67 10/08/19 09:00 Nasal Cannula 6.0 10/08/19 08:00 97.2 66 19 112/64 (80) 95 10/08/19 04:00 96.6 64 18 107/62 (77) 95 10/08/19 00:00 97.0 68 18 116/69 (85) 95 10/07/19 21:00 Nasal Cannula 6.0 10/07/19 20:55 78 119/74 10/07/19 20:00 96.6 78 20 119/74 (89) 94 10/07/19 19:12 95 Nasal Cannula 4.0 36 10/07/19 16:00 97.0 69 22 102/75 (84) 92 10/07/19 12:00 97.9 65 22 100/60 (73) 97 10/07/19 12:00 66 Intake and Output 10/07/19 10/08/19 19:00 07:00 Intake Total 250 ml 710 ml Output Total 1500 ml 601 ml Balance -1250 ml 109 ml Free Water 160 ml Tube Feeding 250 ml 550 ml Output Urine Total 1500 ml 600 ml Stool Total 1 ml # Bowel Movements 1 No labs from today Height (Feet): 6 Height (Inches): 6.00 Weight (Pounds): 162 General Appearance: no apparent distress, lethargic EENT: other - On nasal cannula Cardiovascular: normal rate Respiratory/Chest: decreased breath sounds Abdomen: soft Objective No change Ezekiel Rachel MD Oct 08, 2019 11:50
[2019-10-08 12:00] VITALS: BP 122/64
--- NOTE | 2019-10-08 14:28 | Infectious Diseases Prog Note ---
Assessment/Plan Assessment/Plan A 1. pneumonia treated COVID 19 test negative x 2 2. hypertension 3. Parkinson disease 4. Dementia 5. Acute renal failure 6. Anemia 7. VRE UTI P 1. continue Zyvox Subjective ROS Limited/Unobtainable: Yes Constitutional: Denies: fever Neurologic: Reports: confusion, other - on restaint Musculoskeletal: Denies: pain Allergies: Coded Allergies: No Known Allergies (Unverified , 09/25/19) Objective Last 24 Hour Vital Signs Date Time Temp Pulse Resp B/P (MAP) Pulse Ox O2 Delivery O2 Flow Rate FiO2 10/08/19 12:00 97.7 76 17 122/64 (83) 94 10/08/19 09:02 102/67 10/08/19 09:00 66 102/67 10/08/19 09:00 Nasal Cannula 6.0 10/08/19 08:00 97.2 66 19 112/64 (80) 95 10/08/19 04:00 96.6 64 18 107/62 (77) 95 10/08/19 00:00 97.0 68 18 116/69 (85) 95 10/07/19 21:00 Nasal Cannula 6.0 10/07/19 20:55 78 119/74 10/07/19 20:00 96.6 78 20 119/74 (89) 94 10/07/19 19:12 95 Nasal Cannula 4.0 36 10/07/19 16:00 97.0 69 22 102/75 (84) 92 Height (Feet): 6 Height (Inches): 6.00 Weight (Pounds): 162 General Appearance: no acute distress HEENT: mucous membranes moist Respiratory/Chest: lungs clear Cardiovascular: normal rate, other - Left arm PICC line Abdomen: soft, non tender, other - GT feeding Extremities: no edema Skin: ulcers Neurologic/Psychiatric: alert, responsive Current Medications Medications (Trade) Dose Ordered Sig/Mick Route PRN Reason Start Time Stop Time Status Last Admin Dose Admin Acetaminophen (Tylenol) 650 mg Q6H PRN GT Temp >100.5 10/07/19 15:30 11/02/19 15:29 Aspirin (ASA) 162 mg DAILY GT 10/08/19 09:00 11/10/19 08:59 10/08/19 09:01 Carbidopa/Levodopa (Sinemet 25/250) 1 tab Q8HR GT 10/07/19 22:00 10/26/19 08:59 10/08/19 14:21 Chlorhexidine Gluconate (Park-Hex 2%) 1 applic DAILY@2000 TOPIC 10/07/19 20:00 12/24/19 19:59 10/07/19 20:54 Dextrose (Dextrose 50%) 25 ml Q30M PRN IV Hypoglycemia 10/07/19 15:30 12/24/19 10:29 Dextrose (Dextrose 50%) 50 ml Q30M PRN IV Hypoglycemia 10/07/19 15:30 12/24/19 10:29 Docusate Sodium (Colace) 100 mg TID GT 10/07/19 18:00 11/02/19 18:29 10/08/19 13:00 Heparin Sodium (Porcine) (Heparin 5000 units/ml) 5,000 units EVERY 12 HOURS SUBQ 10/07/19 21:00 11/09/19 20:59 10/08/19 09:02 Lactulose (Cephulac) 30 gm BIDPRN PRN GT Constipation 10/07/19 15:30 10/29/19 15:29 Linezolid (Zyvox) 600 mg EVERY 12 HOURS ORAL 10/07/19 21:00 10/09/19 10:59 10/08/19 09:01 Metoprolol Tartrate (Lopressor) 12.5 mg Q12HR GT 10/07/19 21:00 12/25/19 09:06 10/07/19 20:55 Nitroglycerin (Ntg) 1 patch Q24H TDERMAL 10/08/19 09:30 10/26/19 09:29 10/08/19 09:02 Potassium Chloride (K-Dur) 20 meq TWICE A DAY GT 10/07/19 18:00 01/04/20 12:14 10/08/19 09:05 Quetiapine Fumarate (SEROqueL) 25 mg DAILY ORAL 10/08/19 09:00 11/20/19 14:59 10/08/19 09:01 Charan Yan MD Oct 08, 2019 14:28
[2019-10-08 16:00] VITALS: BP 139/79
--- NOTE | 2019-10-08 19:20 | NUR ---
NURSE HAND-OFF: Important Events on Shift: BM x 1, remains restless, moving legs around in bed kicking off blankets and tried pulling his wong; able to titrate O2 down to 3LPM via NC Patient Status: stable Diet: NPO, TF of Nepro 1.8 at 50 ml/hr Pending Orders: n/a Pending Results/Labs: n/a Pending MD notification: n/a Latest Vital Signs: Temperature 97.7 , Pulse 91 , B/P 139 /79 , Respiratory Rate 20 , O2 SAT 93 , Nasal Cannula, O2 Flow Rate 6.0 . Vital Sign Comment: Latest Shane Fall Score: 75 Fall Risk: High Risk Safety Measures: Call light Within Reach, Bed Alarm Zone 2, Side Rails Side Rails x3, Bed position Low and Locked. Fall Precautions: Yellow Socks Yellow Gown Door Sign Patient Fall Education Report given to SHANNAN Lewis. Endorsed POC.
[2019-10-08 20:00] VITALS: BP 114/41
--- NOTE | 2019-10-08 20:00 | NUR ---
NURSE NOTES: Patient received in bed on o2 via NC at 3LPM. Very restless, kicking blankets, and pillows off the bed. dangling his legs off the bed. Patient keeps sliding down, patient is pulled up in bed. Re-anchored wong catheter. Reinforced bilateral soft wrist restraints. Active motion +, pulses+, sensation+, no swelling. circulation intact. WIll continue close monitoring.
[2019-10-08] MEDS: Dyna-Hex 2% Top Sol 2oz TOPIC SCH (21:13)
[2019-10-09] VITALS: BP 115/71
[2019-10-09 04:00] VITALS: BP 133/79
[2019-10-09] MEDS: Levodopa/Carbidopa 25/250 tab GT SCH ×3 (05:28→21:14)
--- NOTE | 2019-10-09 06:45 | NUR ---
NURSE NOTES: Patient was restless for most of the shift. He will be drowsy but will still dangle legs off the bed and slides down the bed, needing to be repositioned and pulled up every hour. Restraints still indicated d/t high fall risk and attempts to pull on wong catheter and bed incontinence pads.
[2019-10-09 06:50] LABS: EOSINOPHILS % (AUTO) 1.3 % (0.0-3.0); HEMATOCRIT 31.7 % (42.0-52.0); LYMPHOCYTES % (AUTO) 22.1 % (20.0-45.0); MEAN CORPUSCULAR VOLUME 91 FL (80-99); MONOCYTES % (AUTO) 6.9 % (1.0-10.0); NEUTROPHILS % (AUTO) 68.7 % (45.0-75.0); PLATELET COUNT 379 K/UL (150-450); RED CELL DISTRIBUTION WIDTH 13.7 % (11.6-14.8); WHITE BLOOD COUNT 7.3 K/UL (4.8-10.8)
[2019-10-09 06:58] LABS: ALANINE AMINOTRANSFERASE 62 U/L (12-78); ALBUMIN 2.2 G/DL (3.4-5.0); ALBUMIN/GLOBULIN RATIO 0.4 (1.0-2.7); ALKALINE PHOSPHATASE 59 U/L (46-116); ANION GAP 10 mmol/L (5-15); ASPARTATE AMINO TRANSFERASE 48 U/L (15-37); BILIRUBIN,TOTAL 0.2 MG/DL (0.2-1.0); BLOOD UREA NITROGEN 36 mg/dL (7-18); CALCIUM 8.9 MG/DL (8.5-10.1); CARBON DIOXIDE 28 MMOL/L (21-32); CHLORIDE 111 MMOL/L (98-107); PHOSPHORUS 3.1 MG/DL (2.5-4.9); POTASSIUM 4.1 MMOL/L (3.5-5.1); SODIUM 149 MMOL/L (136-145)
--- NOTE | 2019-10-09 07:31 | NUR ---
NURSE HAND-OFF: Important Events on Shift:[restless most of the shift, dangles legs off the bed and slides down the bed. repositioned every 1 hour. otherwise, stable] Patient Status: [restless but drowsy] Diet: [Nepro @ 50] Pending Orders: [n/a] Pending Results/Labs:[ see chart] Pending MD notification:[n/a] Latest Vital Signs: Temperature 97.7 , Pulse 89 , B/P 133 /79 , Respiratory Rate 22 , O2 SAT 96 , Nasal Cannula, O2 Flow Rate 3.0 . Vital Sign Comment: [stable] Latest Shane Fall Score: 75 Fall Risk: High Risk Safety Measures: Call light Within Reach, Bed Alarm Zone 2, Side Rails Side Rails x3, Bed position Low and Locked. Fall Precautions: Yellow Socks Yellow Gown Door Sign Patient Fall Education Report given to [Aster CAMPBELL]. Addendum: 10/09/19 at 0734 by INGA ALICIA RN RN Restraint order due to be renewed today by 1636.
[2019-10-09 08:00] VITALS: BP 117/68
--- NOTE | 2019-10-09 08:13 | NUR ---
NURSE NOTES: Report received from SHANNAN Lewis. Patient seen on rounds, AxOx2, restless, not in distress, no outward sx of pain. O2 via NC at 3lpm. PICC on TRACY patent and intact. Gtube patent and infusing Nepro 1.8@ 50ml/hr. [place] cath secured and draining well. Bilateral wrist restraints noted, good circulation with palpable pulses. Pt is high fall risk, precautions in place. Bed low and locked, siderails up x2, zone alarms on zone 2, will continue to monitor.
[2019-10-09] MEDS: Aspirin Baby 81mg GT SCH (08:39)
[2019-10-09] MEDS: Docusate 100mg/10ml Liq GT SCH ×3 (08:39→17:31)
[2019-10-09] MEDS: Metoprolol Tartrate 12.5mg TAB GT SCH ×2 (08:39→20:14)
[2019-10-09] MEDS: Nitroglycerin Patch 0.4mg TDERMAL SCH (08:40)
[2019-10-09] MEDS: Heparin 5000 units/ml inj SUBQ SCH ×2 (08:41→20:15)
--- NOTE | 2019-10-09 11:03 | Pulmonology Progress Note ---
Subjective ROS Limited/Unobtainable: Yes Interval Events: Down to 5L/min O2 Constitutional: Denies: fever HEENT: Repors: no symptoms Respiratory: Reports: no symptoms Cardiovascular: Reports: no symptoms Gastrointestinal/Abdominal: Reports: no symptoms Musculoskeletal: Denies: pain Allergies: Coded Allergies: No Known Allergies (Unverified , 09/25/19) Objective Last 24 Hour Vital Signs Date Time Temp Pulse Resp B/P (MAP) Pulse Ox O2 Delivery O2 Flow Rate FiO2 10/09/19 09:00 Nasal Cannula 3.0 10/09/19 08:40 117/68 10/09/19 08:39 74 117/68 10/09/19 08:00 97.7 74 19 117/68 (84) 96 10/09/19 04:00 97.7 89 22 133/79 (97) 96 10/09/19 00:00 97.9 94 20 115/71 (86) 96 10/08/19 21:00 Nasal Cannula 3.0 10/08/19 20:39 88 114/41 10/08/19 20:00 97.0 88 20 114/41 (65) 92 10/08/19 19:58 94 Nasal Cannula 4.0 36 10/08/19 16:00 97.7 91 20 139/79 (99) 93 10/08/19 12:00 97.7 76 17 122/64 (83) 94 Intake and Output 10/08/19 10/09/19 19:00 07:00 Intake Total 1050 ml 750 ml Output Total 550 ml 650 ml Balance 500 ml 100 ml Free Water 450 ml 200 ml Tube Feeding 600 ml 550 ml Output Urine Total 550 ml 650 ml # Bowel Movements 1 1 General Appearance: cachetic HEENT: normocephalic Respiratory: chest wall non-tender, rhonchi - bilaterally Cardiovascular: normal peripheral pulses, normal rate, regular rhythm Abdomen: normal bowel sounds Extremities: other Laboratory Tests 10/09/19 05:40: White Blood Count 7.3, Red Blood Count 3.50L, Hemoglobin 10.0L, Hematocrit 31.7L , Mean Corpuscular Volume 91, Mean Corpuscular Hemoglobin 28.6, Mean Corpuscular Hemoglobin Concent 31.6L, Red Cell Distribution Width 13.7, Platelet Count 379, Mean Platelet Volume 7.1, Neutrophils (%) (Auto) 68.7, Lymphocytes (%) (Auto) 22.1, Monocytes (%) (Auto) 6.9, Eosinophils (%) (Auto) 1.3, Basophils (%) (Auto) 1.0, Sodium Level 149H, Potassium Level 4.1, Chloride Level 111H, Carbon Dioxide Level 28, Anion Gap 10, Blood Urea Nitrogen 36H, Creatinine 1.0, Estimat Glomerular Filtration Rate > 60, Glucose Level 119H, Calcium Level 8.9, Phosphorus Level 3.1, Magnesium Level 2.2, Total Bilirubin 0.2, Aspartate Amino Transf (AST/SGOT) 48H, Alanine Aminotransferase (ALT/SGPT) 62, Alkaline Phosphatase 59, C-Reactive Protein, Quantitative 3.1H, Total Protein 8.2, Albumin 2.2L, Globulin 6.0, Albumin/Globulin Ratio 0.4L Current Medications Medications (Trade) Dose Ordered Sig/Mick Route PRN Reason Start Time Stop Time Status Last Admin Dose Admin Acetaminophen (Tylenol) 650 mg Q6H PRN GT Temp >100.5 10/07/19 15:30 11/02/19 15:29 Aspirin (ASA) 162 mg DAILY GT 10/08/19 09:00 11/10/19 08:59 10/09/19 08:39 Carbidopa/Levodopa (Sinemet 25/250) 1 tab Q8HR GT 10/07/19 22:00 10/26/19 08:59 10/09/19 05:28 Chlorhexidine Gluconate (Park-Hex 2%) 1 applic DAILY@2000 TOPIC 10/07/19 20:00 12/24/19 19:59 10/08/19 21:13 Dextrose (Dextrose 50%) 25 ml Q30M PRN IV Hypoglycemia 10/07/19 15:30 12/24/19 10:29 Dextrose (Dextrose 50%) 50 ml Q30M PRN IV Hypoglycemia 10/07/19 15:30 12/24/19 10:29 Docusate Sodium (Colace) 100 mg TID GT 10/07/19 18:00 11/02/19 18:29 10/09/19 08:39 Heparin Sodium (Porcine) (Heparin 5000 units/ml) 5,000 units EVERY 12 HOURS SUBQ 10/07/19 21:00 11/09/19 20:59 10/09/19 08:41 Lactulose (Cephulac) 30 gm BIDPRN PRN GT Constipation 10/07/19 15:30 10/29/19 15:29 Linezolid (Zyvox) 600 mg EVERY 12 HOURS ORAL 10/07/19 21:00 10/11/19 23:59 10/09/19 08:39 Metoprolol Tartrate (Lopressor) 12.5 mg Q12HR GT 10/07/19 21:00 12/25/19 09:06 10/09/19 08:39 Nitroglycerin (Ntg) 1 patch Q24H TDERMAL 10/08/19 09:30 10/26/19 09:29 10/09/19 08:40 Potassium Chloride (K-Dur) 20 meq TWICE A DAY GT 10/07/19 18:00 01/04/20 12:14 10/09/19 08:39 Quetiapine Fumarate (SEROqueL) 25 mg DAILY ORAL 10/08/19 09:00 11/20/19 14:59 10/09/19 08:39 Assessment/Plan Assessment/Plan IMPRESSION: 1. Healthcare-associated pneumonia. 2. Acute renal failure. Resolved 3. History of previous SBO. 4. CAD. 5. Parkinson's. 6. Dementia. 7. Hyperkalemia, corrected 8. Shock; pressors dc DISCUSSION: Underwent urgent hemodialysis. No longer needed Pressors no longer required Broad-spectrum antibiotics. I will follow carefully. Discussed with Will decrease FiO2 as tolerated check CXR awaiting placement. Discussed with disease case manager, [employer] school biology teacher and nurse Will leave wong in place Will dc restraints; mittens OK Isaac Dugan M.D. Isaac Dugan MD Oct 09, 2019 11:03
--- NOTE | 2019-10-09 11:18 | Consultation ---
History of Present Illness General Date patient seen: Oct 09, 2019 Chief Complaint: Dyspnea/Respdistress Referring physician: Isaac Dugan MD Reason for Consultation: Podiatry consult Present Illness Allergies: Coded Allergies: No Known Allergies (Unverified , 09/25/19) Medication History Scheduled Amino Acids/Protein Hydrolys (Pro-Stat Liquid), 30 ML GT TWICE A DAY, (Reported) Carbidopa/Levodopa (Carbidopa-Levo 25-250 Mg Odt), 1 EACH GT THREE TIMES A DAY, (Reported) Docusate Sodium* (Docusate Sodium*), 100 MG GT TWICE A DAY, (Reported) Famotidine* (Pepcid 20mg tablet*), 20 MG GT DAILY, (Reported) Levothyroxine Sodium* (Levothyroxine Sodium*), 25 MCG GT DAILY, (Reported) Mirtazapine* (Remeron*), 15 MG GT BEDTIME, (Reported) Multivitamin With Minerals (Multivitamins With Minerals*), 1 TAB GT DAILY, ( Reported) Sennosides (Senna), 17.2 MG GT BEDTIME, (Reported) Simvastatin (Zocor), 40 MG GT BEDTIME, (Reported) Scheduled PRN Acetaminophen* (Acetaminophen 325MG Tablet*), 650 MG GT Q6H PRN for For Pain, ( Reported) Acetaminophen* (Acetaminophen 325MG Tablet*), 650 MG GT Q6H PRN for TEMP > 100.4 , (Reported) Albuterol Sulfate* (Albuterol Sulfate Hhn*), 3 ML INH Q4H PRN for Shortness of Breath, (Reported) Lactulose (Lactulose*), 30 ML GT EVERY 6 HOURS PRN for Constipation, (Reported) Magnesium Citrate (Magnesium Citrate), 296 ML GT for Constipation, (Reported) Melatonin (Melatonin), 3 MG ORAL BEDTIME PRN for Insomnia, (Reported) Trazodone Hcl* (Desyrel*), 12.5 MG ORAL BEDTIME PRN for insomnia, (Reported) Miscellaneous Medications Cholecalciferol (Vitamin D3) (Vitamin D3), 25 MCG GT, (Reported) Zinc Oxide (Zinc Oxide), 1 APPLIC TOPIC, (Reported) Patient History Healthcare decision maker Resuscitation status Advanced Directive on File Physical Exam General Appearance: lethargic Last 24 Hour Vital Signs Date Time Temp Pulse Resp B/P (MAP) Pulse Ox O2 Delivery O2 Flow Rate FiO2 10/09/19 09:00 Nasal Cannula 3.0 10/09/19 08:40 117/68 10/09/19 08:39 74 117/68 10/09/19 08:00 97.7 74 19 117/68 (84) 96 10/09/19 04:00 97.7 89 22 133/79 (97) 96 10/09/19 00:00 97.9 94 20 115/71 (86) 96 10/08/19 21:00 Nasal Cannula 3.0 10/08/19 20:39 88 114/41 10/08/19 20:00 97.0 88 20 114/41 (65) 92 10/08/19 19:58 94 Nasal Cannula 4.0 36 10/08/19 16:00 97.7 91 20 139/79 (99) 93 10/08/19 12:00 97.7 76 17 122/64 (83) 94 Intake and Output 10/08/19 10/09/19 19:00 07:00 Intake Total 1050 ml 750 ml Output Total 550 ml 650 ml Balance 500 ml 100 ml Free Water 450 ml 200 ml Tube Feeding 600 ml 550 ml Output Urine Total 550 ml 650 ml # Bowel Movements 1 1 Laboratory Tests Test 10/09/19 05:40 White Blood Count 7.3 K/UL (4.8-10.8) Red Blood Count 3.50 M/UL (4.70-6.10) L Hemoglobin 10.0 G/DL (14.2-18.0) L Hematocrit 31.7 % (42.0-52.0) L Mean Corpuscular Volume 91 FL (80-99) Mean Corpuscular Hemoglobin 28.6 PG (27.0-31.0) Mean Corpuscular Hemoglobin Concent 31.6 G/DL (32.0-36.0) L Red Cell Distribution Width 13.7 % (11.6-14.8) Platelet Count 379 K/UL (150-450) Mean Platelet Volume 7.1 FL (6.5-10.1) Neutrophils (%) (Auto) 68.7 % (45.0-75.0) Lymphocytes (%) (Auto) 22.1 % (20.0-45.0) Monocytes (%) (Auto) 6.9 % (1.0-10.0) Eosinophils (%) (Auto) 1.3 % (0.0-3.0) Basophils (%) (Auto) 1.0 % (0.0-2.0) Sodium Level 149 MMOL/L (136-145) H Potassium Level 4.1 MMOL/L (3.5-5.1) Chloride Level 111 MMOL/L (98-107) H Carbon Dioxide Level 28 MMOL/L (21-32) Anion Gap 10 mmol/L (5-15) Blood Urea Nitrogen 36 mg/dL (7-18) H Creatinine 1.0 MG/DL (0.55-1.30) Estimat Glomerular Filtration Rate > 60 mL/min (>60) Glucose Level 119 MG/DL (74-106) H Calcium Level 8.9 MG/DL (8.5-10.1) Phosphorus Level 3.1 MG/DL (2.5-4.9) Magnesium Level 2.2 MG/DL (1.8-2.4) Total Bilirubin 0.2 MG/DL (0.2-1.0) Aspartate Amino Transf (AST/SGOT) 48 U/L (15-37) H Alanine Aminotransferase (ALT/SGPT) 62 U/L (12-78) Alkaline Phosphatase 59 U/L (46-116) C-Reactive Protein, Quantitative 3.1 mg/dL (0.00-0.90) H Total Protein 8.2 G/DL (6.4-8.2) Albumin 2.2 G/DL (3.4-5.0) L Globulin 6.0 g/dL Albumin/Globulin Ratio 0.4 (1.0-2.7) L Height (Feet): 6 Height (Inches): 6.00 Weight (Pounds): 161 Medications Current Medications Medications (Trade) Dose Ordered Sig/Mick Route PRN Reason Start Time Stop Time Status Last Admin Dose Admin Acetaminophen (Tylenol) 650 mg Q6H PRN GT Temp >100.5 10/07/19 15:30 11/02/19 15:29 Aspirin (ASA) 162 mg DAILY GT 10/08/19 09:00 11/10/19 08:59 10/09/19 08:39 Carbidopa/Levodopa (Sinemet 25/250) 1 tab Q8HR GT 10/07/19 22:00 10/26/19 08:59 10/09/19 05:28 Chlorhexidine Gluconate (Park-Hex 2%) 1 applic DAILY@2000 TOPIC 10/07/19 20:00 12/24/19 19:59 10/08/19 21:13 Dextrose (Dextrose 50%) 25 ml Q30M PRN IV Hypoglycemia 10/07/19 15:30 12/24/19 10:29 Dextrose (Dextrose 50%) 50 ml Q30M PRN IV Hypoglycemia 10/07/19 15:30 12/24/19 10:29 Docusate Sodium (Colace) 100 mg TID GT 10/07/19 18:00 11/02/19 18:29 10/09/19 08:39 Heparin Sodium (Porcine) (Heparin 5000 units/ml) 5,000 units EVERY 12 HOURS SUBQ 10/07/19 21:00 11/09/19 20:59 10/09/19 08:41 Lactulose (Cephulac) 30 gm BIDPRN PRN GT Constipation 10/07/19 15:30 10/29/19 15:29 Linezolid (Zyvox) 600 mg EVERY 12 HOURS ORAL 10/07/19 21:00 10/11/19 23:59 10/09/19 08:39 Metoprolol Tartrate (Lopressor) 12.5 mg Q12HR GT 10/07/19 21:00 12/25/19 09:06 10/09/19 08:39 Nitroglycerin (Ntg) 1 patch Q24H TDERMAL 10/08/19 09:30 10/26/19 09:29 10/09/19 08:40 Potassium Chloride (K-Dur) 20 meq TWICE A DAY GT 10/07/19 18:00 01/04/20 12:14 10/09/19 08:39 Quetiapine Fumarate (SEROqueL) 25 mg DAILY ORAL 10/08/19 09:00 11/20/19 14:59 10/09/19 08:39 Objective Narrative Vascular: DP/PT 2/4 b/l, CFT < 3 secs b/l Neuro: Light touch intact b/l MSK: Ft/ankle rom limited but without pain. 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 No ttp noted b/l ft. Derm: Superficial dry eschar distal tip left hallux without surrounding edema, erythema, warmth, discharge, fluctuance or streaking noted. No other preulcerative lesions noted b/l ft. Assessment/Plan Problem List: (1) Acute hyperkalemia ICD Codes: E87.5 - Hyperkalemia SNOMED: 8668633, 914126634 (2) UTI (urinary tract infection) ICD Codes: N39.0 - Urinary tract infection, site not specified SNOMED: 89295099, 784744785 Qualifiers: Qualified Codes: N30.00 - Acute cystitis without hematuria (3) ACS (acute coronary syndrome) ICD Codes: I24.9 - Acute ischemic heart disease, unspecified SNOMED: 250433892, 425817572 (4) Acute metabolic encephalopathy ICD Codes: G93.41 - Metabolic encephalopathy SNOMED: 93542714, 107989784 (5) ARF (acute renal failure) ICD Codes: N17.9 - Acute kidney failure, unspecified SNOMED: 92848457, 027801146 Qualifiers: Qualified Codes: N17.9 - Acute kidney failure, unspecified (6) Respiratory failure with hypoxia ICD Codes: J96.91 - Respiratory failure, unspecified with hypoxia SNOMED: 19253655154613967 Qualifiers: Qualified Codes: J96.01 - Acute respiratory failure with hypoxia (7) HCAP (healthcare-associated pneumonia) ICD Codes: J18.9 - Pneumonia, unspecified organism SNOMED: 326984951, 330643462 (8) Parkinsons disease ICD Codes: G20 - Parkinson's disease SNOMED: 21377414 (9) Elevated troponin I level ICD Codes: R79.89 - Other specified abnormal findings of blood chemistry SNOMED: 839886743 (10) Anemia ICD Codes: D64.9 - Anemia, unspecified SNOMED: 515657960 (11) Hyponatremia ICD Codes: E87.1 - Hypo-osmolality and hyponatremia SNOMED: 47711659, 372962271 (12) Sepsis ICD Codes: A41.9 - Sepsis, unspecified organism SNOMED: 42533230, 478628243 Qualifiers: Qualified Codes: A41.9 - Sepsis, unspecified organism; R65.20 - Severe sepsis without septic shock; N17.9 - Acute kidney failure, unspecified Assessment/Plan: A: Equinus and digital contractures Dry eschar left hallux P: Recommend stretching exercises and decubitus precautions. Thank you Dr. Dugan for this consultation Arlet Gutierrez DPM Oct 09, 2019 11:18
--- NOTE | 2019-10-09 11:28 | NUR ---
NURSE NOTES: Dr. Dugan saw patient on rounds, received orders to DC wrist restraints and apply bilateral mitten restraints. Orders noted and carried out.
[2019-10-09 12:00] VITALS: BP 100/51
--- NOTE | 2019-10-09 12:02 | Infectious Diseases Prog Note ---
Assessment/Plan Assessment/Plan antibiotics : linezolid A 1. pneumonia COVID 19 test negative x 2 2. hypertension 3. Parkinsons disease 4. dementia 5. leucocytosis resolved 6. VRE UTI P 1. continue linezolid 1 more day 2. will follow up cultures Subjective ROS Limited/Unobtainable: Yes Allergies: Coded Allergies: No Known Allergies (Unverified , 09/25/19) Objective Last 24 Hour Vital Signs Date Time Temp Pulse Resp B/P (MAP) Pulse Ox O2 Delivery O2 Flow Rate FiO2 10/09/19 09:00 Nasal Cannula 3.0 10/09/19 08:40 117/68 10/09/19 08:39 74 117/68 10/09/19 08:00 97.7 74 19 117/68 (84) 96 10/09/19 04:00 97.7 89 22 133/79 (97) 96 10/09/19 00:00 97.9 94 20 115/71 (86) 96 10/08/19 21:00 Nasal Cannula 3.0 10/08/19 20:39 88 114/41 10/08/19 20:00 97.0 88 20 114/41 (65) 92 10/08/19 19:58 94 Nasal Cannula 4.0 36 10/08/19 16:00 97.7 91 20 139/79 (99) 93 Height (Feet): 6 Height (Inches): 6.00 Weight (Pounds): 161 Respiratory/Chest: lungs clear Cardiovascular: normal rate, regular rhythm, no gallop/murmur Abdomen: soft, non tender, other - GT Extremities: no edema, other - left arm PICC Laboratory Tests Test 10/09/19 05:40 White Blood Count 7.3 K/UL (4.8-10.8) Red Blood Count 3.50 M/UL (4.70-6.10) L Hemoglobin 10.0 G/DL (14.2-18.0) L Hematocrit 31.7 % (42.0-52.0) L Mean Corpuscular Volume 91 FL (80-99) Mean Corpuscular Hemoglobin 28.6 PG (27.0-31.0) Mean Corpuscular Hemoglobin Concent 31.6 G/DL (32.0-36.0) L Red Cell Distribution Width 13.7 % (11.6-14.8) Platelet Count 379 K/UL (150-450) Mean Platelet Volume 7.1 FL (6.5-10.1) Neutrophils (%) (Auto) 68.7 % (45.0-75.0) Lymphocytes (%) (Auto) 22.1 % (20.0-45.0) Monocytes (%) (Auto) 6.9 % (1.0-10.0) Eosinophils (%) (Auto) 1.3 % (0.0-3.0) Basophils (%) (Auto) 1.0 % (0.0-2.0) Sodium Level 149 MMOL/L (136-145) H Potassium Level 4.1 MMOL/L (3.5-5.1) Chloride Level 111 MMOL/L (98-107) H Carbon Dioxide Level 28 MMOL/L (21-32) Anion Gap 10 mmol/L (5-15) Blood Urea Nitrogen 36 mg/dL (7-18) H Creatinine 1.0 MG/DL (0.55-1.30) Estimat Glomerular Filtration Rate > 60 mL/min (>60) Glucose Level 119 MG/DL (74-106) H Calcium Level 8.9 MG/DL (8.5-10.1) Phosphorus Level 3.1 MG/DL (2.5-4.9) Magnesium Level 2.2 MG/DL (1.8-2.4) Total Bilirubin 0.2 MG/DL (0.2-1.0) Aspartate Amino Transf (AST/SGOT) 48 U/L (15-37) H Alanine Aminotransferase (ALT/SGPT) 62 U/L (12-78) Alkaline Phosphatase 59 U/L (46-116) C-Reactive Protein, Quantitative 3.1 mg/dL (0.00-0.90) H Total Protein 8.2 G/DL (6.4-8.2) Albumin 2.2 G/DL (3.4-5.0) L Globulin 6.0 g/dL Albumin/Globulin Ratio 0.4 (1.0-2.7) L Current Medications Medications (Trade) Dose Ordered Sig/Mick Route PRN Reason Start Time Stop Time Status Last Admin Dose Admin Acetaminophen (Tylenol) 650 mg Q6H PRN GT Temp >100.5 10/07/19 15:30 11/02/19 15:29 Aspirin (ASA) 162 mg DAILY GT 10/08/19 09:00 11/10/19 08:59 10/09/19 08:39 Carbidopa/Levodopa (Sinemet 25/250) 1 tab Q8HR GT 10/07/19 22:00 10/26/19 08:59 10/09/19 05:28 Chlorhexidine Gluconate (Park-Hex 2%) 1 applic DAILY@2000 TOPIC 10/07/19 20:00 12/24/19 19:59 10/08/19 21:13 Dextrose (Dextrose 50%) 25 ml Q30M PRN IV Hypoglycemia 10/07/19 15:30 12/24/19 10:29 Dextrose (Dextrose 50%) 50 ml Q30M PRN IV Hypoglycemia 10/07/19 15:30 12/24/19 10:29 Docusate Sodium (Colace) 100 mg TID GT 10/07/19 18:00 11/02/19 18:29 10/09/19 08:39 Heparin Sodium (Porcine) (Heparin 5000 units/ml) 5,000 units EVERY 12 HOURS SUBQ 10/07/19 21:00 11/09/19 20:59 10/09/19 08:41 Lactulose (Cephulac) 30 gm BIDPRN PRN GT Constipation 10/07/19 15:30 10/29/19 15:29 Linezolid (Zyvox) 600 mg EVERY 12 HOURS ORAL 10/07/19 21:00 10/11/19 23:59 10/09/19 08:39 Metoprolol Tartrate (Lopressor) 12.5 mg Q12HR GT 10/07/19 21:00 12/25/19 09:06 10/09/19 08:39 Nitroglycerin (Ntg) 1 patch Q24H TDERMAL 10/08/19 09:30 10/26/19 09:29 10/09/19 08:40 Potassium Chloride (K-Dur) 20 meq TWICE A DAY GT 10/07/19 18:00 01/04/20 12:14 10/09/19 08:39 Quetiapine Fumarate (SEROqueL) 25 mg DAILY ORAL 10/08/19 09:00 11/20/19 14:59 10/09/19 08:39 Paramjit Silva MD Oct 09, 2019 12:02
--- NOTE | 2019-10-09 12:33 | Surgery Progress Note ---
Surgery Progress Note Subjective Procedure Performed removal of right femoral temp HD catheter Symptoms: improved, pain absent, tolerating diet, voiding well, passing flatus , BM Objective Last 24 Hour Vital Signs Date Time Temp Pulse Resp B/P (MAP) Pulse Ox O2 Delivery O2 Flow Rate FiO2 10/09/19 12:00 98.6 62 20 100/51 (67) 95 10/09/19 09:00 Nasal Cannula 3.0 10/09/19 08:40 117/68 10/09/19 08:39 74 117/68 10/09/19 08:00 97.7 74 19 117/68 (84) 96 10/09/19 04:00 97.7 89 22 133/79 (97) 96 10/09/19 00:00 97.9 94 20 115/71 (86) 96 10/08/19 21:00 Nasal Cannula 3.0 10/08/19 20:39 88 114/41 10/08/19 20:00 97.0 88 20 114/41 (65) 92 10/08/19 19:58 94 Nasal Cannula 4.0 36 10/08/19 16:00 97.7 91 20 139/79 (99) 93 I&O Intake and Output 10/08/19 10/09/19 19:00 07:00 Intake Total 1050 ml 750 ml Output Total 550 ml 650 ml Balance 500 ml 100 ml Free Water 450 ml 200 ml Tube Feeding 600 ml 550 ml Output Urine Total 550 ml 650 ml # Bowel Movements 1 1 Dressing: dry Wound: clean Cardiovascular: RSR Respiratory: clear Abdomen: soft, non-tender, present bowel sounds Extremities: no tenderness, no cyanosis Laboratory Tests Test 10/09/19 05:40 White Blood Count 7.3 K/UL (4.8-10.8) Red Blood Count 3.50 M/UL (4.70-6.10) L Hemoglobin 10.0 G/DL (14.2-18.0) L Hematocrit 31.7 % (42.0-52.0) L Mean Corpuscular Volume 91 FL (80-99) Mean Corpuscular Hemoglobin 28.6 PG (27.0-31.0) Mean Corpuscular Hemoglobin Concent 31.6 G/DL (32.0-36.0) L Red Cell Distribution Width 13.7 % (11.6-14.8) Platelet Count 379 K/UL (150-450) Mean Platelet Volume 7.1 FL (6.5-10.1) Neutrophils (%) (Auto) 68.7 % (45.0-75.0) Lymphocytes (%) (Auto) 22.1 % (20.0-45.0) Monocytes (%) (Auto) 6.9 % (1.0-10.0) Eosinophils (%) (Auto) 1.3 % (0.0-3.0) Basophils (%) (Auto) 1.0 % (0.0-2.0) Sodium Level 149 MMOL/L (136-145) H Potassium Level 4.1 MMOL/L (3.5-5.1) Chloride Level 111 MMOL/L (98-107) H Carbon Dioxide Level 28 MMOL/L (21-32) Anion Gap 10 mmol/L (5-15) Blood Urea Nitrogen 36 mg/dL (7-18) H Creatinine 1.0 MG/DL (0.55-1.30) Estimat Glomerular Filtration Rate > 60 mL/min (>60) Glucose Level 119 MG/DL (74-106) H Calcium Level 8.9 MG/DL (8.5-10.1) Phosphorus Level 3.1 MG/DL (2.5-4.9) Magnesium Level 2.2 MG/DL (1.8-2.4) Total Bilirubin 0.2 MG/DL (0.2-1.0) Aspartate Amino Transf (AST/SGOT) 48 U/L (15-37) H Alanine Aminotransferase (ALT/SGPT) 62 U/L (12-78) Alkaline Phosphatase 59 U/L (46-116) C-Reactive Protein, Quantitative 3.1 mg/dL (0.00-0.90) H Total Protein 8.2 G/DL (6.4-8.2) Albumin 2.2 G/DL (3.4-5.0) L Globulin 6.0 g/dL Albumin/Globulin Ratio 0.4 (1.0-2.7) L Plan Problems: (1) Acute hyperkalemia (2) UTI (urinary tract infection) (3) ACS (acute coronary syndrome) (4) Acute metabolic encephalopathy (5) ARF (acute renal failure) (6) Respiratory failure with hypoxia (7) HCAP (healthcare-associated pneumonia) (8) Parkinsons disease (9) Elevated troponin I level (10) Anemia (11) Hyponatremia (12) Sepsis Assessment & Plan: leukocytosis renal insufficiency improved malnutrition hypo albumin bmi 19 mild edema small hematoma HD site removal Pt presented on admission with MASD Perianal, R and L clefts of buttocks extending to scrotum and groin areas . Skin is erythematous with scattered satellite lesions. Both heels are boggy with non-blanchable erythema. Hammer toe L 2nd metatarsal. Dry callus with surrounding erythema noted to dorsal L 2nd metatarsal . NO exudate or changes in skin temp at site noted. Tx.Plan: Apply Triad Paste to Groin, scrotum and buttocks with each Incontinence care. Cover Sacrum and Bilat trochanter with Optifoam drsgs. Change every 3 days and prn. Apply Cavilon Skin Barrier to both heels and Malleoli. Cover each site with Optifoam drsgs. Change every 7 Days and PRN. Apply Betadine to L 2nd metatarsal every 3 days and prn. Reposition at least every 2hours or as tolerated. Place pillow between knees. Off-load heels with pillow. APM/ARNOLD Mattress overlay. nutritional optimization monitor site. resolving hematoma improved d/c planning Walter Bacon Oct 09, 2019 12:33
--- NOTE | 2019-10-09 12:45 | NUR ---
DISCHARGE PLANNING PATIENT HAS BEEN REFERRED BACK TO [facility] P: [phone] F: [phone]
--- NOTE | 2019-10-09 13:11 | Nephrology Progress Note ---
Assessment/Plan Problem List: (1) ARF (acute renal failure) (2) Acute hyperkalemia (3) Respiratory failure with hypoxia (4) HCAP (healthcare-associated pneumonia) (5) Acute metabolic encephalopathy (6) Parkinsons disease (7) Elevated troponin I level (8) Anemia Assessment Renal failure, acute, possible underlying chronic kidney disease Sepsis, pneumonia, UTI Acute respiratory failure with hypoxia Hyponatremia ACS Acute metabolic encephalopathy Has G-tube Hypothyroidism Parkinson's Plan October 08: Labs reviewed. Renal parameters stable. Continue per consultants. Medication list reviewed. October 07: No labs drawn today. Will check renal parameters tomorrow. Continue per consultants. October 06: No labs drawn today. Remains stable from renal standpoint of view. October 05: Lab reviewed. Potassium supplement ordered. Stable from renal standpoint of view. Continue per consultants. October 04: No labs drawn today. Remains stable from renal standpoint of view. Continue per consultants. October 03: Labs reviewed. Potassium supplement given. Remains stable from renal standpoint of view. October 02: No chem panel drawn today. Remains stable from renal standpoint of view. We will continue to monitor electrolytes. Continue per consultants. Patient remains full code. October 01: Lab reviewed. Potassium low, sodium slightly elevated. D5W bolus IV , and potassium chloride IV ordered. Continue per consultants. September 30: COVERAGE FOR DR. GONZALEZ ( Int Med), labs reviewed, medications reviewed. Potassium supplement and free water in the form of D5W IV ordered. Continue per current management. September 29: COVERAGE FOR DR. GONZALEZ ( Int Med) , status quo, labs reviewed. White blood cells lowering. Medications reviewed. Stable. Continue per consultants. No more antibiotics at this time. Will recheck urine analysis and culture September 28: Patient appears stable. No further dialysis needed so the femoral catheter can be discontinued. Will check labs tomorrow if still in the house. September 27: Lab reviewed. Hemoglobin stable. Renal parameters stable. Electrolyte supplement ordered. No further dialysis needed. Continue per consultants. September 26: Hemoglobin lower. Renal parameters stable. Potassium phosphate IV given. Anemia work-up initiated. Continue per consultants. No further need for dialysis at this time. Kidney ultrasound reviewed. Acute renal failure and hyperkalemia is now resolved. Previously: Aspirin, Lopressor, Nitropaste, started Patient was dialyzed yesterday today hyperkalemia is resolved 2D echocardiogram results noted. No number for ejection fraction is documented. Kidney ultrasound results pending. Discussed with SHANNAN Faulkner. Continue to monitor renal parameters and dialysis as needed. Per orders Subjective ROS Limited/Unobtainable: No Constitutional: Reports: malaise Objective Objective Last 24 Hour Vital Signs Date Time Temp Pulse Resp B/P (MAP) Pulse Ox O2 Delivery O2 Flow Rate FiO2 10/09/19 12:00 98.6 62 20 100/51 (67) 95 10/09/19 09:00 Nasal Cannula 3.0 10/09/19 08:40 117/68 10/09/19 08:39 74 117/68 10/09/19 08:00 97.7 74 19 117/68 (84) 96 10/09/19 04:00 97.7 89 22 133/79 (97) 96 10/09/19 00:00 97.9 94 20 115/71 (86) 96 10/08/19 21:00 Nasal Cannula 3.0 10/08/19 20:39 88 114/41 10/08/19 20:00 97.0 88 20 114/41 (65) 92 10/08/19 19:58 94 Nasal Cannula 4.0 36 10/08/19 16:00 97.7 91 20 139/79 (99) 93 Intake and Output 10/08/19 10/09/19 19:00 07:00 Intake Total 1050 ml 750 ml Output Total 550 ml 650 ml Balance 500 ml 100 ml Free Water 450 ml 200 ml Tube Feeding 600 ml 550 ml Output Urine Total 550 ml 650 ml # Bowel Movements 1 1 Current Medications Medications (Trade) Dose Ordered Sig/Mick Route PRN Reason Start Time Stop Time Status Last Admin Dose Admin Acetaminophen (Tylenol) 650 mg Q6H PRN GT Temp >100.5 10/07/19 15:30 11/02/19 15:29 Aspirin (ASA) 162 mg DAILY GT 10/08/19 09:00 11/10/19 08:59 10/09/19 08:39 Carbidopa/Levodopa (Sinemet 25/250) 1 tab Q8HR GT 10/07/19 22:00 10/26/19 08:59 10/09/19 05:28 Chlorhexidine Gluconate (Park-Hex 2%) 1 applic DAILY@2000 TOPIC 10/07/19 20:00 12/24/19 19:59 10/08/19 21:13 Dextrose (Dextrose 50%) 25 ml Q30M PRN IV Hypoglycemia 10/07/19 15:30 12/24/19 10:29 Dextrose (Dextrose 50%) 50 ml Q30M PRN IV Hypoglycemia 10/07/19 15:30 12/24/19 10:29 Docusate Sodium (Colace) 100 mg TID GT 10/07/19 18:00 11/02/19 18:29 10/09/19 08:39 Heparin Sodium (Porcine) (Heparin 5000 units/ml) 5,000 units EVERY 12 HOURS SUBQ 10/07/19 21:00 11/09/19 20:59 10/09/19 08:41 Lactulose (Cephulac) 30 gm BIDPRN PRN GT Constipation 10/07/19 15:30 10/29/19 15:29 Linezolid (Zyvox) 600 mg EVERY 12 HOURS ORAL 10/07/19 21:00 10/11/19 23:59 10/09/19 08:39 Metoprolol Tartrate (Lopressor) 12.5 mg Q12HR GT 10/07/19 21:00 12/25/19 09:06 10/09/19 08:39 Nitroglycerin (Ntg) 1 patch Q24H TDERMAL 10/08/19 09:30 10/26/19 09:29 10/09/19 08:40 Potassium Chloride (K-Dur) 20 meq TWICE A DAY GT 10/07/19 18:00 01/04/20 12:14 10/09/19 08:39 Quetiapine Fumarate (SEROqueL) 25 mg DAILY ORAL 10/08/19 09:00 11/20/19 14:59 10/09/19 08:39 Laboratory Tests 10/09/19 05:40: White Blood Count 7.3, Red Blood Count 3.50L, Hemoglobin 10.0L, Hematocrit 31.7L , Mean Corpuscular Volume 91, Mean Corpuscular Hemoglobin 28.6, Mean Corpuscular Hemoglobin Concent 31.6L, Red Cell Distribution Width 13.7, Platelet Count 379, Mean Platelet Volume 7.1, Neutrophils (%) (Auto) 68.7, Lymphocytes (%) (Auto) 22.1, Monocytes (%) (Auto) 6.9, Eosinophils (%) (Auto) 1.3, Basophils (%) (Auto) 1.0, Sodium Level 149H, Potassium Level 4.1, Chloride Level 111H, Carbon Dioxide Level 28, Anion Gap 10, Blood Urea Nitrogen 36H, Creatinine 1.0, Estimat Glomerular Filtration Rate > 60, Glucose Level 119H, Calcium Level 8.9, Phosphorus Level 3.1, Magnesium Level 2.2, Total Bilirubin 0.2, Aspartate Amino Transf (AST/SGOT) 48H, Alanine Aminotransferase (ALT/SGPT) 62, Alkaline Phosphatase 59, C-Reactive Protein, Quantitative 3.1H, Total Protein 8.2, Albumin 2.2L, Globulin 6.0, Albumin/Globulin Ratio 0.4L Height (Feet): 6 Height (Inches): 6.00 Weight (Pounds): 161 General Appearance: no apparent distress Cardiovascular: normal rate Respiratory/Chest: decreased breath sounds Abdomen: soft Objective No change Ezekiel aRchel MD Oct 09, 2019 13:11
--- NOTE | 2019-10-09 14:47 | Cardiac Electrophysiology PN ---
Assessment/Plan Assessment/Plan 1. NSTEMI type 2 in the setting of renal failure. Nonverbal and has electrolyte abnormality. Normal EF. On aspirin and metoprolol 12.5 mg b.i.d. 2. Hyponatremia 3. Severe EKG abnormality due to hyperkalemia, potassium of 9, that resolved after dialysis. 4. S/P Acute renal failure. S/P hemodialysis and now resolved and the dialysis catheter was removed. 5. Hypertension, on metoprolol. 6. PNA and Respiratory failure with hypoxemia.On Zivox 600 bid 7. Parkinson disease. 8. Anemia. 9. Dysphagia, status post PEG placement. WILEY RN Subjective Subjective In restraints and confused GT feeding ongoing Objective Last 24 Hour Vital Signs Date Time Temp Pulse Resp B/P (MAP) Pulse Ox O2 Delivery O2 Flow Rate FiO2 10/09/19 12:00 98.6 62 20 100/51 (67) 95 10/09/19 09:00 Nasal Cannula 3.0 10/09/19 08:40 117/68 10/09/19 08:39 74 117/68 10/09/19 08:00 97.7 74 19 117/68 (84) 96 10/09/19 04:00 97.7 89 22 133/79 (97) 96 10/09/19 00:00 97.9 94 20 115/71 (86) 96 10/08/19 21:00 Nasal Cannula 3.0 10/08/19 20:39 88 114/41 10/08/19 20:00 97.0 88 20 114/41 (65) 92 10/08/19 19:58 94 Nasal Cannula 4.0 36 10/08/19 16:00 97.7 91 20 139/79 (99) 93 Intake and Output 10/08/19 10/09/19 19:00 07:00 Intake Total 1050 ml 800 ml Output Total 550 ml 650 ml Balance 500 ml 150 ml Free Water 450 ml 200 ml Tube Feeding 600 ml 600 ml Output Urine Total 550 ml 650 ml # Bowel Movements 1 1 Laboratory Tests Test 10/09/19 05:40 White Blood Count 7.3 K/UL (4.8-10.8) Red Blood Count 3.50 M/UL (4.70-6.10) L Hemoglobin 10.0 G/DL (14.2-18.0) L Hematocrit 31.7 % (42.0-52.0) L Mean Corpuscular Volume 91 FL (80-99) Mean Corpuscular Hemoglobin 28.6 PG (27.0-31.0) Mean Corpuscular Hemoglobin Concent 31.6 G/DL (32.0-36.0) L Red Cell Distribution Width 13.7 % (11.6-14.8) Platelet Count 379 K/UL (150-450) Mean Platelet Volume 7.1 FL (6.5-10.1) Neutrophils (%) (Auto) 68.7 % (45.0-75.0) Lymphocytes (%) (Auto) 22.1 % (20.0-45.0) Monocytes (%) (Auto) 6.9 % (1.0-10.0) Eosinophils (%) (Auto) 1.3 % (0.0-3.0) Basophils (%) (Auto) 1.0 % (0.0-2.0) Sodium Level 149 MMOL/L (136-145) H Potassium Level 4.1 MMOL/L (3.5-5.1) Chloride Level 111 MMOL/L (98-107) H Carbon Dioxide Level 28 MMOL/L (21-32) Anion Gap 10 mmol/L (5-15) Blood Urea Nitrogen 36 mg/dL (7-18) H Creatinine 1.0 MG/DL (0.55-1.30) Estimat Glomerular Filtration Rate > 60 mL/min (>60) Glucose Level 119 MG/DL (74-106) H Calcium Level 8.9 MG/DL (8.5-10.1) Phosphorus Level 3.1 MG/DL (2.5-4.9) Magnesium Level 2.2 MG/DL (1.8-2.4) Total Bilirubin 0.2 MG/DL (0.2-1.0) Aspartate Amino Transf (AST/SGOT) 48 U/L (15-37) H Alanine Aminotransferase (ALT/SGPT) 62 U/L (12-78) Alkaline Phosphatase 59 U/L (46-116) C-Reactive Protein, Quantitative 3.1 mg/dL (0.00-0.90) H Total Protein 8.2 G/DL (6.4-8.2) Albumin 2.2 G/DL (3.4-5.0) L Globulin 6.0 g/dL Albumin/Globulin Ratio 0.4 (1.0-2.7) L Objective HEAD AND NECK: No JVD. LUNGS: Decreased breath sounds. CARDIOVASCULAR: Regular S1 and S2 with no gallop or rub. ABDOMEN: Soft, status post G-tube. EXTREMITIES: No pitting edema. Gómez Brewster MD Oct 09, 2019 14:47
--- NOTE | 2019-10-09 15:02 | NUR ---
*-*DISCHARGE PLANNED*-* PATIENT HAS BEEN ACCEPTED AND WILL BE DISCHARGE BACK TO [facility] P: [phone] FOR NURSE TO NURSE ROOM# 51.A SKILLED [facility] TRANSPORTATION SET FOR 4PM S/W [facility] [id number] S/W PATIENTS HANNAH NORTH, WHO IS IN AGREEMENT WITH DISCHARGE PLAN.
--- NOTE | 2019-10-09 15:11 | NUR ---
*-*DISCHARGE PLANNED*-* ~~~~~~~~~CORRECT DISCHARGE LOCATION~~~~~~~~~ [facility] [place] P: [phone] FOR NURSE TO NURSE ROOM# 51.A SKILLED Addendum: 10/09/19 at 1515 by THO [facility] LOCATION
--- NOTE | 2019-10-09 15:13 | NUR ---
*-*DISCHARGE PLANNED*-* PATIENT HAS BEEN ACCEPTED AND WILL BE DISCHARGE BACK TO [facility] P: [phone] FOR NURSE TO NURSE REPORT ROOM# 51.A SKILLED [facility] TRANSPORTATION SET FOR 4PM S/W [facility] [id number] S/W PATIENTS HANNAH NORTH, WHO IS IN AGREEMENT WITH DISCHARGE PLAN.
[2019-10-09 16:00] VITALS: BP 100/61
--- NOTE | 2019-10-09 17:01 | NUR ---
NURSE NOTES: [facility] will no longer accept patient for discharge. Ruma Padilla notified.
--- NOTE | 2019-10-09 19:20 | NUR ---
NURSE HAND-OFF: Important Events on Shift: SNF not longer accepted patient, D/C pending placement Patient Status: Stable Diet: Nepro 1.8 Pending Orders: N/A Pending Results/Labs:N/A Pending MD notification:N/A Latest Vital Signs: Temperature 98.3 , Pulse 65 , B/P 100 /61 , Respiratory Rate 18 , O2 SAT 97 , Nasal Cannula, O2 Flow Rate 3.0 . Vital Sign Comment: Latest Shane Fall Score: 75 Fall Risk: High Risk Safety Measures: Call light Within Reach, Bed Alarm Zone 2, Side Rails Side Rails x3, Bed position Low and Locked. Fall Precautions: Yellow Socks Yellow Gown Door Sign Patient Fall Education Report given to Kristin CAMPBELL.
--- NOTE | 2019-10-09 19:50 | NUR ---
NURSE NOTES: Received patient awake in bed, no s/s of acute distress. Bilateral soft mittens noted on hands, patient non combative, passive, tolerating mittens well. G tube feeding noted, patent. PICC on left upper arm, bob hex bath given. On P200 mattress, bed low and locked.
[2019-10-09 20:00] VITALS: BP 107/72
[2019-10-09] MEDS: Dyna-Hex 2% Top Sol 2oz TOPIC SCH (20:14)
[2019-10-10] VITALS: BP 108/68
[2019-10-10 04:00] VITALS: BP 121/81
[2019-10-10] MEDS: Levodopa/Carbidopa 25/250 tab GT SCH ×2 (05:09→13:51)
--- NOTE | 2019-10-10 07:25 | NUR ---
HAND-OFF: Report given to SHANNAN Junior. Patient's high fall risk endorsed.
--- NOTE | 2019-10-10 07:36 | NUR ---
NURSE NOTES: Report received from SHANNAN Foster. Patient seen on rounds, AAOx1, restless, not in distress, no outward sx of pain noted at this time. patient on NC 3L/M. PICC on TRACY patent and intact. Gtube patent and infusing Nepro 1.8@ 50ml/hr. Montalvo cath secured and draining well. Bilateral mitten restraints noted, good circulation with palpable pulses. Pt is high fall risk, precautions in place, patient's room is placed near nursing station. Bed low and locked, siderails up x2, zone alarms on zone 2, will continue to monitor.
[2019-10-10 08:00] VITALS: BP 118/62
[2019-10-10] MEDS: Aspirin Baby 81mg GT SCH (09:42)
[2019-10-10] MEDS: Metoprolol Tartrate 12.5mg TAB GT SCH (09:42)
[2019-10-10] MEDS: Docusate 100mg/10ml Liq GT SCH ×2 (09:42→13:51)
[2019-10-10] MEDS: Nitroglycerin Patch 0.4mg TDERMAL SCH (09:43)
[2019-10-10] MEDS: Heparin 5000 units/ml inj SUBQ SCH (09:44)
--- NOTE | 2019-10-10 10:22 | Pulmonology Progress Note ---
Subjective ROS Limited/Unobtainable: No Interval Events: Down to 5L/min O2 Constitutional: Denies: fever HEENT: Repors: no symptoms Respiratory: Reports: no symptoms Cardiovascular: Reports: no symptoms Gastrointestinal/Abdominal: Reports: no symptoms Musculoskeletal: Denies: pain Allergies: Coded Allergies: No Known Allergies (Unverified , 09/25/19) Objective Last 24 Hour Vital Signs Date Time Temp Pulse Resp B/P (MAP) Pulse Ox O2 Delivery O2 Flow Rate FiO2 10/10/19 09:43 118/62 10/10/19 09:42 80 118/62 10/10/19 08:00 98.0 80 20 118/62 (80) 96 10/10/19 04:00 97.7 62 18 121/81 (94) 96 10/10/19 00:00 97.4 62 18 108/68 (81) 96 10/09/19 21:24 Nasal Cannula 3.0 10/09/19 20:34 96 Nasal Cannula 4.0 36 10/09/19 20:14 65 100/61 10/09/19 20:00 97.6 66 16 107/72 (84) 97 10/09/19 16:00 98.3 65 18 100/61 (74) 97 10/09/19 12:00 98.6 62 20 100/51 (67) 95 Intake and Output 10/09/19 10/10/19 19:00 07:00 Intake Total 550 ml 670 ml Output Total 600 ml Balance 550 ml 70 ml Free Water 100 ml 120 ml Tube Feeding 450 ml 550 ml Output Urine Total 600 ml # Voids 1 # Bowel Movements 1 General Appearance: cachetic HEENT: normocephalic Respiratory: chest wall non-tender, rhonchi - bilaterally Cardiovascular: normal peripheral pulses, normal rate, regular rhythm Abdomen: normal bowel sounds Extremities: other Current Medications Medications (Trade) Dose Ordered Sig/Mick Route PRN Reason Start Time Stop Time Status Last Admin Dose Admin Acetaminophen (Tylenol) 650 mg Q6H PRN GT Temp >100.5 10/07/19 15:30 11/02/19 15:29 Aspirin (ASA) 162 mg DAILY GT 10/08/19 09:00 11/10/19 08:59 10/10/19 09:42 Carbidopa/Levodopa (Sinemet 25/250) 1 tab Q8HR GT 10/07/19 22:00 10/26/19 08:59 10/10/19 05:09 Chlorhexidine Gluconate (Park-Hex 2%) 1 applic DAILY@2000 TOPIC 10/07/19 20:00 12/24/19 19:59 10/09/19 20:14 Dextrose (Dextrose 50%) 25 ml Q30M PRN IV Hypoglycemia 10/07/19 15:30 12/24/19 10:29 Dextrose (Dextrose 50%) 50 ml Q30M PRN IV Hypoglycemia 10/07/19 15:30 12/24/19 10:29 Docusate Sodium (Colace) 100 mg TID GT 10/07/19 18:00 11/02/19 18:29 10/10/19 09:42 Heparin Sodium (Porcine) (Heparin 5000 units/ml) 5,000 units EVERY 12 HOURS SUBQ 10/07/19 21:00 11/09/19 20:59 10/10/19 09:44 Lactulose (Cephulac) 30 gm BIDPRN PRN GT Constipation 10/07/19 15:30 10/29/19 15:29 Linezolid (Zyvox) 600 mg EVERY 12 HOURS ORAL 10/07/19 21:00 10/11/19 23:59 10/10/19 09:42 Metoprolol Tartrate (Lopressor) 12.5 mg Q12HR GT 10/07/19 21:00 12/25/19 09:06 10/10/19 09:42 Nitroglycerin (Ntg) 1 patch Q24H TDERMAL 10/08/19 09:30 10/26/19 09:29 10/10/19 09:43 Potassium Chloride (K-Dur) 20 meq TWICE A DAY GT 10/07/19 18:00 01/04/20 12:14 10/10/19 09:42 Quetiapine Fumarate (SEROqueL) 25 mg DAILY ORAL 10/08/19 09:00 11/20/19 14:59 10/10/19 09:42 Assessment/Plan Assessment/Plan IMPRESSION: 1. Healthcare-associated pneumonia. 2. Acute renal failure. Resolved 3. History of previous SBO. 4. CAD. 5. Parkinson's. 6. Dementia. 7. Hyperkalemia, corrected 8. Shock; pressors dc DISCUSSION: Underwent urgent hemodialysis. No longer needed Pressors no longer required Broad-spectrum antibiotics. I will follow carefully. Discussed with Will decrease FiO2 as tolerated check CXR awaiting placement. Discussed with piano case maker, bi tester and nurse Will leave wong in place Will dc restraints; kayy MENA Ren Uriostegui Omar Syed MD Oct 10, 2019 10:22
--- NOTE | 2019-10-10 10:39 | Infectious Diseases Prog Note ---
Assessment/Plan Assessment/Plan antibiotics : linezolid A 1. pneumonia COVID 19 test negative x 2 2. hypertension 3. Parkinsons disease 4. dementia 5. leucocytosis resolved 6. VRE UTI s/p rx P 1. d/c linezolid 2. observe off antibiotics 3. will follow up cultures Subjective ROS Limited/Unobtainable: Yes Allergies: Coded Allergies: No Known Allergies (Unverified , 09/25/19) Objective Last 24 Hour Vital Signs Date Time Temp Pulse Resp B/P (MAP) Pulse Ox O2 Delivery O2 Flow Rate FiO2 10/10/19 09:43 118/62 10/10/19 09:42 80 118/62 10/10/19 08:00 98.0 80 20 118/62 (80) 96 10/10/19 04:00 97.7 62 18 121/81 (94) 96 10/10/19 00:00 97.4 62 18 108/68 (81) 96 10/09/19 21:24 Nasal Cannula 3.0 10/09/19 20:34 96 Nasal Cannula 4.0 36 10/09/19 20:14 65 100/61 10/09/19 20:00 97.6 66 16 107/72 (84) 97 10/09/19 16:00 98.3 65 18 100/61 (74) 97 10/09/19 12:00 98.6 62 20 100/51 (67) 95 Height (Feet): 6 Height (Inches): 6.00 Weight (Pounds): 159 HEENT: status post trach Respiratory/Chest: lungs clear Cardiovascular: normal rate, regular rhythm, no gallop/murmur Abdomen: soft, non tender, other - GT Extremities: no edema Current Medications Medications (Trade) Dose Ordered Sig/Mick Route PRN Reason Start Time Stop Time Status Last Admin Dose Admin Acetaminophen (Tylenol) 650 mg Q6H PRN GT Temp >100.5 10/07/19 15:30 11/02/19 15:29 Aspirin (ASA) 162 mg DAILY GT 10/08/19 09:00 11/10/19 08:59 10/10/19 09:42 Carbidopa/Levodopa (Sinemet 25/250) 1 tab Q8HR GT 10/07/19 22:00 10/26/19 08:59 10/10/19 05:09 Chlorhexidine Gluconate (Park-Hex 2%) 1 applic DAILY@2000 TOPIC 10/07/19 20:00 12/24/19 19:59 10/09/19 20:14 Dextrose (Dextrose 50%) 25 ml Q30M PRN IV Hypoglycemia 10/07/19 15:30 12/24/19 10:29 Dextrose (Dextrose 50%) 50 ml Q30M PRN IV Hypoglycemia 10/07/19 15:30 12/24/19 10:29 Docusate Sodium (Colace) 100 mg TID GT 10/07/19 18:00 11/02/19 18:29 10/10/19 09:42 Heparin Sodium (Porcine) (Heparin 5000 units/ml) 5,000 units EVERY 12 HOURS SUBQ 10/07/19 21:00 11/09/19 20:59 10/10/19 09:44 Lactulose (Cephulac) 30 gm BIDPRN PRN GT Constipation 10/07/19 15:30 10/29/19 15:29 Linezolid (Zyvox) 600 mg EVERY 12 HOURS ORAL 10/07/19 21:00 10/11/19 23:59 10/10/19 09:42 Metoprolol Tartrate (Lopressor) 12.5 mg Q12HR GT 10/07/19 21:00 12/25/19 09:06 10/10/19 09:42 Nitroglycerin (Ntg) 1 patch Q24H TDERMAL 10/08/19 09:30 10/26/19 09:29 10/10/19 09:43 Potassium Chloride (K-Dur) 20 meq TWICE A DAY GT 10/07/19 18:00 01/04/20 12:14 10/10/19 09:42 Quetiapine Fumarate (SEROqueL) 25 mg DAILY ORAL 10/08/19 09:00 11/20/19 14:59 10/10/19 09:42 Paramjit Silva MD Oct 10, 2019 10:39
--- NOTE | 2019-10-10 10:45 | Nephrology Progress Note ---
Assessment/Plan Problem List: (1) ARF (acute renal failure) (2) Acute hyperkalemia (3) Respiratory failure with hypoxia (4) HCAP (healthcare-associated pneumonia) (5) Acute metabolic encephalopathy (6) Parkinsons disease (7) Elevated troponin I level (8) Anemia Assessment Renal failure, acute, possible underlying chronic kidney disease Sepsis, pneumonia, UTI Acute respiratory failure with hypoxia Hyponatremia ACS Acute metabolic encephalopathy Has G-tube Hypothyroidism Parkinson's Plan October 09: No labs drawn today. Remains stable from renal standpoint of view. Continue per consultants. If in-house will check lab tomorrow. October 08: Labs reviewed. Renal parameters stable. Continue per consultants. Medication list reviewed. October 07: No labs drawn today. Will check renal parameters tomorrow. Continue per consultants. October 06: No labs drawn today. Remains stable from renal standpoint of view. October 05: Lab reviewed. Potassium supplement ordered. Stable from renal standpoint of view. Continue per consultants. October 04: No labs drawn today. Remains stable from renal standpoint of view. Continue per consultants. October 03: Labs reviewed. Potassium supplement given. Remains stable from renal standpoint of view. October 02: No chem panel drawn today. Remains stable from renal standpoint of view. We will continue to monitor electrolytes. Continue per consultants. Patient remains full code. October 01: Lab reviewed. Potassium low, sodium slightly elevated. D5W bolus IV , and potassium chloride IV ordered. Continue per consultants. September 30: COVERAGE FOR DR. GONZALEZ ( Int Med), labs reviewed, medications reviewed. Potassium supplement and free water in the form of D5W IV ordered. Continue per current management. September 29: COVERAGE FOR DR. GONZALEZ ( Int Med) , status quo, labs reviewed. White blood cells lowering. Medications reviewed. Stable. Continue per consultants. No more antibiotics at this time. Will recheck urine analysis and culture September 28: Patient appears stable. No further dialysis needed so the femoral catheter can be discontinued. Will check labs tomorrow if still in the house. September 27: Lab reviewed. Hemoglobin stable. Renal parameters stable. Electrolyte supplement ordered. No further dialysis needed. Continue per consultants. September 26: Hemoglobin lower. Renal parameters stable. Potassium phosphate IV given. Anemia work-up initiated. Continue per consultants. No further need for dialysis at this time. Kidney ultrasound reviewed. Acute renal failure and hyperkalemia is now resolved. Previously: Aspirin, Lopressor, Nitropaste, started Patient was dialyzed yesterday today hyperkalemia is resolved 2D echocardiogram results noted. No number for ejection fraction is documented. Kidney ultrasound results pending. Discussed with SHANNAN Faulkner. Continue to monitor renal parameters and dialysis as needed. Per orders Subjective ROS Limited/Unobtainable: No Constitutional: Reports: malaise, weakness Objective Objective Last 24 Hour Vital Signs Date Time Temp Pulse Resp B/P (MAP) Pulse Ox O2 Delivery O2 Flow Rate FiO2 10/10/19 09:43 118/62 10/10/19 09:42 80 118/62 10/10/19 09:00 Nasal Cannula 3.0 10/10/19 08:00 98.0 80 20 118/62 (80) 96 10/10/19 04:00 97.7 62 18 121/81 (94) 96 10/10/19 00:00 97.4 62 18 108/68 (81) 96 10/09/19 21:24 Nasal Cannula 3.0 10/09/19 20:34 96 Nasal Cannula 4.0 36 10/09/19 20:14 65 100/61 10/09/19 20:00 97.6 66 16 107/72 (84) 97 10/09/19 16:00 98.3 65 18 100/61 (74) 97 10/09/19 12:00 98.6 62 20 100/51 (67) 95 Intake and Output 10/09/19 10/10/19 19:00 07:00 Intake Total 550 ml 670 ml Output Total 600 ml Balance 550 ml 70 ml Free Water 100 ml 120 ml Tube Feeding 450 ml 550 ml Output Urine Total 600 ml # Voids 1 # Bowel Movements 1 No labs drawn today Height (Feet): 6 Height (Inches): 6.00 Weight (Pounds): 159 General Appearance: no apparent distress, lethargic Cardiovascular: normal rate - Rate 80s Respiratory/Chest: decreased breath sounds Abdomen: distended Objective No change Ezekiel Rachel MD Oct 10, 2019 10:45
[2019-10-10 12:00] VITALS: BP 10/73
--- NOTE | 2019-10-10 12:30 | NUR ---
NURSE NOTES:WOUND CARE FOLLOW-UP NOTES:Incontinence Associated Dermatitis has resolved.Partial thickness wound noted to posterior L ear. erythema noted to cleft of R ear. Oxygen tubing padded with Optifoam drsgs. Bilat groin, scrotum and buttocks are pink and dry. No evidence of skin breakdown noted . Bilat heels are pink and easily blanchable. Pt is very restless in bed and Optifoam drsgs applied to bony prominences such as both hips, Sacrum, Bilat heels and malleoli to minimize friction.NO other skin concerns noted.
[2019-10-10 14:00] VITALS: BP 103/73
--- NOTE | 2019-10-10 14:07 | NUR ---
POSITION CLASSIFICATION SPECIALIST NOTE CALL MADE TO TREMAINE CHACON @ [facility] [phone] (DIRECT #). INFORMED PATIENT NOT ACCEPTED TO [facility] AT TIME OF DC YESTERDAY. PROVIDED THE FOLLOWING SNF INFO TO REFER PATIENT. [facility] P: [phone] F: [phone]
--- NOTE | 2019-10-10 14:10 | Surgery Progress Note ---
Surgery Progress Note Subjective Procedure Performed removal of right femoral temp HD catheter Additional Comments no acute events comfortable improving lasb improved Objective Last 24 Hour Vital Signs Date Time Temp Pulse Resp B/P (MAP) Pulse Ox O2 Delivery O2 Flow Rate FiO2 10/10/19 14:00 97.9 83 20 103/73 (83) 94 10/10/19 12:00 97.9 83 20 10/73 (52) 94 10/10/19 09:55 96 Nasal Cannula 4.0 36 10/10/19 09:43 118/62 10/10/19 09:42 80 118/62 10/10/19 09:00 Nasal Cannula 3.0 10/10/19 08:00 98.0 80 20 118/62 (80) 96 10/10/19 04:00 97.7 62 18 121/81 (94) 96 10/10/19 00:00 97.4 62 18 108/68 (81) 96 10/09/19 21:24 Nasal Cannula 3.0 10/09/19 20:34 96 Nasal Cannula 4.0 36 10/09/19 20:14 65 100/61 10/09/19 20:00 97.6 66 16 107/72 (84) 97 10/09/19 16:00 98.3 65 18 100/61 (74) 97 I&O Intake and Output 10/09/19 10/10/19 19:00 07:00 Intake Total 550 ml 670 ml Output Total 600 ml Balance 550 ml 70 ml Free Water 100 ml 120 ml Tube Feeding 450 ml 550 ml Output Urine Total 600 ml # Voids 1 # Bowel Movements 1 Dressing: dry Wound: clean Cardiovascular: RSR Respiratory: decreased breath sounds Abdomen: soft, non-tender, present bowel sounds Extremities: no tenderness, no cyanosis Plan Problems: (1) Acute hyperkalemia (2) UTI (urinary tract infection) (3) ACS (acute coronary syndrome) (4) Acute metabolic encephalopathy (5) ARF (acute renal failure) (6) Respiratory failure with hypoxia (7) HCAP (healthcare-associated pneumonia) (8) Parkinsons disease (9) Elevated troponin I level (10) Anemia (11) Hyponatremia (12) Sepsis Assessment & Plan: leukocytosis renal insufficiency improved malnutrition hypo albumin bmi 19 mild edema small hematoma HD site removal Pt presented on admission with MASD Perianal, R and L clefts of buttocks extending to scrotum and groin areas . Skin is erythematous with scattered satellite lesions. Both heels are boggy with non-blanchable erythema. Hammer toe L 2nd metatarsal. Dry callus with surrounding erythema noted to dorsal L 2nd metatarsal . NO exudate or changes in skin temp at site noted. Tx.Plan: Apply Triad Paste to Groin, scrotum and buttocks with each Incontinence care. Cover Sacrum and Bilat trochanter with Optifoam drsgs. Change every 3 days and prn. Apply Cavilon Skin Barrier to both heels and Malleoli. Cover each site with Optifoam drsgs. Change every 7 Days and PRN. Apply Betadine to L 2nd metatarsal every 3 days and prn. Reposition at least every 2hours or as tolerated. Place pillow between knees. Off-load heels with pillow. APM/ARNOLD Mattress overlay. nutritional optimization monitor site. resolving hematoma improved d/c planning Walter Bacon Oct 10, 2019 14:10
--- NOTE | 2019-10-10 14:44 | NUR ---
DISCHARGE PLANNING FOLLOW UP CALL MADE TO [facility]. S/W [facility]. CONFIRMED THEY ARE ABLE TO ACCEPT PATIENT. SHE WILL CALL TREMAINE CHACON AT [facility] TO OBTAIN AUTH AND FOLLOW OP WITH THIS CM. Addendum: 10/10/19 at 1450 by ALLISON ORDAZ LVN LVN PER [facility], PATIENT WILL ADMIT TO BED 308-B SKILLED RN TO CALL [facility] [phone] FOR RN TO RN REPORT
--- NOTE | 2019-10-10 15:06 | NUR ---
*-*DISCHARGE PLANNED*-* PATIENT HAS BEEN ACCEPTED AND WILL BE DISCHARGED: [facility] P: [phone] FOR NURSE TO NURSE REPORT BED 308-B SKILLED [facility] TRANSPORTATION SET FOR 4:30PM S/W JUNI [id number] S/W PATIENTS HANNAH NORTH, WHO IS IN AGREEMENT WITH DISCHARGE PLAN.
[2019-10-10 16:00] VITALS: BP 115/68
--- NOTE | 2019-10-10 16:11 | NUR ---
NURSE NOTES: RN called [facility] and spoke with Amparo and gave report for patient. RN made amparo aware that patient has a G-tube running nephro 1.8 @50cc, also made aware that patient has PICC line on Left upper arm. Patient will be discharged with wong catheter. amparo was made aware that patient has skin issues. Pictures are taken and uploaded. waiting on ambulance personnel.
--- NOTE | 2019-10-10 17:07 | NUR ---
NURSE NOTES: Patient discharged in stable condition. Vital signs stable, PICC line taken out, gastric tube disconnected and clamp. Montalvo drained and secured with anchor. Patient has no belongings, paper works complete and gave to ambulance personnel. Ambulance personnel aware that RN gave report to Amparo that will be receiving the patient.
--- NOTE | 2019-10-10 17:45 | Cardiac Electrophysiology PN ---
Assessment/Plan Assessment/Plan 1. NSTEMI type 2 in the setting of renal failure. Nonverbal and has electrolyte abnormality. Normal EF. On aspirin and metoprolol 12.5 mg b.i.d. 2. Hyponatremia 3. Severe EKG abnormality due to hyperkalemia, potassium of 9, that resolved after dialysis. 4. S/P Acute renal failure. S/P hemodialysis and now resolved and the dialysis catheter was removed. 5. Hypertension, on metoprolol. 6. PNA and Respiratory failure with hypoxemia. 7. Parkinson disease. 8. Anemia. 9. Dysphagia, status post PEG placement. WILEY RN DC to [facility] today Subjective Subjective In restraints and confused. GT feeding ongoing. DC in progress Objective Last 24 Hour Vital Signs Date Time Temp Pulse Resp B/P (MAP) Pulse Ox O2 Delivery O2 Flow Rate FiO2 10/10/19 16:00 97.9 86 20 115/68 (84) 95 10/10/19 14:00 97.9 83 20 103/73 (83) 94 10/10/19 12:00 97.9 83 20 10/73 (52) 94 10/10/19 09:55 96 Nasal Cannula 4.0 36 10/10/19 09:43 118/62 10/10/19 09:42 80 118/62 10/10/19 09:00 Nasal Cannula 3.0 10/10/19 08:00 98.0 80 20 118/62 (80) 96 10/10/19 04:00 97.7 62 18 121/81 (94) 96 10/10/19 00:00 97.4 62 18 108/68 (81) 96 10/09/19 21:24 Nasal Cannula 3.0 10/09/19 20:34 96 Nasal Cannula 4.0 36 10/09/19 20:14 65 100/61 10/09/19 20:00 97.6 66 16 107/72 (84) 97 Intake and Output 10/09/19 10/10/19 19:00 07:00 Intake Total 550 ml 670 ml Output Total 600 ml Balance 550 ml 70 ml Free Water 100 ml 120 ml Tube Feeding 450 ml 550 ml Output Urine Total 600 ml # Voids 1 # Bowel Movements 1 Objective HEAD AND NECK: No JVD. LUNGS: Decreased breath sounds. CARDIOVASCULAR: Regular S1 and S2 with no gallop or rub. ABDOMEN: Soft, status post G-tube. EXTREMITIES: No pitting edema. Gómez Brewster MD Oct 10, 2019 17:45
--- NOTE | 2019-10-11 12:35 | Discharge Summary ---
Discharge Summary Discharge Summary _ DATE OF ADMISSION: 09/25/2019 DATE OF DISCHARGE: 10/10/2019 DISCHARGED BY: Dr. Dugan REASON FOR ADMISSION: 79 years old male with past medical history of dysphagia, feeding by G-tube, BPH , Parkinson disease, hypothyroidism, resident of senior care facility, was sent for evaluation due to respiratory distress. Patient was hypoxic and required a nonrebreathing mask. Upon evaluation laboratory work-up revealed acute renal failure with BUN 182, creatinine 11.7, acute hyperkalemia with potassium 8.8. Leukocytosis WBC 14.6, hemoglobin 12.4, hematocrit 38.3. Troponin 0.156 , pro BNP 2461. Urinalysis revealed evidence of urinary tract infection. Chest x-ray revealed evidence of multifocal pneumonia. Renal ultrasound revealed bilateral normal kidney echogenicity, no evidence of hydronephrosis. Temporary hemodialysis catheter was placed via femoral vein. Hyperkalemia was treated in emergency department. Rapid COVID-19 was negative. Patient subsequently admitted for further management. CONSULTANTS: biomedical equipment tech Dr. Riley agricultural consultant Dr. Rachel ID specialist Dr. Silva surgery Dr. Nguyen wholesaler Dr. Gutierrez HOSPITAL COURSE: Patient admitted and started on empiric antibiotics. Supplemental oxygen provided and titrated to keep pulse oximetry above 92%. Pulmonary toilet provided. Patient undergone hemodialysis as per agricultural consultant with close monitoring of volumes and cardiorenal parameters. Creatinine drastically improved. No need for further dialysis. Hyperkalemia resolved, prior to discharge potassium 4.1 ; BUN 36, creatinine 1.0. Temporary hemodialysis catheter was discontinued. Hemodynamic status was closely monitored. Patient was hypotensive initially in the course of his illness. Blood pressure responded to fluid challenge and pressor. Blood cultures were negative. COVID-19 x2 was negative. Urine culture was negative. Sputum culture was negative. Repeated urine culture revealed VRE. Patient completed antibiotic treatment for pneumonia and UTI while in the hospital. Low-grade fevers and leukocytosis resolved. Patient was followed -up with chest x-ray. As patient clinically improved, he was able to be weaned down from nonrebreather mask to nasal cannula . Prior to discharge pulse oximetry stable on oxygen via nasal cannula. Serial troponin were monitored and remained elevated. Per biomedical equipment tech patient had NSTEMI type2 in the setting of renal failure. Patient was on antiplatelet therapy with aspirin and beta-blockade. Nitropaste provided. Blood pressure was managed with beta-ashtyn. Initial EKG abnormality was due to hyperkalemia and resolved after dialysis. Echocardiogram demonstrated preserved ejection fraction to the extent visualized. SNF medication continued. Strict aspiration precaution maintained. G-tube feeding continued. Hemoglobin and hematocrit were closely monitored with goal to keep hemoglobin above 7. No need for transfusion ; prior to discharge hemoglobin 9.7 hematocrit 30.3. Wound care provided as per surgeon recommendation. Supportive care provided. Patient clinically stabilized and was ready for transfer back to senior care facility for continuation of care. FINAL DIAGNOSES: Sepsis Shock Acute hypoxemic respiratory failure -resolved Healthcare associated pneumonia UTI with VRE Acute renal failure , requiring start of hemodialysis -resolved Acute hyperkalemia -resolved NSTEMI type 2 ( likely due to acute renal failure) Coronary artery disease Dysphagia, feeding by G tube Parkinson disease Anemia Dementia Equinus and digital contractures Dry eschar left hallux DISCHARGE MEDICATIONS: See Medication Reconciliation list. DISCHARGE INSTRUCTIONS: Patient was discharged to the senior care facility. Follow up with medical doctor at the facility. I have been assigned to dictate discharge summary for this account. I was not involved in the patient's management. Kendy Turk NP Oct 11, 2019 12:35
== END 2019-10-10 17:21 | DRG 871 ==
LOC: EDBD 02:37 → EMR 02:47 → EDBEDREQSVC 04:40 → EDBEDREQ 04:40 → ICU 04:42 → EDBEDREQ 05:00 → ICU 05:37 → 2W 09-28 11:19 → 2E 10-03 17:42 → 4E 10-07 15:32
PROC: 02HV33Z Insertion of Infusion Device into Superior Vena Cava, Percutaneous Approach (ICD-10-PCS; principal; 2019-09-25)
PROC: B548ZZA Ultrasonography of Superior Vena Cava, Guidance (ICD-10-PCS; principal; 2019-09-25)
PROC: 5A1D70Z Performance of Urinary Filtration, Intermittent, Less than 6 Hours Per Day (ICD-10-PCS; principal; 2019-09-25)
PROC: 06HM33Z Insertion of Infusion Device into Right Femoral Vein, Percutaneous Approach (ICD-10-PCS; principal; 2019-09-25)
PROC: 06PYX3Z Removal of Infusion Device from Lower Vein, External Approach (ICD-10-PCS; 2019-09-29)
DX: A41.9 Sepsis, unspecified organism (principal); J96.01 Acute respiratory failure with hypoxia; J69.0 Pneumonitis due to inhalation of food and vomit; G93.41 Metabolic encephalopathy; R65.21 Severe sepsis with septic shock; N39.0 Urinary tract infection, site not specified; N17.9 Acute kidney failure, unspecified; E87.1 Hypo-osmolality and hyponatremia; E46 Unspecified protein-calorie malnutrition; I12.9 Hypertensive chronic kidney disease with stage 1 through stage 4 chronic kidney disease, or unspecified chronic kidney disease; N18.9 Chronic kidney disease, unspecified; Z93.1 Gastrostomy status; G20 Parkinson's disease; F02.80 Dementia in other diseases classified elsewhere, unspecified severity, without behavioral disturbance, psychotic disturbance, mood disturbance, and anxiety; E03.9 Hypothyroidism, unspecified; E78.5 Hyperlipidemia, unspecified; K21.9 Gastro-esophageal reflux disease without esophagitis; Z20.828 Contact with and (suspected) exposure to other viral communicable diseases; E87.5 Hyperkalemia; Z87.01 Personal history of pneumonia (recurrent); F32.9 Major depressive disorder, single episode, unspecified; R13.10 Dysphagia, unspecified; D64.9 Anemia, unspecified; Z68.21 Body mass index [BMI] 21.0-21.9, adult
CPT/HCPCS: 36415; 36569; 36600; 71045; 76770; 76937; 80048; 80053; 80061; 80076; 81001; 81003; 82550; 82553; 82607; 82728; 82746; 82803; 82962; 82977; 83036; 83540; 83550; 83605; 83615; 83735; 83880; 84100; 84443; 84484; 84550; 85007; 85025; 85610; 85730; 86140; 86706; 87040; 87070; 87081; 87086; 87181; 87205; 93005; 93306; 94640; 94660; 94664; 96361; 96365; 96368; 96375; 99291; 99292; J7030; J8499; U0002